=== PATIENT | male | born 1960 | race African-American/Black ===

== ENCOUNTER 2016-06-18 16:20 | Inpatient (IN) ==
[2016-06-18] MEDS ORDERED: 0.9 % Sodium Chloride 1,000 ML IVC ONE (16:47)
[2016-06-18] MEDS ORDERED: Ondansetron 4 MG/2 ML VIAL IV ONE (17:01)
[2016-06-18] MEDS ORDERED: Ipratropium/Albuterol Neb 3 ML IH ONE (17:06)
[2016-06-18 18:32] LABS: Hemoglobin 10.7 g/dL (12.9-16.9); Nucleated Red Blood Cells 0.1 /100 WBC (0)
[2016-06-18] MEDS ORDERED: Levofloxacin 750 MG/150 ML 750 MG/150 ML BAG IVPB ONE (18:32)
[2016-06-18 18:33] LABS: Hematocrit 30.5 % (37.5-50.1); Mean Corpuscular HGB Conc 35.1 g/dL (31.6-35.5); Mean Corpuscular Hemoglobin 28.2 pg (28.0-33.3); Mean Corpuscular Volume 80.3 fL (83.0-100.0); Mean Platelet Volume 10.6 fL (9.4-12.4); Platelet Count 337 K/mcL (140-400); Red Cell Distribution Width 14.9 % (11.5-14.5)
--- NOTE | 2016-06-18 18:36 | Emergency Department Note ---
Disposition Clinical Impression: Severe sepsis, CLL (chronic lymphocytic leukemia) Left upper lobe pneumonia Qualifiers: Pneumonia type: due to unspecified organism Qualified Code(s): J18.1 - Lobar pneumonia, unspecified organism Sphenoid sinusitis Qualifiers: Chronicity: acute Recurrence: not specified as recurrent Qualified Code(s): J01.30 - Acute sphenoidal sinusitis, unspecified DKA (diabetic ketoacidoses) Qualifiers: Diabetes mellitus type: type 2 Diabetes mellitus complication detail: without coma Qualified Code(s): E13.10 - Other specified diabetes mellitus with ketoacidosis without coma Disposition: Admitted As Inpatient Condition: Serious Time of Disposition: 20:36 General Adult HPI - General Chief complaint: ED Upper Respiratory Infection Stated complaint: "spitting up a lot of mucus x2 days" Time Seen by Provider: 06/18/16 16:44 Source: patient Limitations: no limitations Nursing Notes Reviewed: Yes Vital Signs Reviewed: Yes - History of Present Illness HPI Narrative: Patient a 56-year-old male presents with worsening cough and congestion over the past 3 days. Patient has a history of CVA in 2014 with left-sided deficits requiring a cane to walk, CLL and is also diabetic. Patient's reports worsening confusion over the past 2 days and increase sputum production with change in color and consistency getting darker and thicker. reports fever along the first 2 days but no fever yesterday and today. Patient also has generalized weakness worsening over the past 3 days. Patient smokes half pack a day Onset (ago): day(s) Location: chest Radiation: non-radiation Pain Scale: 0 - Related Data Home Medications Medication Instructions Recorded Confirmed Aspirin [Adult Low Dose Aspirin EC] 81 mg PO DAILY 02/15/15 02/29/16 Atorvastatin Calcium [Lipitor] 80 mg PO HS 02/15/15 02/29/16 Citalopram [CeleXA] 40 mg PO DAILY 02/15/15 02/29/16 Gabapentin [Neurontin] 600 mg PO TID 02/15/15 02/29/16 LevETIRAcetam [Keppra] 500 mg PO BID 02/15/15 02/29/16 Metformin [Glucophage] 500 mg PO BID MDD HOLD for 48 02/15/15 02/29/16 hours. Oxycodone HCl [Oxycontin] 5 mg PO BID PRN 02/15/15 02/29/16 Sennosides/Docusate Sodium [Senna 1 tab PO BID PRN 02/15/15 02/29/16 Plus] TraZODone 50 mg PO HS PRN 02/15/15 02/29/16 Aclidinium [place] [Tudorza 1 puff IH BID 08/02/15 02/29/16 Pressair] Albuterol Sulfate [Ventolin Hfa] 2 puff IH Q4H PRN 08/02/15 02/29/16 Oxycodone HCl/Acetaminophen 1 tab PO Q4-6H PRN 08/02/15 02/29/16 [Percocet 5-325 mg Tablet] Tamsulosin [Flomax] 0.4 mg PO DAILY 08/02/15 02/29/16 Promethazine [Phenergan] 25 mg PO Q6HR PRN 10/28/15 02/29/16 Pantoprazole Sodium [Protonix] 40 mg PO DAILY 12/22/15 02/29/16 Polyethylene Glycol 3350 [MiraLAX] 17 gm PO BID PRN 12/22/15 02/29/16 Ranitidine HCl [Zantac] 150 mg PO BID 12/22/15 02/29/16 Previous Rx's Medication Instructions Recorded Ondansetron HCl [Zofran] 4 mg PO Q6H PRN #30 tablet 03/01/15 Prochlorperazine Maleate 10 mg PO Q6HR PRN #30 tablet 03/01/15 [Compazine] Allergies Allergy/AdvReac Type Severity Reaction Status Date / Time Penicillins [PCN] Allergy Rash Verified 02/15/15 15:20 All systems ED: reviewed and negative except as stated. Constitutional: Reports: fever, chills, weakness Eyes: Denies: vision change ENT ED: Reports: congestion. Denies: ear pain, throat pain Cardiovascular: Denies: chest pain, palpitations Respiratory: Reports: cough, dyspnea, sputum production Gastrointestinal: Reports: abdominal pain. Denies: nausea, vomiting Genitourinary: Denies: urgency, dysuria Musculoskeletal: Denies: back pain, neck pain Integumentary: Denies: rash Neurological: Reports: weakness (Generalized) Past Medical History - Past Medical History Attestation: Yes The following information was validated with the patient. Source: patient, obtained from family Medical history: Reports: cancer, CVA, diabetes, hyperlipidemia, kidney stones, seizures Surgical history: Reports: orthopedic, other (carpal tunnel release) Psychiatric history: Reports: anxiety, depression - Social History Smoking Status: Current every day smoker Smokeless Tobacco Status: Yes Alcohol use: Reports: none Drug use: Reports: none Physical Exam - General Limitations: no limitations General appearance: alert, in no apparent distress - Head Head exam: atraumatic, normocephalic, normal inspection - Eye Eye exam: Present: normal appearance, PERRL, EOMI. Absent: scleral icterus - ENT ENT exam: normal exam, normal oropharynx, mucous membranes dry - Neck Neck exam: Present: normal inspection, full ROM, trachea midline. Absent: tenderness - Chest Chest inspection: Present: normal inspection, symmetric chest wall rise - Respiratory Respiratory exam: Present: other (Rhonchi heard in bilateral lung kam worse on the left. Patient has decreased lung sounds mid upper left upper lobe. Patient also has rough wet sounding cough) - Cardiovascular Cardiovascular exam: Present: regular rate, normal rhythm, normal heart sounds - Abdominal Exam Abdominal exam: Present: soft, tenderness (Tentative palpation. Periumbilical to upper epigastric ) - Extremities Exam Extremities exam: Present: normal inspection, full ROM, normal capillary refill , pedal edema (Left lower extremity 1+ pitting edema nontender to palpation). Absent: tenderness - Expanded Lower Extremity Exam Lower leg exam: Absent: palpable cord, Homans' sign Neurovascular/Tendon exam: Present: normal capillary refill. Absent: pulse deficit Course - Reevaluation(s) Reevaluation #1: 56-year-old male presents with increased weakness fatigue and generalized over the past 3 days after the onset of cough and congestion and fever. Patient has history of previous episodes of pneumonia. Patient is a chronic smoker of half pack a day. Patient has worsening confusion as well. History of CVA. Patient currently suspected for pneumonia, and PE, CVA, DKA, possible sepsis. Patient only has a sinus tachycardia. Need further lab evaluation before confirming sepsis. Time: 16:47 Reevaluation #2: Patient's labs came back positive for increased elevated white count of 37.1, elevated lactate, serum ketones and elevated beta hydroxybutyric acid. Patient is started on sepsis protocol for severe sepsis in setting of DKA and pneumonia Time: 18:48 Reevaluation #3: Patient started on antibiotic therapy the IV. Second lines were started. Patient receiving more IV fluids. Patient's doing okay. I have explained his condition and recommendation for admission. The patient accepts treatment and plan - Consultations Consultation #1: Patient is accepted for admission by Dr. Robles and recommends admission to 2A Time: 19:40 Vital Signs Temperature 98.5 F 06/18/16 16:22 Pulse Rate 133 06/18/16 16:22 Respiratory Rate 18 06/18/16 16:22 Blood Pressure 132/70 06/18/16 16:22 O2 Sat by Pulse Oximetry 89 06/18/16 16:22 Temperature 98.5 F 06/18/16 16:22 Pulse Rate 122 06/18/16 19:30 Respiratory Rate 20 06/18/16 19:30 Blood Pressure 140/80 06/18/16 19:30 O2 Sat by Pulse Oximetry 94 06/18/16 19:30 Oxygen Delivery Oxygen Delivery Nasal Cannula Medical Decision Making - Medical Records Medical records reviewed: Yes I reviewed the patient's medical records. - Lab Data Lab results reviewed: Yes I reviewed the patient's lab results. Lab results narrative: Short CBC 06/18/16 Range/Units 18:15 WBC 37.1 H* (4.3-11.1) K/mcL Hgb 10.7 L (12.9-16.9) g/dL Hct 30.5 L (37.5-50.1) % Plt Count 337 (140-400) K/mcL Neutrophils # 36.0 H (1.6-8.9) K/mcL BMP 06/18/16 Range/Units 18:15 Sodium 123 L (136-145) mEq/L Potassium 4.5 (3.5-4.5) mEq/L Chloride 76 L (98-109) mEq/L Carbon Dioxide 29 (19-29) mEq/L BUN 39 H (8-26) mg/dL Creatinine 1.36 H (0.72-1.25) mg/dL Glucose 504 H* (70-99) mg/dL Calcium 10.3 (8.6-10.8) mg/dL Cardiac Enzymes 06/18/16 Range/Units 18:15 Troponin I 0.00 (0-0.03) ng/mL Liver Function 06/18/16 Range/Units 18:15 Total Bilirubin 2.1 H (0.2-1.2) mg/dL Direct Bilirubin 1.6 H (0.0-0.5) mg/dL AST 43 H (5-34) Units/L ALT 25 (0-55) Units/L Alkaline Phosphatase 323 H (38-126) Units/L Albumin 2.1 L (3.5-5.0) g/dL Urine 06/18/16 Range/Units 18:57 Urine Color Dark Yellow (Yellow) Urine Clarity Turbid A (Clear) Urine pH 5.5 (5.0-8.0) pH Units Ur Specific [place] 1.027 H (1.010-1.025) Urine Protein 100 H (Neg-Trace) mg/dL Urine Glucose (UA) >=1000 H (Normal) mg/dL Result diagrams: 06/18/16 18:15 06/18/16 18:15 Lab Results 06/18/16 06/18/16 06/18/16 Range/Units 16:33 18:15 18:15 WBC 37.1 H* (4.3-11.1) K/mcL RBC 3.80 L (4.19-5.50) M/mcL Hgb 10.7 L (12.9-16.9) g/dL Hct 30.5 L (37.5-50.1) % MCV 80.3 L (83.0-100.0) fL MCH 28.2 (28.0-33.3) pg MCHC 35.1 (31.6-35.5) g/dL RDW 14.9 H (11.5-14.5) % Plt Count 337 (140-400) K/mcL MPV 10.6 (9.4-12.4) fL Seg Neutrophils % 93.0 % Band Neutrophils % 4.0 (0-4) % Lymphocytes % 3.0 % Neutrophils # 36.0 H (1.6-8.9) K/mcL Lymphocytes # 1.1 (0.6-4.6) K/mcL Nucleated RBCs/100 WBC 0.1 H (0) /100 WBC Platelet Estimate Normal (Normal) PT (9.4-12.1) Seconds INR APTT (26.0-36.0) Seconds ABG pH (7.32-7.45) pH Units ABG pCO2 (35-45) mmHg ABG pO2 (85-104) mmHg ABG HCO3 (21-27) mEQ/L ABG Total CO2 (20-26) mEq/L ABG O2 Saturation (95-98) % ABG Base Excess (-2.0 to 3.0) mEq/L Liter Flow L/MIN Blood Gas Modality Sodium 123 L (136-145) mEq/L Potassium 4.5 (3.5-4.5) mEq/L Chloride 76 L (98-109) mEq/L Carbon Dioxide 29 (19-29) mEq/L BUN 39 H (8-26) mg/dL Creatinine 1.36 H (0.72-1.25) mg/dL Est GFR ( Amer) > 60 (> 60) Est GFR (Non-Af Amer) 54 L (> 60) BUN/Creatinine Ratio 29 H (6-26) Glucose 504 H* (70-99) mg/dL POC Glucose 460 H* (58-89) Calculated Osmolality 288 (280-300) Lactic Acid (0.5-2.2) mmol/L Calcium 10.3 (8.6-10.8) mg/dL Phosphorus (2.3-4.7) mg/dL Magnesium (1.6-2.6) mg/dL Total Bilirubin (0.2-1.2) mg/dL Direct Bilirubin (0.0-0.5) mg/dL Indirect Bilirubin (0.0-1.2) mg/dL AST (5-34) Units/L ALT (0-55) Units/L Alkaline Phosphatase (38-126) Units/L Troponin I (0-0.03) ng/mL B-Natriuretic Peptide (0-100) pg/mL Serum Total Protein (6.0-8.3) g/dL Albumin (3.5-5.0) g/dL Globulin (2.4-3.5) g/dL Albumin/Globulin Ratio (1.1-2.2) Beta-Hydroxybutyric Acd (0.02-0.27) mmol/L Urine Color (Yellow) Urine Clarity (Clear) Urine pH (5.0-8.0) pH Units Ur Specific [place] (1.010-1.025) Urine Protein (Neg-Trace) mg/dL Urine Glucose (UA) (Normal) mg/dL Urine Ketones (Negative) mg/dL Urine Blood (Negative) Urine Nitrite (Negative) Urine Bilirubin (Negative) Urine Urobilinogen (Normal) mg/dL Ur Leukocyte Esterase (Negative) Urine Microscopic RBC (0-3) per hpf Urine Microscopic WBC (0-3) per hpf Ur Squamous Epith Cells (None-Few) per lpf Amorphous Sediment (Few) Urine Bacteria (None-Few) per hpf Ur Culture Indicated? (NO) 06/18/16 06/18/16 06/18/16 Range/Units 18:15 18:15 18:15 WBC (4.3-11.1) K/mcL RBC (4.19-5.50) M/mcL Hgb (12.9-16.9) g/dL Hct (37.5-50.1) % MCV (83.0-100.0) fL MCH (28.0-33.3) pg MCHC (31.6-35.5) g/dL RDW (11.5-14.5) % Plt Count (140-400) K/mcL MPV (9.4-12.4) fL Seg Neutrophils % % Band Neutrophils % (0-4) % Lymphocytes % % Neutrophils # (1.6-8.9) K/mcL Lymphocytes # (0.6-4.6) K/mcL Nucleated RBCs/100 WBC (0) /100 WBC Platelet Estimate (Normal) PT 16.3 H (9.4-12.1) Seconds INR 1.5 APTT 23.5 L (26.0-36.0) Seconds ABG pH (7.32-7.45) pH Units ABG pCO2 (35-45) mmHg ABG pO2 (85-104) mmHg ABG HCO3 (21-27) mEQ/L ABG Total CO2 (20-26) mEq/L ABG O2 Saturation (95-98) % ABG Base Excess (-2.0 to 3.0) mEq/L Liter Flow L/MIN Blood Gas Modality Sodium (136-145) mEq/L Potassium (3.5-4.5) mEq/L Chloride (98-109) mEq/L Carbon Dioxide (19-29) mEq/L BUN (8-26) mg/dL Creatinine (0.72-1.25) mg/dL Est GFR ( Amer) (> 60) Est GFR (Non-Af Amer) (> 60) BUN/Creatinine Ratio (6-26) Glucose (70-99) mg/dL POC Glucose (58-89) Calculated Osmolality (280-300) Lactic Acid 2.7 H (0.5-2.2) mmol/L Calcium (8.6-10.8) mg/dL Phosphorus (2.3-4.7) mg/dL Magnesium (1.6-2.6) mg/dL Total Bilirubin (0.2-1.2) mg/dL Direct Bilirubin (0.0-0.5) mg/dL Indirect Bilirubin (0.0-1.2) mg/dL AST (5-34) Units/L ALT (0-55) Units/L Alkaline Phosphatase (38-126) Units/L Troponin I (0-0.03) ng/mL B-Natriuretic Peptide (0-100) pg/mL Serum Total Protein (6.0-8.3) g/dL Albumin (3.5-5.0) g/dL Globulin (2.4-3.5) g/dL Albumin/Globulin Ratio (1.1-2.2) Beta-Hydroxybutyric Acd 0.83 H (0.02-0.27) mmol/L Urine Color (Yellow) Urine Clarity (Clear) Urine pH (5.0-8.0) pH Units Ur Specific [place] (1.010-1.025) Urine Protein (Neg-Trace) mg/dL Urine Glucose (UA) (Normal) mg/dL Urine Ketones (Negative) mg/dL Urine Blood (Negative) Urine Nitrite (Negative) Urine Bilirubin (Negative) Urine Urobilinogen (Normal) mg/dL Ur Leukocyte Esterase (Negative) Urine Microscopic RBC (0-3) per hpf Urine Microscopic WBC (0-3) per hpf Ur Squamous Epith Cells (None-Few) per lpf Amorphous Sediment (Few) Urine Bacteria (None-Few) per hpf Ur Culture Indicated? (NO) 06/18/16 06/18/16 06/18/16 Range/Units 18:15 18:15 18:15 WBC (4.3-11.1) K/mcL RBC (4.19-5.50) M/mcL Hgb (12.9-16.9) g/dL Hct (37.5-50.1) % MCV (83.0-100.0) fL MCH (28.0-33.3) pg MCHC (31.6-35.5) g/dL RDW (11.5-14.5) % Plt Count (140-400) K/mcL MPV (9.4-12.4) fL Seg Neutrophils % % Band Neutrophils % (0-4) % Lymphocytes % % Neutrophils # (1.6-8.9) K/mcL Lymphocytes # (0.6-4.6) K/mcL Nucleated RBCs/100 WBC (0) /100 WBC Platelet Estimate (Normal) PT (9.4-12.1) Seconds INR APTT (26.0-36.0) Seconds ABG pH (7.32-7.45) pH Units ABG pCO2 (35-45) mmHg ABG pO2 (85-104) mmHg ABG HCO3 (21-27) mEQ/L ABG Total CO2 (20-26) mEq/L ABG O2 Saturation (95-98) % ABG Base Excess (-2.0 to 3.0) mEq/L Liter Flow L/MIN Blood Gas Modality Sodium (136-145) mEq/L Potassium (3.5-4.5) mEq/L Chloride (98-109) mEq/L Carbon Dioxide (19-29) mEq/L BUN (8-26) mg/dL Creatinine (0.72-1.25) mg/dL Est GFR ( Amer) (> 60) Est GFR (Non-Af Amer) (> 60) BUN/Creatinine Ratio (6-26) Glucose (70-99) mg/dL POC Glucose (58-89) Calculated Osmolality (280-300) Lactic Acid (0.5-2.2) mmol/L Calcium (8.6-10.8) mg/dL Phosphorus 3.6 (2.3-4.7) mg/dL Magnesium 2.3 (1.6-2.6) mg/dL Total Bilirubin 2.1 H (0.2-1.2) mg/dL Direct Bilirubin 1.6 H (0.0-0.5) mg/dL Indirect Bilirubin 0.5 (0.0-1.2) mg/dL AST 43 H (5-34) Units/L ALT 25 (0-55) Units/L Alkaline Phosphatase 323 H (38-126) Units/L Troponin I 0.00 (0-0.03) ng/mL B-Natriuretic Peptide 33 (0-100) pg/mL Serum Total Protein 6.2 (6.0-8.3) g/dL Albumin 2.1 L (3.5-5.0) g/dL Globulin 4.1 H (2.4-3.5) g/dL Albumin/Globulin Ratio 0.5 L (1.1-2.2) Beta-Hydroxybutyric Acd (0.02-0.27) mmol/L Urine Color (Yellow) Urine Clarity (Clear) Urine pH (5.0-8.0) pH Units Ur Specific [place] (1.010-1.025) Urine Protein (Neg-Trace) mg/dL Urine Glucose (UA) (Normal) mg/dL Urine Ketones (Negative) mg/dL Urine Blood (Negative) Urine Nitrite (Negative) Urine Bilirubin (Negative) Urine Urobilinogen (Normal) mg/dL Ur Leukocyte Esterase (Negative) Urine Microscopic RBC (0-3) per hpf Urine Microscopic WBC (0-3) per hpf Ur Squamous Epith Cells (None-Few) per lpf Amorphous Sediment (Few) Urine Bacteria (None-Few) per hpf Ur Culture Indicated? (NO) 06/18/16 06/18/16 06/18/16 Range/Units 18:57 20:10 20:12 WBC (4.3-11.1) K/mcL RBC (4.19-5.50) M/mcL Hgb (12.9-16.9) g/dL Hct (37.5-50.1) % MCV (83.0-100.0) fL MCH (28.0-33.3) pg MCHC (31.6-35.5) g/dL RDW (11.5-14.5) % Plt Count (140-400) K/mcL MPV (9.4-12.4) fL Seg Neutrophils % % Band Neutrophils % (0-4) % Lymphocytes % % Neutrophils # (1.6-8.9) K/mcL Lymphocytes # (0.6-4.6) K/mcL Nucleated RBCs/100 WBC (0) /100 WBC Platelet Estimate (Normal) PT (9.4-12.1) Seconds INR APTT (26.0-36.0) Seconds ABG pH 7.51 H (7.32-7.45) pH Units ABG pCO2 41 (35-45) mmHg ABG pO2 76 L (85-104) mmHg ABG HCO3 32.7 H (21-27) mEQ/L ABG Total CO2 34.0 H (20-26) mEq/L ABG O2 Saturation 96 (95-98) % ABG Base Excess 8.9 H (-2.0 to 3.0) mEq/L Liter Flow 2.5 L/MIN Blood Gas Modality NC Sodium (136-145) mEq/L Potassium (3.5-4.5) mEq/L Chloride (98-109) mEq/L Carbon Dioxide (19-29) mEq/L BUN (8-26) mg/dL Creatinine (0.72-1.25) mg/dL Est GFR ( Amer) (> 60) Est GFR (Non-Af Amer) (> 60) BUN/Creatinine Ratio (6-26) Glucose (70-99) mg/dL POC Glucose 326 H (58-89) Calculated Osmolality (280-300) Lactic Acid (0.5-2.2) mmol/L Calcium (8.6-10.8) mg/dL Phosphorus (2.3-4.7) mg/dL Magnesium (1.6-2.6) mg/dL Total Bilirubin (0.2-1.2) mg/dL Direct Bilirubin (0.0-0.5) mg/dL Indirect Bilirubin (0.0-1.2) mg/dL AST (5-34) Units/L ALT (0-55) Units/L Alkaline Phosphatase (38-126) Units/L Troponin I (0-0.03) ng/mL B-Natriuretic Peptide (0-100) pg/mL Serum Total Protein (6.0-8.3) g/dL Albumin (3.5-5.0) g/dL Globulin (2.4-3.5) g/dL Albumin/Globulin Ratio (1.1-2.2) Beta-Hydroxybutyric Acd (0.02-0.27) mmol/L Urine Color Dark Yellow (Yellow) Urine Clarity Turbid A (Clear) Urine pH 5.5 (5.0-8.0) pH Units Ur Specific [place] 1.027 H (1.010-1.025) Urine Protein 100 H (Neg-Trace) mg/dL Urine Glucose (UA) >=1000 H (Normal) mg/dL Urine Ketones Negative (Negative) mg/dL Urine Blood Trace H (Negative) Urine Nitrite Negative (Negative) Urine Bilirubin Small H (Negative) Urine Urobilinogen 4.0 H (Normal) mg/dL Ur Leukocyte Esterase Negative (Negative) Urine Microscopic RBC 0-3 (0-3) per hpf Urine Microscopic WBC 5-15 H (0-3) per hpf Ur Squamous Epith Cells Many H (None-Few) per lpf Amorphous Sediment Moderate H (Few) Urine Bacteria None Seen (None-Few) per hpf Ur Culture Indicated? YES A (NO) - Radiology Data Radiology results reviewed: Yes I reviewed the patient's radiology results. Chest X-Ray 06/18/16 16:59 IMPRESSION: 1. Large region of consolidation and air bronchograms within the left mid lung compatible with pneumonia. D/ / Manjinder Rivas MD / Manjinder Rivas MD Interpreting Provider: Manjinder Rivas MD Head CT 06/18/16 17:01 IMPRESSION: 1. No acute intracranial abnormality. 2. Acute left sphenoid sinusitis. D/ / Jovi Motley MD / Jovi Motley MD Interpreting Provider: Jovi Motley MD - EKG Data EKG #1 EKG attestation: Yes I reviewed and interpreted this EKG. EKG results narrative: EKG dated 06/18/2016 at 1642 hrs. shows a sinus tachycardia at a rate of [address] elevations and depressions in the leads, no QRS widening or QT prolongation. EKG compared to previous EKG taken 12/27/2015 which shows a sinus rhythm at a rate of 84 beats a minute with no signs of ischemia of ST depression and depressions in the leads. Critical Care Time Critical Care Time: Yes Total Critical Care Time: 35 Attestation: Starr care time managing patient's pneumonia, hypoxia, DKA, severe sepsis, and altered mental status. Attestation Statement - Attestation Attestation: Patient was seen with resident physician. I reviewed the history, physical, assessment and plan, and agree with the findings. I also personally evaluated this patient and had [id number] time with this patient. 56-year-old male presents to the emergency department with altered mental status cough and worsening shortness of breath. Patient has a history of stroke in the past, and said this is significantly different. She says he has just been more confused and not able take care of himself. She notes that he has had worsening shortness of breath with productive cough for the last several days to the point today he is really struggling and she is having a difficult time taking care of him. Patient self says he feels short of breath with cough he has no focal weaknesses or complaints thereof. Unsure about fevers. No nausea vomiting or diarrhea. On exam vital signs patient's tachycardic. Blood pressure is stable. ENT is unremarkable. Lungs diffuse wheezing and crackles throughout. Decreased breath sounds also noted. Heart tachycardic regular rhythm. Abdomen soft nontender. Extremities unremarkable. Neurologically patient answers all questions to me moves extremities equally and has no focal neurologic findings. Workup was begun for variety of issues. Head CT scan showed sinusitis. Labs showed DKA with increased glucose level. As well as a variety of other abnormalities including a white blood cell count greater than 30,000. Patient met severe sepsis criteria that protocol was activated. He received IV fluids multiple IV antibiotics. Critical care time for this patient was 35 minutes to manage his severe sepsis. Hospitalist was notified of the need for admission and admission was subtotally arranged. Hemodynamically the patient remained tachycardic but blood pressure was stable throughout his stay in the ED. Mental status also was stable. Patient was also somewhat improved with breathing treatments. I agree with the resident physician assessment plan.
[2016-06-18 18:45] LABS: BUN/Creatinine Ratio 29 (6-26); Blood Urea Nitrogen 39 mg/dL (8-26); Calcium 10.3 mg/dL (8.6-10.8); Carbon Dioxide 29 mEq/L (19-29); Chloride 76 mEq/L (98-109); Osmolality,Calculated 288 (280-300); Potassium 4.5 mEq/L (3.5-4.5); Sodium 123 mEq/L (136-145); eGFR For African Americans > 60 (> 60); eGFR For Non-African Americans 54 (> 60)
[2016-06-18] MEDS ORDERED: Aztreonam 2,000 MG in D5% in Water (Mini-Bag+) 100 ML IVPB ONE (18:48)
[2016-06-18 18:49] LABS: Glucose 504 mg/dL (70-99)
[2016-06-18] MEDS ORDERED: Insulin Human Regular 20 UNIT in 0.9 % Sodium Chloride 10 ML IV ONE (18:52)
[2016-06-18 18:59] LABS: Lymphocytes # 1.1 K/mcL (0.6-4.6)
[2016-06-18 19:00] LABS: Platelet Estimate Normal (Normal)
[2016-06-18 19:06] LABS: Bilirubin,Urine Small (Negative); Blood,Urine Trace (Negative); Clarity,Urine Turbid (Clear); Color,Urine Dark Yellow (Yellow); Glucose,Urine (UA) >=1000 mg/dL (Normal); Ketones,Urine Negative (Negative); Leukocyte Esterase,Urine Negative (Negative); Nitrite,Urine Negative (Negative); PH,Urine 5.5 pH Units (5.0-8.0); Protein,Urine 100 mg/dL (Neg-Trace); Specific Gravity,Urine 1.027 (1.010-1.025)
[2016-06-18 19:07] LABS: INR 1.5; Prothrombin Time 16.3 Seconds (9.4-12.1)
[2016-06-18 19:08] LABS: Bacteria,Urine None Seen per hpf (None-Few); RBC,Urine 0-3 per hpf (0-3); Squamous Epithelial Cell,Urine Many per lpf (None-Few)
[2016-06-18 19:10] LABS: Activated Partial Thrombo Time 23.5 Seconds (26.0-36.0)
[2016-06-18 19:17] LABS: Albumin 2.1 g/dL (3.5-5.0); Albumin/Globulin Ratio 0.5 (1.1-2.2); Bilirubin,Direct 1.6 mg/dL (0.0-0.5); Bilirubin,Indirect 0.5 mg/dL (0.0-1.2); Bilirubin,Total 2.1 mg/dL (0.2-1.2); Globulin 4.1 g/dL (2.4-3.5); Magnesium 2.3 mg/dL (1.6-2.6); Phosphorous 3.6 mg/dL (2.3-4.7); Total Protein 6.2 g/dL (6.0-8.3)
[2016-06-18 19:21] LABS: Amorphous Sediment,Urine Moderate (Few)
[2016-06-18 20:18] LABS: ABG Base Excess 8.9 mEq/L (-2.0 to 3.0); ABG HCO3 32.7 mEQ/L (21-27); ABG Oxygen Saturation 96 % (95-98); ABG PCO2 41 mmHg (35-45); ABG PH 7.51 pH Units (7.32-7.45); ABG PO2 76 mmHg (85-104); Blood Gas Liter Flow 2.5 L/MIN
[2016-06-18] MEDS ORDERED: 0.9 % Sodium Chloride 1,000 ML ONE (20:38)
[2016-06-18] MEDS: 0.9 % Sodium Chloride 1,000 ML IVC SCH ×3 (20:40→22:03)
[2016-06-18] MEDS ORDERED: Insulin LISPRO 300 UNITS/3 ML VIAL SQ PRN (20:42)
[2016-06-18] MEDS ORDERED: Acetaminophen 325 MG TABLET PO PRN (20:42)
[2016-06-18] MEDS ORDERED: Naloxone 0.4 MG/ML INJ IVP PRN (20:42)
[2016-06-18] MEDS ORDERED: Insulin Human Regular 100 UNIT in 0.9 % Sodium Chloride 100 ML IVC SCH (20:45)
[2016-06-18] MEDS ORDERED: Albuterol 2.5 MG/3 ML NEBULIZER IH PRN (21:52)
--- NOTE | 2016-06-18 22:06 | Internal Med History&Physical ---
<Kaitlin King - Last Filed: 06/18/16 23:35> Date of Encounter: 06/18/16 Time of Encounter: 22:00 Assessment and Plan (1) Severe sepsis Current visit: Yes Status: Acute Patient with pneumonia, elevated WBC count to 37.1, tachycardia with HR 110s, and lactate elevated to 2.7, meeting criteria for severe sepsis. Repeat lactate 2.7 again Blood cultures, urine culture, sputum cultures ordered. 3L of fluid bolus ordered Broad spectrum antibiotics initiated with Aztreonam, Levaquin and vancomycin. (2) Uncontrolled type 2 DM with hyperosmolar nonketotic hyperglycemia Current visit: Yes Status: Acute Patient with blood sugar 504, Anion gap 18, elevated serum ketones, but no ketonuria. ABG did not show acidosis. Patient has Hyperglycemic hyperosmolar syndrome. Given 3L of fluid boluses, plus fluid replacement per [facility] protocol. Check blood sugars Q1hr Insulin drip with [facility] protocol Recheck BMP Q4hrs. Replace electrolytes as necessary. De-escalate to basal insulin and sliding scale when blood sugars come down to < 300 and anion gap closes. (3) Pneumonia Current visit: Yes Status: Acute Patient with cough, shortness of breath, fever and chills. CXR shows large region of consolidation in left lung consistent with pneumonia. On exam, patient with rhonchi on the left side. WBC elevated to 37.1. Lactate elevated to 2.7. Sputum cultures and blood cultures ordered. Fluid boluses given. Broad spectrum antibiotics initiated with Levaquin, Aztreonam and vancomycin. duoneb treatments QID albuterol nebulizer Q2hr PRN titrate oxygen to maintain O2 saturation > 92%. Qualifiers: Pneumonia type: due to unspecified organism Laterality: left Lung location: unspecified part of lung Qualified Code(s): J18.9 - Pneumonia, unspecified organism (4) Seizure disorder Current visit: No Status: Acute Continue home dose of Keppra. Seizure precautions. (5) DENZEL (acute kidney injury) Current visit: Yes Status: Acute BUN elevated to 39 and Cr elevated to 1.36, likely due to dehydration secondary to HHS. Patient getting large amount of fluid replacement for sepsis and [facility] protocol. Rechecking chemistry Q4 hours and will monitor. (6) DVT prophylaxis Current visit: No Status: Acute Ambulated with assistance anti-embolic stockings heparin 5000u SQ TID Internal Medicine - H&P: HPI Chief complaint: fever, cough, confusion Admitted From: Emergency Dept Plans for Post Hospital Care: Home History of present illness: Mr. Mcleod is a 56 year old male is, seizure disorder, history of CVA with residual left-sided weakness, history of CLL, presented to the emergency department today with complaints of cough, congestion, fever, and confusion. Patient had increasing cough, and congestion over the last several days, accompanied by fevers at home with chills, sweats, and body aches. His family reported that he has been making off the wall comments, but is oriented. Patient reports some lightheadedness occasionally, denies any chest pain, or palpitations. Shortness of breath increasing over the last several days as well. He denies any dysuria, but reports increased thirst and increased urination. Evaluation in the emergency department included a head CT which showed no acute intracranial abnormality, but acute left sphenoid sinusitis. He showed a large region of consolidation in the left lung consistent with pneumonia. Lab results showed increased white blood cell count to 37.1. Lactic acid was elevated to 2.7, and with tachycardia with HR in 110s, patient has severe sepsis. He had hyperglycemia with glucose of 504, and with anion gap of 18 and increased serum ketones, he was found have hyperglycemic hyperosmolar syndrome. He also had acute kidney injury with BUN of 39 and creatinine 1.36. On exam, patient was alert and oriented, in no acute distress. He was satting 95% on 2 L nasal cannula. Lungs had rhonchi on the left and clear on the right. Heart rate was tachycardic with regular rhythm. Past Med Surg Social Fam HX - Past Medical History Medical history: cancer, CVA, diabetes, hyperlipidemia, seizures Psychiatric history: anxiety, depression - Past Surgical History Surgical History: appendectomy, orthopedic, other - Social History Smoking Status: Current every day smoker Packs per day: 1 Smokeless Tobacco Status: Yes Alcohol use: none Drug use: marijuana - Family History Mother Living Status: Age at : 79 Cause of : Pancreatic cancer Hx Family Endocrine Disorder: Yes (Diabetes) Father Living Status: Age at : 60 Cause of : Heart surgery Hx Family Cardiac Disorders: Yes Internal Medicine - H&P: Meds Aspirin [Adult Low Dose Aspirin EC] 81 mg PO DAILY 02/15/15 [History] Atorvastatin Calcium [Lipitor] 80 mg PO HS 02/15/15 [History] Citalopram [CeleXA] 40 mg PO DAILY 02/15/15 [History] Gabapentin [Neurontin] 600 mg PO TID 02/15/15 [History] LevETIRAcetam [Keppra] 500 mg PO BID 02/15/15 [History] Metformin [Glucophage] 500 mg PO BID MDD HOLD for 48 hours. 02/15/15 [History] Oxycodone HCl [Oxycontin] 5 mg PO BID PRN 02/15/15 [History] Sennosides/Docusate Sodium [Senna Plus] 1 tab PO BID PRN 02/15/15 [History] TraZODone 50 mg PO HS PRN 02/15/15 [History] Ondansetron HCl [Zofran] 4 mg PO Q6H PRN #30 tablet 03/01/15 [Rx] Prochlorperazine Maleate [Compazine] 10 mg PO Q6HR PRN #30 tablet 03/01/15 [Rx] Aclidinium [place] [Tudorza Pressair] 1 puff IH BID 08/02/15 [History] Albuterol Sulfate [Ventolin Hfa] 2 puff IH Q4H PRN 08/02/15 [History] Oxycodone HCl/Acetaminophen [Percocet 5-325 mg Tablet] 1 tab PO Q4-6H PRN [History] Tamsulosin [Flomax] 0.4 mg PO DAILY 08/02/15 [History] Promethazine [Phenergan] 25 mg PO Q6HR PRN 10/28/15 [History] Pantoprazole Sodium [Protonix] 40 mg PO DAILY 12/22/15 [History] Polyethylene Glycol 3350 [MiraLAX] 17 gm PO BID PRN 12/22/15 [History] Ranitidine HCl [Zantac] 150 mg PO BID 12/22/15 [History] Allergies Penicillins [PCN] Allergy (Verified 02/15/15 15:20) Rash All Systems PM: A 10-system review of systems was performed and is negative for pertinent findings except as documented above in the HPI. - Constitutional Constitutional: chills, fatigue, fever(s), night sweats - EENT Eyes: no change in vision, no discharge, no pain, no photophobia Ears: no ear discharge, no ear pain, no tinnitus Nose, mouth and throat: nasal congestion, nasal discharge, no dysphagia, no neck pain, no sore throat - Cardiovascular Cardiovascular ROS IM: dyspnea, dyspnea on exertion, lightheadedness, no chest pain, no diaphoresis, no palpitations, no syncope - Respiratory Respiratory: cough, dyspnea, dyspnea on exertion, chest congestion, excessive phlegm production, change in phlegm color, no wheezing - Gastrointestinal Gastrointestinal: no abdominal pain, no diarrhea, no hematemesis, no hematochezia, no melena, no nausea, no vomiting - Genitourinary Genitourinary ROS male: urinary frequency - Musculoskeletal Musculoskeletal ROS IM: no numbness, no tingling - Integumentary Integumentary IM: no rash, no unusual bruising - Neurological Neurological ROS: no confusion, no convulsions, no focal weakness, no numbness, no tingling, no tremor(s) - Endocrine Endocrine IM: polydipsia, polyuria - Hematologic/Lymphatic Hematologic/Lymphatic: no easy bruising - Constitutional Vitals: Temp Pulse Resp BP Pulse Ox 98.0 F 110 28 121/74 94 06/18/16 20:53 06/18/16 21:00 06/18/16 21:00 06/18/16 21:00 06/18/16 21:00 General appearance: Present: A&O X 3, pleasant, no acute distress - Head Head exam: Present: atraumatic, normocephalic - Eye Eye exam: Present: PERRL, conjuntiva pink, sclera anicteric Pupils: Present: PERRL - Neck Neck exam general surgery: Present: supple, trachea midline. Absent: lymphadenopathy - Respiratory Respiratory exam: Present: rhonchi. Absent: accessory muscle use, rales, wheezes - Cardiovascular Cardiovascular exam: Present: +S1, +S2, tachycardia. Absent: diastolic murmur, gallop, rubs, systolic murmur - GI/Abdominal GI/Abdominal exam: Present: normal bowel sounds, soft, no peritoneal signs. Absent: distended, tenderness - Extremities Exam Extremities exam: Present: warm, radial pulses palpable and symetrical. Absent : calf tenderness, cyanotic, pedal edema - Neurological Exam Neurological exam: Present: CN II-XII intact, oriented X3, no focal deficits. Absent: facial droop, speech deficit - Skin Skin exam: Present: dry, intact Internal Med - H&P Results - Labs CBC & Chem 7: 06/18/16 18:15 06/18/16 22:49 Labs: All Lab Results (24 Hours) 06/18/16 06/18/16 06/18/16 Range/Units 16:33 18:15 18:15 WBC 37.1 H* (4.3-11.1) K/mcL RBC 3.80 L (4.19-5.50) M/mcL Hgb 10.7 L (12.9-16.9) g/dL Hct 30.5 L (37.5-50.1) % MCV 80.3 L (83.0-100.0) fL MCH 28.2 (28.0-33.3) pg MCHC 35.1 (31.6-35.5) g/dL RDW 14.9 H (11.5-14.5) % Plt Count 337 (140-400) K/mcL MPV 10.6 (9.4-12.4) fL Seg Neutrophils % 93.0 % Band Neutrophils % 4.0 (0-4) % Lymphocytes % 3.0 % Neutrophils # 36.0 H (1.6-8.9) K/mcL Lymphocytes # 1.1 (0.6-4.6) K/mcL Nucleated RBCs/100 WBC 0.1 H (0) /100 WBC Platelet Estimate Normal (Normal) PT (9.4-12.1) Seconds INR APTT (26.0-36.0) Seconds ABG pH (7.32-7.45) pH Units ABG pCO2 (35-45) mmHg ABG pO2 (85-104) mmHg ABG HCO3 (21-27) mEQ/L ABG Total CO2 (20-26) mEq/L ABG O2 Saturation (95-98) % ABG Base Excess (-2.0 to 3.0) mEq/L Liter Flow L/MIN Blood Gas Modality Sodium 123 L (136-145) mEq/L Potassium 4.5 (3.5-4.5) mEq/L Chloride 76 L (98-109) mEq/L Carbon Dioxide 29 (19-29) mEq/L BUN 39 H (8-26) mg/dL Creatinine 1.36 H (0.72-1.25) mg/dL Est GFR ( Amer) > 60 (> 60) Est GFR (Non-Af Amer) 54 L (> 60) BUN/Creatinine Ratio 29 H (6-26) Glucose 504 H* (70-99) mg/dL POC Glucose 460 H* (58-89) Calculated Osmolality 288 (280-300) Lactic Acid (0.5-2.2) mmol/L Calcium 10.3 (8.6-10.8) mg/dL Phosphorus (2.3-4.7) mg/dL Magnesium (1.6-2.6) mg/dL Total Bilirubin (0.2-1.2) mg/dL Direct Bilirubin (0.0-0.5) mg/dL Indirect Bilirubin (0.0-1.2) mg/dL AST (5-34) Units/L ALT (0-55) Units/L Alkaline Phosphatase (38-126) Units/L Troponin I (0-0.03) ng/mL B-Natriuretic Peptide (0-100) pg/mL Serum Total Protein (6.0-8.3) g/dL Albumin (3.5-5.0) g/dL Globulin (2.4-3.5) g/dL Albumin/Globulin Ratio (1.1-2.2) Beta-Hydroxybutyric Acd (0.02-0.27) mmol/L Urine Color (Yellow) Urine Clarity (Clear) Urine pH (5.0-8.0) pH Units Ur Specific [place] (1.010-1.025) Urine Protein (Neg-Trace) mg/dL Urine Glucose (UA) (Normal) mg/dL Urine Ketones (Negative) mg/dL Urine Blood (Negative) Urine Nitrite (Negative) Urine Bilirubin (Negative) Urine Urobilinogen (Normal) mg/dL Ur Leukocyte Esterase (Negative) Urine Microscopic RBC (0-3) per hpf Urine Microscopic WBC (0-3) per hpf Ur Squamous Epith Cells (None-Few) per lpf Amorphous Sediment (Few) Urine Bacteria (None-Few) per hpf Ur Culture Indicated? (NO) 06/18/16 06/18/16 06/18/16 Range/Units 18:15 18:15 18:15 WBC (4.3-11.1) K/mcL RBC (4.19-5.50) M/mcL Hgb (12.9-16.9) g/dL Hct (37.5-50.1) % MCV (83.0-100.0) fL MCH (28.0-33.3) pg MCHC (31.6-35.5) g/dL RDW (11.5-14.5) % Plt Count (140-400) K/mcL MPV (9.4-12.4) fL Seg Neutrophils % % Band Neutrophils % (0-4) % Lymphocytes % % Neutrophils # (1.6-8.9) K/mcL Lymphocytes # (0.6-4.6) K/mcL Nucleated RBCs/100 WBC (0) /100 WBC Platelet Estimate (Normal) PT 16.3 H (9.4-12.1) Seconds INR 1.5 APTT 23.5 L (26.0-36.0) Seconds ABG pH (7.32-7.45) pH Units ABG pCO2 (35-45) mmHg ABG pO2 (85-104) mmHg ABG HCO3 (21-27) mEQ/L ABG Total CO2 (20-26) mEq/L ABG O2 Saturation (95-98) % ABG Base Excess (-2.0 to 3.0) mEq/L Liter Flow L/MIN Blood Gas Modality Sodium (136-145) mEq/L Potassium (3.5-4.5) mEq/L Chloride (98-109) mEq/L Carbon Dioxide (19-29) mEq/L BUN (8-26) mg/dL Creatinine (0.72-1.25) mg/dL Est GFR ( Amer) (> 60) Est GFR (Non-Af Amer) (> 60) BUN/Creatinine Ratio (6-26) Glucose (70-99) mg/dL POC Glucose (58-89) Calculated Osmolality (280-300) Lactic Acid 2.7 H (0.5-2.2) mmol/L Calcium (8.6-10.8) mg/dL Phosphorus (2.3-4.7) mg/dL Magnesium (1.6-2.6) mg/dL Total Bilirubin (0.2-1.2) mg/dL Direct Bilirubin (0.0-0.5) mg/dL Indirect Bilirubin (0.0-1.2) mg/dL AST (5-34) Units/L ALT (0-55) Units/L Alkaline Phosphatase (38-126) Units/L Troponin I (0-0.03) ng/mL B-Natriuretic Peptide (0-100) pg/mL Serum Total Protein (6.0-8.3) g/dL Albumin (3.5-5.0) g/dL Globulin (2.4-3.5) g/dL Albumin/Globulin Ratio (1.1-2.2) Beta-Hydroxybutyric Acd 0.83 H (0.02-0.27) mmol/L Urine Color (Yellow) Urine Clarity (Clear) Urine pH (5.0-8.0) pH Units Ur Specific [place] (1.010-1.025) Urine Protein (Neg-Trace) mg/dL Urine Glucose (UA) (Normal) mg/dL Urine Ketones (Negative) mg/dL Urine Blood (Negative) Urine Nitrite (Negative) Urine Bilirubin (Negative) Urine Urobilinogen (Normal) mg/dL Ur Leukocyte Esterase (Negative) Urine Microscopic RBC (0-3) per hpf Urine Microscopic WBC (0-3) per hpf Ur Squamous Epith Cells (None-Few) per lpf Amorphous Sediment (Few) Urine Bacteria (None-Few) per hpf Ur Culture Indicated? (NO) 06/18/16 06/18/16 06/18/16 Range/Units 18:15 18:15 18:15 WBC (4.3-11.1) K/mcL RBC (4.19-5.50) M/mcL Hgb (12.9-16.9) g/dL Hct (37.5-50.1) % MCV (83.0-100.0) fL MCH (28.0-33.3) pg MCHC (31.6-35.5) g/dL RDW (11.5-14.5) % Plt Count (140-400) K/mcL MPV (9.4-12.4) fL Seg Neutrophils % % Band Neutrophils % (0-4) % Lymphocytes % % Neutrophils # (1.6-8.9) K/mcL Lymphocytes # (0.6-4.6) K/mcL Nucleated RBCs/100 WBC (0) /100 WBC Platelet Estimate (Normal) PT (9.4-12.1) Seconds INR APTT (26.0-36.0) Seconds ABG pH (7.32-7.45) pH Units ABG pCO2 (35-45) mmHg ABG pO2 (85-104) mmHg ABG HCO3 (21-27) mEQ/L ABG Total CO2 (20-26) mEq/L ABG O2 Saturation (95-98) % ABG Base Excess (-2.0 to 3.0) mEq/L Liter Flow L/MIN Blood Gas Modality Sodium (136-145) mEq/L Potassium (3.5-4.5) mEq/L Chloride (98-109) mEq/L Carbon Dioxide (19-29) mEq/L BUN (8-26) mg/dL Creatinine (0.72-1.25) mg/dL Est GFR ( Amer) (> 60) Est GFR (Non-Af Amer) (> 60) BUN/Creatinine Ratio (6-26) Glucose (70-99) mg/dL POC Glucose (58-89) Calculated Osmolality (280-300) Lactic Acid (0.5-2.2) mmol/L Calcium (8.6-10.8) mg/dL Phosphorus 3.6 (2.3-4.7) mg/dL Magnesium 2.3 (1.6-2.6) mg/dL Total Bilirubin 2.1 H (0.2-1.2) mg/dL Direct Bilirubin 1.6 H (0.0-0.5) mg/dL Indirect Bilirubin 0.5 (0.0-1.2) mg/dL AST 43 H (5-34) Units/L ALT 25 (0-55) Units/L Alkaline Phosphatase 323 H (38-126) Units/L Troponin I 0.00 (0-0.03) ng/mL B-Natriuretic Peptide 33 (0-100) pg/mL Serum Total Protein 6.2 (6.0-8.3) g/dL Albumin 2.1 L (3.5-5.0) g/dL Globulin 4.1 H (2.4-3.5) g/dL Albumin/Globulin Ratio 0.5 L (1.1-2.2) Beta-Hydroxybutyric Acd (0.02-0.27) mmol/L Urine Color (Yellow) Urine Clarity (Clear) Urine pH (5.0-8.0) pH Units Ur Specific [place] (1.010-1.025) Urine Protein (Neg-Trace) mg/dL Urine Glucose (UA) (Normal) mg/dL Urine Ketones (Negative) mg/dL Urine Blood (Negative) Urine Nitrite (Negative) Urine Bilirubin (Negative) Urine Urobilinogen (Normal) mg/dL Ur Leukocyte Esterase (Negative) Urine Microscopic RBC (0-3) per hpf Urine Microscopic WBC (0-3) per hpf Ur Squamous Epith Cells (None-Few) per lpf Amorphous Sediment (Few) Urine Bacteria (None-Few) per hpf Ur Culture Indicated? (NO) 06/18/16 06/18/16 06/18/16 Range/Units 18:57 20:10 20:12 WBC (4.3-11.1) K/mcL RBC (4.19-5.50) M/mcL Hgb (12.9-16.9) g/dL Hct (37.5-50.1) % MCV (83.0-100.0) fL MCH (28.0-33.3) pg MCHC (31.6-35.5) g/dL RDW (11.5-14.5) % Plt Count (140-400) K/mcL MPV (9.4-12.4) fL Seg Neutrophils % % Band Neutrophils % (0-4) % Lymphocytes % % Neutrophils # (1.6-8.9) K/mcL Lymphocytes # (0.6-4.6) K/mcL Nucleated RBCs/100 WBC (0) /100 WBC Platelet Estimate (Normal) PT (9.4-12.1) Seconds INR APTT (26.0-36.0) Seconds ABG pH 7.51 H (7.32-7.45) pH Units ABG pCO2 41 (35-45) mmHg ABG pO2 76 L (85-104) mmHg ABG HCO3 32.7 H (21-27) mEQ/L ABG Total CO2 34.0 H (20-26) mEq/L ABG O2 Saturation 96 (95-98) % ABG Base Excess 8.9 H (-2.0 to 3.0) mEq/L Liter Flow 2.5 L/MIN Blood Gas Modality [place] Sodium (136-145) mEq/L Potassium (3.5-4.5) mEq/L Chloride (98-109) mEq/L Carbon Dioxide (19-29) mEq/L BUN (8-26) mg/dL Creatinine (0.72-1.25) mg/dL Est GFR ( Amer) (> 60) Est GFR (Non-Af Amer) (> 60) BUN/Creatinine Ratio (6-26) Glucose (70-99) mg/dL POC Glucose 326 H (58-89) Calculated Osmolality (280-300) Lactic Acid (0.5-2.2) mmol/L Calcium (8.6-10.8) mg/dL Phosphorus (2.3-4.7) mg/dL Magnesium (1.6-2.6) mg/dL Total Bilirubin (0.2-1.2) mg/dL Direct Bilirubin (0.0-0.5) mg/dL Indirect Bilirubin (0.0-1.2) mg/dL AST (5-34) Units/L ALT (0-55) Units/L Alkaline Phosphatase (38-126) Units/L Troponin I (0-0.03) ng/mL B-Natriuretic Peptide (0-100) pg/mL Serum Total Protein (6.0-8.3) g/dL Albumin (3.5-5.0) g/dL Globulin (2.4-3.5) g/dL Albumin/Globulin Ratio (1.1-2.2) Beta-Hydroxybutyric Acd (0.02-0.27) mmol/L Urine Color Dark Yellow (Yellow) Urine Clarity Turbid A (Clear) Urine pH 5.5 (5.0-8.0) pH Units Ur Specific [place] 1.027 H (1.010-1.025) Urine Protein 100 H (Neg-Trace) mg/dL Urine Glucose (UA) >=1000 H (Normal) mg/dL Urine Ketones Negative (Negative) mg/dL Urine Blood Trace H (Negative) Urine Nitrite Negative (Negative) Urine Bilirubin Small H (Negative) Urine Urobilinogen 4.0 H (Normal) mg/dL Ur Leukocyte Esterase Negative (Negative) Urine Microscopic RBC 0-3 (0-3) per hpf Urine Microscopic WBC 5-15 H (0-3) per hpf Ur Squamous Epith Cells Many H (None-Few) per lpf Amorphous Sediment Moderate H (Few) Urine Bacteria None Seen (None-Few) per hpf Ur Culture Indicated? YES A (NO) 06/18/16 06/18/16 Range/Units 20:55 21:02 WBC (4.3-11.1) K/mcL RBC (4.19-5.50) M/mcL Hgb (12.9-16.9) g/dL Hct (37.5-50.1) % MCV (83.0-100.0) fL MCH (28.0-33.3) pg MCHC (31.6-35.5) g/dL RDW (11.5-14.5) % Plt Count (140-400) K/mcL MPV (9.4-12.4) fL Seg Neutrophils % % Band Neutrophils % (0-4) % Lymphocytes % % Neutrophils # (1.6-8.9) K/mcL Lymphocytes # (0.6-4.6) K/mcL Nucleated RBCs/100 WBC (0) /100 WBC Platelet Estimate (Normal) PT (9.4-12.1) Seconds INR APTT (26.0-36.0) Seconds ABG pH (7.32-7.45) pH Units ABG pCO2 (35-45) mmHg ABG pO2 (85-104) mmHg ABG HCO3 (21-27) mEQ/L ABG Total CO2 (20-26) mEq/L ABG O2 Saturation (95-98) % ABG Base Excess (-2.0 to 3.0) mEq/L Liter Flow L/MIN Blood Gas Modality Sodium (136-145) mEq/L Potassium (3.5-4.5) mEq/L Chloride (98-109) mEq/L Carbon Dioxide (19-29) mEq/L BUN (8-26) mg/dL Creatinine (0.72-1.25) mg/dL Est GFR ( Amer) (> 60) Est GFR (Non-Af Amer) (> 60) BUN/Creatinine Ratio (6-26) Glucose (70-99) mg/dL POC Glucose 350 H (58-89) Calculated Osmolality (280-300) Lactic Acid 2.6 H (0.5-2.2) mmol/L Calcium (8.6-10.8) mg/dL Phosphorus (2.3-4.7) mg/dL Magnesium (1.6-2.6) mg/dL Total Bilirubin (0.2-1.2) mg/dL Direct Bilirubin (0.0-0.5) mg/dL Indirect Bilirubin (0.0-1.2) mg/dL AST (5-34) Units/L ALT (0-55) Units/L Alkaline Phosphatase (38-126) Units/L Troponin I (0-0.03) ng/mL B-Natriuretic Peptide (0-100) pg/mL Serum Total Protein (6.0-8.3) g/dL Albumin (3.5-5.0) g/dL Globulin (2.4-3.5) g/dL Albumin/Globulin Ratio (1.1-2.2) Beta-Hydroxybutyric Acd (0.02-0.27) mmol/L Urine Color (Yellow) Urine Clarity (Clear) Urine pH (5.0-8.0) pH Units Ur Specific [place] (1.010-1.025) Urine Protein (Neg-Trace) mg/dL Urine Glucose (UA) (Normal) mg/dL Urine Ketones (Negative) mg/dL Urine Blood (Negative) Urine Nitrite (Negative) Urine Bilirubin (Negative) Urine Urobilinogen (Normal) mg/dL Ur Leukocyte Esterase (Negative) Urine Microscopic RBC (0-3) per hpf Urine Microscopic WBC (0-3) per hpf Ur Squamous Epith Cells (None-Few) per lpf Amorphous Sediment (Few) Urine Bacteria (None-Few) per hpf Ur Culture Indicated? (NO) - Diagnostic Studies Chest x-ray Additional comments: Chest X-Ray 06/18/16 16:59 IMPRESSION: 1. Large region of consolidation and air bronchograms within the left mid lung compatible with pneumonia. D/ / Manjinder Rivas MD / Manjinder Rivas MD Interpreting Provider: Manjinder Rivas MD CT scan - head Additional comments: Head CT 06/18/16 17:01 IMPRESSION: 1. No acute intracranial abnormality. 2. Acute left sphenoid sinusitis. D/ / Jovi Motley MD / Jovi Motley MD Interpreting Provider: Jovi Motley MD <Burke Robles - Last Filed: 06/19/16 06:25> Date of Encounter: 06/18/16 Internal Medicine - H&P: HPI History of present illness: Mr. Mcleod is a 56 year old male to [facility] to the emergency department with complaints of alteration in mental status associated with febrile illness with cough, congestion and generalized weakness of 3 days' duration. The patient was visited and interviewed and examined. He was found to be mildly encephalopathic. Oriented to self and disoriented to place and time and current circumstances of hospitalization. Details of collected from triage at intake and family members. Preliminary impression suggest severe sepsis secondary to complicated , healthcare associated pneumonia. Multiorgan derangements are noted raising the patient at increased risk for further acute clinical decline and potential morbidity. Workup and treatments will progress comprehensively. Patient has been admitted initially to the intensive care unit for higher level of care assignment and interventions. I examined this patient and my medical decision-making was reviewed with the Advanced Practice Nurse, Ms. Kaitlin King. For this encounter, I have reviewed the [employer] documentation, treatment plan, and medical decision making. I agree with the documented findings, disposition and treatment plan as described except to the extent set forth below. Cumulative laboratory and radiographic database was reviewed, considered and discussed. Given the presenting concerns, past medical history, clinical findings and symptoms, he is admitted at this time to undergo further evaluation and disposition. . All Systems PM: A 10-system review of systems was performed and is negative for pertinent findings except as documented above in the HPI. - Constitutional Vitals: Temp Pulse Resp BP Pulse Ox 97.7 F 98 18 123/68 96 06/19/16 04:19 06/19/16 05:00 06/19/16 05:42 06/19/16 05:00 06/19/16 05:42 Internal Med - H&P Results - Labs CBC & Chem 7: 06/19/16 03:06 06/19/16 03:06 Labs: Short CBC 06/19/16 Range/Units 03:06 WBC 34.5 H* (4.3-11.1) K/mcL Hgb 9.1 L D (12.9-16.9) g/dL Hct 26.5 L (37.5-50.1) % Plt Count 291 (140-400) K/mcL Neutrophils # 33.1 H (1.6-8.9) K/mcL BMP 06/18/16 06/19/16 22:49 03:06 Sodium 127 L 129 L Potassium 3.8 3.7 Chloride 87 L 91 L Carbon Dioxide 27 25 BUN 35 H 31 H Creatinine 1.07 0.90 Glucose 330 H 107 H Calcium 8.7 D 9.4 Liver Function 06/19/16 Range/Units 03:06 Total Bilirubin 1.7 H (0.2-1.2) mg/dL Direct Bilirubin 1.3 H (0.0-0.5) mg/dL AST 33 (5-34) Units/L ALT 18 (0-55) Units/L Alkaline Phosphatase 270 H (38-126) Units/L Albumin 1.6 L D (3.5-5.0) g/dL - ABG Interpretation ABG results: 06/19/16 03:06 VBG pH 7.51 H VBG pCO2 40 L VBG pO2 94 H VBG HCO3 31.9 H - Attending Attestation My signature below is to certify that this patient is under my care and that I, or nurse practitioner working with me, Ms. King, has had a [id number] encounter with this patient. Plan of care has been reviewed and discussed in detail with the patient and patient's caregivers. Questions were addressed. Advanced care directive discussion addressed. Patient does not declare any healthcare restrictions at this time per records. Outpatient medications schedules, confirmed and facilitated as appropriate. Reconciliation of home treatments including adjustments, substitutions and reintroduction into the treatment regimen as necessary maintenance therapies for chronic pre-existing medical conditions. Hospital course dictated by clinical findings, response and potential consultative interventions. The patient is at risk for acute clinical decline and morbidity given his presenting complaints, frailty and comorbidities in the setting of evolving multiorgan derangements. The patient is serious. Prognosis is guarded. CODE STATUS is full.
[2016-06-18] MEDS: levETIRAcetam 250 MG TABLET PO SCH (22:48)
[2016-06-18] MEDS ORDERED: Vancomycin 1,250 MG in D5% in Water 250 ML IVPB SCH (23:00)
[2016-06-18 23:08] LABS: BUN/Creatinine Ratio 33 (6-26); Blood Urea Nitrogen 35 mg/dL (8-26); Calcium 8.7 mg/dL (8.6-10.8); Carbon Dioxide 27 mEq/L (19-29); Chloride 87 mEq/L (98-109); Glucose 330 mg/dL (70-99); Osmolality,Calculated 285 (280-300); Phosphorous 2.6 mg/dL (2.3-4.7); Potassium 3.8 mEq/L (3.5-4.5); Sodium 127 mEq/L (136-145); eGFR For African Americans > 60 (> 60); eGFR For Non-African Americans > 60 (> 60)
[2016-06-18] MEDS: 0.9 % Sodium Chloride w KCl 20 MEQ/1,000 ML MLS IVC SCH ×2 (23:12→23:14)
[2016-06-19] MEDS: D5% in 0.45% NACL w KCl 20 MEQ/1,000 ML MLS IVC PRN ×4 (00:04→13:26)
[2016-06-19] MEDS: Ipratropium/Albuterol Neb 3 ML IH SCH ×5 (00:19→22:14)
[2016-06-19] MEDS: 0.9 % Sodium Chloride w KCl 20 MEQ/1,000 ML MLS IVC SCH ×7 (00:39→13:30)
[2016-06-19] MEDS: Aztreonam 2,000 MG in D5% in Water (Mini-Bag+) 100 ML IVPB SCH ×4 (01:05→23:14)
[2016-06-19] MEDS: Vancomycin 1,500 MG in D5% in Water 250 ML IVPB SCH ×2 (01:44→13:29)
[2016-06-19] MEDS ORDERED: Insulin Human Regular 100 UNIT in 0.9 % Sodium Chloride 100 ML IVC SCH (02:15)
[2016-06-19 03:20] LABS: Nucleated Red Blood Cells 0.1 /100 WBC (0); Red Cell Distribution Width 15.1 % (11.5-14.5)
[2016-06-19 03:22] LABS: Hematocrit 26.5 % (37.5-50.1); Hemoglobin 9.1 g/dL (12.9-16.9); Mean Corpuscular HGB Conc 34.3 g/dL (31.6-35.5); Mean Corpuscular Hemoglobin 28.1 pg (28.0-33.3); Mean Corpuscular Volume 81.8 fL (83.0-100.0); Mean Platelet Volume 10.8 fL (9.4-12.4); Platelet Count 291 K/mcL (140-400); Red Blood Count 3.24 M/mcL (4.19-5.50)
[2016-06-19 03:23] LABS: VBG HCO3 31.9 mEq/L (21-27); VBG PH 7.51 pH Units (7.32-7.42)
[2016-06-19 03:31] LABS: Alanine Aminotransferase 18 Units/L (0-55); Albumin/Globulin Ratio 0.4 (1.1-2.2); Alkaline Phosphatase 270 Units/L (38-126); Aspartate Amino Transferase 33 Units/L (5-34); BUN/Creatinine Ratio 34 (6-26); Bilirubin,Direct 1.3 mg/dL (0.0-0.5); Bilirubin,Indirect 0.4 mg/dL (0.0-1.2); Bilirubin,Total 1.7 mg/dL (0.2-1.2); Blood Urea Nitrogen 31 mg/dL (8-26); Calcium 9.4 mg/dL (8.6-10.8); Carbon Dioxide 25 mEq/L (19-29); Chloride 91 mEq/L (98-109); Globulin 4.2 g/dL (2.4-3.5); Glucose 107 mg/dL (70-99); Magnesium 2.1 mg/dL (1.6-2.6); Osmolality,Calculated 275 (280-300); Potassium 3.7 mEq/L (3.5-4.5); Sodium 129 mEq/L (136-145); Total Protein 5.8 g/dL (6.0-8.3); eGFR For African Americans > 60 (> 60); eGFR For Non-African Americans > 60 (> 60)
[2016-06-19 03:33] LABS: Albumin 1.6 g/dL (3.5-5.0)
[2016-06-19] MEDS: *HR* Dextrose 50 % in Water (Syg) 50 ML SYRINGE IVP PRN (04:07)
[2016-06-19 04:12] LABS: Lymphocytes # 0.7 K/mcL (0.6-4.6)
[2016-06-19 04:46] LABS: Acinetobacter baumannii by PCR Not Detected (Not Detect); Candida albicans by PCR Not Detected (Not Detect); Candida glabrata by PCR Not Detected (Not Detect); Candida krusei by PCR Not Detected (Not Detect); Candida parapsilosis by PCR Not Detected (Not Detect); Candida tropicalis by PCR Not Detected (Not Detect); Enterococcus by PCR Not Detected (Not Detect); Escherichia coli by PCR Not Detected (Not Detect); Klebsiella oxytoca by PCR Not Detected (Not Detect); Klebsiella pneumoniae by PCR Not Detected (Not Detect); Pseudomonas aeruginosa by PCR Not Detected (Not Detect); Serratia marcescens by PCR Not Detected (Not Detect); Staphylococcus aureus by PCR Not Detected (Not Detect); Streptococcus agalactiae(B)PCR Not Detected (Not Detect); Streptococcus by PCR ***DETECTED*** (Not Detect); Streptococcus pneumoniae PCR ***DETECTED*** (Not Detect); Streptococcus pyogenes (A) PCR Not Detected (Not Detect); blaKPC Carbapenem-Resist Gene Not Detected (Not Detect); mecA Methicillin-Resist Gene Not Detected (Not Detect); vanA/B Vancomycin-Resist Genes Not Detected (Not Detect)
[2016-06-19 05:33] LABS: Monocytes # 0.7 K/mcL (0.0-1.3); Neutrophils # 33.1 K/mcL (1.6-8.9)
[2016-06-19 05:34] LABS: Anisocytosis 1+ (Not Present); Platelet Estimate Normal (Normal)
[2016-06-19] MEDS: *HR* Heparin 5,000 UNIT/ML VIAL SQ SCH ×3 (05:49→23:13)
[2016-06-19] MEDS ORDERED: Ondansetron 4 MG/2 ML VIAL IVP PRN (06:01)
[2016-06-19] MEDS ORDERED: *HR* Morphine 2 MG/ML SYRINGE IVP PRN (06:01)
[2016-06-19] MEDS ORDERED: Naloxone 0.4 MG/ML INJ IVP PRN (06:01)
[2016-06-19] MEDS: Aspirin Enteric Coated 81 MG Tablet PO SCH (07:19)
[2016-06-19] MEDS: Gabapentin 100 MG CAPSULE PO SCH ×3 (07:19→20:28)
[2016-06-19] MEDS: levETIRAcetam 250 MG TABLET PO SCH ×2 (07:20→20:28)
[2016-06-19] MEDS: Levofloxacin 750 MG/150 ML 750 MG/150 ML BAG IVPB SCH (07:22)
[2016-06-19 08:12] LABS: BUN/Creatinine Ratio 35 (6-26); Blood Urea Nitrogen 29 mg/dL (8-26); Calcium 9.1 mg/dL (8.6-10.8); Carbon Dioxide 21 mEq/L (19-29); Chloride 94 mEq/L (98-109); Glucose 222 mg/dL (70-99); Osmolality,Calculated 281 (280-300); Sodium 129 mEq/L (136-145); eGFR For African Americans > 60 (> 60); eGFR For Non-African Americans > 60 (> 60)
[2016-06-19 08:13] LABS: Potassium 5.2 mEq/L (3.5-4.5)
[2016-06-19 12:07] LABS: BUN/Creatinine Ratio 32 (6-26); Blood Urea Nitrogen 25 mg/dL (8-26); Calcium 9.3 mg/dL (8.6-10.8); Carbon Dioxide 21 mEq/L (19-29); Chloride 96 mEq/L (98-109); Glucose 134 mg/dL (70-99); Osmolality,Calculated 276 (280-300); Potassium 4.7 mEq/L (3.5-4.5); Sodium 130 mEq/L (136-145); eGFR For African Americans > 60 (> 60); eGFR For Non-African Americans > 60 (> 60)
--- NOTE | 2016-06-19 12:45 | Internal Med Progress Note ---
Date of Encounter: 06/19/16 Time of Encounter: 12:42 - Assessment and plan (1) Severe sepsis Current Visit: Yes Status: Acute Assessment and plan: Likely secondary to Left lung pneumonia and UTI Continue broad spectrum abx with Levaquin, Vancomycin, and Aztreonam continue IV fluids follow up blood cultures and urine culture trend lactate until it normalizes tylenol prn fever will continue to closely monitor (2) Uncontrolled type 2 DM with hyperosmolar nonketotic hyperglycemia Current Visit: Yes Status: Acute Assessment and plan: Hyperglycemia improved however AG persists Current A will continue insulin gtt as per [facility] protocol until AG<12 continue IV fluids continue accuchecks q1h monitor bmp q4h will continue to closely monitor (3) Pneumonia Current Visit: Yes Status: Acute Assessment and plan: plan as listed above Qualifiers: Pneumonia type: due to unspecified organism Laterality: left Lung location: unspecified part of lung Qualified Code(s): J18.9 - Pneumonia, unspecified organism (4) UTI (urinary tract infection) Current Visit: Yes Status: Acute Assessment and plan: plan as listed above as per patient he was unable to urinate prior to hospitalization but family states he had no such difficulties. Currently has a garcia in place, will continue garcia care at this time and reassess in am for continuation of garcia catheter. Qualifiers: Urinary tract infection type: site unspecified Hematuria presence: without hematuria Qualified Code(s): N39.0 - Urinary tract infection, site not specified (5) CLL (chronic lymphocytic leukemia) Current Visit: Yes Status: Chronic Assessment and plan: Currently in remission, s/p chemotherapy (6) DVT prophylaxis Current Visit: No Status: Acute Assessment and plan: Heparin SQ - Subjective Interval history: Patient seen and examined with family present at bedside. Resting in bed and reports of feeling feverish. As per family he had fevers two days prior to hospitalization and was disoriented the day prior to hospitalization. At this time, he is oriented to self but not place or time, which is not patient's baseline as per family. Patient has history of CLL and currently in remission, finishing chemotherapy in November 2015. - Constitutional Vitals: Temp Pulse Resp BP Pulse Ox 97.6 F 100 18 131/85 95 06/19/16 12:00 06/19/16 12:10 06/19/16 12:00 06/19/16 12:00 06/19/16 12:00 General appearance: Present: A&O X 1, pleasant, no acute distress - Head Head exam: Present: atraumatic, normocephalic - Eye Eye exam: Present: normal appearance, conjuntiva pink, sclera anicteric - Respiratory Respiratory exam: Present: CTAB. Absent: respiratory distress, wheezes - Cardiovascular Cardiovascular exam: Present: RRR, +S1, +S2. Absent: diastolic murmur, gallop, rubs, systolic murmur - GI/Abdominal GI/Abdominal exam: Present: normal bowel sounds, soft, no peritoneal signs. Absent: distended, tenderness - Extremities Exam Extremities exam: Present: warm, radial pulses palpable and symetrical. Absent : calf tenderness, cyanotic, pedal edema - Neurological Exam Neurological exam: Present: alert - Psychiatric Psychiatric exam: Present: normal affect, normal mood Internal Medicine: Result - Labs CBC & Chem 7: 06/19/16 03:06 06/19/16 11:44 Labs: Short CBC 06/19/16 Range/Units 03:06 WBC 34.5 H* (4.3-11.1) K/mcL Hgb 9.1 L D (12.9-16.9) g/dL Hct 26.5 L (37.5-50.1) % Plt Count 291 (140-400) K/mcL Neutrophils # 33.1 H (1.6-8.9) K/mcL BMP 06/18/16 06/19/16 06/19/16 22:49 03:06 07:52 Sodium 127 L 129 L 129 L Potassium 3.8 3.7 5.2 H D Chloride 87 L 91 L 94 L Carbon Dioxide 27 25 21 BUN 35 H 31 H 29 H Creatinine 1.07 0.90 0.82 Glucose 330 H 107 H 222 H Calcium 8.7 D 9.4 9.1 06/19/16 11:44 Sodium 130 L Potassium 4.7 H Chloride 96 L Carbon Dioxide 21 BUN 25 Creatinine 0.79 Glucose 134 H Calcium 9.3 Liver Function 06/19/16 Range/Units 03:06 Total Bilirubin 1.7 H (0.2-1.2) mg/dL Direct Bilirubin 1.3 H (0.0-0.5) mg/dL AST 33 (5-34) Units/L ALT 18 (0-55) Units/L Alkaline Phosphatase 270 H (38-126) Units/L Albumin 1.6 L D (3.5-5.0) g/dL - ABG Interpretation ABG results: ABG ABG pH 7.51 pH Units (7.32-7.45) H 06/18/16 20:10 ABG pCO2 41 mmHg (35-45) 06/18/16 20:10 ABG pO2 76 mmHg (85-104) L 06/18/16 20:10 ABG O2 Saturation 96 % (95-98) 06/18/16 20:10 PT/INR, D-dimer PT 16.3 Seconds (9.4-12.1) H 06/18/16 18:15 Consult Discharge Plan - Plan Referrals: Liyah Lopez, [facility]L[facility] PATHOLOGIST [Primary Care Provider] -
[2016-06-19] MEDS ORDERED: Acetaminophen 325 MG TABLET PO PRN (12:57)
--- NOTE | 2016-06-19 15:24 | Electrocardiograph Report ---
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
[2016-06-19 16:45] LABS: BUN/Creatinine Ratio 29 (6-26); Blood Urea Nitrogen 22 mg/dL (8-26); Calcium 9.1 mg/dL (8.6-10.8); Carbon Dioxide 22 mEq/L (19-29); Chloride 97 mEq/L (98-109); Glucose 151 mg/dL (70-99); Osmolality,Calculated 276 (280-300); Potassium 4.8 mEq/L (3.5-4.5); Sodium 130 mEq/L (136-145); eGFR For African Americans > 60 (> 60); eGFR For Non-African Americans > 60 (> 60)
[2016-06-19] MEDS ORDERED: Dextrose Gel 15 GM PO PRN ×2 (16:57)
[2016-06-19] MEDS ORDERED: *HR* Dextrose 50 % in Water (Syg) 50 ML SYRINGE IVP PRN (16:57)
[2016-06-19] MEDS ORDERED: D5% in Water 1,000 ML IVC PRN (16:57)
[2016-06-19] MEDS ORDERED: 0.9 % Sodium Chloride 1,000 ML ONE (18:13)
[2016-06-19] MEDS: 0.9 % Sodium Chloride 1,000 ML IV SCH (18:14)
[2016-06-19] MEDS: Insulin DETEMIR 100 UNIT/ML X5UNITS SQ SCH (18:14)
[2016-06-19] MEDS: Insulin LISPRO 300 UNITS/3 ML VIAL SQ SCH (20:27)
[2016-06-19] MEDS: Nicotine 21 MG PATCH.TD24 TD SCH (20:28)
[2016-06-19] MEDS: traZODone 50 MG TABLET PO PRN (20:28)
[2016-06-20] MEDS: Vancomycin 1,500 MG in D5% in Water 250 ML IVPB SCH ×2 (00:25→11:35)
[2016-06-20] MEDS: Ipratropium/Albuterol Neb 3 ML IH SCH ×4 (04:42→22:56)
[2016-06-20] MEDS ORDERED: 0.9 % Sodium Chloride 1,000 ML ONE ×2 (05:51→20:57)
[2016-06-20] MEDS: 0.9 % Sodium Chloride 1,000 ML IV SCH ×2 (05:54→21:15)
[2016-06-20] MEDS: *HR* Heparin 5,000 UNIT/ML VIAL SQ SCH ×3 (05:54→21:13)
[2016-06-20 07:36] LABS: Hematocrit 25.2 % (37.5-50.1); Hemoglobin 8.5 g/dL (12.9-16.9); Mean Corpuscular HGB Conc 33.7 g/dL (31.6-35.5); Mean Corpuscular Hemoglobin 27.4 pg (28.0-33.3); Mean Corpuscular Volume 81.3 fL (83.0-100.0); Mean Platelet Volume 10.7 fL (9.4-12.4); Nucleated Red Blood Cells 0.1 /100 WBC (0); Platelet Count 273 K/mcL (140-400); Red Cell Distribution Width 15.7 % (11.5-14.5)
[2016-06-20 07:37] LABS: BUN/Creatinine Ratio 26 (6-26); Blood Urea Nitrogen 20 mg/dL (8-26); Carbon Dioxide 24 mEq/L (19-29); Chloride 96 mEq/L (98-109); Glucose 223 mg/dL (70-99); Magnesium 1.4 mg/dL (1.6-2.6); Osmolality,Calculated 280 (280-300); Phosphorous 2.7 mg/dL (2.3-4.7); Potassium 4.4 mEq/L (3.5-4.5); Sodium 130 mEq/L (136-145); eGFR For African Americans > 60 (> 60); eGFR For Non-African Americans > 60 (> 60)
[2016-06-20 07:58] LABS: Ionized Calcium 1.19 mmol/L (1.15-1.35)
[2016-06-20] MEDS: Insulin LISPRO 300 UNITS/3 ML VIAL SQ SCH ×5 (08:01→20:56)
[2016-06-20] MEDS: Levofloxacin 750 MG/150 ML 750 MG/150 ML BAG IVPB SCH (08:02)
[2016-06-20] MEDS: Aztreonam 2,000 MG in D5% in Water (Mini-Bag+) 100 ML IVPB SCH (08:03)
[2016-06-20] MEDS: levETIRAcetam 250 MG TABLET PO SCH ×2 (08:04→21:13)
[2016-06-20] MEDS: Aspirin Enteric Coated 81 MG Tablet PO SCH (08:04)
[2016-06-20] MEDS: Nicotine 21 MG PATCH.TD24 TD SCH (08:04)
[2016-06-20] MEDS: Insulin DETEMIR 100 UNIT/ML X5UNITS SQ SCH (08:14)
[2016-06-20 08:48] LABS: Lymphocytes # 1.4 K/mcL (0.6-4.6); Monocytes # 0.8 K/mcL (0.0-1.3); Neutrophils # 24.2 K/mcL (1.6-8.9)
[2016-06-20 08:51] LABS: Platelet Estimate Normal (Normal)
[2016-06-20] MEDS: Magnesium Sulfate 2 GM in D5% in Water 100 ML IVPB PRN ×2 (09:06→21:11)
[2016-06-20] MEDS: Gabapentin 300 MG CAPSULE PO SCH ×3 (09:06→21:12)
[2016-06-20] MEDS ORDERED: Haloperidol Lactate 5 MG/ML VIAL IM PRN (14:37)
--- NOTE | 2016-06-20 15:46 | Internal Med Progress Note ---
Date of Encounter: 06/20/16 Time of Encounter: 13:00 (.) - Assessment and plan (1) Severe sepsis Current Visit: Yes Status: Acute Assessment and plan: Likely secondary to Left lung pneumonia and UTI Bacteremia likely secondary to Pneumonia Blood cultures preliminary results positive for Strep Penumoniae Will d/c Aztreonam and continue Vancomycin and Levaquin Clinically improving with improvement in leukocytosis and afebrile will d/c garcia catheter tylenol prn fever will continue to closely monitor (2) Pneumonia Current Visit: Yes Status: Acute Assessment and plan: plan as listed above Qualifiers: Pneumonia type: due to unspecified organism Laterality: left Lung location: unspecified part of lung Qualified Code(s): J18.9 - Pneumonia, unspecified organism (3) Uncontrolled type 2 DM with hyperosmolar nonketotic hyperglycemia Current Visit: Yes Status: Acute Assessment and plan: Hyperglycemia improved AG closed started Levemir 16units sQ qd (since patient is insulin naive, started at 0.2u/ kg), will adjust therapy based on daily insulin requirements started Novolog 3units TIDAC continue to monitor FG and BG SS insulin algorithm as needed f/u HbA1C. (4) UTI (urinary tract infection) Current Visit: Yes Status: Acute Assessment and plan: plan as listed above as per patient he was unable to urinate prior to hospitalization but family states he had no such difficulties. Garcia cath removed urine culture NGTD will continue abx for PNA and bacteremia Qualifiers: Urinary tract infection type: site unspecified Hematuria presence: without hematuria Qualified Code(s): N39.0 - Urinary tract infection, site not specified (5) CLL (chronic lymphocytic leukemia) Current Visit: Yes Status: Chronic Assessment and plan: Currently in remission, s/p chemotherapy (6) DVT prophylaxis Current Visit: No Status: Acute Assessment and plan: Heparin SQ (7) Electrolyte abnormality Current Visit: Yes Status: Acute Assessment and plan: Hypomagenesemia Mg supplemented continue to monitor electrolytes and replace as needed - Subjective Interval history: Patient seen and examined at bedside. Resting in bed and reports of feeling better at this time. As per nursing staff patient has been having hallucinations throughout the day however has not been aggressive or agitated. Reports of discomfort with garcia catheter. - Constitutional Vitals: Temp Pulse Resp BP Pulse Ox 98.7 F 91 16 145/81 95 06/20/16 15:01 04/04/17 15:01 06/20/16 15:01 06/20/16 15:01 06/20/16 15:01 General appearance: Present: A&O X 2, pleasant, no acute distress - Head Head exam: Present: atraumatic, normocephalic - Eye Eye exam: Present: normal appearance, conjuntiva pink, sclera anicteric - Respiratory Respiratory exam: Absent: respiratory distress, wheezes - Cardiovascular Cardiovascular exam: Present: RRR, +S1, +S2. Absent: diastolic murmur, gallop, rubs, systolic murmur - GI/Abdominal GI/Abdominal exam: Present: normal bowel sounds, soft, no peritoneal signs. Absent: distended, tenderness - Extremities Exam Extremities exam: Present: pedal edema, warm, radial pulses palpable and symetrical. Absent: calf tenderness - Neurological Exam Neurological exam: Present: alert Internal Medicine: Result - Labs CBC & Chem 7: 06/20/16 06:49 06/20/16 06:49 Labs: Short CBC 06/20/16 Range/Units 06:49 WBC 27.5 H (4.3-11.1) K/mcL Hgb 8.5 L (12.9-16.9) g/dL Hct 25.2 L (37.5-50.1) % Plt Count 273 (140-400) K/mcL Neutrophils # 24.2 H (1.6-8.9) K/mcL BMP 06/19/16 06/20/16 16:22 06:49 Sodium 130 L 130 L Potassium 4.8 H 4.4 Chloride 97 L 96 L Carbon Dioxide 22 24 BUN 22 20 Creatinine 0.76 0.76 Glucose 151 H 223 H Calcium 9.1 9.0 - ABG Interpretation ABG results: ABG ABG pH 7.51 pH Units (7.32-7.45) H 06/18/16 20:10 ABG pCO2 41 mmHg (35-45) 06/18/16 20:10 ABG pO2 76 mmHg (85-104) L 06/18/16 20:10 ABG O2 Saturation 96 % (95-98) 06/18/16 20:10 PT/INR, D-dimer PT 16.3 Seconds (9.4-12.1) H 06/18/16 18:15 Consult Discharge Plan - Plan Referrals: Liyah Lopez, AMADO [Primary Care Provider] - 06/26/16 8:45 am ()
[2016-06-21 00:55] LABS: Red Cell Distribution Width 15.8 % (11.5-14.5)
[2016-06-21 00:56] LABS: Hematocrit 25.4 % (37.5-50.1); Hemoglobin 8.8 g/dL (12.9-16.9); Mean Corpuscular HGB Conc 34.6 g/dL (31.6-35.5); Mean Corpuscular Hemoglobin 28.3 pg (28.0-33.3); Mean Corpuscular Volume 81.7 fL (83.0-100.0); Mean Platelet Volume 10.4 fL (9.4-12.4); Nucleated Red Blood Cells 0.1 /100 WBC (0); Platelet Count 320 K/mcL (140-400); Red Blood Count 3.11 M/mcL (4.19-5.50)
[2016-06-21 01:09] LABS: BUN/Creatinine Ratio 26 (6-26); Blood Urea Nitrogen 19 mg/dL (8-26); Carbon Dioxide 25 mEq/L (19-29); Chloride 99 mEq/L (98-109); Glucose 89 mg/dL (70-99); Osmolality,Calculated 280 (280-300); Phosphorous 3.4 mg/dL (2.3-4.7); Potassium 4.1 mEq/L (3.5-4.5); Sodium 134 mEq/L (136-145); eGFR For African Americans > 60 (> 60); eGFR For Non-African Americans > 60 (> 60)
[2016-06-21 01:20] LABS: Hemoglobin A1C 8.8 %
[2016-06-21] MEDS: Vancomycin 1,500 MG in D5% in Water 250 ML IVPB SCH ×2 (01:33→12:42)
[2016-06-21 01:35] LABS: Lymphocytes # 0.5 K/mcL (0.6-4.6); Monocytes # 1.5 K/mcL (0.0-1.3); Neutrophils # 21.7 K/mcL (1.6-8.9)
[2016-06-21 01:38] LABS: Platelet Estimate Normal (Normal); Toxic Granulation Present (Not Present)
[2016-06-21] MEDS: Ipratropium/Albuterol Neb 3 ML IH SCH ×4 (04:10→22:00)
[2016-06-21] MEDS: *HR* Heparin 5,000 UNIT/ML VIAL SQ SCH ×3 (05:40→20:12)
[2016-06-21] MEDS: Insulin LISPRO 300 UNITS/3 ML VIAL SQ SCH ×7 (07:34→20:11)
[2016-06-21] MEDS ORDERED: 0.9 % Sodium Chloride 1,000 ML IV SCH ×2 (07:45→09:15)
[2016-06-21] MEDS: Levofloxacin 750 MG/150 ML 750 MG/150 ML BAG IVPB SCH (07:53)
[2016-06-21] MEDS: Nicotine 21 MG PATCH.TD24 TD SCH (07:57)
[2016-06-21] MEDS: levETIRAcetam 250 MG TABLET PO SCH ×2 (07:58→20:12)
[2016-06-21] MEDS: Aspirin Enteric Coated 81 MG Tablet PO SCH (07:58)
[2016-06-21] MEDS: Gabapentin 300 MG CAPSULE PO SCH ×3 (07:58→20:12)
[2016-06-21] MEDS: Insulin DETEMIR 100 UNIT/ML X5UNITS SQ SCH (09:10)
--- NOTE | 2016-06-21 12:24 | Internal Med Progress Note ---
Date of Encounter: 06/21/16 Time of Encounter: 12:21 - Assessment and plan (1) Severe sepsis Current Visit: Yes Status: Acute Assessment and plan: Likely secondary to Left lung pneumonia and UTI Bacteremia likely secondary to Pneumonia Blood cultures positive for Strep Penumoniae continue Vancomycin and Levaquin Clinically improving with improvement in leukocytosis and afebrile Follow up repeat blood cultures tylenol prn fever will continue to closely monitor (2) Pneumonia Current Visit: Yes Status: Acute Assessment and plan: plan as listed above Qualifiers: Pneumonia type: due to unspecified organism Laterality: left Lung location: unspecified part of lung Qualified Code(s): J18.9 - Pneumonia, unspecified organism (3) Uncontrolled type 2 DM with hyperosmolar nonketotic hyperglycemia Current Visit: Yes Status: Acute Assessment and plan: Hyperglycemia improved BG better controlled continue Levemir 16units sQ qd continue Novolog 3units TIDAC continue to monitor FG and BG SS insulin algorithm as needed HbA1C: 8.8 (4) UTI (urinary tract infection) Current Visit: Yes Status: Acute Assessment and plan: Husani cath removed, patient able to void urine culture NGTD will continue abx for PNA and bacteremia Qualifiers: Urinary tract infection type: site unspecified Hematuria presence: without hematuria Qualified Code(s): N39.0 - Urinary tract infection, site not specified (5) CLL (chronic lymphocytic leukemia) Current Visit: Yes Status: Chronic Assessment and plan: Currently in remission, s/p chemotherapy (6) DVT prophylaxis Current Visit: No Status: Acute Assessment and plan: Heparin SQ (7) Electrolyte abnormality Current Visit: Yes Status: Resolved Assessment and plan: continue to monitor electrolytes and replace as needed - Subjective Interval history: Patient seen and examined with family present at bedside. Reports of feeling better compared to the previous day. Mental status significantly improved from previous day and no hallucinations reported at this time. - Constitutional Vitals: Temp Pulse Resp BP Pulse Ox 99 F 85 20 115/64 94 06/21/16 10:39 06/21/16 10:39 06/21/16 11:18 06/21/16 10:39 06/21/16 11:18 General appearance: Present: A&O X 2, pleasant, no acute distress - Head Head exam: Present: atraumatic, normocephalic - Eye Eye exam: Present: normal appearance, conjuntiva pink, sclera anicteric - Respiratory Respiratory exam: Present: CTAB. Absent: accessory muscle use, rales, rhonchi, wheezes - Cardiovascular Cardiovascular exam: Present: RRR, +S1, +S2. Absent: diastolic murmur, gallop, rubs, systolic murmur - GI/Abdominal GI/Abdominal exam: Present: normal bowel sounds, soft, no peritoneal signs. Absent: distended, tenderness - Extremities Exam Extremities exam: Present: pedal edema, warm, radial pulses palpable and symetrical. Absent: calf tenderness - Neurological Exam Neurological exam: Present: alert - Psychiatric Psychiatric exam: Present: normal affect, normal mood Internal Medicine: Result - Labs CBC & Chem 7: 06/21/16 00:37 06/21/16 00:37 Labs: Short CBC 06/21/16 Range/Units 00:37 WBC 24.7 H (4.3-11.1) K/mcL Hgb 8.8 L (12.9-16.9) g/dL Hct 25.4 L (37.5-50.1) % Plt Count 320 (140-400) K/mcL Neutrophils # 21.7 H (1.6-8.9) K/mcL BMP 06/21/16 00:37 Sodium 134 L Potassium 4.1 Chloride 99 Carbon Dioxide 25 BUN 19 Creatinine 0.74 Glucose 89 Calcium 9.0 - ABG Interpretation ABG results: ABG ABG pH 7.51 pH Units (7.32-7.45) H 06/18/16 20:10 ABG pCO2 41 mmHg (35-45) 06/18/16 20:10 ABG pO2 76 mmHg (85-104) L 06/18/16 20:10 ABG O2 Saturation 96 % (95-98) 06/18/16 20:10 PT/INR, D-dimer PT 16.3 Seconds (9.4-12.1) H 06/18/16 18:15 Consult Discharge Plan - Plan Referrals: Liyah Lopez CNP [Primary Care Provider] - 06/26/16 8:45 am ()
[2016-06-21] MEDS: 0.9 % Sodium Chloride 1,000 ML IV SCH (13:47)
[2016-06-21] MEDS: *HR* HYDROcodone/Acet 5/325 mg TABLET PO PRN (14:21)
[2016-06-22] MEDS: Vancomycin 1,500 MG in D5% in Water 250 ML IVPB SCH ×2 (00:27→11:54)
[2016-06-22 05:24] LABS: BUN/Creatinine Ratio 25 (6-26); Blood Urea Nitrogen 18 mg/dL (8-26); Calcium 8.4 mg/dL (8.6-10.8); Carbon Dioxide 24 mEq/L (19-29); Chloride 101 mEq/L (98-109); Glucose 160 mg/dL (70-99); Magnesium 1.6 mg/dL (1.6-2.6); Osmolality,Calculated 285 (280-300); Phosphorous 3.4 mg/dL (2.3-4.7); Potassium 4.8 mEq/L (3.5-4.5); Sodium 135 mEq/L (136-145); eGFR For African Americans > 60 (> 60); eGFR For Non-African Americans > 60 (> 60)
[2016-06-22] MEDS: Ipratropium/Albuterol Neb 3 ML IH SCH ×4 (05:51→22:25)
[2016-06-22] MEDS: *HR* Heparin 5,000 UNIT/ML VIAL SQ SCH ×3 (06:32→22:14)
[2016-06-22] MEDS: Magnesium Sulfate 2 GM in D5% in Water 100 ML IVPB PRN ×2 (06:33→22:14)
[2016-06-22] MEDS: 0.9 % Sodium Chloride 1,000 ML IV SCH (07:36)
[2016-06-22] MEDS: Nicotine 21 MG PATCH.TD24 TD SCH (07:37)
[2016-06-22] MEDS: Insulin LISPRO 300 UNITS/3 ML VIAL SQ SCH ×7 (07:39→20:43)
[2016-06-22] MEDS: Aspirin Enteric Coated 81 MG Tablet PO SCH (07:40)
[2016-06-22] MEDS: Gabapentin 300 MG CAPSULE PO SCH ×3 (07:40→20:42)
[2016-06-22] MEDS: *HR* HYDROcodone/Acet 5/325 mg TABLET PO PRN ×2 (07:40→20:47)
[2016-06-22] MEDS: levETIRAcetam 250 MG TABLET PO SCH ×2 (07:41→20:43)
[2016-06-22] MEDS: Levofloxacin 750 MG/150 ML 750 MG/150 ML BAG IVPB SCH (07:44)
[2016-06-22] MEDS: Insulin DETEMIR 100 UNIT/ML X5UNITS SQ SCH (08:54)
[2016-06-22 11:30] LABS: Hemoglobin 8.8 g/dL (12.9-16.9)
[2016-06-22 11:37] LABS: Hematocrit 26.6 % (37.5-50.1); Mean Corpuscular HGB Conc 33.1 g/dL (31.6-35.5); Mean Corpuscular Hemoglobin 27.8 pg (28.0-33.3); Mean Corpuscular Volume 83.9 fL (83.0-100.0); Mean Platelet Volume 10.6 fL (9.4-12.4); Platelet Count 355 K/mcL (140-400); Red Blood Count 3.17 M/mcL (4.19-5.50); Red Cell Distribution Width 15.9 % (11.5-14.5)
[2016-06-22 12:19] LABS: Hemoglobin 8.9 g/dL (12.9-16.9)
[2016-06-22 12:20] LABS: Hematocrit 25.7 % (37.5-50.1); Mean Corpuscular HGB Conc 34.6 g/dL (31.6-35.5); Mean Corpuscular Hemoglobin 28.6 pg (28.0-33.3); Mean Corpuscular Volume 82.6 fL (83.0-100.0); Mean Platelet Volume 10.6 fL (9.4-12.4); Platelet Count 362 K/mcL (140-400); Red Blood Count 3.11 M/mcL (4.19-5.50); Red Cell Distribution Width 16.1 % (11.5-14.5)
--- NOTE | 2016-06-22 12:27 | Internal Med Progress Note ---
Date of Encounter: 06/22/16 Time of Encounter: 12:24 - Assessment and plan (1) Severe sepsis Current Visit: Yes Status: Acute Assessment and plan: Likely secondary to Left lung pneumonia and UTI Bacteremia likely secondary to Pneumonia Blood cultures positive for Strep Penumoniae Worsening leukocytosis of unclear source. The foot ulcer/abscess may be an additional source of infection. Podiatry consultation requested with Dr. Hollingsworth. Will discontinue Levofloxacin and start Meropenem and continue Vancomycin Follow up repeat blood cultures tylenol prn fever will continue to closely monitor Patient's mental status is back at baseline and has been afebrile despite having worsening leukocytosis, will closely monitor. (2) Pneumonia Current Visit: Yes Status: Acute Assessment and plan: plan as listed above Qualifiers: Pneumonia type: due to unspecified organism Laterality: left Lung location: unspecified part of lung Qualified Code(s): J18.9 - Pneumonia, unspecified organism (3) Uncontrolled type 2 DM with hyperosmolar nonketotic hyperglycemia Current Visit: Yes Status: Acute Assessment and plan: Hyperglycemia improved BG better controlled continue Levemir 16units sQ qd continue Novolog 3units TIDAC continue to monitor FG and BG SS insulin algorithm as needed HbA1C: 8.8 (4) UTI (urinary tract infection) Current Visit: Yes Status: Acute Assessment and plan: Patient having difficulty with urination, bladder scan shows greater than 200cc of urine. Will reinsert garcia catheter and repeat UA, Urine culture will continue abx as listed above Qualifiers: Urinary tract infection type: site unspecified Hematuria presence: without hematuria Qualified Code(s): N39.0 - Urinary tract infection, site not specified (5) CLL (chronic lymphocytic leukemia) Current Visit: Yes Status: Chronic Assessment and plan: Currently in remission, s/p chemotherapy (6) DVT prophylaxis Current Visit: No Status: Acute Assessment and plan: Heparin SQ (7) Electrolyte abnormality Current Visit: Yes Status: Resolved Assessment and plan: continue to monitor electrolytes and replace as needed - Subjective Interval history: Patient seen and examined with family present at bedside. Reports of severe discomfort in left heel and noted to have a discolored heel ulceration with concern for abscess collection. States overall he feels better except this left heel pain. Also noted to have difficulty urinating with bladder scan reporting over 200cc of urine collection. Will place garcia cath to which patient agrees. - Constitutional Vitals: Temp Pulse Resp BP Pulse Ox 98.3 F 94 16 107/70 97 06/22/16 07:15 06/22/16 07:15 06/22/16 11:01 06/22/16 07:15 06/22/16 11:01 General appearance: Present: A&O X 3, pleasant, no acute distress, answers questions appropriately - Head Head exam: Present: atraumatic, normocephalic - Eye Eye exam: Present: normal appearance, conjuntiva pink, sclera anicteric - Respiratory Respiratory exam: Present: CTAB. Absent: accessory muscle use, rales, rhonchi, wheezes - Cardiovascular Cardiovascular exam: Present: RRR, +S1, +S2 - GI/Abdominal GI/Abdominal exam: Present: normal bowel sounds, soft, no peritoneal signs. Absent: distended, tenderness - Extremities Exam Extremities exam: Present: pedal edema, warm, radial pulses palpable and symetrical. Absent: calf tenderness Additional comments: LEFT heel ulceration noted with concern for abscess - Neurological Exam Neurological exam: Present: alert, oriented X3 Internal Medicine: Result - Labs CBC & Chem 7: 06/22/16 10:30 06/22/16 04:33 Labs: Short CBC 06/22/16 Range/Units 10:30 WBC 29.6 H (4.3-11.1) K/mcL Hgb 8.8 L (12.9-16.9) g/dL Hct 26.6 L (37.5-50.1) % Plt Count 355 (140-400) K/mcL BMP 06/22/16 04:33 Sodium 135 L Potassium 4.8 H Chloride 101 Carbon Dioxide 24 BUN 18 Creatinine 0.71 L Glucose 160 H Calcium 8.4 L - ABG Interpretation ABG results: ABG ABG pH 7.51 pH Units (7.32-7.45) H 06/18/16 20:10 ABG pCO2 41 mmHg (35-45) 06/18/16 20:10 ABG pO2 76 mmHg (85-104) L 06/18/16 20:10 ABG O2 Saturation 96 % (95-98) 06/18/16 20:10 PT/INR, D-dimer PT 16.3 Seconds (9.4-12.1) H 06/18/16 18:15 Consult Discharge Plan - Plan Referrals: Liyah Lopez, AMADO [Primary Care Provider] - 06/26/16 8:45 am ()
[2016-06-22 12:37] LABS: Eosinophils # 0.3 K/mcL (0.0-0.6); Lymphocytes # 1.5 K/mcL (0.6-4.6); Monocytes # 1.5 K/mcL (0.0-1.3); Neutrophils # 20.4 K/mcL (1.6-8.9)
[2016-06-22 12:40] LABS: Platelet Estimate Normal (Normal); Toxic Granulation Present (Not Present)
[2016-06-22 13:10] LABS: Lymphocytes # 2.7 K/mcL (0.6-4.6); Monocytes # 1.3 K/mcL (0.0-1.3); Neutrophils # 20.2 K/mcL (1.6-8.9)
[2016-06-22 13:11] LABS: Platelet Estimate Normal (Normal)
[2016-06-22 13:13] LABS: Bilirubin,Urine Negative (Negative); Blood,Urine Small (Negative); Clarity,Urine Turbid (Clear); Color,Urine Yellow (Yellow); Glucose,Urine (UA) Normal (Normal); Ketones,Urine Negative (Negative); Leukocyte Esterase,Urine Negative (Negative); Nitrite,Urine Negative (Negative); Protein,Urine Negative (Neg-Trace); Specific Gravity,Urine 1.014 (1.010-1.025); Urobilinogen,Urine Normal (Normal)
[2016-06-22 13:20] LABS: Bacteria,Urine None Seen per hpf (None-Few); Hyaline Casts,Urine None Seen per lpf (None-Few); Squamous Epithelial Cell,Urine Moderate per lpf (None-Few)
--- NOTE | 2016-06-22 13:43 | Podiatry Consult Note ---
Date of Encounter: 06/22/16 Time of Encounter: 13:00 Assessment and Plan (1) Abscess of heel, left Current visit: Yes Status: Acute Assessment: #1 Abscess secondary to pressure ulcer left heel unstageable #2 cellulitis left heel #3 multiple comorbidities as outlined in history. Plan: #1 examine and evaluate patient presently discuss findings clinically and as well as immediate recommendations which include incision and drainage at bedside #2 informed consent obtained timeout performed. Under aseptic conditions the left heel wound/abscess was prepped with alcohol 3 times. Using a sterile #15 scalpel blade incision was made within the epidermis and drainage of a seropurulent exudate was immediately cultured aerobic and anaerobic Gram stain. It was then irrigated with saline and peroxide and then saline and dry sterile dressing applied. #3 continue complete offloading measures and await cultures. #4 possible further debridement at bedside to completely de- roof the lesion itself. #5 we will follow during this admission closely and then as an outpatient #6 thank you for allowing me to participate in your patient' s care. History of Present Illness Chief complaint: Pressure ulcer possible abscess left calcaneus HPI: Mr. Mcleod is a 56 year old male admitted for sepsis pneumonia multiple comorbidities including diabetes under control. Patient is alert awake and can discuss his history with reasonable accuracy. Patient states he believes to have sustained this wound approximately 2 weeks ago from an unknown injury. Likely pressure ulcer from decreased mobility. This combined with multiple comorbidities certainly leads to an impressive wound that we observe presently. Past Med Surg Social Fam HX - Past Medical History Medical history: cancer, CVA, diabetes, hyperlipidemia, seizures Psychiatric history: anxiety, depression - Past Surgical History Surgical History: appendectomy, orthopedic, other - Social History Smoking Status: Current every day smoker Packs per day: 1 Smokeless Tobacco Status: Yes Alcohol use: none Drug use: marijuana - Family History Mother Living Status: Age at : 79 Cause of : Pancreatic cancer Hx Family Endocrine Disorder: Yes (Diabetes) Father Living Status: Age at : 60 Cause of : Heart surgery Hx Family Cardiac Disorders: Yes Medications and Allergies Aspirin [Adult Low Dose Aspirin EC] 81 mg PO DAILY 02/15/15 [History] Atorvastatin Calcium [Lipitor] 80 mg PO HS 02/15/15 [History] Citalopram [CeleXA] 40 mg PO DAILY 02/15/15 [History] Gabapentin [Neurontin] 600 mg PO TID 02/15/15 [History] LevETIRAcetam [Keppra] 500 mg PO BID 02/15/15 [History] Metformin [Glucophage] 500 mg PO BID MDD HOLD for 48 hours. 02/15/15 [History] Oxycodone HCl [Oxycontin] 5 mg PO BID PRN 02/15/15 [History] Sennosides/Docusate Sodium [Senna Plus] 1 tab PO BID PRN 02/15/15 [History] TraZODone 50 mg PO HS PRN 02/15/15 [History] Ondansetron HCl [Zofran] 4 mg PO Q6H PRN #30 tablet 03/01/15 [Rx] Prochlorperazine Maleate [Compazine] 10 mg PO Q6HR PRN #30 tablet 03/01/15 [Rx] Aclidinium [place] [Tudorza Pressair] 1 puff IH BID 08/02/15 [History] Albuterol Sulfate [Ventolin Hfa] 2 puff IH Q4H PRN 08/02/15 [History] Oxycodone HCl/Acetaminophen [Percocet 5-325 mg Tablet] 1 tab PO Q4-6H PRN [History] Tamsulosin [Flomax] 0.4 mg PO DAILY 08/02/15 [History] Pantoprazole Sodium [Protonix] 40 mg PO DAILY 12/22/15 [History] Polyethylene Glycol 3350 [MiraLAX] 17 gm PO BID PRN 12/22/15 [History] Ranitidine HCl [Zantac] 150 mg PO BID 12/22/15 [History] Buspirone HCl [Buspar] 5 mg PO TID 06/21/16 [History] Onabotulinumtoxina [Botox] 100 unit IM Q3M 06/21/16 [History] Allergies Penicillins [PCN] Allergy (Verified 02/15/15 15:20) Rash All Systems Reviewed: A 10-system review of systems was performed and is negative for pertinent findings except as documented above in the HPI. Physical Exam - Constitutional Vitals: Temp Pulse Resp BP Pulse Ox 98.3 F 94 16 107/70 97 06/22/16 07:15 06/22/16 07:15 06/22/16 11:01 04/06/17 07:15 06/22/16 11:01 General appearance: average body habitus, cooperative, no acute distress - Expanded Lower Extremities Exam Lower Leg exam: Present: swelling Ankle exam: Present: swelling Foot/Toe exam: Present: calcaneal tenderness (Left) Neuro vascular tendon exam: Present: motor deficit (Extensors left leg) Gait: Present: not tested/not observed (By history) - Neurological Exam Neurological exam: Present: abnormal gait (Footdrop left) - Skin Additional comments: We observe a large bulla measuring 7.4 cm in width and 7.0 cm in length unstageable. This is located on the posterior plantar aspect of left calcaneus directly overlying the area of pressure - Vascular Capillary Refill: less than 3 seconds Lower Extremity Vascular: decreased fine/light touch, foot drop, sensory deficit - Ankle & Foot Effusion grade foot exam: grade 1 Foot pain worse with weight bearing: Yes Alignment: normal Strength: dorsiflexion: 0/5 (Left-sided foot drop) Results - Labs Result Diagrams: 06/22/16 12:05 06/22/16 04:33 Labs: Abnormal lab results WBC 33.6 K/mcL (4.3-11.1) H* 06/22/16 12:05 RBC 3.11 M/mcL (4.19-5.50) L 06/22/16 12:05 Hgb 8.9 g/dL (12.9-16.9) L 06/22/16 12:05 Hct 25.7 % (37.5-50.1) L 06/22/16 12:05 MCV 82.6 fL (83.0-100.0) L 06/22/16 12:05 RDW 16.1 % (11.5-14.5) H 06/22/16 12:05 Band Neutrophils % 8.0 % (0-4) H 06/22/16 10:30 Metamyelocytes % 14.0 % (0) H 06/22/16 12:05 Myelocytes % 14.0 % (0) H 06/22/16 12:05 Promyelocytes % 1.0 % (0) H 06/22/16 10:30 Neutrophils # 20.2 K/mcL (1.6-8.9) H 06/22/16 12:05 Nucleated RBCs/100 WBC 0.1 /100 WBC (0) H 06/21/16 00:37 Toxic Granulation Present (Not Present) A 06/22/16 10:30 Anisocytosis 1+ (Not Present) A 06/19/16 03:06 PT 16.3 Seconds (9.4-12.1) H 06/18/16 18:15 APTT 23.5 Seconds (26.0-36.0) L 06/18/16 18:15 ABG pH 7.51 pH Units (7.32-7.45) H 06/18/16 20:10 ABG pO2 76 mmHg (85-104) L 06/18/16 20:10 ABG HCO3 32.7 mEQ/L (21-27) H 06/18/16 20:10 ABG Total CO2 34.0 mEq/L (20-26) H 06/18/16 20:10 ABG Base Excess 8.9 mEq/L (-2.0 to 3.0) H 06/18/16 20:10 VBG pH 7.51 pH Units (7.32-7.42) H 06/19/16 03:06 VBG pCO2 40 mmHg (41-51) L 06/19/16 03:06 VBG pO2 94 mmHg (25-40) H 06/19/16 03:06 VBG HCO3 31.9 mEq/L (21-27) H 06/19/16 03:06 Sodium 135 mEq/L (136-145) L 06/22/16 04:33 Potassium 4.8 mEq/L (3.5-4.5) H 06/22/16 04:33 Creatinine 0.71 mg/dL (0.72-1.25) L 06/22/16 04:33 Glucose 160 mg/dL (70-99) H 06/22/16 04:33 POC Glucose 137 (58-89) H 06/22/16 07:17 Hemoglobin A1c 8.8 % (-5.6) H 06/21/16 00:37 Calcium 8.4 mg/dL (8.6-10.8) L 06/22/16 04:33 Total Bilirubin 1.7 mg/dL (0.2-1.2) H 06/19/16 03:06 Direct Bilirubin 1.3 mg/dL (0.0-0.5) H 06/19/16 03:06 Alkaline Phosphatase 270 Units/L (38-126) H 06/19/16 03:06 Serum Total Protein 5.8 g/dL (6.0-8.3) L 06/19/16 03:06 Albumin 1.6 g/dL (3.5-5.0) L D 06/19/16 03:06 Globulin 4.2 g/dL (2.4-3.5) H 06/19/16 03:06 Albumin/Globulin Ratio 0.4 (1.1-2.2) L 06/19/16 03:06 Beta-Hydroxybutyric Acd 0.83 mmol/L (0.02-0.27) H 06/18/16 18:15 Urine Clarity Turbid (Clear) A 06/18/16 18:57 Ur Specific [place] 1.027 (1.010-1.025) H 06/18/16 18:57 Urine Protein 100 mg/dL (Neg-Trace) H 06/18/16 18:57 Urine Glucose (UA) >=1000 mg/dL (Normal) H 06/18/16 18:57 Urine Blood Trace (Negative) H 06/18/16 18:57 Urine Bilirubin Small (Negative) H 06/18/16 18:57 Urine Urobilinogen 4.0 mg/dL (Normal) H 06/18/16 18:57 Urine Microscopic WBC 5-15 per hpf (0-3) H 06/18/16 18:57 Ur Squamous Epith Cells Many per lpf (None-Few) H 06/18/16 18:57 Amorphous Sediment Moderate (Few) H 06/18/16 18:57 Ur Culture Indicated? YES (NO) A 06/18/16 18:57 Streptococcus sp PCR DETECTED (Not Detect) A 06/18/16 18:15 Strep pneumoniae (PCR) DETECTED (Not Detect) A 06/18/16 18:15 H & H 06/22/16 06/22/16 Range/Units 10:30 12:05 Hgb 8.8 L 8.9 L (12.9-16.9) g/dL Hct 26.6 L 25.7 L (37.5-50.1) % All other labs normal. Consult Discharge Plan - Plan Referrals: Yacques,Liyah D, AMADO [Primary Care Provider] - 06/26/16 8:45 am ()
--- NOTE | 2016-06-22 13:50 | Procedure Note ---
Date of procedure: 06/22/16 Pre-op diagnosis: Abscess left heel Post-op diagnosis: same Procedure: #1: Incision and drainage left heel with cultures. Details of procedure. After informed consent obtained timeout performed left heel was elevated and appropriate pillows and draped in usual sterile fashion. Large bulla/abscess left calcaneus was prepped with alcohol 3 times. Under sterile technique using #15 scalpel blade incision was made was in the epidermis for proximally 4 cm around the periphery of the posterior proximal portion of the lesion. Immediate sero-sanguinous/purulent drainage was expressed and cultured immediately aerobic and anaerobic. Wound was irrigated with saline and peroxide and saline. Dry sterile dressing was applied. All sutures were sent. Occasions none blood loss minimal. No anesthetic was necessary because of his decreased sensorium secondary to his diabetes and CVA. Further debridement may be necessary at bedside pending outcome and progress of presently incision and drainage. Anesthesia: none Surgeon: Hubert Hollingsworth Estimated blood loss (cc): 5 Pathology: other (Cultures aerobic anaerobic Gram stain) Condition: stable Disposition: floor
[2016-06-22] MEDS: Meropenem 1,000 MG in 0.9 % Sodium Chloride Mini Bag 100 ML IVPB SCH ×2 (14:44→20:43)
--- NOTE | 2016-06-22 15:07 | Venous Imaging Report ---
LE Venous Duplex Patient Name:Jovi Mcleod Order Number:[id number] Procedure Date:06/21/2016 Date:9Age:56 yrs Gender:Male Location:[facility] Room #: 2N04 Bulb Filler:Sarah Cohen RVT, RDCS Referring MD:Radha Franco MD corn sheller operator:Liyah Lopez, STUDENT TRUCK DRIVER Reading MD:Philippe Mason MD , FACS Primary Indications:r/o DVT left lower extremity Secondary Indications: Risk Factors Yes/No Hx of DVT No Impressions: Left lower extremity: normal superficial and deep exam. Right lower extremity: normal contralateral exam. Recommendations: Test completed on 06/21/2016 at 5:35:37 pm. Critical findings reported to Annie HERNANDEZ on 2N by phone at 5:35:50 pm on 06/21/2016 by Sarah Cohen RVT, RDCS. Findings Venous Duplex Results: Right: Venous imaging of the lower extremity reveals full patency and normal vessel compressibility of the right common femoral. Doppler signals in the evaluated veins were normal. Left: Venous imaging of the lower extremity reveals full patency and normal vessel compressibility of the left distal iliac, left common femoral, left superficial femoral, left popliteal, left posterior tibial, left peroneal, left saphenofemoral junction, left great saphenous and left lesser saphenous. Doppler signals in the evaluated veins were normal. Lower Extremity Venous Duplex Side Vein Compress Spontaneous Flow Augment Diameter (cm) Depth (cm) Left Distal Iliac Normal Yes Phasic Yes Left Common Femoral Normal Yes Phasic Yes Left Superficial Femoral Normal Yes Phasic Yes Left Popliteal Normal Yes Phasic Yes Left Posterior Tibial Normal Yes Phasic Yes Left Peroneal Normal Yes Phasic Yes Left Saphenofemoral Junction Normal Yes Phasic Yes Left Great Saphenous Normal Yes Phasic Yes Left Lesser Saphenous Normal Yes Phasic Yes Right Common Femoral Normal Yes Phasic Yes Updated by Philippe Mason MD, FACS on 06/22/2016 3:02:25 PM Philippe Mason MD electronically signed on 06/22/2016 3:03:08 PM with status of Final
[2016-06-22] MEDS ORDERED: Sennosides/Docusate Sodium TABLET PO PRN (15:36)
[2016-06-22] MEDS: Famotidine 20 MG TABLET PO SCH (16:53)
[2016-06-22] MEDS: traZODone 50 MG TABLET PO PRN (20:50)
[2016-06-23] MEDS: Vancomycin 1,500 MG in D5% in Water 250 ML IVPB SCH ×2 (01:11→12:38)
[2016-06-23] MEDS: Ipratropium/Albuterol Neb 3 ML IH SCH ×4 (04:34→22:39)
[2016-06-23 04:52] LABS: Mean Corpuscular Hemoglobin 28.1 pg (28.0-33.3); Nucleated Red Blood Cells 0.1 /100 WBC (0)
[2016-06-23 04:53] LABS: Hematocrit 21.9 % (37.5-50.1); Hemoglobin 7.5 g/dL (12.9-16.9); Mean Corpuscular HGB Conc 34.2 g/dL (31.6-35.5); Mean Platelet Volume 10.1 fL (9.4-12.4); Platelet Count 337 K/mcL (140-400); Red Blood Count 2.67 M/mcL (4.19-5.50); Red Cell Distribution Width 15.5 % (11.5-14.5)
[2016-06-23 05:07] LABS: BUN/Creatinine Ratio 19 (6-26); Blood Urea Nitrogen 14 mg/dL (8-26); Calcium 8.1 mg/dL (8.6-10.8); Carbon Dioxide 28 mEq/L (19-29); Chloride 101 mEq/L (98-109); Glucose 106 mg/dL (70-99); Osmolality,Calculated 279 (280-300); Phosphorous 3.4 mg/dL (2.3-4.7); Potassium 4.3 mEq/L (3.5-4.5); Sodium 134 mEq/L (136-145); eGFR For African Americans > 60 (> 60); eGFR For Non-African Americans > 60 (> 60)
[2016-06-23 05:24] LABS: Lymphocytes # 3.7 K/mcL (0.6-4.6); Monocytes # 3.2 K/mcL (0.0-1.3); Neutrophils # 15.4 K/mcL (1.6-8.9); Platelet Estimate Normal (Normal)
[2016-06-23] MEDS: Meropenem 1,000 MG in 0.9 % Sodium Chloride Mini Bag 100 ML IVPB SCH ×3 (05:54→21:17)
[2016-06-23] MEDS: *HR* Heparin 5,000 UNIT/ML VIAL SQ SCH ×3 (05:54→21:17)
[2016-06-23] MEDS: *HR* HYDROcodone/Acet 5/325 mg TABLET PO PRN ×2 (06:03→19:28)
[2016-06-23] MEDS: 0.9 % Sodium Chloride 1,000 ML IV SCH (08:30)
[2016-06-23] MEDS: Insulin LISPRO 300 UNITS/3 ML VIAL SQ SCH ×7 (08:34→21:18)
[2016-06-23] MEDS: Gabapentin 300 MG CAPSULE PO SCH ×3 (08:38→21:17)
[2016-06-23] MEDS: Famotidine 20 MG TABLET PO SCH (08:39)
[2016-06-23] MEDS: Aspirin Enteric Coated 81 MG Tablet PO SCH (08:39)
[2016-06-23] MEDS: levETIRAcetam 250 MG TABLET PO SCH ×2 (08:39→21:17)
[2016-06-23] MEDS: Nicotine 21 MG PATCH.TD24 TD SCH (08:40)
[2016-06-23] MEDS: Insulin DETEMIR 100 UNIT/ML X5UNITS SQ SCH (08:51)
--- NOTE | 2016-06-23 10:50 | Internal Med Progress Note ---
Date of Encounter: 06/23/16 Time of Encounter: 10:48 - Assessment and plan (1) Severe sepsis Current Visit: Yes Status: Acute Assessment and plan: Likely secondary to Left lung pneumonia Bacteremia likely secondary to Pneumonia Blood cultures positive for Strep Penumoniae s/p I&D of left heel abscess-wound cultures pending Leukocytosis persists but improving Will continue IV Vancomycin and IV Meropenem Pharmacy to dose Vancomycin and monitor trough Repeat Blood cultures preliminary NGTD-will follow official reports Tylenol PRN fever Mental status back to baseline line Will continue to closely monitor. (2) Pneumonia Current Visit: Yes Status: Acute Assessment and plan: plan as listed above Qualifiers: Pneumonia type: due to unspecified organism Laterality: left Lung location: unspecified part of lung Qualified Code(s): J18.9 - Pneumonia, unspecified organism (3) Abscess of heel, left Current Visit: Yes Status: Acute Assessment and plan: s/p I&D Podiatry consultation appreciated will follow up wound cultures continue IV abx as listed above (4) Uncontrolled type 2 DM with hyperosmolar nonketotic hyperglycemia Current Visit: Yes Status: Acute Assessment and plan: Hyperglycemia improved BG better controlled continue Levemir 16units sQ qd continue Novolog 3units TIDAC continue to monitor FG and BG SS insulin algorithm as needed HbA1C: 8.8 (5) CLL (chronic lymphocytic leukemia) Current Visit: Yes Status: Chronic Assessment and plan: Currently in remission, s/p chemotherapy (6) DVT prophylaxis Current Visit: No Status: Acute Assessment and plan: Heparin SQ (7) Electrolyte abnormality Current Visit: Yes Status: Resolved Assessment and plan: continue to monitor electrolytes and replace as needed - Subjective Interval history: Patient seen and examined with present at bedside. Reports of feeling better compared to previous day with improvement in left foot pain. S/P I&D of left heel abscess with wound cultures pending. - Constitutional Vitals: Temp Pulse Resp BP Pulse Ox 98.9 F 86 18 117/67 97 06/23/16 07:27 06/23/16 07:45 06/23/16 07:27 06/23/16 07:27 06/23/16 07:27 General appearance: Present: A&O X 3, pleasant, no acute distress, obese, answers questions appropriately - Head Head exam: Present: atraumatic, normocephalic - Eye Eye exam: Present: normal appearance, conjuntiva pink, sclera anicteric - Respiratory Respiratory exam: Present: CTAB. Absent: accessory muscle use, rales, rhonchi, wheezes - Cardiovascular Cardiovascular exam: Present: RRR, +S1, +S2. Absent: diastolic murmur, gallop, rubs, systolic murmur - GI/Abdominal GI/Abdominal exam: Present: normal bowel sounds, soft, no peritoneal signs. Absent: distended, tenderness - Extremities Exam Extremities exam: Present: pedal edema, warm, radial pulses palpable and symetrical. Absent: calf tenderness (Left heel pressure ulcer-abscess drained) - Neurological Exam Neurological exam: Present: alert, oriented X3 - Psychiatric Psychiatric exam: Present: normal affect, normal mood Internal Medicine: Result - Labs CBC & Chem 7: 06/23/16 04:15 06/23/16 04:15 Labs: Short CBC 06/22/16 06/22/16 06/23/16 Range/Units 10:30 12:05 04:15 WBC 29.6 H 33.6 H* 26.6 H (4.3-11.1) K/mcL Hgb 8.8 L 8.9 L 7.5 L (12.9-16.9) g/dL Hct 26.6 L 25.7 L 21.9 L (37.5-50.1) % Plt Count 355 362 337 (140-400) K/mcL Neutrophils # 20.4 H 20.2 H 15.4 H (1.6-8.9) K/mcL BMP 06/23/16 04:15 Sodium 134 L Potassium 4.3 Chloride 101 Carbon Dioxide 28 BUN 14 Creatinine 0.72 Glucose 106 H Calcium 8.1 L Urine 06/22/16 Range/Units 13:00 Urine Color Yellow (Yellow) Urine Clarity Turbid A (Clear) Urine pH 6.0 (5.0-8.0) pH Units Ur Specific [place] 1.014 (1.010-1.025) Urine Protein Negative (Neg-Trace) mg/dL Urine Glucose (UA) Normal (Normal) mg/dL - ABG Interpretation ABG results: ABG ABG pH 7.51 pH Units (7.32-7.45) H 06/18/16 20:10 ABG pCO2 41 mmHg (35-45) 06/18/16 20:10 ABG pO2 76 mmHg (85-104) L 06/18/16 20:10 ABG O2 Saturation 96 % (95-98) 06/18/16 20:10 PT/INR, D-dimer PT 16.3 Seconds (9.4-12.1) H 06/18/16 18:15 Consult Discharge Plan - Plan Referrals: Isabelle Torres SENIOR [employer]PLICATION DEVELOPER [Advanced Practice Nurse] - 06/29/16 2:30 pm Liyah Lopez, AMADO [Primary Care Provider] - ()
[2016-06-23] MEDS: *HR* OxyCODONE/APAP 10/325 TABLET PO PRN ×2 (10:57→23:20)
--- NOTE | 2016-06-23 17:16 | Podiatry Progress Note ---
Date of Encounter: 06/23/16 Time of Encounter: 17:00 - Assessment and Plan (1) Abscess of heel, left Current Visit: Yes Status: Acute Assessment: #1 Abscess secondary to pressure ulcer left heel unstageable #2 cellulitis left heel #3 multiple comorbidities as outlined in history. Plan: #1 examine and evaluate patient presently discuss findings clinically and as well as immediate recommendations which include incision and drainage at bedside #2 informed consent obtained timeout performed. Under aseptic conditions the left heel wound/abscess was prepped with alcohol 3 times. Using a sterile #15 scalpel blade incision was made within the epidermis and drainage of a seropurulent exudate was immediately cultured aerobic and anaerobic Gram stain. It was then irrigated with saline and peroxide and then saline and dry sterile dressing applied. #3 continue complete offloading measures and await cultures. #4 possible further debridement at bedside to completely de- roof the lesion itself. #5 we will follow during this admission closely and then as an outpatient #6 thank you for allowing me to participate in your patient' s care. Dictation for 06/23/2016 Assessment: #1 status post I&D left heel healing uneventfully without complication cultures negative. Plan: #1 continue local wound care and offloading. We will offload right heel as well to prevent ulceration of the right calcaneus Subjective Principal diagnosis: Pressure ulcer left calcaneus complicated by diabetes Interval history: Now status post 24 hours I&D left heel hematoma/abscess. Cultures are negative this time. Resolution of surrounding periwound erythema. No complaints of chest pain nausea vomiting fever or chills. Objective - Vital Signs Vital Signs: Vital Signs Temp Pulse Resp BP Pulse Ox 06/23/16 15:55 97 06/23/16 15:45 98.8 F 76 16 104/75 97 06/23/16 11:45 101 06/23/16 11:36 98.9 F 105 16 108/72 97 06/23/16 10:37 24 96 06/23/16 07:45 86 06/23/16 07:27 98.9 F 90 18 117/67 97 06/23/16 04:47 90 06/23/16 04:35 18 91 06/23/16 03:15 98.5 F 89 18 117/67 93 06/23/16 01:16 98.6 F 93 16 115/66 95 06/23/16 00:50 95 06/22/16 22:25 20 94 06/22/16 20:54 92 06/22/16 19:41 98.1 F 92 18 117/72 96 Intake and Output 06/23/16 06/23/16 06/23/16 07:59 15:59 23:59 Intake Total 1054 / 1054 0 / 0 Output Total 1200 / 1200 1100 / 1100 Balance -146 / -146 -1100 / -1100 Intake: IV Fluids 454 / 454 Magnesium Sulfate 2 GM In 104 / 104 Dextrose 5% 100 ML @ 50 mls/hr IVPB Q6H PRN Rx#: [id number] Merrem 1,000 MG In 0.9 % 100 / 100 Sodium Chloride (Mini-Bag +) 100 ML @ 200 mls/hr IVPB Q8H [facility] Rx#: [id number] Vancocin 1,500 MG In 250 / 250 Dextrose 5% 250 ML @ 166. 67 mls/hr IVPB Q12H [facility] Rx#:[id number] Oral 600 / 600 0 / 0 Output: Urine 0 / 0 1100 / 1100 Catheter 1200 / 1200 Other: Meal Lunch Percent of Meal Consumed 0% Weight 89.7 kg Blood Glucose* 149 Patient Weight 06/23/16 23:59 Weight 89.7 kg - Exam Incision: Present: healing, clean and dry (Wound left heel with roof of wound intact. Irrigated previously no evidence of any purulent drainage. Erythema resolving periwound tissue is intact. No cellulitis no lymphangitis. No odor.) - Lab Result Diagrams: 06/23/16 04:15 06/23/16 04:15 Labs: Abnormal lab results WBC 26.6 K/mcL (4.3-11.1) H 06/23/16 04:15 RBC 2.67 M/mcL (4.19-5.50) L 06/23/16 04:15 Hgb 7.5 g/dL (12.9-16.9) L 06/23/16 04:15 Hct 21.9 % (37.5-50.1) L 06/23/16 04:15 MCV 82.0 fL (83.0-100.0) L 06/23/16 04:15 RDW 15.5 % (11.5-14.5) H 06/23/16 04:15 Band Neutrophils % 8.0 % (0-4) H 06/22/16 10:30 Metamyelocytes % 10.0 % (0) H 06/23/16 04:15 Myelocytes % 6.0 % (0) H 06/23/16 04:15 Promyelocytes % 1.0 % (0) H 06/22/16 10:30 Neutrophils # 15.4 K/mcL (1.6-8.9) H 06/23/16 04:15 Monocytes # 3.2 K/mcL (0.0-1.3) H 06/23/16 04:15 Nucleated RBCs/100 WBC 0.1 /100 WBC (0) H 06/23/16 04:15 Toxic Granulation Present (Not Present) A 06/22/16 10:30 Anisocytosis 1+ (Not Present) A 06/19/16 03:06 PT 16.3 Seconds (9.4-12.1) H 06/18/16 18:15 APTT 23.5 Seconds (26.0-36.0) L 06/18/16 18:15 ABG pH 7.51 pH Units (7.32-7.45) H 06/18/16 20:10 ABG pO2 76 mmHg (85-104) L 06/18/16 20:10 ABG HCO3 32.7 mEQ/L (21-27) H 06/18/16 20:10 ABG Total CO2 34.0 mEq/L (20-26) H 06/18/16 20:10 ABG Base Excess 8.9 mEq/L (-2.0 to 3.0) H 06/18/16 20:10 VBG pH 7.51 pH Units (7.32-7.42) H 06/19/16 03:06 VBG pCO2 40 mmHg (41-51) L 06/19/16 03:06 VBG pO2 94 mmHg (25-40) H 06/19/16 03:06 VBG HCO3 31.9 mEq/L (21-27) H 06/19/16 03:06 Sodium 134 mEq/L (136-145) L 06/23/16 04:15 Glucose 106 mg/dL (70-99) H 06/23/16 04:15 POC Glucose 101 (58-89) H 06/23/16 09:59 Hemoglobin A1c 8.8 % (-5.6) H 06/21/16 00:37 Calculated Osmolality 279 (280-300) L 06/23/16 04:15 Calcium 8.1 mg/dL (8.6-10.8) L 06/23/16 04:15 Total Bilirubin 1.7 mg/dL (0.2-1.2) H 06/19/16 03:06 Direct Bilirubin 1.3 mg/dL (0.0-0.5) H 06/19/16 03:06 Alkaline Phosphatase 270 Units/L (38-126) H 06/19/16 03:06 Serum Total Protein 5.8 g/dL (6.0-8.3) L 06/19/16 03:06 Albumin 1.6 g/dL (3.5-5.0) L D 06/19/16 03:06 Globulin 4.2 g/dL (2.4-3.5) H 06/19/16 03:06 Albumin/Globulin Ratio 0.4 (1.1-2.2) L 06/19/16 03:06 Beta-Hydroxybutyric Acd 0.83 mmol/L (0.02-0.27) H 06/18/16 18:15 Urine Clarity Turbid (Clear) A 06/22/16 13:00 Urine Blood Small (Negative) H 06/22/16 13:00 Urine Microscopic RBC 3-5 per hpf (0-3) H 06/22/16 13:00 Urine Microscopic WBC 5-15 per hpf (0-3) H 06/22/16 13:00 Ur Squamous Epith Cells Moderate per lpf (None-Few) H 06/22/16 13:00 Amorphous Sediment Moderate (Few) H 06/18/16 18:57 Ur Culture Indicated? YES (NO) A 06/18/16 18:57 Streptococcus sp PCR DETECTED (Not Detect) A 06/18/16 18:15 Strep pneumoniae (PCR) DETECTED (Not Detect) A 06/18/16 18:15 Microbiology, Last 48 Hours 06/22/16 13:46 Wound Culture - Preliminary Left Foot No growth. 06/21/16 00:37 Blood Culture - Preliminary Peripheral Central Cath, Picc No growth. 06/20/16 06:49 Blood Culture - Preliminary Peripheral Venipuncture No growth. Consult Discharge Plan - Plan Referrals: Isabelle Torres, AMADO [Advanced Practice Nurse] - 06/29/16 2:30 pm Liyah Lopez, AMADO [Primary Care Provider] - ()
[2016-06-23] MEDS: traZODone 50 MG TABLET PO PRN (21:17)
[2016-06-24] MEDS: Ipratropium/Albuterol Neb 3 ML IH SCH ×4 (03:57→22:12)
[2016-06-24 04:51] LABS: Hematocrit 23.5 % (37.5-50.1); Mean Corpuscular Hemoglobin 28.2 pg (28.0-33.3); Mean Corpuscular Volume 82.7 fL (83.0-100.0); Mean Platelet Volume 9.9 fL (9.4-12.4); Monocytes # 1.6 K/mcL (0.0-1.3); Nucleated Red Blood Cells 0.1 /100 WBC (0); Platelet Count 337 K/mcL (140-400); Red Blood Count 2.84 M/mcL (4.19-5.50); Red Cell Distribution Width 15.8 % (11.5-14.5)
[2016-06-24] MEDS: *HR* OxyCODONE/APAP 10/325 TABLET PO PRN ×4 (05:03→19:53)
[2016-06-24] MEDS: *HR* Heparin 5,000 UNIT/ML VIAL SQ SCH ×3 (05:03→23:01)
[2016-06-24 05:04] LABS: BUN/Creatinine Ratio 18 (6-26); Blood Urea Nitrogen 13 mg/dL (8-26); Calcium 8.4 mg/dL (8.6-10.8); Carbon Dioxide 27 mEq/L (19-29); Chloride 104 mEq/L (98-109); Glucose 110 mg/dL (70-99); Magnesium 1.6 mg/dL (1.6-2.6); Osmolality,Calculated 287 (280-300); Phosphorous 3.4 mg/dL (2.3-4.7); Potassium 5.2 mEq/L (3.5-4.5); Sodium 138 mEq/L (136-145); eGFR For African Americans > 60 (> 60); eGFR For Non-African Americans > 60 (> 60)
[2016-06-24] MEDS: Meropenem 1,000 MG in 0.9 % Sodium Chloride Mini Bag 100 ML IVPB SCH ×3 (05:04→21:54)
[2016-06-24] MEDS: Vancomycin 1,250 MG in D5% in Water 250 ML IVPB SCH ×2 (05:04→16:16)
[2016-06-24 05:15] LABS: Lymphocytes # 3.1 K/mcL (0.6-4.6); Neutrophils # 15.7 K/mcL (1.6-8.9)
[2016-06-24 05:18] LABS: Hypochromasia Present (Not Present); Platelet Estimate Normal (Normal)
[2016-06-24] MEDS: Magnesium Sulfate 2 GM in D5% in Water 100 ML IVPB PRN ×2 (07:00→19:53)
[2016-06-24] MEDS: Gabapentin 300 MG CAPSULE PO SCH ×3 (08:14→19:52)
[2016-06-24] MEDS: Aspirin Enteric Coated 81 MG Tablet PO SCH (08:14)
[2016-06-24] MEDS: Nicotine 21 MG PATCH.TD24 TD SCH (08:15)
[2016-06-24] MEDS: levETIRAcetam 250 MG TABLET PO SCH ×2 (08:15→19:53)
[2016-06-24] MEDS: Insulin LISPRO 300 UNITS/3 ML VIAL SQ SCH ×7 (08:16→21:55)
[2016-06-24] MEDS: Insulin DETEMIR 100 UNIT/ML X5UNITS SQ SCH (08:17)
--- NOTE | 2016-06-24 10:25 | Internal Med Progress Note ---
Date of Encounter: 06/24/16 Time of Encounter: 10:20 - Assessment and plan (1) Severe sepsis Current Visit: Yes Status: Acute Assessment and plan: Likely secondary to Left lung pneumonia Bacteremia likely secondary to Pneumonia Blood cultures positive for Strep Penumoniae s/p I&D of left heel abscess-wound cultures NGTD Leukocytosis persists but improving Will continue IV Vancomycin and IV Meropenem Pharmacy to dose Vancomycin and monitor trough Repeat Blood cultures preliminary NGTD-will follow official reports Tylenol PRN fever Mental status back to baseline line Will continue to closely monitor. (2) Pneumonia Current Visit: Yes Status: Acute Assessment and plan: plan as listed above Qualifiers: Pneumonia type: due to unspecified organism Laterality: left Lung location: unspecified part of lung Qualified Code(s): J18.9 - Pneumonia, unspecified organism (3) Abscess of heel, left Current Visit: Yes Status: Acute Assessment and plan: s/p I&D Podiatry consultation appreciated wound cultures NGTD continue IV abx as listed above (4) Uncontrolled type 2 DM with hyperosmolar nonketotic hyperglycemia Current Visit: Yes Status: Acute Assessment and plan: Hyperglycemia improved BG better controlled continue Levemir 16units sQ qd continue Novolog 3units TIDAC continue to monitor FG and BG SS insulin algorithm as needed HbA1C: 8.8 (5) CLL (chronic lymphocytic leukemia) Current Visit: Yes Status: Chronic Assessment and plan: Currently in remission, s/p chemotherapy (6) DVT prophylaxis Current Visit: No Status: Acute Assessment and plan: Heparin SQ (7) Electrolyte abnormality Current Visit: Yes Status: Resolved Assessment and plan: Hyperkalemia-one dose of Kayexalate to be given no EKG changes reported will closely monitor - Subjective Interval history: Patient seen and examined with present at bedside. Resting in chair and reports of feeling better. NO overnight issues reported. - Constitutional Vitals: Temp Pulse Resp BP Pulse Ox 98 F 93 17 104/64 90 06/24/16 08:05 06/24/16 08:05 06/24/16 08:05 06/24/16 08:05 06/24/16 08:05 General appearance: Present: A&O X 3, pleasant, no acute distress, obese, answers questions appropriately - Head Head exam: Present: atraumatic, normocephalic - Eye Eye exam: Present: normal appearance, conjuntiva pink, sclera anicteric - Respiratory Respiratory exam: Present: CTAB. Absent: accessory muscle use, rales, rhonchi, wheezes - Cardiovascular Cardiovascular exam: Present: RRR, +S1, +S2. Absent: diastolic murmur, gallop, rubs, systolic murmur - GI/Abdominal GI/Abdominal exam: Present: normal bowel sounds, soft, no peritoneal signs. Absent: distended, tenderness - Extremities Exam Extremities exam: Present: pedal edema, warm, radial pulses palpable and symetrical. Absent: calf tenderness Additional comments: lt heel dressing intact - Neurological Exam Neurological exam: Present: alert, oriented X3 - Psychiatric Psychiatric exam: Present: normal affect, normal mood Internal Medicine: Result - Labs CBC & Chem 7: 06/24/16 04:40 06/24/16 04:40 Labs: Short CBC 06/24/16 Range/Units 04:40 WBC 26.1 H (4.3-11.1) K/mcL Hgb 8.0 L (12.9-16.9) g/dL Hct 23.5 L (37.5-50.1) % Plt Count 337 (140-400) K/mcL Neutrophils # 15.7 H (1.6-8.9) K/mcL BMP 06/24/16 04:40 Sodium 138 Potassium 5.2 H Chloride 104 Carbon Dioxide 27 BUN 13 Creatinine 0.71 L Glucose 110 H Calcium 8.4 L - ABG Interpretation ABG results: ABG ABG pH 7.51 pH Units (7.32-7.45) H 06/18/16 20:10 ABG pCO2 41 mmHg (35-45) 06/18/16 20:10 ABG pO2 76 mmHg (85-104) L 06/18/16 20:10 ABG O2 Saturation 96 % (95-98) 06/18/16 20:10 PT/INR, D-dimer PT 16.3 Seconds (9.4-12.1) H 06/18/16 18:15 Consult Discharge Plan - Plan Referrals: Isabelle Torres CNP [Advanced Practice Nurse] - 06/29/16 2:30 pm Liyah Lopez CNP [Primary Care Provider] - ()
[2016-06-24] MEDS: 0.9 % Sodium Chloride 1,000 ML IV SCH (12:00)
[2016-06-25] MEDS: Vancomycin 1,250 MG in D5% in Water 250 ML IVPB SCH ×2 (03:34→16:30)
[2016-06-25] MEDS: Ipratropium/Albuterol Neb 3 ML IH SCH ×4 (04:08→23:28)
[2016-06-25 04:48] LABS: Hematocrit 24.6 % (37.5-50.1); Hemoglobin 8.3 g/dL (12.9-16.9); Immature Platelets 6.9 % (1.1-6.1); Mean Corpuscular HGB Conc 33.7 g/dL (31.6-35.5); Mean Corpuscular Hemoglobin 28.7 pg (28.0-33.3); Mean Corpuscular Volume 85.1 fL (83.0-100.0); Mean Platelet Volume 10.2 fL (9.4-12.4); Nucleated Red Blood Cells 0.1 /100 WBC (0); Platelet Count 442 K/mcL (140-400); Red Blood Count 2.89 M/mcL (4.19-5.50); Red Cell Distribution Width 16.3 % (11.5-14.5)
[2016-06-25 05:09] LABS: Lymphocytes # 1.8 K/mcL (0.6-4.6); Monocytes # 1.2 K/mcL (0.0-1.3); Neutrophils # 21.2 K/mcL (1.6-8.9)
[2016-06-25] MEDS: Meropenem 1,000 MG in 0.9 % Sodium Chloride Mini Bag 100 ML IVPB SCH ×3 (06:31→21:19)
[2016-06-25] MEDS: *HR* Heparin 5,000 UNIT/ML VIAL SQ SCH ×3 (06:31→21:18)
[2016-06-25] MEDS: levETIRAcetam 250 MG TABLET PO SCH ×2 (07:34→21:18)
[2016-06-25] MEDS: Nicotine 21 MG PATCH.TD24 TD SCH (07:34)
[2016-06-25] MEDS: Gabapentin 300 MG CAPSULE PO SCH ×3 (07:35→21:18)
[2016-06-25] MEDS: *HR* OxyCODONE/APAP 10/325 TABLET PO PRN ×3 (07:35→21:18)
[2016-06-25] MEDS: Aspirin Enteric Coated 81 MG Tablet PO SCH (07:35)
[2016-06-25] MEDS: Insulin LISPRO 300 UNITS/3 ML VIAL SQ SCH ×7 (07:36→21:19)
[2016-06-25] MEDS: Magnesium Sulfate 2 GM in D5% in Water 100 ML IVPB PRN ×2 (08:48→22:20)
[2016-06-25] MEDS: Insulin DETEMIR 100 UNIT/ML X5UNITS SQ SCH (08:49)
[2016-06-25 09:16] LABS: BUN/Creatinine Ratio 12 (6-26); Blood Urea Nitrogen 9 mg/dL (8-26); Calcium 8.8 mg/dL (8.6-10.8); Carbon Dioxide 26 mEq/L (19-29); Chloride 100 mEq/L (98-109); Glucose 107 mg/dL (70-99); Osmolality,Calculated 283 (280-300); Phosphorous 3.6 mg/dL (2.3-4.7); Potassium 4.4 mEq/L (3.5-4.5); Sodium 137 mEq/L (136-145); eGFR For African Americans > 60 (> 60); eGFR For Non-African Americans > 60 (> 60)
--- NOTE | 2016-06-25 11:32 | Internal Med Progress Note ---
Date of Encounter: 06/25/16 Time of Encounter: 11:00 - Assessment and plan (1) Severe sepsis Current Visit: Yes Status: Acute Assessment and plan: Likely secondary to Left lung pneumonia Bacteremia likely secondary to Pneumonia Blood cultures positive for Strep Penumoniae s/p I&D of left heel abscess-wound cultures NGTD Given worsening leukocytosis, CT chest was obtained, which is consistent with LUIS pneumonia with small left parapneumonic pleural effusion New onset diarrhea-will send stool studies and empirically start on Metronidazole IV Will continue IV Vancomycin and IV Meropenem Pharmacy to dose Vancomycin and monitor trough Repeat Blood cultures preliminary NGTD-will follow official reports Tylenol PRN fever Mental status back to baseline line Will continue to closely monitor. (2) Pneumonia Current Visit: Yes Status: Acute Assessment and plan: plan as listed above Qualifiers: Pneumonia type: due to unspecified organism Laterality: left Lung location: unspecified part of lung Qualified Code(s): J18.9 - Pneumonia, unspecified organism (3) Abscess of heel, left Current Visit: Yes Status: Acute Assessment and plan: s/p I&D Podiatry consultation appreciated wound cultures NGTD continue IV abx as listed above (4) Uncontrolled type 2 DM with hyperosmolar nonketotic hyperglycemia Current Visit: Yes Status: Acute Assessment and plan: Hyperglycemia improved BG better controlled continue Levemir 16units sQ qd continue Novolog 3units TIDAC continue to monitor FG and BG SS insulin algorithm as needed HbA1C: 8.8 (5) CLL (chronic lymphocytic leukemia) Current Visit: Yes Status: Chronic Assessment and plan: Currently in remission, s/p chemotherapy (6) DVT prophylaxis Current Visit: No Status: Acute Assessment and plan: Heparin SQ (7) Electrolyte abnormality Current Visit: Yes Status: Resolved Assessment and plan: Hyperkalemia resolved will closely monitor electrolytes and replace as needed - Subjective Interval history: Patient seen and examined with present at bedside. Patient somnolent but arousable. As per patient has been somnolent all morning and has had worsening of his appetite. Also reported to have two loose bowel movements this morning. Given worsening leukocytosis-CT chest was done to rule out empyema. CT chest shows Left upper lobe pneumonia with small left parapneumonic pleural effusion. Given new onset diarrhea: will send stool for C-diff and empirically start on Metronidazole. - Constitutional Vitals: Temp Pulse Resp BP Pulse Ox 98.2 F 102 20 120/78 90 06/25/16 07:50 06/25/16 07:50 06/25/16 11:04 06/25/16 07:50 06/25/16 11:04 General appearance: Present: A&O X 3 (somnolent but arousable), pleasant, no acute distress, obese, answers questions appropriately - Head Head exam: Present: atraumatic, normocephalic - Eye Eye exam: Present: conjuntiva pink, sclera anicteric - Respiratory Respiratory exam: Present: CTAB. Absent: accessory muscle use, rales, rhonchi, wheezes - Cardiovascular Cardiovascular exam: Present: RRR, +S1, +S2. Absent: diastolic murmur, gallop, rubs, systolic murmur - GI/Abdominal GI/Abdominal exam: Present: normal bowel sounds, soft, no peritoneal signs. Absent: distended, tenderness - Extremities Exam Extremities exam: Present: pedal edema, warm, radial pulses palpable and symetrical. Absent: calf tenderness - Neurological Exam Neurological exam: Present: alert, oriented X3 - Psychiatric Psychiatric exam: Present: normal affect, normal mood Internal Medicine: Result - Labs CBC & Chem 7: 06/25/16 04:39 06/25/16 08:53 Labs: Short CBC 06/25/16 Range/Units 04:39 WBC 29.5 H (4.3-11.1) K/mcL Hgb 8.3 L (12.9-16.9) g/dL Hct 24.6 L (37.5-50.1) % Plt Count 442 H (140-400) K/mcL Neutrophils # 21.2 H (1.6-8.9) K/mcL BMP 06/25/16 08:53 Sodium 137 Potassium 4.4 Chloride 100 Carbon Dioxide 26 BUN 9 Creatinine 0.73 Glucose 107 H Calcium 8.8 - ABG Interpretation ABG results: ABG ABG pH 7.51 pH Units (7.32-7.45) H 06/18/16 20:10 ABG pCO2 41 mmHg (35-45) 06/18/16 20:10 ABG pO2 76 mmHg (85-104) L 06/18/16 20:10 ABG O2 Saturation 96 % (95-98) 06/18/16 20:10 PT/INR, D-dimer PT 16.3 Seconds (9.4-12.1) H 06/18/16 18:15 - Impressions Impressions Chest CT 06/25/16 08:47 IMPRESSION: 1. Left upper lobe pneumonia with small left parapneumonic pleural effusion. Trace right pleural effusion is also present. 2. Mildly dilated main pulmonary artery, which can be seen with pulmonary arterial hypertension. 3. Mildly enlarged mediastinal and left hilar lymph nodes, likely reactive. 4. Extensive coronary arterial calcifications. D/ / 06/25/2016 10:15:08 Ann Marie Singh MD / sylvester Interpreting Provider: Ann Marie Singh MD Consult Discharge Plan - Plan Referrals: Isabelle Torres CNP [Advanced Practice Nurse] - 06/29/16 2:30 pm Liyah Lopez CNP [Primary Care Provider] - ()
[2016-06-25] MEDS: MetroNIDAZOLE 500 MG/100 ML 500 MG/100 ML BAG IVPB SCH ×2 (12:55→19:45)
--- NOTE | 2016-06-25 13:08 | Pulmonology Consult Note ---
Date of Encounter: 06/25/16 Time of Encounter: 12:50 Assessment and Plan (1) Left upper lobe pneumonia Current Visit: Yes Status: Acute I reviewed CT chest and there is significant lobar pneumonia and he is clinically feeling much better and he is on appropriate antibiotics, however it can be de-escalate as patient feeling better and based on the sensitivity data to avoid any complications from excessive antibiotics use. I feel the fact he is feeling better clinically, radiologically will improve after that. Patient was advised not to smoke tobacco again, and he said he quit. Due to history of CLL, if patient clinically deteriorate, may need bronchoscopy then. Qualifiers: Pneumonia type: due to Pneumococcus Qualified Code(s): J13 - Pneumonia due to Streptococcus pneumoniae (2) Pleural effusion on left Current Visit: Yes Status: Acute I reviewed CT chest personally and he has small to moderate parapneumonic effusion, however patient clinically is feeling better and leukocytosis could be the fact he has underlying CLL and could be a different source. If no improvement, consider diagnostic thoracentesis. This was discussed with primary team. History of Present Illness Consult date: 06/25/16 Requesting physician: Radha Franco Reason for consult: pneumonia, pleural effusion Chief complaint: Fever, Cough and Confusion History of present illness: This is a pleasant 56 year male with multiple medical problems and he known to me. Patient has significant smoking tobacco history and he said he has quit about 5 days ago. He has history of CLL and presented to hospital with chief compliants of cough, congestion and fever and chills for several days and he said he has body aches and sweating. Patient has been diagnosed with pneumonia and today he had CT chest and pulmonary consulted. Patient has parapneumonic effusion, however patient stated he is feeling much better and denies any chest pain. He feels breathing has improved. Patient has diarrhea and denies any abdomenal pain. Past Med Surg Social Fam HX - Past Medical History Medical history: cancer, CVA, diabetes, hyperlipidemia, seizures Psychiatric history: anxiety, depression - Past Surgical History Surgical History: appendectomy, orthopedic, other - Social History Smoking Status: Current every day smoker Packs per day: 1 Smokeless Tobacco Status: Yes Alcohol use: none Drug use: marijuana - Family History Mother Living Status: Age at : 79 Cause of : Pancreatic cancer Hx Family Endocrine Disorder: Yes (Diabetes) Father Living Status: Age at : 60 Cause of : Heart surgery Hx Family Cardiac Disorders: Yes Medications and Allergies Aspirin [Adult Low Dose Aspirin EC] 81 mg PO DAILY 02/15/15 [History] Atorvastatin Calcium [Lipitor] 80 mg PO HS 02/15/15 [History] Citalopram [CeleXA] 40 mg PO DAILY 02/15/15 [History] Gabapentin [Neurontin] 600 mg PO TID 02/15/15 [History] LevETIRAcetam [Keppra] 500 mg PO BID 02/15/15 [History] Metformin [Glucophage] 500 mg PO BID MDD HOLD for 48 hours. 02/15/15 [History] Oxycodone HCl [Oxycontin] 5 mg PO BID PRN 02/15/15 [History] Sennosides/Docusate Sodium [Senna Plus] 1 tab PO BID PRN 02/15/15 [History] TraZODone 50 mg PO HS PRN 02/15/15 [History] Ondansetron HCl [Zofran] 4 mg PO Q6H PRN #30 tablet 03/01/15 [Rx] Prochlorperazine Maleate [Compazine] 10 mg PO Q6HR PRN #30 tablet 03/01/15 [Rx] Aclidinium [place] [Tudorza Pressair] 1 puff IH BID 08/02/15 [History] Albuterol Sulfate [Ventolin Hfa] 2 puff IH Q4H PRN 08/02/15 [History] Oxycodone HCl/Acetaminophen [Percocet 5-325 mg Tablet] 1 tab PO Q4-6H PRN [History] Tamsulosin [Flomax] 0.4 mg PO DAILY 08/02/15 [History] Pantoprazole Sodium [Protonix] 40 mg PO DAILY 12/22/15 [History] Polyethylene Glycol 3350 [MiraLAX] 17 gm PO BID PRN 12/22/15 [History] Ranitidine HCl [Zantac] 150 mg PO BID 12/22/15 [History] Buspirone HCl [Buspar] 5 mg PO TID 06/21/16 [History] Onabotulinumtoxina [Botox] 100 unit IM Q3M 06/21/16 [History] Allergies Penicillins [PCN] Allergy (Verified 02/15/15 15:20) Rash All Systems: A 10-system review of systems was performed and is negative for pertinent findings except as documented above in the HPI. Physical Examination Vital Signs: Vital Signs, Last 4 Hours Temp Pulse Resp BP Pulse Ox 06/25/16 11:47 98.1 F 91 16 96/56 89 06/25/16 11:42 90 19 96/56 90 06/25/16 11:04 20 90 General appearance: no acute distress Eyes: nonicteric ENT: oropharynx moist Mallampati (class): 2 Neck: supple, no lymphadenopathy Effort: normal Inspection: normal Auscultation: left: diminished breath sounds, rhonchi, right: clear Percussion: left: dull, right: not dull Cardiovascular: regular rate and rhythm Gastrointestinal: normoactive bowel sounds, non-distended Extremities: no cyanosis normal mental status, other (Left side weakness) mood appropriate Results - Laboratory Findings CBC and BMP: 06/25/16 04:39 06/25/16 08:53 ABG ABG pH 7.51 pH Units (7.32-7.45) H 06/18/16 20:10 ABG pCO2 41 mmHg (35-45) 06/18/16 20:10 ABG pO2 76 mmHg (85-104) L 06/18/16 20:10 ABG O2 Saturation 96 % (95-98) 06/18/16 20:10 PT/INR, D-dimer PT 16.3 Seconds (9.4-12.1) H 06/18/16 18:15 Abnormal lab findings: Abnormal lab results WBC 29.5 K/mcL (4.3-11.1) H 06/25/16 04:39 RBC 2.89 M/mcL (4.19-5.50) L 06/25/16 04:39 Hgb 8.3 g/dL (12.9-16.9) L 06/25/16 04:39 Hct 24.6 % (37.5-50.1) L 06/25/16 04:39 RDW 16.3 % (11.5-14.5) H 06/25/16 04:39 Plt Count 442 K/mcL (140-400) H 06/25/16 04:39 Band Neutrophils % 8.0 % (0-4) H 06/25/16 04:39 Metamyelocytes % 6.0 % (0) H 06/25/16 04:39 Myelocytes % 12.0 % (0) H 06/25/16 04:39 Promyelocytes % 1.0 % (0) H 06/22/16 10:30 Neutrophils # 21.2 K/mcL (1.6-8.9) H 06/25/16 04:39 Nucleated RBCs/100 WBC 0.1 /100 WBC (0) H 06/25/16 04:39 Toxic Granulation Present (Not Present) A 06/22/16 10:30 Platelet Estimate Slight increase (Normal) H 06/25/16 04:39 Immature Plt Fraction 6.9 % (1.1-6.1) H 06/25/16 04:39 Hypochromasia Present (Not Present) A 06/24/16 04:40 Anisocytosis 1+ (Not Present) A 06/19/16 03:06 PT 16.3 Seconds (9.4-12.1) H 06/18/16 18:15 APTT 23.5 Seconds (26.0-36.0) L 06/18/16 18:15 ABG pH 7.51 pH Units (7.32-7.45) H 06/18/16 20:10 ABG pO2 76 mmHg (85-104) L 06/18/16 20:10 ABG HCO3 32.7 mEQ/L (21-27) H 06/18/16 20:10 ABG Total CO2 34.0 mEq/L (20-26) H 06/18/16 20:10 ABG Base Excess 8.9 mEq/L (-2.0 to 3.0) H 06/18/16 20:10 VBG pH 7.51 pH Units (7.32-7.42) H 06/19/16 03:06 VBG pCO2 40 mmHg (41-51) L 06/19/16 03:06 VBG pO2 94 mmHg (25-40) H 06/19/16 03:06 VBG HCO3 31.9 mEq/L (21-27) H 06/19/16 03:06 Glucose 107 mg/dL (70-99) H 06/25/16 08:53 POC Glucose 128 (58-89) H 06/24/16 20:56 Hemoglobin A1c 8.8 % (-5.6) H 06/21/16 00:37 Total Bilirubin 1.7 mg/dL (0.2-1.2) H 06/19/16 03:06 Direct Bilirubin 1.3 mg/dL (0.0-0.5) H 06/19/16 03:06 Alkaline Phosphatase 270 Units/L (38-126) H 06/19/16 03:06 Serum Total Protein 5.8 g/dL (6.0-8.3) L 06/19/16 03:06 Albumin 1.6 g/dL (3.5-5.0) L D 06/19/16 03:06 Globulin 4.2 g/dL (2.4-3.5) H 06/19/16 03:06 Albumin/Globulin Ratio 0.4 (1.1-2.2) L 06/19/16 03:06 Beta-Hydroxybutyric Acd 0.83 mmol/L (0.02-0.27) H 06/18/16 18:15 Urine Clarity Turbid (Clear) A 06/22/16 13:00 Urine Blood Small (Negative) H 06/22/16 13:00 Urine Microscopic RBC 3-5 per hpf (0-3) H 06/22/16 13:00 Urine Microscopic WBC 5-15 per hpf (0-3) H 06/22/16 13:00 Ur Squamous Epith Cells Moderate per lpf (None-Few) H 06/22/16 13:00 Amorphous Sediment Moderate (Few) H 06/18/16 18:57 Ur Culture Indicated? YES (NO) A 06/18/16 18:57 Streptococcus sp PCR DETECTED (Not Detect) A 06/18/16 18:15 Strep pneumoniae (PCR) DETECTED (Not Detect) A 06/18/16 18:15 - Microbiology Findings Microbiology Findings: Microbiology, Last 48 Hours 06/22/16 13:46 Anaerobic Culture - Preliminary Left Foot At this time, no anaerobic growth is present. The culture will be finalized after 5 days of incubation. 06/22/16 13:46 Wound Culture - Final Left Foot No growth. - Diagnostic Findings CT scan - chest: report reviewed, image reviewed - Clinical Findings Intake & Output: Intake & Output 04/11/0206/25/16 06/25/16 23:59 07:59 15:59 Intake Total 934 / 934 950 / 950 240 / 240 Output Total 250 / 250 Balance 934 / 934 700 / 700 240 / 240 Weight 98.515 kg Consult Discharge Plan - Plan Referrals: Isabelle Torres TILE SETTER APPRENTICE [Advanced Practice Nurse] - 06/29/16 2:30 pm Liyah Lopez CNP [Primary Care Provider] - ()
[2016-06-25] MEDS ORDERED: 0.9 % Sodium Chloride 250 ML IVC PRN (14:45)
[2016-06-25] MEDS: 0.9 % Sodium Chloride 1,000 ML IV SCH (16:28)
[2016-06-25] MEDS: traZODone 50 MG TABLET PO PRN (21:17)
[2016-06-26 03:49] LABS: Hematocrit 23.3 % (37.5-50.1); Hemoglobin 7.7 g/dL (12.9-16.9); Mean Corpuscular Hemoglobin 28.1 pg (28.0-33.3); Mean Platelet Volume 9.6 fL (9.4-12.4); Platelet Count 461 K/mcL (140-400); Red Blood Count 2.74 M/mcL (4.19-5.50); Red Cell Distribution Width 16.6 % (11.5-14.5)
[2016-06-26] MEDS: MetroNIDAZOLE 500 MG/100 ML 500 MG/100 ML BAG IVPB SCH ×2 (03:59→11:17)
[2016-06-26 04:04] LABS: BUN/Creatinine Ratio 15 (6-26); Blood Urea Nitrogen 10 mg/dL (8-26); Calcium 8.6 mg/dL (8.6-10.8); Carbon Dioxide 26 mEq/L (19-29); Chloride 102 mEq/L (98-109); Glucose 90 mg/dL (70-99); Magnesium 1.9 mg/dL (1.6-2.6); Osmolality,Calculated 283 (280-300); Phosphorous 3.4 mg/dL (2.3-4.7); Potassium 4.1 mEq/L (3.5-4.5); Sodium 137 mEq/L (136-145); eGFR For African Americans > 60 (> 60); eGFR For Non-African Americans > 60 (> 60)
[2016-06-26] MEDS: Ipratropium/Albuterol Neb 3 ML IH SCH ×4 (04:11→23:56)
[2016-06-26 04:25] LABS: Lymphocytes # 2.9 K/mcL (0.6-4.6); Monocytes # 1.8 K/mcL (0.0-1.3); Neutrophils # 12.6 K/mcL (1.6-8.9); Platelet Estimate Normal (Normal)
[2016-06-26] MEDS: Vancomycin 1,250 MG in D5% in Water 250 ML IVPB SCH ×2 (05:21→16:35)
[2016-06-26] MEDS: Meropenem 1,000 MG in 0.9 % Sodium Chloride Mini Bag 100 ML IVPB SCH ×3 (05:21→20:19)
[2016-06-26] MEDS: *HR* Heparin 5,000 UNIT/ML VIAL SQ SCH ×3 (06:14→22:58)
[2016-06-26] MEDS: Magnesium Sulfate 2 GM in D5% in Water 100 ML IVPB PRN (06:14)
[2016-06-26] MEDS: Aspirin Enteric Coated 81 MG Tablet PO SCH (08:00)
[2016-06-26] MEDS: Gabapentin 300 MG CAPSULE PO SCH ×3 (08:00→20:18)
[2016-06-26] MEDS: Insulin DETEMIR 100 UNIT/ML X5UNITS SQ SCH (08:01)
[2016-06-26] MEDS: levETIRAcetam 250 MG TABLET PO SCH ×2 (08:01→20:19)
[2016-06-26] MEDS: Nicotine 21 MG PATCH.TD24 TD SCH (08:01)
[2016-06-26] MEDS: Insulin LISPRO 300 UNITS/3 ML VIAL SQ SCH ×7 (08:02→22:48)
[2016-06-26] MEDS: 0.9 % Sodium Chloride 1,000 ML IV SCH ×2 (08:02→12:34)
[2016-06-26] MEDS: *HR* HYDROcodone/Acet 5/325 mg TABLET PO PRN ×3 (08:12→23:29)
--- NOTE | 2016-06-26 09:08 | Electrocardiograph Report ---
[place] [address] Test Date: 2016-06-24 Pat Name: Jovi Mcleod Department: 110 Room: 2N04 Gender: M Tax Economist: DIVINA : 1960 Requested By: Radha Franco Order Number: [id number] Reading MD: Steve Cramer MD Measurements Intervals [place] Rate: 82 P: 39 UT: 169 QRS: 8 QRSD: 100 T: 35 QT: 354 QTc: 393 Interpretive Statements SINUS RHYTHM Electronically Signed On 06-26-2016 9:07:04 EDT by Steve Cramer MD
[2016-06-26] MEDS: *HR* OxyCODONE/APAP 10/325 TABLET PO PRN ×2 (11:16→19:40)
--- NOTE | 2016-06-26 15:22 | Internal Med Progress Note ---
Date of Encounter: 06/26/16 Time of Encounter: 10:20 - Assessment and plan (1) Severe sepsis Current Visit: Yes Status: Acute Assessment and plan: Likely secondary to Left lung pneumonia Bacteremia likely secondary to Pneumonia Blood cultures positive for Strep Penumoniae s/p I&D of left heel abscess-wound cultures NGTD Given worsening leukocytosis, CT chest was obtained, which is consistent with LUIS pneumonia with small left parapneumonic pleural effusion-Repeat XR shows improvement Pulmonology consultation appreciated Diarrhea resolved, d/c Flagyl Will continue IV Vancomycin and IV Meropenem Pharmacy to dose Vancomycin and monitor trough Tylenol PRN fever Mental status back to baseline line Will continue to closely monitor. (2) Pneumonia Current Visit: Yes Status: Acute Assessment and plan: plan as listed above Qualifiers: Pneumonia type: due to unspecified organism Laterality: left Lung location: unspecified part of lung Qualified Code(s): J18.9 - Pneumonia, unspecified organism (3) Abscess of heel, left Current Visit: Yes Status: Acute Assessment and plan: s/p I&D Podiatry consultation appreciated wound cultures NGTD continue IV abx as listed above (4) Uncontrolled type 2 DM with hyperosmolar nonketotic hyperglycemia Current Visit: Yes Status: Acute Assessment and plan: Hyperglycemia improved BG better controlled continue Levemir 16units sQ qd continue Novolog 3units TIDAC continue to monitor FG and BG SS insulin algorithm as needed HbA1C: 8.8 (5) CLL (chronic lymphocytic leukemia) Current Visit: Yes Status: Chronic Assessment and plan: Currently in remission, s/p chemotherapy (6) DVT prophylaxis Current Visit: No Status: Acute Assessment and plan: Heparin SQ (7) Electrolyte abnormality Current Visit: Yes Status: Resolved - Subjective Interval history: Patient seen and examined with present at bedside. Pt reports of feeling better compared to previous day. No recurrent diarrhea reported. Patient has not had any bowel movements since yesterday. - Constitutional Vitals: Temp Pulse Resp BP Pulse Ox 97.9 F 100 18 122/81 92 06/26/16 11:11 06/26/16 11:15 06/26/16 11:11 06/26/16 11:11 06/26/16 11:11 General appearance: Present: A&O X 3, pleasant, no acute distress, obese, answers questions appropriately - Head Head exam: Present: atraumatic, normocephalic - Eye Eye exam: Present: conjuntiva pink, sclera anicteric - Respiratory Respiratory exam: Absent: respiratory distress, wheezes - Cardiovascular Cardiovascular exam: Present: RRR, +S1, +S2 - GI/Abdominal GI/Abdominal exam: Present: normal bowel sounds, soft. Absent: distended, tenderness - Extremities Exam Extremities exam: Present: pedal edema, warm, radial pulses palpable and symetrical. Absent: calf tenderness - Neurological Exam Neurological exam: Present: alert, oriented X3 - Psychiatric Psychiatric exam: Present: normal affect, normal mood Internal Medicine: Result - Labs CBC & Chem 7: 06/26/16 03:40 06/26/16 03:40 Labs: Short CBC 06/26/16 Range/Units 03:40 WBC 18.0 H (4.3-11.1) K/mcL Hgb 7.7 L (12.9-16.9) g/dL Hct 23.3 L (37.5-50.1) % Plt Count 461 H (140-400) K/mcL Neutrophils # 12.6 H (1.6-8.9) K/mcL BMP 06/26/16 03:40 Sodium 137 Potassium 4.1 Chloride 102 Carbon Dioxide 26 BUN 10 Creatinine 0.68 L Glucose 90 Calcium 8.6 - ABG Interpretation ABG results: ABG ABG pH 7.51 pH Units (7.32-7.45) H 06/18/16 20:10 ABG pCO2 41 mmHg (35-45) 06/18/16 20:10 ABG pO2 76 mmHg (85-104) L 06/18/16 20:10 ABG O2 Saturation 96 % (95-98) 06/18/16 20:10 PT/INR, D-dimer PT 16.3 Seconds (9.4-12.1) H 06/18/16 18:15 - Impressions Impressions Chest CT 06/25/16 08:47 IMPRESSION: 1. Left upper lobe pneumonia with small left parapneumonic pleural effusion. Trace right pleural effusion is also present. 2. Mildly dilated main pulmonary artery, which can be seen with pulmonary arterial hypertension. 3. Mildly enlarged mediastinal and left hilar lymph nodes, likely reactive. 4. Extensive coronary arterial calcifications. D/ / 06/25/2016 10:15:08 Ann Marie Singh MD / sylvester Interpreting Provider: Ann Marie Singh MD Chest X-Ray 06/26/16 07:00 IMPRESSION: Left upper lobe/ lingular consolidation is noted with slight improvement. Band of atelectasis has developed in the right lung base. D/ / Ryan Woodson MD / Ryan Woodson MD Interpreting Provider: Ryan Woodson MD Consult Discharge Plan - Plan Referrals: Isabelle Torres CNP [Advanced Practice Nurse] - 06/29/16 2:30 pm Liyah Lopez CNP [Primary Care Provider] - ()
--- NOTE | 2016-06-26 15:57 | Podiatry Progress Note ---
Date of Encounter: 06/26/16 Time of Encounter: 12:00 - Assessment and Plan (1) Diabetes Current Visit: No Status: Acute Qualifiers: Diabetes mellitus type: type 2 Diabetes mellitus complication status: without complication Diabetes mellitus penitentiary insulin use: without watermelon harvesting supervisor use Qualified Code(s): E11.9 - Type 2 diabetes mellitus without complications (2) Abscess of heel, left Current Visit: Yes Status: Acute Status post I and D of left heel wound/abscess by Dr. Hollingsworth on 06/22/16. Wound cultures negative. Ruptured bolus lesion deroofed with a sterile tissue nipper and pickups. No complications. Adipose tissue present, no necrosis or odor. No evidence of bacterial infection. Continue local wound care and offloading. Will change dressing to Allevyn foam every 3 days. Patient will need to f/u in wound care with in one week of discharge from the hospital. Subjective Principal diagnosis: Pressure ulcer left calcaneus complicated by diabetes Interval history: Patient is lying in bed with spouse at bedside. Medixs boot to the left lower extremity. Dressing dry and intact to the left heel. No c/o pain to the left heel. No c/o fever or chills. Objective - Vital Signs Vital Signs: Vital Signs Temp Pulse Resp BP Pulse Ox 06/26/16 15:29 97.4 F L 81 18 139/87 100 06/26/16 15:26 16 98 06/26/16 15:19 81 06/26/16 11:15 100 06/26/16 11:11 97.9 F 100 18 122/81 92 06/26/16 10:33 18 94 06/26/16 08:00 91 06/26/16 07:22 98.1 F 91 18 114/68 94 06/26/16 04:12 18 99 06/26/16 04:10 85 06/26/16 03:50 97.7 F 86 17 134/82 97 06/26/16 00:04 97.3 F L 90 16 120/73 96 06/25/16 23:28 18 97 06/25/16 23:20 80 06/25/16 19:49 88 06/25/16 19:16 98.0 F 89 18 131/78 100 06/25/16 16:03 16 98 Intake and Output 06/25/16 06/26/16 06/26/16 23:59 07:59 15:59 Intake Total 1180 / 1180 304 / 304 720 / 720 Output Total 450 / 450 250 / 250 600 / 600 Balance 730 / 730 54 / 54 120 / 120 Intake: IV Fluids 700 / 700 304 / 304 0.9 % Sodium Chloride 250 250 / 250 ML @ 937.5 mls/hr IVC . Q16M PRN Rx#:[id number] Magnesium Sulfate 2 GM In 104 / 104 Dextrose 5% 100 ML @ 50 mls/hr IVPB Q6H PRN Rx#: [id number] Merrem 1,000 MG In 0.9 % 100 / 100 100 / 100 Sodium Chloride (Mini-Bag +) 100 ML @ 200 mls/hr IVPB Q8H [facility] Rx#: [id number] Flagyl 500 MG/100 ML 500 100 / 100 100 / 100 mg In 100 ml @ 100 mls/hr IVPB Q8H [facility] Rx#: [id number] Vancocin 1,250 MG In 250 / 250 Dextrose 5% 250 ML @ 166. 67 mls/hr IVPB Q12H [facility] Rx#:[id number] Oral 480 / 480 720 / 720 Output: Urine 450 / 450 250 / 250 600 / 600 Other: Meal Dinner Lunch Percent of Meal Consumed 30% 20% # Urine Diapers 1 Weight 98.516 kg Blood Glucose* 101 142 154 Patient Weight 06/26/16 23:59 Weight 98.516 kg - Exam Exam: General appearance: alert awake oriented X 3. Calm and pleasant, no acute distress.. Vascular: Pedal pulses +2/4 DP/PT , No evidence of cyanosis, pallor or rubor, Edema graded at 1+/4, Skin Tempature warm, No calf pain with manual compression. capillary refill time is immediate to digits. Neurologic: Sensation intact with light touch to foot. . S/P I&D left heel on 06/22/16. Ruptured bullous lesion with loose skin to the left left heel. Bullous lesion deroofed with tissue nipper and pickup. Stage 3 pressure injury with adipose visible. No bone, no ligament, no tendon, no undermining, no tunneling, no sinus tracts, no periwound erythema. No purulent drainage, no odor, no evidence of bacterial infection. - Lab Result Diagrams: 06/26/16 03:40 06/26/16 03:40 Labs: Abnormal lab results WBC 18.0 K/mcL (4.3-11.1) H 06/26/16 03:40 RBC 2.74 M/mcL (4.19-5.50) L 06/26/16 03:40 Hgb 7.7 g/dL (12.9-16.9) L 06/26/16 03:40 Hct 23.3 % (37.5-50.1) L 06/26/16 03:40 RDW 16.6 % (11.5-14.5) H 06/26/16 03:40 Plt Count 461 K/mcL (140-400) H 06/26/16 03:40 Band Neutrophils % 28.0 % (0-4) H 06/26/16 03:40 Metamyelocytes % 4.0 % (0) H 06/26/16 03:40 Myelocytes % 12.0 % (0) H 06/25/16 04:39 Promyelocytes % 1.0 % (0) H 06/22/16 10:30 Neutrophils # 12.6 K/mcL (1.6-8.9) H 06/26/16 03:40 Monocytes # 1.8 K/mcL (0.0-1.3) H 06/26/16 03:40 Nucleated RBCs/100 WBC 0.1 /100 WBC (0) H 06/25/16 04:39 Toxic Granulation Present (Not Present) A 06/22/16 10:30 Immature Plt Fraction 6.9 % (1.1-6.1) H 06/25/16 04:39 Hypochromasia Present (Not Present) A 06/24/16 04:40 Anisocytosis 1+ (Not Present) A 06/19/16 03:06 PT 16.3 Seconds (9.4-12.1) H 06/18/16 18:15 APTT 23.5 Seconds (26.0-36.0) L 06/18/16 18:15 ABG pH 7.51 pH Units (7.32-7.45) H 06/18/16 20:10 ABG pO2 76 mmHg (85-104) L 06/18/16 20:10 ABG HCO3 32.7 mEQ/L (21-27) H 06/18/16 20:10 ABG Total CO2 34.0 mEq/L (20-26) H 06/18/16 20:10 ABG Base Excess 8.9 mEq/L (-2.0 to 3.0) H 06/18/16 20:10 VBG pH 7.51 pH Units (7.32-7.42) H 06/19/16 03:06 VBG pCO2 40 mmHg (41-51) L 06/19/16 03:06 VBG pO2 94 mmHg (25-40) H 06/19/16 03:06 VBG HCO3 31.9 mEq/L (21-27) H 06/19/16 03:06 Creatinine 0.68 mg/dL (0.72-1.25) L 06/26/16 03:40 POC Glucose 101 (58-89) H 06/25/16 21:05 Hemoglobin A1c 8.8 % (-5.6) H 06/21/16 00:37 Total Bilirubin 1.7 mg/dL (0.2-1.2) H 06/19/16 03:06 Direct Bilirubin 1.3 mg/dL (0.0-0.5) H 06/19/16 03:06 Alkaline Phosphatase 270 Units/L (38-126) H 06/19/16 03:06 Serum Total Protein 5.8 g/dL (6.0-8.3) L 06/19/16 03:06 Albumin 1.6 g/dL (3.5-5.0) L D 06/19/16 03:06 Globulin 4.2 g/dL (2.4-3.5) H 06/19/16 03:06 Albumin/Globulin Ratio 0.4 (1.1-2.2) L 06/19/16 03:06 Beta-Hydroxybutyric Acd 0.83 mmol/L (0.02-0.27) H 06/18/16 18:15 Urine Clarity Turbid (Clear) A 06/22/16 13:00 Urine Blood Small (Negative) H 06/22/16 13:00 Urine Microscopic RBC 3-5 per hpf (0-3) H 06/22/16 13:00 Urine Microscopic WBC 5-15 per hpf (0-3) H 06/22/16 13:00 Ur Squamous Epith Cells Moderate per lpf (None-Few) H 06/22/16 13:00 Amorphous Sediment Moderate (Few) H 06/18/16 18:57 Ur Culture Indicated? YES (NO) A 06/18/16 18:57 Streptococcus sp PCR DETECTED (Not Detect) A 06/18/16 18:15 Strep pneumoniae (PCR) DETECTED (Not Detect) A 06/18/16 18:15 Microbiology, Last 48 Hours 06/25/16 19:25 Sputum Culture - Preliminary Sputum Yeast Species 06/21/16 00:37 Blood Culture - Final Peripheral Central Cath, Picc No growth. 06/20/16 06:49 Blood Culture - Final Peripheral Venipuncture No growth. 06/22/16 13:46 Anaerobic Culture - Preliminary Left Foot At this time, no anaerobic growth is present. The culture will be finalized after 5 days of incubation. Consult Discharge Plan - Plan Referrals: Isabelle Torres STAPLE CUTTER [Advanced Practice Nurse] - 06/29/16 2:30 pm Liyah Lopez STAPLE CUTTER [Primary Care Provider] - ()
[2016-06-26 16:09] LABS: Magnesium 1.9 mg/dL (1.6-2.6)
[2016-06-26 16:22] LABS: Vancomycin,Trough 17.5 mcg/mL (10-20)
--- NOTE | 2016-06-26 16:37 | Pulmonology Progress Note ---
Date of Encounter: 06/26/16 Time of Encounter: 15:45 Assessment and Plan (1) Left upper lobe pneumonia Current Visit: Yes Status: Acute Clinically improved following initiation of empiric abx. Cx data now available which reveals sensitive S.pneumoniae sp. Can begin tailoring of abx and recommend discontinuation of vancomycin. Could continue with levaquin monotherapy but would also be reasonable to further tailor to a narrower spectrum antibiotic. Qualifiers: Pneumonia type: due to Pneumococcus Qualified Code(s): J13 - Pneumonia due to Streptococcus pneumoniae (2) Pleural effusion on left Current Visit: Yes Status: Acute Possible parapneumonic in nature but clinical improvement with abx without pleural drainage suggests that the the pleural space is not infected. Will defer intervention on effusion for now but will pursue diagnostic or therapeutic thoracentesis if clinical improvement stops or pt worsens. Subjective Principal diagnosis: Pressure ulcer left calcaneus complicated by diabetes Interval history: Has been receiving abx for dense LUIS pneumonia. Reports feeling well today without fever, dyspnea, or worsening cough. No acute events overnight. Objective PUL Vital signs: Last Vital Signs Temp 97.4 F L 06/26/16 15:29 Pulse 81 06/26/16 15:29 Resp 18 06/26/16 15:29 BP 139/87 06/26/16 15:29 Pulse Ox 100 06/26/16 15:29 General appearance: no acute distress Eyes: nonicteric Effort: normal Auscultation: left: wheezes (middle field), right: clear, bilateral: diminished breath sounds (slightly diminished over left lower field) Cardiovascular: regular rate and rhythm Extremities: no cyanosis, no edema, no clubbing Results - Laboratory Findings CBC and BMP: 06/26/16 03:40 06/26/16 03:40 ABG ABG pH 7.51 pH Units (7.32-7.45) H 06/18/16 20:10 ABG pCO2 41 mmHg (35-45) 06/18/16 20:10 ABG pO2 76 mmHg (85-104) L 06/18/16 20:10 ABG O2 Saturation 96 % (95-98) 06/18/16 20:10 PT/INR, D-dimer PT 16.3 Seconds (9.4-12.1) H 06/18/16 18:15 Abnormal lab findings: Abnormal lab results WBC 18.0 K/mcL (4.3-11.1) H 06/26/16 03:40 RBC 2.74 M/mcL (4.19-5.50) L 06/26/16 03:40 Hgb 7.7 g/dL (12.9-16.9) L 06/26/16 03:40 Hct 23.3 % (37.5-50.1) L 06/26/16 03:40 RDW 16.6 % (11.5-14.5) H 06/26/16 03:40 Plt Count 461 K/mcL (140-400) H 06/26/16 03:40 Band Neutrophils % 28.0 % (0-4) H 06/26/16 03:40 Metamyelocytes % 4.0 % (0) H 06/26/16 03:40 Myelocytes % 12.0 % (0) H 06/25/16 04:39 Promyelocytes % 1.0 % (0) H 06/22/16 10:30 Neutrophils # 12.6 K/mcL (1.6-8.9) H 06/26/16 03:40 Monocytes # 1.8 K/mcL (0.0-1.3) H 06/26/16 03:40 Nucleated RBCs/100 WBC 0.1 /100 WBC (0) H 06/25/16 04:39 Toxic Granulation Present (Not Present) A 06/22/16 10:30 Immature Plt Fraction 6.9 % (1.1-6.1) H 06/25/16 04:39 Hypochromasia Present (Not Present) A 06/24/16 04:40 Anisocytosis 1+ (Not Present) A 06/19/16 03:06 PT 16.3 Seconds (9.4-12.1) H 06/18/16 18:15 APTT 23.5 Seconds (26.0-36.0) L 06/18/16 18:15 ABG pH 7.51 pH Units (7.32-7.45) H 06/18/16 20:10 ABG pO2 76 mmHg (85-104) L 06/18/16 20:10 ABG HCO3 32.7 mEQ/L (21-27) H 06/18/16 20:10 ABG Total CO2 34.0 mEq/L (20-26) H 06/18/16 20:10 ABG Base Excess 8.9 mEq/L (-2.0 to 3.0) H 06/18/16 20:10 VBG pH 7.51 pH Units (7.32-7.42) H 06/19/16 03:06 VBG pCO2 40 mmHg (41-51) L 06/19/16 03:06 VBG pO2 94 mmHg (25-40) H 06/19/16 03:06 VBG HCO3 31.9 mEq/L (21-27) H 06/19/16 03:06 Creatinine 0.68 mg/dL (0.72-1.25) L 06/26/16 03:40 POC Glucose 101 (58-89) H 06/25/16 21:05 Hemoglobin A1c 8.8 % (-5.6) H 06/21/16 00:37 Total Bilirubin 1.7 mg/dL (0.2-1.2) H 06/19/16 03:06 Direct Bilirubin 1.3 mg/dL (0.0-0.5) H 06/19/16 03:06 Alkaline Phosphatase 270 Units/L (38-126) H 06/19/16 03:06 Serum Total Protein 5.8 g/dL (6.0-8.3) L 06/19/16 03:06 Albumin 1.6 g/dL (3.5-5.0) L D 06/19/16 03:06 Globulin 4.2 g/dL (2.4-3.5) H 06/19/16 03:06 Albumin/Globulin Ratio 0.4 (1.1-2.2) L 06/19/16 03:06 Beta-Hydroxybutyric Acd 0.83 mmol/L (0.02-0.27) H 06/18/16 18:15 Urine Clarity Turbid (Clear) A 06/22/16 13:00 Urine Blood Small (Negative) H 06/22/16 13:00 Urine Microscopic RBC 3-5 per hpf (0-3) H 06/22/16 13:00 Urine Microscopic WBC 5-15 per hpf (0-3) H 06/22/16 13:00 Ur Squamous Epith Cells Moderate per lpf (None-Few) H 06/22/16 13:00 Amorphous Sediment Moderate (Few) H 06/18/16 18:57 Ur Culture Indicated? YES (NO) A 06/18/16 18:57 Streptococcus sp PCR DETECTED (Not Detect) A 06/18/16 18:15 Strep pneumoniae (PCR) DETECTED (Not Detect) A 06/18/16 18:15 - Microbiology Findings Microbiology Findings: Microbiology, Last 48 Hours 06/25/16 19:25 Sputum Culture - Preliminary Sputum Yeast Species 06/21/16 00:37 Blood Culture - Final Peripheral Central Cath, Picc No growth. 06/20/16 06:49 Blood Culture - Final Peripheral Venipuncture No growth. 06/22/16 13:46 Anaerobic Culture - Preliminary Left Foot At this time, no anaerobic growth is present. The culture will be finalized after 5 days of incubation. - Diagnostic Findings Chest x-ray: image reviewed CT scan - chest: image reviewed - Clinical Findings Intake & Output: Intake & Output 06/26/16 06/26/16 06/26/16 07:59 15:59 23:59 Intake Total 304 / 304 720 / 720 Output Total 250 / 250 600 / 600 Balance 54 / 54 120 / 120 Weight 98.516 kg Consult Discharge Plan - Plan Referrals: Isabelle Torres CNP [Advanced Practice Nurse] - 06/29/16 2:30 pm Liyah Lopez CNP [Primary Care Provider] - ()
[2016-06-26] MEDS: traZODone 50 MG TABLET PO PRN (22:58)
[2016-06-27] MEDS: 0.9 % Sodium Chloride 1,000 ML IV SCH (01:27)
[2016-06-27] MEDS: Vancomycin 1,250 MG in D5% in Water 250 ML IVPB SCH (03:49)
[2016-06-27] MEDS: *HR* OxyCODONE/APAP 10/325 TABLET PO PRN ×3 (03:50→14:04)
[2016-06-27 04:17] LABS: Hematocrit 22.4 % (37.5-50.1); Hemoglobin 7.3 g/dL (12.9-16.9); Lymphocytes # 1.4 K/mcL (0.6-4.6); Mean Corpuscular HGB Conc 32.6 g/dL (31.6-35.5); Mean Corpuscular Hemoglobin 28.2 pg (28.0-33.3); Mean Corpuscular Volume 86.5 fL (83.0-100.0); Mean Platelet Volume 9.4 fL (9.4-12.4); Platelet Count 475 K/mcL (140-400); Red Blood Count 2.59 M/mcL (4.19-5.50); Red Cell Distribution Width 16.9 % (11.5-14.5)
[2016-06-27] MEDS: Ipratropium/Albuterol Neb 3 ML IH SCH ×4 (04:18→23:14)
[2016-06-27 04:29] LABS: BUN/Creatinine Ratio 14 (6-26); Blood Urea Nitrogen 9 mg/dL (8-26); Calcium 8.3 mg/dL (8.6-10.8); Carbon Dioxide 30 mEq/L (19-29); Chloride 102 mEq/L (98-109); Glucose 113 mg/dL (70-99); Magnesium 1.4 mg/dL (1.6-2.6); Osmolality,Calculated 285 (280-300); Phosphorous 3.3 mg/dL (2.3-4.7); Potassium 4.3 mEq/L (3.5-4.5); Sodium 138 mEq/L (136-145); eGFR For African Americans > 60 (> 60); eGFR For Non-African Americans > 60 (> 60)
[2016-06-27 05:21] LABS: Neutrophils # 8.7 K/mcL (1.6-8.9)
[2016-06-27] MEDS: Meropenem 1,000 MG in 0.9 % Sodium Chloride Mini Bag 100 ML IVPB SCH ×2 (05:32→14:01)
[2016-06-27] MEDS: *HR* Heparin 5,000 UNIT/ML VIAL SQ SCH ×3 (05:33→20:22)
[2016-06-27] MEDS: Magnesium Sulfate 2 GM in D5% in Water 100 ML IVPB PRN (06:38)
[2016-06-27] MEDS ORDERED: Magnesium Sulfate 2 GM in D5% in Water 100 ML IVPB ONE ×2 (07:39→18:00)
[2016-06-27] MEDS: Gabapentin 300 MG CAPSULE PO SCH ×3 (09:07→20:22)
[2016-06-27] MEDS: Aspirin Enteric Coated 81 MG Tablet PO SCH (09:08)
[2016-06-27] MEDS: levETIRAcetam 250 MG TABLET PO SCH ×2 (09:08→20:22)
[2016-06-27] MEDS: Nicotine 21 MG PATCH.TD24 TD SCH (09:08)
[2016-06-27] MEDS: Insulin LISPRO 300 UNITS/3 ML VIAL SQ SCH ×7 (09:09→20:24)
[2016-06-27] MEDS: Insulin DETEMIR 100 UNIT/ML X5UNITS SQ SCH (09:09)
[2016-06-27] MEDS ORDERED: Aminoglycoside Consult 1 EACH MC ONE (09:32)
--- NOTE | 2016-06-27 13:43 | Pulmonology Progress Note ---
Date of Encounter: 06/27/16 Time of Encounter: 09:30 Assessment and Plan (1) Left upper lobe pneumonia Current Visit: Yes Status: Acute Continued clinical improvement with abx coverage. Recommend tailoring antimicrobial therapy as the species has been identified as S.pneumoniae and with broad sensitivity. Would plan for prolonged course of 2 weeks after last positive blood cx for bacteremia. Would discontinue meropenem. Iram in sputum cx likely represents colonization and recommend against therapy. Qualifiers: Pneumonia type: due to Pneumococcus Qualified Code(s): J13 - Pneumonia due to Streptococcus pneumoniae (2) Pleural effusion on left Current Visit: Yes Status: Acute Small effusion and not likely amenable to bedside drainage. Given pt's response to conservative therapy, recommend against drainage at this time as the pleural space is unlikely to be infected. Will reconsider drainage if clinical course worsens. (3) Bacteremia due to Gram-positive bacteria Current Visit: Yes Status: Acute S.pneumo bacteremia likely related to pneumonia. As above, recommend tailoring abx to reported sensitivity and extending course to 14day past last positive cx Subjective Principal diagnosis: Pneumonia Interval history: On broad spectrum abx for pneumonia and has clinically improved over past several days. Reports feeling well this morning with occasional coughing. Able to stand to use commode but no other attempts at ambulation. No acute events overnight. Objective PUL Vital signs: Last Vital Signs Temp 97.6 F 06/27/16 11:04 Pulse 84 06/27/16 11:10 Resp 14 06/27/16 11:04 BP 120/76 06/27/16 11:04 Pulse Ox 91 06/27/16 11:04 General appearance: no acute distress Eyes: nonicteric Effort: normal Auscultation: bilateral: clear Cardiovascular: regular rate and rhythm Gastrointestinal: normoactive bowel sounds, non-distended Extremities: no cyanosis, no edema, no clubbing Musculoskeletal: no deformities normal mental status Results - Laboratory Findings CBC and BMP: 06/27/16 03:43 06/27/16 03:43 ABG ABG pH 7.51 pH Units (7.32-7.45) H 06/18/16 20:10 ABG pCO2 41 mmHg (35-45) 06/18/16 20:10 ABG pO2 76 mmHg (85-104) L 06/18/16 20:10 ABG O2 Saturation 96 % (95-98) 06/18/16 20:10 PT/INR, D-dimer PT 16.3 Seconds (9.4-12.1) H 06/18/16 18:15 Abnormal lab findings: Abnormal lab results WBC 13.0 K/mcL (4.3-11.1) H 06/27/16 03:43 RBC 2.59 M/mcL (4.19-5.50) L 06/27/16 03:43 Hgb 7.3 g/dL (12.9-16.9) L 06/27/16 03:43 Hct 22.4 % (37.5-50.1) L 06/27/16 03:43 RDW 16.9 % (11.5-14.5) H 06/27/16 03:43 Plt Count 475 K/mcL (140-400) H 06/27/16 03:43 Band Neutrophils % 7.0 % (0-4) H 06/27/16 03:43 Metamyelocytes % 2.0 % (0) H 06/27/16 03:43 Myelocytes % 8.0 % (0) H 06/27/16 03:43 Promyelocytes % 4.0 % (0) H 06/27/16 03:43 Nucleated RBCs/100 WBC 0.1 /100 WBC (0) H 06/25/16 04:39 Toxic Granulation Present (Not Present) A 06/22/16 10:30 Platelet Estimate Slight increase (Normal) H 06/27/16 03:43 Immature Plt Fraction 6.9 % (1.1-6.1) H 06/25/16 04:39 Hypochromasia Present (Not Present) A 06/24/16 04:40 Anisocytosis 1+ (Not Present) A 06/19/16 03:06 PT 16.3 Seconds (9.4-12.1) H 06/18/16 18:15 APTT 23.5 Seconds (26.0-36.0) L 06/18/16 18:15 ABG pH 7.51 pH Units (7.32-7.45) H 06/18/16 20:10 ABG pO2 76 mmHg (85-104) L 06/18/16 20:10 ABG HCO3 32.7 mEQ/L (21-27) H 06/18/16 20:10 ABG Total CO2 34.0 mEq/L (20-26) H 06/18/16 20:10 ABG Base Excess 8.9 mEq/L (-2.0 to 3.0) H 06/18/16 20:10 VBG pH 7.51 pH Units (7.32-7.42) H 06/19/16 03:06 VBG pCO2 40 mmHg (41-51) L 06/19/16 03:06 VBG pO2 94 mmHg (25-40) H 06/19/16 03:06 VBG HCO3 31.9 mEq/L (21-27) H 06/19/16 03:06 Carbon Dioxide 30 mEq/L (19-29) H 06/27/16 03:43 Creatinine 0.64 mg/dL (0.72-1.25) L 06/27/16 03:43 Glucose 113 mg/dL (70-99) H 06/27/16 03:43 POC Glucose 133 (58-89) H 06/26/16 21:11 Hemoglobin A1c 8.8 % (-5.6) H 06/21/16 00:37 Calcium 8.3 mg/dL (8.6-10.8) L 06/27/16 03:43 Magnesium 1.4 mg/dL (1.6-2.6) L 06/27/16 03:43 Total Bilirubin 1.7 mg/dL (0.2-1.2) H 06/19/16 03:06 Direct Bilirubin 1.3 mg/dL (0.0-0.5) H 06/19/16 03:06 Alkaline Phosphatase 270 Units/L (38-126) H 06/19/16 03:06 Serum Total Protein 5.8 g/dL (6.0-8.3) L 06/19/16 03:06 Albumin 1.6 g/dL (3.5-5.0) L D 06/19/16 03:06 Globulin 4.2 g/dL (2.4-3.5) H 06/19/16 03:06 Albumin/Globulin Ratio 0.4 (1.1-2.2) L 06/19/16 03:06 Beta-Hydroxybutyric Acd 0.83 mmol/L (0.02-0.27) H 06/18/16 18:15 Urine Clarity Turbid (Clear) A 06/22/16 13:00 Urine Blood Small (Negative) H 06/22/16 13:00 Urine Microscopic RBC 3-5 per hpf (0-3) H 06/22/16 13:00 Urine Microscopic WBC 5-15 per hpf (0-3) H 06/22/16 13:00 Ur Squamous Epith Cells Moderate per lpf (None-Few) H 06/22/16 13:00 Amorphous Sediment Moderate (Few) H 06/18/16 18:57 Ur Culture Indicated? YES (NO) A 06/18/16 18:57 Streptococcus sp PCR DETECTED (Not Detect) A 06/18/16 18:15 Strep pneumoniae (PCR) DETECTED (Not Detect) A 06/18/16 18:15 - Microbiology Findings Microbiology Findings: Microbiology, Last 48 Hours 06/22/16 13:46 Anaerobic Culture - Final Left Foot No anaerobes were recovered. 06/25/16 19:25 Sputum Culture - Preliminary Sputum Yeast Species 06/21/16 00:37 Blood Culture - Final Peripheral Central Cath, Picc No growth. 06/20/16 06:49 Blood Culture - Final Peripheral Venipuncture No growth. - Clinical Findings Intake & Output: Intake & Output 06/26/16 06/27/16 06/27/16 23:59 07:59 15:59 Intake Total 794 / 794 1100 / 1100 940 / 940 Output Total 1150 / 1150 1550 / 1550 Balance -356 / -356 1100 / 1100 -610 / -610 Weight 99.2 kg 99.2 kg Consult Discharge Plan - Plan Referrals: Isabelle Torres CNP [Advanced Practice Nurse] - 06/29/16 2:30 pm Liyah Lopez CNP [Primary Care Provider] - ()
[2016-06-27] MEDS ORDERED: levoFLOXacin 500 MG TABLET PO SCH (16:00)
--- NOTE | 2016-06-27 16:01 | Podiatry Progress Note ---
Date of Encounter: 06/27/16 Time of Encounter: 15:15 - Assessment and Plan (1) Diabetes Current Visit: No Status: Acute Qualifiers: Diabetes mellitus type: type 2 Diabetes mellitus complication status: without complication Diabetes mellitus [facility] insulin use: without moth exterminator use Qualified Code(s): E11.9 - Type 2 diabetes mellitus without complications (2) Abscess of heel, left Current Visit: Yes Status: Acute Status post I and D of left heel wound/abscess by Dr. Hollingsworth on 06/22/16. Ruptured bullous lesion deroofed on 06/26/16. Wound cultures negative. Deep tissue injury present to left heel. Continue local wound care and offloading. Moderate amount of serous drainage, apply Allevyn foam every 3 days. Will continue to monitor patient closely. Patient will need to f/u in wound care with in one week of discharge from the hospital. Subjective Principal diagnosis: Pneumonia Interval history: Patient is lying in bed with sister at bedside. Dressing intact to the left heel with moderate amount of serous drainage. Bullous lesion of left heel was deroofed yesterday. Patient has a medix boot ordered for the left foot and states he has been wearing it. Pain to left heel with movement and while cleansing. No c/o fever or chills. Objective - Vital Signs Vital Signs: Vital Signs Temp Pulse Resp BP Pulse Ox 06/27/16 15:17 90 06/27/16 15:09 98.4 F 86 18 123/74 98 06/27/16 11:10 84 06/27/16 11:04 97.6 F 86 14 120/76 91 06/27/16 10:29 14 96 06/27/16 08:00 76 06/27/16 07:34 97.8 F 76 14 107/71 96 06/27/16 04:18 16 92 06/27/16 03:53 97.9 F 84 16 129/81 93 06/26/16 23:56 16 93 06/26/16 23:52 98.2 F 91 14 133/89 93 06/26/16 19:14 98.6 F 89 19 145/81 94 Intake and Output 06/26/16 06/27/16 06/27/16 23:59 07:59 15:59 Intake Total 794 / 794 1100 / 1100 1340 / 1340 Output Total 1150 / 1150 2175 / 2175 Balance -356 / -356 1100 / 1100 -835 / -835 Intake: IV Fluids 554 / 554 1100 / 1100 0.9 % Sodium Chloride 1, 750 / 750 000 ML @ 50 mls/hr IV . Q20H [facility] Rx#:[id number] Magnesium Sulfate 2 GM In 104 / 104 Dextrose 5% 100 ML @ 50 mls/hr IVPB Q6H PRN Rx#: [id number] Merrem 1,000 MG In 0.9 % 200 / 200 100 / 100 Sodium Chloride (Mini-Bag +) 100 ML @ 200 mls/hr IVPB Q8H [facility] Rx#: [id number] Vancocin 1,250 MG In 250 / 250 250 / 250 Dextrose 5% 250 ML @ 166. 67 mls/hr IVPB Q12H [facility] Rx#:[id number] Oral 240 / 240 0 / 0 1340 / 1340 Output: Urine 1150 / 1150 2175 / 2175 Other: Meal Dinner Lunch Percent of Meal Consumed 80% 0% # Voids 2 # Urine Diapers 1 1 Weight 99.2 kg 99.2 kg Blood Glucose* 133 156 Patient Weight 06/27/16 23:59 Weight 99.2 kg - Exam Exam: General appearance: alert awake oriented X 3. Calm and pleasant, no acute distress.. Vascular: Pedal pulses +2/4 DP/PT , No evidence of cyanosis, pallor or rubor, Edema graded at 1+/4, Skin Temperature warm, No calf pain with manual compression. capillary refill time is immediate to digits. Neurologic: Sensation intact with light touch to foot. . S/P I&D left heel on 06/22/16. Bullous lesion deroofed on 06/26/16, deep tissue injury measuring 7 cm in length x 7 cm in width surrounding wound edges are pink . No bone, no ligament, no tendon, no undermining, no tunneling, no sinus tracts, no periwound erythema. No purulent drainage, no odor, no evidence of bacterial infection. - Lab Result Diagrams: 06/27/16 03:43 06/27/16 03:43 Labs: Abnormal lab results WBC 13.0 K/mcL (4.3-11.1) H 06/27/16 03:43 RBC 2.59 M/mcL (4.19-5.50) L 06/27/16 03:43 Hgb 7.3 g/dL (12.9-16.9) L 06/27/16 03:43 Hct 22.4 % (37.5-50.1) L 06/27/16 03:43 RDW 16.9 % (11.5-14.5) H 06/27/16 03:43 Plt Count 475 K/mcL (140-400) H 06/27/16 03:43 Band Neutrophils % 7.0 % (0-4) H 06/27/16 03:43 Metamyelocytes % 2.0 % (0) H 06/27/16 03:43 Myelocytes % 8.0 % (0) H 06/27/16 03:43 Promyelocytes % 4.0 % (0) H 06/27/16 03:43 Nucleated RBCs/100 WBC 0.1 /100 WBC (0) H 06/25/16 04:39 Toxic Granulation Present (Not Present) A 06/22/16 10:30 Platelet Estimate Slight increase (Normal) H 06/27/16 03:43 Immature Plt Fraction 6.9 % (1.1-6.1) H 06/25/16 04:39 Hypochromasia Present (Not Present) A 06/24/16 04:40 Anisocytosis 1+ (Not Present) A 06/19/16 03:06 PT 16.3 Seconds (9.4-12.1) H 06/18/16 18:15 APTT 23.5 Seconds (26.0-36.0) L 06/18/16 18:15 ABG pH 7.51 pH Units (7.32-7.45) H 06/18/16 20:10 ABG pO2 76 mmHg (85-104) L 06/18/16 20:10 ABG HCO3 32.7 mEQ/L (21-27) H 06/18/16 20:10 ABG Total CO2 34.0 mEq/L (20-26) H 06/18/16 20:10 ABG Base Excess 8.9 mEq/L (-2.0 to 3.0) H 06/18/16 20:10 VBG pH 7.51 pH Units (7.32-7.42) H 06/19/16 03:06 VBG pCO2 40 mmHg (41-51) L 06/19/16 03:06 VBG pO2 94 mmHg (25-40) H 06/19/16 03:06 VBG HCO3 31.9 mEq/L (21-27) H 06/19/16 03:06 Carbon Dioxide 30 mEq/L (19-29) H 06/27/16 03:43 Creatinine 0.64 mg/dL (0.72-1.25) L 06/27/16 03:43 Glucose 113 mg/dL (70-99) H 06/27/16 03:43 POC Glucose 133 (58-89) H 06/26/16 21:11 Hemoglobin A1c 8.8 % (-5.6) H 06/21/16 00:37 Calcium 8.3 mg/dL (8.6-10.8) L 06/27/16 03:43 Total Bilirubin 1.7 mg/dL (0.2-1.2) H 06/19/16 03:06 Direct Bilirubin 1.3 mg/dL (0.0-0.5) H 06/19/16 03:06 Alkaline Phosphatase 270 Units/L (38-126) H 06/19/16 03:06 Serum Total Protein 5.8 g/dL (6.0-8.3) L 06/19/16 03:06 Albumin 1.6 g/dL (3.5-5.0) L D 06/19/16 03:06 Globulin 4.2 g/dL (2.4-3.5) H 06/19/16 03:06 Albumin/Globulin Ratio 0.4 (1.1-2.2) L 06/19/16 03:06 Beta-Hydroxybutyric Acd 0.83 mmol/L (0.02-0.27) H 06/18/16 18:15 Urine Clarity Turbid (Clear) A 06/22/16 13:00 Urine Blood Small (Negative) H 06/22/16 13:00 Urine Microscopic RBC 3-5 per hpf (0-3) H 06/22/16 13:00 Urine Microscopic WBC 5-15 per hpf (0-3) H 06/22/16 13:00 Ur Squamous Epith Cells Moderate per lpf (None-Few) H 06/22/16 13:00 Amorphous Sediment Moderate (Few) H 06/18/16 18:57 Ur Culture Indicated? YES (NO) A 06/18/16 18:57 Streptococcus sp PCR DETECTED (Not Detect) A 06/18/16 18:15 Strep pneumoniae (PCR) DETECTED (Not Detect) A 06/18/16 18:15 Microbiology, Last 48 Hours 06/22/16 13:46 Anaerobic Culture - Final Left Foot No anaerobes were recovered. 06/25/16 19:25 Sputum Culture - Preliminary Sputum Yeast Species 06/21/16 00:37 Blood Culture - Final Peripheral Central Cath, Picc No growth. 06/20/16 06:49 Blood Culture - Final Peripheral Venipuncture No growth. Consult Discharge Plan - Plan Referrals: Isabelle Torres CNP [Advanced Practice Nurse] - 07/06/16 2:30 pm Liyah Lopez CNP [Primary Care Provider] - ()
[2016-06-27] MEDS: *HR* HYDROcodone/Acet 5/325 mg TABLET PO PRN (16:43)
--- NOTE | 2016-06-27 16:45 | Internal Med Progress Note ---
Date of Encounter: 06/27/16 Time of Encounter: 10:00 - Assessment and plan (1) Severe sepsis Current Visit: Yes Status: Acute Assessment and plan: Likely secondary to Left lung pneumonia Bacteremia likely secondary to Pneumonia Blood cultures positive for Strep Penumoniae s/p I&D of left heel abscess-wound cultures NGTD Given worsening leukocytosis, CT chest was obtained, which is consistent with LUIS pneumonia with small left parapneumonic pleural effusion-Repeat XR shows improvement Pulmonology consultation appreciated Diarrhea resolved, d/c Flagyl WBC get down, repeat CXR shows improvement pneumonia. Change abx to levaquin per sensitivity. Mental status back to baseline line Will continue to closely monitor. (2) Pneumonia Current Visit: Yes Status: Acute Assessment and plan: plan as listed above Qualifiers: Pneumonia type: due to unspecified organism Laterality: left Lung location: unspecified part of lung Qualified Code(s): J18.9 - Pneumonia, unspecified organism (3) History of CVA (cerebrovascular accident) Current Visit: No Status: Chronic Assessment and plan: With left sided weakness. Continue aspirin and statin. (4) Seizure disorder Current Visit: No Status: Acute Assessment and plan: Continue home medication keppra (5) DVT prophylaxis Current Visit: No Status: Acute Assessment and plan: Heparin SQ (6) Type 2 diabetes mellitus Current Visit: Yes Status: Acute Assessment and plan: Continue basal and sliding scale insulin. Glucose is stable Qualifiers: Diabetes mellitus complication status: without complication Diabetes mellitus half-way insulin use: without middle or intermediate school principal use Qualified Code(s): E11.9 - Type 2 diabetes mellitus without complications (7) Abscess of heel, left Current Visit: Yes Status: Acute Assessment and plan: s/p I&D Podiatry consultation appreciated wound cultures NGTD continue IV abx as listed above (8) Bacteremia due to Gram-positive bacteria Current Visit: Yes Status: Acute Assessment and plan: Possibly due to pneumonia. Repeat blood culture negative. Will give prolonged antibiotic treatment for 14 days (9) CLL (chronic lymphocytic leukemia) Current Visit: Yes Status: Chronic Assessment and plan: Currently in remission, s/p chemotherapy - Subjective Interval history: Patient is a 56-year-old male admitted for pneumonia, sepsis. Past medical history is significant for history of CVA with left-sided weakness, seizure disorder, history of CLL. Patient was seen and examined. He is awake alert,answer question properly. No fever, no cough or shortness of breath. Vital signs stable. WBC is still high but improved. We will deescalate abx to Levaquin. Pulmonology and podiatry consult appreciated. - Constitutional Vitals: Temp Pulse Resp BP Pulse Ox 98.4 F 90 18 123/74 98 06/27/16 15:09 06/27/16 15:17 06/27/16 16:04 06/27/16 15:09 06/27/16 16:04 General appearance: Present: A&O X 3, pleasant, no acute distress, obese, answers questions appropriately - Head Head exam: Present: atraumatic, normocephalic - Eye Eye exam: Present: PERRL, conjuntiva pink, sclera anicteric Pupils: Present: PERRL - Neck Neck exam general surgery: Present: supple, trachea midline. Absent: lymphadenopathy - Respiratory Respiratory exam: Present: CTAB. Absent: accessory muscle use, rales, rhonchi, wheezes - Cardiovascular Cardiovascular exam: Present: RRR, +S1, +S2. Absent: diastolic murmur, gallop, rubs, systolic murmur - GI/Abdominal GI/Abdominal exam: Present: normal bowel sounds, soft, no peritoneal signs. Absent: distended, tenderness - Extremities Exam Extremities exam: Present: warm, radial pulses palpable and symetrical. Absent : calf tenderness, cyanotic, pedal edema - Neurological Exam Neurological exam: Present: CN II-XII intact, motor sensory deficit (Left-sided weakness on Upper and lower extremities), oriented X3. Absent: pronater drift, facial droop, speech deficit - Skin Skin exam: Present: dry Additional comments: Left heel wound Internal Medicine: Result - Labs CBC & Chem 7: 06/27/16 03:43 06/27/16 03:43 Labs: Short CBC 06/27/16 Range/Units 03:43 WBC 13.0 H (4.3-11.1) K/mcL Hgb 7.3 L (12.9-16.9) g/dL Hct 22.4 L (37.5-50.1) % Plt Count 475 H (140-400) K/mcL Neutrophils # 8.7 (1.6-8.9) K/mcL BMP 06/27/16 03:43 Sodium 138 Potassium 4.3 Chloride 102 Carbon Dioxide 30 H BUN 9 Creatinine 0.64 L Glucose 113 H Calcium 8.3 L - ABG Interpretation ABG results: ABG ABG pH 7.51 pH Units (7.32-7.45) H 06/18/16 20:10 ABG pCO2 41 mmHg (35-45) 06/18/16 20:10 ABG pO2 76 mmHg (85-104) L 06/18/16 20:10 ABG O2 Saturation 96 % (95-98) 06/18/16 20:10 PT/INR, D-dimer PT 16.3 Seconds (9.4-12.1) H 06/18/16 18:15 Consult Discharge Plan - Plan Referrals: Isabelle Torres CNP [Advanced Practice Nurse] - 07/06/16 2:30 pm Liyah Lopez CNP [Primary Care Provider] - ()
[2016-06-27] MEDS: *HR* Dextrose 50 % in Water (Syg) 50 ML SYRINGE IVP PRN ×2 (20:28→23:27)
[2016-06-28 03:30] LABS: Basophils # 0.1 K/mcL (0.0-0.2); Basophils % 0.4 %; Eosinophils # 0.1 K/mcL (0.0-0.6); Eosinophils % 0.4 %; Hemoglobin 8.4 g/dL (12.9-16.9); Immature Granulocytes % 11.1 % (0-4); Lymphocytes # 1.4 K/mcL (0.6-4.6); Lymphocytes % 10.1 %; Mean Corpuscular HGB Conc 31.1 g/dL (31.6-35.5); Mean Corpuscular Hemoglobin 27.4 pg (28.0-33.3); Mean Corpuscular Volume 87.9 fL (83.0-100.0); Mean Platelet Volume 8.9 fL (9.4-12.4); Monocytes # 0.9 K/mcL (0.0-1.3); Monocytes % 6.4 %; Neutrophils # 9.9 K/mcL (1.6-8.9); Platelet Count 513 K/mcL (140-400); Red Blood Count 3.07 M/mcL (4.19-5.50); Red Cell Distribution Width 17.4 % (11.5-14.5); Segmented Neutrophils % 71.6 %
[2016-06-28] MEDS ORDERED: Magnesium Sulfate 2 GM in D5% in Water 100 ML IVPB ONE (03:43)
[2016-06-28 04:11] LABS: Anisocytosis 1+ (Not Present); Hypochromasia Present (Not Present)
[2016-06-28 04:12] LABS: Large Platelets Present (Not Present)
[2016-06-28] MEDS: Ipratropium/Albuterol Neb 3 ML IH SCH ×4 (04:46→22:00)
[2016-06-28 06:06] LABS: BUN/Creatinine Ratio 11 (6-26); Blood Urea Nitrogen 8 mg/dL (8-26); Carbon Dioxide 28 mEq/L (19-29); Chloride 101 mEq/L (98-109); Glucose 82 mg/dL (70-99); Osmolality,Calculated 289 (280-300); Potassium 4.9 mEq/L (3.5-4.5); Sodium 141 mEq/L (136-145); eGFR For African Americans > 60 (> 60); eGFR For Non-African Americans > 60 (> 60)
[2016-06-28] MEDS: *HR* Heparin 5,000 UNIT/ML VIAL SQ SCH ×3 (06:09→21:07)
[2016-06-28] MEDS: Nicotine 21 MG PATCH.TD24 TD SCH (07:36)
[2016-06-28] MEDS: *HR* OxyCODONE/APAP 10/325 TABLET PO PRN ×2 (07:37→19:39)
[2016-06-28] MEDS: Aspirin Enteric Coated 81 MG Tablet PO SCH (07:37)
[2016-06-28] MEDS: Insulin LISPRO 300 UNITS/3 ML VIAL SQ SCH ×7 (07:38→21:07)
[2016-06-28] MEDS: Gabapentin 300 MG CAPSULE PO SCH ×3 (07:38→21:06)
[2016-06-28] MEDS: levETIRAcetam 250 MG TABLET PO SCH ×2 (07:38→21:06)
[2016-06-28] MEDS: Insulin DETEMIR 100 UNIT/ML X5UNITS SQ SCH (08:39)
[2016-06-28] MEDS: levoFLOXacin 750 MG TABLET PO SCH (08:39)
--- NOTE | 2016-06-28 11:53 | Internal Med Progress Note ---
Date of Encounter: 06/28/16 Time of Encounter: 09:00 - Assessment and plan (1) Severe sepsis Current Visit: Yes Status: Acute Assessment and plan: Likely secondary to Left lung pneumonia Bacteremia likely secondary to Pneumonia Blood cultures positive for Strep Penumoniae s/p I&D of left heel abscess-wound cultures NGTD Given worsening leukocytosis, CT chest was obtained, which is consistent with LUIS pneumonia with small left parapneumonic pleural effusion-Repeat XR shows improvement Pulmonology consultation appreciated Diarrhea resolved, d/c Flagyl WBC get down, repeat CXR shows improvement pneumonia. Change abx to levaquin per sensitivity. Mental status back to baseline line Will continue to closely monitor. (2) Pneumonia Current Visit: Yes Status: Acute Assessment and plan: plan as listed above Qualifiers: Pneumonia type: due to unspecified organism Laterality: left Lung location: unspecified part of lung Qualified Code(s): J18.9 - Pneumonia, unspecified organism (3) History of CVA (cerebrovascular accident) Current Visit: No Status: Chronic Assessment and plan: With left sided weakness. Continue aspirin and statin. (4) Seizure disorder Current Visit: No Status: Acute Assessment and plan: Continue home medication keppra (5) DVT prophylaxis Current Visit: No Status: Acute Assessment and plan: Heparin SQ (6) Type 2 diabetes mellitus Current Visit: Yes Status: Acute Assessment and plan: Continue basal and sliding scale insulin. Glucose is stable Qualifiers: Diabetes mellitus complication status: without complication Diabetes mellitus long-term insulin use: without truck terminal manager use Qualified Code(s): E11.9 - Type 2 diabetes mellitus without complications (7) Abscess of heel, left Current Visit: Yes Status: Acute Assessment and plan: s/p I&D Podiatry consultation appreciated wound cultures NGTD continue IV abx as listed above (8) Bacteremia due to Gram-positive bacteria Current Visit: Yes Status: Acute Assessment and plan: Possibly due to pneumonia. Repeat blood culture negative. Will give prolonged antibiotic treatment for 14 days (9) CLL (chronic lymphocytic leukemia) Current Visit: Yes Status: Chronic Assessment and plan: Currently in remission, s/p chemotherapy - Time Spent With Patient 25 - 35 minutes - Subjective Interval history: Patient is a 56-year-old male admitted for pneumonia, sepsis. Past medical history is significant for history of CVA with left-sided weakness, seizure disorder, history of CLL. Patient was seen and examined. He is awake alert,answer question properly. No fever, no cough or shortness of breath. Vital signs stable. WBC is still high but stable. We will deescalate abx to Levaquin. Pulmonology and podiatry consult appreciated. Clinically significantly improved, plan to d/c home with HH soon. - Constitutional Vitals: Temp Pulse Resp BP Pulse Ox 98.1 F 80 15 127/76 94 06/28/16 11:30 06/28/16 11:30 06/28/16 11:30 06/28/16 11:30 06/28/16 11:30 General appearance: Present: A&O X 3, pleasant, no acute distress, obese, answers questions appropriately - Head Head exam: Present: atraumatic, normocephalic - Eye Eye exam: Present: PERRL, conjuntiva pink, sclera anicteric Pupils: Present: PERRL - Neck Neck exam general surgery: Present: supple, trachea midline. Absent: lymphadenopathy - Respiratory Respiratory exam: Present: CTAB. Absent: accessory muscle use, rales, rhonchi, wheezes - Cardiovascular Cardiovascular exam: Present: RRR, +S1, +S2. Absent: diastolic murmur, gallop, rubs, systolic murmur - GI/Abdominal GI/Abdominal exam: Present: normal bowel sounds, soft, no peritoneal signs. Absent: distended, tenderness - Extremities Exam Extremities exam: Present: warm, radial pulses palpable and symetrical. Absent : calf tenderness, cyanotic, pedal edema - Neurological Exam Neurological exam: Present: CN II-XII intact, motor sensory deficit (Left side weakness d/t hx of CVA), oriented X3. Absent: pronater drift, facial droop, speech deficit - Skin Skin exam: Present: dry, intact Internal Medicine: Result - Labs CBC & Chem 7: 06/28/16 03:20 06/28/16 03:20 Labs: Short CBC 06/28/16 Range/Units 03:20 WBC 13.8 H (4.3-11.1) K/mcL Hgb 8.4 L (12.9-16.9) g/dL Hct 27.0 L (37.5-50.1) % Plt Count 513 H (140-400) K/mcL Neutrophils # 9.9 H (1.6-8.9) K/mcL BMP 06/28/16 03:20 Sodium 141 Potassium 4.9 H Chloride 101 Carbon Dioxide 28 BUN 8 Creatinine 0.71 L Glucose 82 Calcium 9.0 - ABG Interpretation ABG results: ABG ABG pH 7.51 pH Units (7.32-7.45) H 06/18/16 20:10 ABG pCO2 41 mmHg (35-45) 06/18/16 20:10 ABG pO2 76 mmHg (85-104) L 06/18/16 20:10 ABG O2 Saturation 96 % (95-98) 06/18/16 20:10 PT/INR, D-dimer PT 16.3 Seconds (9.4-12.1) H 06/18/16 18:15 Consult Discharge Plan - Plan Referrals: Isabelle Torres FIRE INVESTIGATION MANAGER [Advanced Practice Nurse] - 07/06/16 2:30 pm Liyah Lopez CNP [Primary Care Provider] - ()
[2016-06-28] MEDS: Magnesium Oxide 400 MG TABLET PO SCH ×2 (12:39→21:06)
--- NOTE | 2016-06-28 13:12 | Podiatry Progress Note ---
Date of Encounter: 06/28/16 Time of Encounter: 11:45 - Assessment and Plan (1) Diabetes Current Visit: No Status: Acute Qualifiers: Diabetes mellitus type: type 2 Diabetes mellitus complication status: without complication Diabetes mellitus assisted insulin use: without general production laborer use Qualified Code(s): E11.9 - Type 2 diabetes mellitus without complications (2) Abscess of heel, left Current Visit: Yes Status: Acute Status post I and D of left heel wound/abscess by Dr. Hollingsworth on 06/22/16. Ruptured bullous lesion deroofed on 06/26/16. Wound cultures negative. Deep tissue injury present to left heel, no evidence of bacterial infection. Continue local wound care and offloading. Moderate amount of serous drainage, apply Allevyn foam every 3 days after cleansing with saline. Will continue to monitor patient closely. Patient will need to f/u in wound care with Dr. Hollingsworth with in one week of discharge from the hospital. Subjective Principal diagnosis: Pneumonia Interval history: Patient is lying in bed with boot on and dressing to left heel. Bullous lesion of left heel was deroofed on 06/26/16. No c/o pain, fever or chills. Objective - Vital Signs Vital Signs: Vital Signs Temp Pulse Resp BP Pulse Ox 06/28/16 11:30 98.1 F 75 15 127/76 94 06/28/16 10:50 14 92 06/28/16 07:25 98.3 F 89 17 111/81 94 06/28/16 04:47 18 99 06/28/16 03:31 98.3 F 96 18 131/80 95 06/27/16 23:16 98.3 F 78 18 143/84 100 06/27/16 20:36 95 06/27/16 19:07 98.1 F 77 18 128/76 95 06/27/16 16:04 18 98 06/27/16 15:17 90 06/27/16 15:09 98.4 F 86 18 123/74 98 Intake and Output 06/27/16 06/28/16 06/28/16 23:59 07:59 15:59 Intake Total 0 / 0 1104 / 1104 1460 / 1460 Output Total 1050 / 1050 1800 / 1800 500 / 500 Balance -1050 / -1050 -696 / -696 960 / 960 Intake: IV Fluids 104 / 104 Magnesium Sulfate 2 GM In 104 / 104 Dextrose 5% 100 ML @ 100 mls/hr IVPB ONCE ONE Rx# :[id number] Oral 0 / 0 1000 / 1000 1460 / 1460 Output: Urine 1050 / 1050 1800 / 1800 500 / 500 Other: Meal Dinner Lunch Percent of Meal Consumed 0% 50% Blood Glucose* 60 104 96 - Exam Exam: General appearance: alert awake oriented X 3. Calm and pleasant, no acute distress.. Vascular: Pedal pulses +2/4 DP/PT , No evidence of cyanosis, pallor or rubor, Edema graded at 1+/4, Skin Temperature warm, No calf pain with manual compression. capillary refill time is immediate to digits. Neurologic: Sensation intact with light touch to foot. . S/P I&D left heel on 06/22/16. Bullous lesion deroofed on 06/26/16, deep tissue injury measuring 7 cm in length x 7 cm in width, surrounding wound edges are pink center of wound white with ecchymosis to center. Serous drainage observed to dressing. No bone, no ligament, no tendon, no undermining, no tunneling, no sinus tracts, no periwound erythema. No purulent drainage, no odor, no evidence of bacterial infection. - Lab Result Diagrams: 06/28/16 03:20 06/28/16 03:20 Labs: Abnormal lab results WBC 13.8 K/mcL (4.3-11.1) H 06/28/16 03:20 RBC 3.07 M/mcL (4.19-5.50) L 06/28/16 03:20 Hgb 8.4 g/dL (12.9-16.9) L 06/28/16 03:20 Hct 27.0 % (37.5-50.1) L 06/28/16 03:20 MCH 27.4 pg (28.0-33.3) L 06/28/16 03:20 MCHC 31.1 g/dL (31.6-35.5) L 06/28/16 03:20 RDW 17.4 % (11.5-14.5) H 06/28/16 03:20 Plt Count 513 K/mcL (140-400) H 06/28/16 03:20 MPV 8.9 fL (9.4-12.4) L 06/28/16 03:20 Immature Gran % 11.1 % (0-4) H 06/28/16 03:20 Band Neutrophils % 7.0 % (0-4) H 06/27/16 03:43 Metamyelocytes % 2.0 % (0) H 06/27/16 03:43 Myelocytes % 8.0 % (0) H 06/27/16 03:43 Promyelocytes % 4.0 % (0) H 06/27/16 03:43 Neutrophils # 9.9 K/mcL (1.6-8.9) H 06/28/16 03:20 Nucleated RBCs/100 WBC 0.1 /100 WBC (0) H 06/25/16 04:39 Toxic Granulation Present (Not Present) A 06/22/16 10:30 Platelet Estimate Slight increase (Normal) H 06/28/16 03:20 Large Platelets Present (Not Present) A 06/28/16 03:20 Immature Plt Fraction 6.9 % (1.1-6.1) H 06/25/16 04:39 Hypochromasia Present (Not Present) A 06/28/16 03:20 Anisocytosis 1+ (Not Present) A 06/28/16 03:20 PT 16.3 Seconds (9.4-12.1) H 06/18/16 18:15 APTT 23.5 Seconds (26.0-36.0) L 06/18/16 18:15 ABG pH 7.51 pH Units (7.32-7.45) H 06/18/16 20:10 ABG pO2 76 mmHg (85-104) L 06/18/16 20:10 ABG HCO3 32.7 mEQ/L (21-27) H 06/18/16 20:10 ABG Total CO2 34.0 mEq/L (20-26) H 06/18/16 20:10 ABG Base Excess 8.9 mEq/L (-2.0 to 3.0) H 06/18/16 20:10 VBG pH 7.51 pH Units (7.32-7.42) H 06/19/16 03:06 VBG pCO2 40 mmHg (41-51) L 06/19/16 03:06 VBG pO2 94 mmHg (25-40) H 06/19/16 03:06 VBG HCO3 31.9 mEq/L (21-27) H 06/19/16 03:06 Potassium 4.9 mEq/L (3.5-4.5) H 06/28/16 03:20 Creatinine 0.71 mg/dL (0.72-1.25) L 06/28/16 03:20 POC Glucose 101 (58-89) H 06/28/16 00:21 Hemoglobin A1c 8.8 % (-5.6) H 06/21/16 00:37 Magnesium 1.5 mg/dL (1.6-2.6) L 06/28/16 10:20 Total Bilirubin 1.7 mg/dL (0.2-1.2) H 06/19/16 03:06 Direct Bilirubin 1.3 mg/dL (0.0-0.5) H 06/19/16 03:06 Alkaline Phosphatase 270 Units/L (38-126) H 06/19/16 03:06 Serum Total Protein 5.8 g/dL (6.0-8.3) L 06/19/16 03:06 Albumin 1.6 g/dL (3.5-5.0) L D 06/19/16 03:06 Globulin 4.2 g/dL (2.4-3.5) H 06/19/16 03:06 Albumin/Globulin Ratio 0.4 (1.1-2.2) L 06/19/16 03:06 Beta-Hydroxybutyric Acd 0.83 mmol/L (0.02-0.27) H 06/18/16 18:15 Urine Clarity Turbid (Clear) A 06/22/16 13:00 Urine Blood Small (Negative) H 06/22/16 13:00 Urine Microscopic RBC 3-5 per hpf (0-3) H 06/22/16 13:00 Urine Microscopic WBC 5-15 per hpf (0-3) H 06/22/16 13:00 Ur Squamous Epith Cells Moderate per lpf (None-Few) H 06/22/16 13:00 Amorphous Sediment Moderate (Few) H 06/18/16 18:57 Ur Culture Indicated? YES (NO) A 06/18/16 18:57 Streptococcus sp PCR DETECTED (Not Detect) A 06/18/16 18:15 Strep pneumoniae (PCR) DETECTED (Not Detect) A 06/18/16 18:15 Microbiology, Last 48 Hours 06/25/16 19:25 Sputum Culture - Final Sputum Iram albicans 06/22/16 13:46 Anaerobic Culture - Final Left Foot No anaerobes were recovered. Consult Discharge Plan - Plan Referrals: Isabelle Torres CNP [Advanced Practice Nurse] - 07/06/16 2:30 pm Liyah Lopez CNP [Primary Care Provider] - ()
--- NOTE | 2016-06-28 13:25 | Pulmonology Progress Note ---
Date of Encounter: 06/28/16 Time of Encounter: 11:30 Assessment and Plan (1) Left upper lobe pneumonia Current Visit: Yes Status: Acute Continued clinical improvement with abx coverage which has been tailored to levaquin monotherapy. Would plan for prolonged course of 2 weeks after last positive blood cx for bacteremia. Iram in sputum cx likely represents colonization and agree with withholding therapy. Qualifiers: Pneumonia type: due to Pneumococcus Qualified Code(s): J13 - Pneumonia due to Streptococcus pneumoniae (2) Pleural effusion on left Current Visit: Yes Status: Acute Small effusion and not likely amenable to bedside drainage. Given pt's response to conservative therapy, recommend against drainage at this time as the pleural space is unlikely to be infected. Will require follow up Chest PA/ Lat several weeks after discharge to determine resolution. (3) Bacteremia due to Gram-positive bacteria Current Visit: Yes Status: Acute S.pneumo bacteremia likely related to pneumonia. As above, recommend extending course to 14day past last positive cx Subjective Principal diagnosis: Pneumonia Interval history: ABX tailored to Levaquin monotherapy. Reports feeling well this morning with resolution of cough. Feels as though he is ready to be discharged. No acute events overnight. Objective PUL Vital signs: Last Vital Signs Temp 98.1 F 06/28/16 11:30 Pulse 80 06/28/16 11:30 Resp 15 06/28/16 11:30 BP 127/76 06/28/16 11:30 Pulse Ox 94 06/28/16 11:30 General appearance: no acute distress Effort: normal Auscultation: bilateral: clear Cardiovascular: regular rate and rhythm Extremities: no cyanosis, no edema, no clubbing normal mental status Results - Laboratory Findings CBC and BMP: 06/28/16 03:20 06/28/16 03:20 ABG ABG pH 7.51 pH Units (7.32-7.45) H 06/18/16 20:10 ABG pCO2 41 mmHg (35-45) 06/18/16 20:10 ABG pO2 76 mmHg (85-104) L 06/18/16 20:10 ABG O2 Saturation 96 % (95-98) 06/18/16 20:10 PT/INR, D-dimer PT 16.3 Seconds (9.4-12.1) H 06/18/16 18:15 Abnormal lab findings: Abnormal lab results WBC 13.8 K/mcL (4.3-11.1) H 06/28/16 03:20 RBC 3.07 M/mcL (4.19-5.50) L 06/28/16 03:20 Hgb 8.4 g/dL (12.9-16.9) L 06/28/16 03:20 Hct 27.0 % (37.5-50.1) L 06/28/16 03:20 MCH 27.4 pg (28.0-33.3) L 06/28/16 03:20 MCHC 31.1 g/dL (31.6-35.5) L 06/28/16 03:20 RDW 17.4 % (11.5-14.5) H 06/28/16 03:20 Plt Count 513 K/mcL (140-400) H 06/28/16 03:20 MPV 8.9 fL (9.4-12.4) L 06/28/16 03:20 Immature Gran % 11.1 % (0-4) H 06/28/16 03:20 Band Neutrophils % 7.0 % (0-4) H 06/27/16 03:43 Metamyelocytes % 2.0 % (0) H 06/27/16 03:43 Myelocytes % 8.0 % (0) H 06/27/16 03:43 Promyelocytes % 4.0 % (0) H 06/27/16 03:43 Neutrophils # 9.9 K/mcL (1.6-8.9) H 06/28/16 03:20 Nucleated RBCs/100 WBC 0.1 /100 WBC (0) H 06/25/16 04:39 Toxic Granulation Present (Not Present) A 06/22/16 10:30 Platelet Estimate Slight increase (Normal) H 06/28/16 03:20 Large Platelets Present (Not Present) A 06/28/16 03:20 Immature Plt Fraction 6.9 % (1.1-6.1) H 06/25/16 04:39 Hypochromasia Present (Not Present) A 06/28/16 03:20 Anisocytosis 1+ (Not Present) A 06/28/16 03:20 PT 16.3 Seconds (9.4-12.1) H 06/18/16 18:15 APTT 23.5 Seconds (26.0-36.0) L 06/18/16 18:15 ABG pH 7.51 pH Units (7.32-7.45) H 06/18/16 20:10 ABG pO2 76 mmHg (85-104) L 06/18/16 20:10 ABG HCO3 32.7 mEQ/L (21-27) H 06/18/16 20:10 ABG Total CO2 34.0 mEq/L (20-26) H 06/18/16 20:10 ABG Base Excess 8.9 mEq/L (-2.0 to 3.0) H 06/18/16 20:10 VBG pH 7.51 pH Units (7.32-7.42) H 06/19/16 03:06 VBG pCO2 40 mmHg (41-51) L 06/19/16 03:06 VBG pO2 94 mmHg (25-40) H 06/19/16 03:06 VBG HCO3 31.9 mEq/L (21-27) H 06/19/16 03:06 Potassium 4.9 mEq/L (3.5-4.5) H 06/28/16 03:20 Creatinine 0.71 mg/dL (0.72-1.25) L 06/28/16 03:20 POC Glucose 101 (58-89) H 06/28/16 00:21 Hemoglobin A1c 8.8 % (-5.6) H 06/21/16 00:37 Magnesium 1.5 mg/dL (1.6-2.6) L 06/28/16 10:20 Total Bilirubin 1.7 mg/dL (0.2-1.2) H 06/19/16 03:06 Direct Bilirubin 1.3 mg/dL (0.0-0.5) H 06/19/16 03:06 Alkaline Phosphatase 270 Units/L (38-126) H 06/19/16 03:06 Serum Total Protein 5.8 g/dL (6.0-8.3) L 06/19/16 03:06 Albumin 1.6 g/dL (3.5-5.0) L D 06/19/16 03:06 Globulin 4.2 g/dL (2.4-3.5) H 06/19/16 03:06 Albumin/Globulin Ratio 0.4 (1.1-2.2) L 06/19/16 03:06 Beta-Hydroxybutyric Acd 0.83 mmol/L (0.02-0.27) H 06/18/16 18:15 Urine Clarity Turbid (Clear) A 06/22/16 13:00 Urine Blood Small (Negative) H 06/22/16 13:00 Urine Microscopic RBC 3-5 per hpf (0-3) H 06/22/16 13:00 Urine Microscopic WBC 5-15 per hpf (0-3) H 06/22/16 13:00 Ur Squamous Epith Cells Moderate per lpf (None-Few) H 06/22/16 13:00 Amorphous Sediment Moderate (Few) H 06/18/16 18:57 Ur Culture Indicated? YES (NO) A 06/18/16 18:57 Streptococcus sp PCR DETECTED (Not Detect) A 06/18/16 18:15 Strep pneumoniae (PCR) DETECTED (Not Detect) A 06/18/16 18:15 - Microbiology Findings Microbiology Findings: Microbiology, Last 48 Hours 06/25/16 19:25 Sputum Culture - Final Sputum Iram albicans 06/22/16 13:46 Anaerobic Culture - Final Left Foot No anaerobes were recovered. - Clinical Findings Intake & Output: Intake & Output 06/27/16 06/28/16 06/28/16 23:59 07:59 15:59 Intake Total 0 / 0 1104 / 1104 1460 / 1460 Output Total 1050 / 1050 1800 / 1800 500 / 500 Balance -1050 / -1050 -696 / -696 960 / 960 Consult Discharge Plan - Plan Referrals: Isabelle Torres RHINOLOGIST [Advanced Practice Nurse] - 07/06/16 2:30 pm Liyah Lopez CNP [Primary Care Provider] - ()
[2016-06-29 03:45] LABS: Hematocrit 24.4 % (37.5-50.1); Hemoglobin 7.8 g/dL (12.9-16.9); Immature Platelets 2.2 % (1.1-6.1); Lymphocytes # 1.5 K/mcL (0.6-4.6); Mean Corpuscular Hemoglobin 27.9 pg (28.0-33.3); Mean Corpuscular Volume 87.1 fL (83.0-100.0); Mean Platelet Volume 8.6 fL (9.4-12.4); Platelet Count 597 K/mcL (140-400); Red Cell Distribution Width 17.1 % (11.5-14.5)
[2016-06-29] MEDS: Ipratropium/Albuterol Neb 3 ML IH SCH ×2 (04:00→10:06)
[2016-06-29 04:02] LABS: BUN/Creatinine Ratio 11 (6-26); Blood Urea Nitrogen 8 mg/dL (8-26); Calcium 9.1 mg/dL (8.6-10.8); Carbon Dioxide 29 mEq/L (19-29); Chloride 99 mEq/L (98-109); Glucose 70 mg/dL (70-99); Osmolality,Calculated 283 (280-300); Potassium 4.9 mEq/L (3.5-4.5); Sodium 138 mEq/L (136-145); eGFR For African Americans > 60 (> 60); eGFR For Non-African Americans > 60 (> 60)
[2016-06-29 04:28] LABS: Monocytes # 0.5 K/mcL (0.0-1.3); Neutrophils # 5.8 K/mcL (1.6-8.9)
[2016-06-29 04:29] LABS: Anisocytosis 1+ (Not Present); Large Platelets Present (Not Present); Platelet Estimate Increased (Normal)
[2016-06-29 04:30] LABS: Macrocytosis Present (Not Present); Microcytosis Present (Not Present)
[2016-06-29 04:34] LABS: Polychromasia 1+ (Not Present)
[2016-06-29] MEDS: *HR* Heparin 5,000 UNIT/ML VIAL SQ SCH ×2 (05:26→13:56)
[2016-06-29 07:47] VITALS: BP 152/86
[2016-06-29] MEDS: Gabapentin 300 MG CAPSULE PO SCH ×2 (08:00→13:57)
[2016-06-29] MEDS: Aspirin Enteric Coated 81 MG Tablet PO SCH (08:00)
[2016-06-29] MEDS: Magnesium Oxide 400 MG TABLET PO SCH (08:01)
[2016-06-29] MEDS: levoFLOXacin 750 MG TABLET PO SCH (08:01)
[2016-06-29] MEDS: levETIRAcetam 250 MG TABLET PO SCH (08:01)
[2016-06-29] MEDS: *HR* OxyCODONE/APAP 10/325 TABLET PO PRN ×2 (08:02→11:56)
[2016-06-29] MEDS: Nicotine 21 MG PATCH.TD24 TD SCH (08:03)
[2016-06-29] MEDS: Insulin LISPRO 300 UNITS/3 ML VIAL SQ SCH ×4 (08:03→11:39)
[2016-06-29] MEDS ORDERED: Folic Acid 1 MG TABLET PO SCH (09:00)
--- NOTE | 2016-06-29 11:28 | Pulmonology Progress Note ---
Date of Encounter: 06/29/16 Time of Encounter: 10:35 Assessment and Plan (1) Left upper lobe pneumonia Current Visit: Yes Status: Acute Continued clinical improvement with abx coverage which has been tailored to levaquin monotherapy. Would plan for prolonged course of 2 weeks after last positive blood cx for bacteremia. Iram in sputum cx likely represents colonization and agree with withholding therapy. Pulmonary will now sign off. Please reconsult for further questions. Qualifiers: Qualified Code(s): J13 - Pneumonia due to Streptococcus pneumoniae (2) Pleural effusion on left Current Visit: Yes Status: Acute Small effusion and not likely amenable to bedside drainage. Given pt's response to conservative therapy, recommend against drainage at this time as the pleural space is unlikely to be infected. Will require follow up Chest PA/ Lat several weeks after discharge to determine resolution. (3) Bacteremia due to Gram-positive bacteria Current Visit: Yes Status: Acute S.pneumo bacteremia likely related to pneumonia. As above, recommend extending course to 14day past last positive cx Subjective Principal diagnosis: Pneumonia Interval history: ABX tailored to Levaquin monotherapy. Continues to feel well and tolerate light exertion. No acute events overnight Objective PUL Vital signs: Last Vital Signs Temp 98.3 F 06/29/16 07:00 Pulse 87 06/29/16 07:00 Resp 18 06/29/16 10:07 BP 152/86 06/29/16 07:00 Pulse Ox 93 06/29/16 10:07 General appearance: no acute distress Eyes: nonicteric Effort: normal Auscultation: left: diminished breath sounds, bilateral: clear Cardiovascular: regular rate and rhythm Gastrointestinal: non-tender Extremities: no cyanosis, no edema, no clubbing mood appropriate, affect normal Results - Laboratory Findings CBC and BMP: 06/29/16 03:35 06/29/16 03:35 ABG ABG pH 7.51 pH Units (7.32-7.45) H 06/18/16 20:10 ABG pCO2 41 mmHg (35-45) 06/18/16 20:10 ABG pO2 76 mmHg (85-104) L 06/18/16 20:10 ABG O2 Saturation 96 % (95-98) 06/18/16 20:10 PT/INR, D-dimer PT 16.3 Seconds (9.4-12.1) H 06/18/16 18:15 Abnormal lab findings: Abnormal lab results RBC 2.80 M/mcL (4.19-5.50) L 06/29/16 03:35 Hgb 7.8 g/dL (12.9-16.9) L 06/29/16 03:35 Hct 24.4 % (37.5-50.1) L 06/29/16 03:35 MCH 27.9 pg (28.0-33.3) L 06/29/16 03:35 RDW 17.1 % (11.5-14.5) H 06/29/16 03:35 Plt Count 597 K/mcL (140-400) H 06/29/16 03:35 MPV 8.6 fL (9.4-12.4) L 06/29/16 03:35 Immature Gran % 11.1 % (0-4) H 06/28/16 03:20 Metamyelocytes % 2.0 % (0) H 06/29/16 03:35 Myelocytes % 4.0 % (0) H 06/29/16 03:35 Promyelocytes % 2.0 % (0) H 06/29/16 03:35 Nucleated RBCs/100 WBC 0.1 /100 WBC (0) H 06/25/16 04:39 Toxic Granulation Present (Not Present) A 06/22/16 10:30 Platelet Estimate Increased (Normal) H 06/29/16 03:35 Large Platelets Present (Not Present) A 06/29/16 03:35 Polychromasia 1+ (Not Present) A 06/29/16 03:35 Hypochromasia Present (Not Present) A 06/28/16 03:20 Anisocytosis 1+ (Not Present) A 06/29/16 03:35 Microcytosis Present (Not Present) A 06/29/16 03:35 Macrocytosis Present (Not Present) A 06/29/16 03:35 PT 16.3 Seconds (9.4-12.1) H 06/18/16 18:15 APTT 23.5 Seconds (26.0-36.0) L 06/18/16 18:15 ABG pH 7.51 pH Units (7.32-7.45) H 06/18/16 20:10 ABG pO2 76 mmHg (85-104) L 06/18/16 20:10 ABG HCO3 32.7 mEQ/L (21-27) H 06/18/16 20:10 ABG Total CO2 34.0 mEq/L (20-26) H 06/18/16 20:10 ABG Base Excess 8.9 mEq/L (-2.0 to 3.0) H 06/18/16 20:10 VBG pH 7.51 pH Units (7.32-7.42) H 06/19/16 03:06 VBG pCO2 40 mmHg (41-51) L 06/19/16 03:06 VBG pO2 94 mmHg (25-40) H 06/19/16 03:06 VBG HCO3 31.9 mEq/L (21-27) H 06/19/16 03:06 Potassium 4.9 mEq/L (3.5-4.5) H 06/29/16 03:35 POC Glucose 137 (58-89) H 06/28/16 20:34 Hemoglobin A1c 8.8 % (-5.6) H 06/21/16 00:37 Magnesium 1.5 mg/dL (1.6-2.6) L 06/28/16 10:20 Total Bilirubin 1.7 mg/dL (0.2-1.2) H 06/19/16 03:06 Direct Bilirubin 1.3 mg/dL (0.0-0.5) H 06/19/16 03:06 Alkaline Phosphatase 270 Units/L (38-126) H 06/19/16 03:06 Serum Total Protein 5.8 g/dL (6.0-8.3) L 06/19/16 03:06 Albumin 1.6 g/dL (3.5-5.0) L D 06/19/16 03:06 Globulin 4.2 g/dL (2.4-3.5) H 06/19/16 03:06 Albumin/Globulin Ratio 0.4 (1.1-2.2) L 06/19/16 03:06 Beta-Hydroxybutyric Acd 0.83 mmol/L (0.02-0.27) H 06/18/16 18:15 Urine Clarity Turbid (Clear) A 06/22/16 13:00 Urine Blood Small (Negative) H 06/22/16 13:00 Urine Microscopic RBC 3-5 per hpf (0-3) H 06/22/16 13:00 Urine Microscopic WBC 5-15 per hpf (0-3) H 06/22/16 13:00 Ur Squamous Epith Cells Moderate per lpf (None-Few) H 06/22/16 13:00 Amorphous Sediment Moderate (Few) H 06/18/16 18:57 Ur Culture Indicated? YES (NO) A 06/18/16 18:57 Streptococcus sp PCR DETECTED (Not Detect) A 06/18/16 18:15 Strep pneumoniae (PCR) DETECTED (Not Detect) A 06/18/16 18:15 - Microbiology Findings Microbiology Findings: Microbiology, Last 48 Hours 06/25/16 19:25 Sputum Culture - Final Sputum Iram albicans - Clinical Findings Intake & Output: Intake & Output 06/28/16 06/29/16 06/29/16 23:59 07:59 15:59 Intake Total 240 / 240 0 / 0 0 / 0 Output Total 1300 / 1300 620 / 620 Balance 240 / 240 -1300 / -1300 -620 / -620 Weight 97.3 kg Consult Discharge Plan - Plan Referrals: WOUND, CLLINIC [Other] - 07/05/16 1:45 pm (THIS IS LOCATED RIGHT INSIDE THE WEST ENTRANCE.) Isabelle Torres, BIOLOGY PROFESSOR [Advanced Practice Nurse] - 07/06/16 2:30 pm
--- NOTE | 2016-06-29 11:50 | Discharge Summary ---
Date of Encounter: 06/29/16 Time of Encounter: 10:00 - Discharge Diagnosis (1) Severe sepsis Priority: Primary Status: Acute (2) Pneumonia Priority: Primary Status: Acute Qualifiers: Pneumonia type: due to unspecified organism Laterality: left Lung location: unspecified part of lung Qualified Code(s): J18.9 - Pneumonia, unspecified organism (3) History of CVA (cerebrovascular accident) Priority: Secondary Status: Chronic (4) Seizure disorder Priority: Secondary Status: Acute (5) DVT prophylaxis Priority: Secondary Status: Acute (6) Type 2 diabetes mellitus Priority: Secondary Status: Acute Qualifiers: Diabetes mellitus complication status: without complication Diabetes mellitus intermediate school teacher insulin use: without residential use Qualified Code(s): E11.9 - Type 2 diabetes mellitus without complications (7) Abscess of heel, left Priority: Secondary Status: Acute (8) Bacteremia due to Gram-positive bacteria Priority: Primary Status: Acute (9) CLL (chronic lymphocytic leukemia) Priority: Secondary Status: Chronic - Discharge Medications Prescriptions: Ferrous Sulfate 325 mg PO DAILY@0800 #30 tablet Folic Acid 1 mg PO DAILY #30 tablet Levofloxacin 750 mg PO DAILY #5 tablet Magnesium Oxide [Mag-Ox] 400 mg PO BID #30 tablet Nicotine Patch [Nicoderm] 21 mg TD DAILY #7 patch.td24 Home Medications: Aspirin [Adult Low Dose Aspirin EC] 81 mg PO DAILY 02/15/15 [History] Atorvastatin Calcium [Lipitor] 80 mg PO HS 02/15/15 [History] Citalopram [CeleXA] 40 mg PO DAILY 02/15/15 [History] Gabapentin [Neurontin] 600 mg PO TID 02/15/15 [History] LevETIRAcetam [Keppra] 500 mg PO BID 02/15/15 [History] Metformin [Glucophage] 500 mg PO BID MDD HOLD for 48 hours. 02/15/15 [History] Oxycodone HCl [Oxycontin] 5 mg PO BID PRN 02/15/15 [History] Sennosides/Docusate Sodium [Senna Plus] 1 tab PO BID PRN 02/15/15 [History] TraZODone 50 mg PO HS PRN 02/15/15 [History] Ondansetron HCl [Zofran] 4 mg PO Q6H PRN #30 tablet 03/01/15 [Rx] Prochlorperazine Maleate [Compazine] 10 mg PO Q6HR PRN #30 tablet 03/01/15 [Rx] Aclidinium [place] [Tudorza Pressair] 1 puff IH BID 08/02/15 [History] Albuterol Sulfate [Ventolin Hfa] 2 puff IH Q4H PRN 08/02/15 [History] Oxycodone HCl/Acetaminophen [Percocet 5-325 mg Tablet] 1 tab PO Q4-6H PRN [History] Tamsulosin [Flomax] 0.4 mg PO DAILY 08/02/15 [History] Pantoprazole Sodium [Protonix] 40 mg PO DAILY 12/22/15 [History] Polyethylene Glycol 3350 [MiraLAX] 17 gm PO BID PRN 12/22/15 [History] Ranitidine HCl [Zantac] 150 mg PO BID 12/22/15 [History] Buspirone HCl [Buspar] 5 mg PO TID 06/21/16 [History] Onabotulinumtoxina [Botox] 100 unit IM Q3M 06/21/16 [History] Ferrous Sulfate 325 mg PO DAILY@0800 #30 tablet 06/29/16 [Rx] Folic Acid 1 mg PO DAILY #30 tablet 06/29/16 [Rx] Levofloxacin 750 mg PO DAILY #5 tablet 06/29/16 [Rx] Magnesium Oxide [Mag-Ox] 400 mg PO BID #30 tablet 06/29/16 [Rx] Nicotine Patch [Nicoderm] 21 mg TD DAILY #7 patch.td24 06/29/16 [Rx] Allergies/Adverse Reactions: Allergies Penicillins [PCN] Allergy (Verified 02/15/15 15:20) Rash - Notes to Outpatient Provider 1. Continue Levaquin to finish 14 day antibiotic course ( last day 07/04/16). 2. ON MEGNESSIUM SUPPLEMENT, PLEASE FOLLOW Mg level. Date of admission: 06/18/16 20:42 Primary care physician: Liyah Lopez CNP Consults: 06/19/16 16:37 Consult to Invasive Line Access Team [CONS] Stat Reason for Consult: UNABLE TO OBTAIN LACTIC ACID BLOOD DRAWS. Line Type: EPIV PICC line indications: Limited vascular access Time Notified: 16:37 Call Completed: Yes 06/21/16 07:31 Consult to Occupational Therapy [CONS] Routine Comment: Evaluate, develop and implement POC Consult to Physical Therapy [CONS] Routine Comment: Evaluate, develop and implement POC 06/22/16 12:19 Consult to Podiatry [CONS] Routine Consulting Provider: [facility] Reason for Consult: left heel wound Call Completed: Yes 06/22/16 12:21 Consult to Podiatry [CONS] Routine Consulting Provider: [facility] Reason for Consult: left heel ulceration Call Completed: Yes 06/25/16 12:42 Consult to Pulmonology [CONS] Routine Consulting Provider: [facility] Reason for Consult: parapneumonic pleural effusion Call Completed: Yes 06/26/16 07:49 Consult to Infectious Diseases [CONS] Routine Consulting Provider: [facility] Reason for Consult: bacteremia and pneumonia Call Completed: Yes Discharging clinician: Lynn Bradley Anticipated date of discharge: 06/29/16 - Patient Status Disposition: Home Health Service Condition: Good Overall status at discharge: patient is back to baseline - Discharge Instructions Follow Up With: DORON, CLLHEIDI [Other] - 07/05/16 1:45 pm (THIS IS LOCATED RIGHT INSIDE THE [place] [facility]TR[facility].) Isabelle Torres, PROGRAM DIRECTOR SCOUTING [Advanced Practice Nurse] - 07/06/16 2:30 pm - Diet and Activity Activity: as per physical therapy, increase activity as tolerated Diet: diabetic diet Interval History: Mr. Mcleod is a 56 year old male is, seizure disorder, history of CVA with residual left-sided weakness, history of CLL, presented to the emergency department today with complaints of cough, congestion, fever, and confusion. Patient had increasing cough, and congestion over the last several days, accompanied by fevers at home with chills, sweats, and body aches. His family reported that he has been making off the wall comments, but is oriented. Patient reports some lightheadedness occasionally, denies any chest pain, or palpitations. Shortness of breath increasing over the last several days as well. He denies any dysuria, but reports increased thirst and increased urination. Evaluation in the emergency department included a head CT which showed no acute intracranial abnormality, but acute left sphenoid sinusitis. He showed a large region of consolidation in the left lung consistent with pneumonia. Lab results showed increased white blood cell count to 37.1. Lactic acid was elevated to 2.7, and with tachycardia with HR in 110s, patient has severe sepsis. He had hyperglycemia with glucose of 504, and with anion gap of 18 and increased serum ketones, he was found have hyperglycemic hyperosmolar syndrome. He also had acute kidney injury with BUN of 39 and creatinine 1.36. On exam, patient was alert and oriented, in no acute distress. He was satting 95% on 2 L nasal cannula. Lungs had rhonchi on the left and clear on the right. Heart rate was tachycardic with regular rhythm. Hospital course: Mr. Mcleod is a 56 year old male admitted for pneumonia and sepsis. He was also found a blood culture positive for strep pneumonia. He was treated with antibiotics. Pulmonology consult was called and saw pt. after treatment, patient's condition is getting much better, WBC get that down to normal. Antibiotic is has been changed to by mouth Levaquin. Patient was discharged home with home health. Patient was found low hemoglobin but stable. Go over his old chart, he has iron deficiency and folate deficiency, will give supplement. Patient also has a hypomagnesemia, will give by mouth magnesium. I saw and examined the patient today. he is awake alert, oriented 3. Vital signs stable. Oxygen saturation 93% in room air. Patient has COPD and has home oxygen already. Patient will discharge home and will have a prolonged antibiotic treatment because of bacteremia (totally 14 days after first negative blood cx, until 07/04/16). Patient is stable to discharge home with home health. Time spent discussing smoking cessation with patient: more than 10 minutes - Time Spent with Patient Total time spent providing and/or coordinating discharge services: 40 minutes. Greater than 30 minutes - Constitutional Vitals: Temp Pulse Resp BP Pulse Ox 98.3 F 87 18 152/86 93 06/29/16 07:00 06/29/16 07:00 06/29/16 10:07 06/29/16 07:00 06/29/16 10:07 General appearance: Present: A&O X 3, pleasant, no acute distress, obese, answers questions appropriately - Head Head exam: Present: atraumatic, normocephalic - Eye Eye exam: Present: PERRL, conjuntiva pink, sclera anicteric Pupils: Present: PERRL - Neck Neck exam general surgery: Present: supple, trachea midline. Absent: lymphadenopathy - Respiratory Respiratory exam: Present: CTAB. Absent: accessory muscle use, rales, rhonchi, wheezes - Cardiovascular Cardiovascular exam: Present: RRR, +S1, +S2. Absent: diastolic murmur, gallop, rubs, systolic murmur - GI/Abdominal GI/Abdominal exam: Present: normal bowel sounds, soft, no peritoneal signs. Absent: distended, tenderness - Extremities Exam Extremities exam: Present: warm, radial pulses palpable and symetrical. Absent : calf tenderness, cyanotic, pedal edema - Neurological Exam Neurological exam: Present: CN II-XII intact, motor sensory deficit, oriented X3. Absent: pronater drift, facial droop, speech deficit - Skin Skin exam: Present: dry, intact
--- NOTE | 2016-06-29 12:07 | Physician Discharge Referral ---
Home Health/Hosp Referral Info Transfer to: Home Health Provider in Charge Post Discharge: PCP - Diagnosis (1) Severe sepsis Status: Acute (2) Pneumonia Status: Acute (3) History of CVA (cerebrovascular accident) Status: Chronic (4) Seizure disorder Status: Acute (5) DVT prophylaxis Status: Acute (6) Type 2 diabetes mellitus Status: Acute (7) Abscess of heel, left Status: Acute (8) Bacteremia due to Gram-positive bacteria Status: Acute (9) CLL (chronic lymphocytic leukemia) Status: Chronic - Respiratory Orders Oxygen / L per min (2) Smoking Cessation: Smoking cessation has been advised. For more information, call the [place] Tobacco Quit Line at 2-678-RDTK-NOW. - Diet/Nutrition Diet/Nutrition Orders: No Concentrated Sweets - Services Needed Following services are medically necessary services: Nursing, Home Health Aide, Physical Therapy, Occupational Therapy - Transfer Medications Prescriptions: Ferrous Sulfate 325 mg PO DAILY@0800 #30 tablet Folic Acid 1 mg PO DAILY #30 tablet Levofloxacin 750 mg PO DAILY #5 tablet Magnesium Oxide [Mag-Ox] 400 mg PO BID #30 tablet Nicotine Patch [Nicoderm] 21 mg TD DAILY #7 patch.td24 Home Medications: Aspirin [Adult Low Dose Aspirin EC] 81 mg PO DAILY 02/15/15 [History] Atorvastatin Calcium [Lipitor] 80 mg PO HS 02/15/15 [History] Citalopram [CeleXA] 40 mg PO DAILY 02/15/15 [History] Gabapentin [Neurontin] 600 mg PO TID 02/15/15 [History] LevETIRAcetam [Keppra] 500 mg PO BID 02/15/15 [History] Metformin [Glucophage] 500 mg PO BID MDD HOLD for 48 hours. 02/15/15 [History] Oxycodone HCl [Oxycontin] 5 mg PO BID PRN 02/15/15 [History] Sennosides/Docusate Sodium [Senna Plus] 1 tab PO BID PRN 02/15/15 [History] TraZODone 50 mg PO HS PRN 02/15/15 [History] Ondansetron HCl [Zofran] 4 mg PO Q6H PRN #30 tablet 03/01/15 [Rx] Prochlorperazine Maleate [Compazine] 10 mg PO Q6HR PRN #30 tablet 03/01/15 [Rx] Aclidinium [place] [Tudorza Pressair] 1 puff IH BID 08/02/15 [History] Albuterol Sulfate [Ventolin Hfa] 2 puff IH Q4H PRN 08/02/15 [History] Oxycodone HCl/Acetaminophen [Percocet 5-325 mg Tablet] 1 tab PO Q4-6H PRN [History] Tamsulosin [Flomax] 0.4 mg PO DAILY 08/02/15 [History] Pantoprazole Sodium [Protonix] 40 mg PO DAILY 12/22/15 [History] Polyethylene Glycol 3350 [MiraLAX] 17 gm PO BID PRN 12/22/15 [History] Ranitidine HCl [Zantac] 150 mg PO BID 12/22/15 [History] Buspirone HCl [Buspar] 5 mg PO TID 06/21/16 [History] Onabotulinumtoxina [Botox] 100 unit IM Q3M 06/21/16 [History] Ferrous Sulfate 325 mg PO DAILY@0800 #30 tablet 06/29/16 [Rx] Folic Acid 1 mg PO DAILY #30 tablet 06/29/16 [Rx] Levofloxacin 750 mg PO DAILY #5 tablet 06/29/16 [Rx] Magnesium Oxide [Mag-Ox] 400 mg PO BID #30 tablet 06/29/16 [Rx] Nicotine Patch [Nicoderm] 21 mg TD DAILY #7 patch.td24 06/29/16 [Rx] Allergies/Adverse Reactions: Allergies Penicillins [PCN] Allergy (Verified 02/15/15 15:20) Rash Certification: Further, I certify that my clinical findings support that this patient is homebound (i.e. absences from home require considerable and taxing effort and are for medical reasons or scientology services or infrequently or short duration when for other reasons) because: Homebound Reason: Patient requires assistance of a person or device to safely leave home Attestation: My signature below is to certify that this patient is under my care and that I, or nurse practitioner, or a physician's operations manager assistant working with me, has a face-to -face encounter with this patient.
--- NOTE | 2016-06-29 16:20 | Podiatry Progress Note ---
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 Hollingsworth on 06/22/16. Ruptured bullous lesion deroofed on 06/26/16. Wound cultures negative. Deep tissue injury present to left heel, no evidence of bacterial infection. Continue local wound care and offloading. Moderate amount of serous drainage, apply Allevyn foam every 3 days after cleansing with saline. Patient will need to f/u in wound care with Dr. Hollingsworth with in one week of discharge from the hospital. Subjective Principal diagnosis: Pneumonia Interval history: Patient is lying in bed with boot on and dressing to left heel. Bullous lesion of left heel was deroofed on 06/26/16. Per nurse patient is supposed be discharged home today. Patient's will be performing dressing changes every 3 days with the Allevyn to the left heel. Patient is scheduled to follow- up with Dr. Hollingsworth in wound care next week. No c/o pain, fever or chills. Objective - Vital Signs Vital Signs: Vital Signs Temp Pulse Resp BP Pulse Ox 06/29/16 10:07 18 93 06/29/16 07:00 98.3 F 87 16 152/86 90 06/29/16 04:00 16 94 06/29/16 03:48 98.2 F 80 18 119/75 94 06/28/16 23:22 98.2 F 86 16 101/60 91 06/28/16 22:00 16 94 06/28/16 19:30 98.4 F 89 16 119/88 93 Intake and Output 06/29/16 06/29/16 06/29/16 07:59 15:59 23:59 Intake Total 0 / 0 240 / 240 Output Total 1300 / 1300 620 / 620 Balance -1300 / -1300 -380 / -380 Intake: Oral 0 / 0 240 / 240 Output: Urine 1300 / 1300 620 / 620 Other: Meal Lunch Percent of Meal Consumed 25% # Voids 1 # Urine Diapers 1 Weight 97.3 kg Blood Glucose* 90 119 Patient Weight 06/29/16 23:59 Weight 97.3 kg - Exam Exam: General appearance: alert awake oriented X 3. Calm and pleasant, no acute distress.. Vascular: Pedal pulses +2/4 DP/PT , No evidence of cyanosis, pallor or rubor, Edema graded at 1+/4, Skin Temperature warm, No calf pain with manual compression. capillary refill time is immediate to digits. Neurologic: Sensation intact with light touch to foot. . S/P I&D left heel on 06/22/16. Bullous lesion deroofed on 06/26/16, deep tissue injury measuring 7 cm in length x 7 cm in width, surrounding wound edges are pink center of wound with ecchymosis. Serous drainage observed to dressing. No bone, no ligament, no tendon, no undermining, no tunneling, no sinus tracts, no periwound erythema. No purulent drainage, no odor, no evidence of bacterial infection. - Lab Result Diagrams: 06/29/16 03:35 06/29/16 03:35 Labs: Abnormal lab results RBC 2.80 M/mcL (4.19-5.50) L 06/29/16 03:35 Hgb 7.8 g/dL (12.9-16.9) L 06/29/16 03:35 Hct 24.4 % (37.5-50.1) L 06/29/16 03:35 MCH 27.9 pg (28.0-33.3) L 06/29/16 03:35 RDW 17.1 % (11.5-14.5) H 06/29/16 03:35 Plt Count 597 K/mcL (140-400) H 06/29/16 03:35 MPV 8.6 fL (9.4-12.4) L 06/29/16 03:35 Immature Gran % 11.1 % (0-4) H 06/28/16 03:20 Metamyelocytes % 2.0 % (0) H 06/29/16 03:35 Myelocytes % 4.0 % (0) H 06/29/16 03:35 Promyelocytes % 2.0 % (0) H 06/29/16 03:35 Nucleated RBCs/100 WBC 0.1 /100 WBC (0) H 06/25/16 04:39 Toxic Granulation Present (Not Present) A 06/22/16 10:30 Platelet Estimate Increased (Normal) H 06/29/16 03:35 Large Platelets Present (Not Present) A 06/29/16 03:35 Polychromasia 1+ (Not Present) A 06/29/16 03:35 Hypochromasia Present (Not Present) A 06/28/16 03:20 Anisocytosis 1+ (Not Present) A 06/29/16 03:35 Microcytosis Present (Not Present) A 06/29/16 03:35 Macrocytosis Present (Not Present) A 06/29/16 03:35 PT 16.3 Seconds (9.4-12.1) H 06/18/16 18:15 APTT 23.5 Seconds (26.0-36.0) L 06/18/16 18:15 ABG pH 7.51 pH Units (7.32-7.45) H 06/18/16 20:10 ABG pO2 76 mmHg (85-104) L 06/18/16 20:10 ABG HCO3 32.7 mEQ/L (21-27) H 06/18/16 20:10 ABG Total CO2 34.0 mEq/L (20-26) H 06/18/16 20:10 ABG Base Excess 8.9 mEq/L (-2.0 to 3.0) H 06/18/16 20:10 VBG pH 7.51 pH Units (7.32-7.42) H 06/19/16 03:06 VBG pCO2 40 mmHg (41-51) L 06/19/16 03:06 VBG pO2 94 mmHg (25-40) H 06/19/16 03:06 VBG HCO3 31.9 mEq/L (21-27) H 06/19/16 03:06 Potassium 4.9 mEq/L (3.5-4.5) H 06/29/16 03:35 POC Glucose 137 (58-89) H 06/28/16 20:34 Hemoglobin A1c 8.8 % (-5.6) H 06/21/16 00:37 Magnesium 1.5 mg/dL (1.6-2.6) L 06/28/16 10:20 Total Bilirubin 1.7 mg/dL (0.2-1.2) H 06/19/16 03:06 Direct Bilirubin 1.3 mg/dL (0.0-0.5) H 06/19/16 03:06 Alkaline Phosphatase 270 Units/L (38-126) H 06/19/16 03:06 Serum Total Protein 5.8 g/dL (6.0-8.3) L 06/19/16 03:06 Albumin 1.6 g/dL (3.5-5.0) L D 06/19/16 03:06 Globulin 4.2 g/dL (2.4-3.5) H 06/19/16 03:06 Albumin/Globulin Ratio 0.4 (1.1-2.2) L 06/19/16 03:06 Beta-Hydroxybutyric Acd 0.83 mmol/L (0.02-0.27) H 06/18/16 18:15 Urine Clarity Turbid (Clear) A 06/22/16 13:00 Urine Blood Small (Negative) H 06/22/16 13:00 Urine Microscopic RBC 3-5 per hpf (0-3) H 06/22/16 13:00 Urine Microscopic WBC 5-15 per hpf (0-3) H 06/22/16 13:00 Ur Squamous Epith Cells Moderate per lpf (None-Few) H 06/22/16 13:00 Amorphous Sediment Moderate (Few) H 06/18/16 18:57 Ur Culture Indicated? YES (NO) A 06/18/16 18:57 Streptococcus sp PCR DETECTED (Not Detect) A 06/18/16 18:15 Strep pneumoniae (PCR) DETECTED (Not Detect) A 06/18/16 18:15 Microbiology, Last 48 Hours 06/25/16 19:25 Sputum Culture - Final Sputum Iram albicans Consult Discharge Plan - Plan Instructions: Iron Supplements (By mouth), Folic Acid (By mouth), Levofloxacin (By mouth), Magnesium (By mouth), Pneumonia (DC) Referrals: WOUND, CLLINIC [Other] - 07/05/16 1:45 pm (THIS IS LOCATED RIGHT INSIDE THE WEST ENTRANCE.) Isabelle Torres, ELECTRICAL CONTINUITY INSPECTOR [Advanced Practice Nurse] - 07/06/16 2:30 pm Prescriptions: Ferrous Sulfate 325 mg PO DAILY@0800 #30 tablet Folic Acid 1 mg PO DAILY #30 tablet Levofloxacin 750 mg PO DAILY #5 tablet Magnesium Oxide [Mag-Ox] 400 mg PO BID #30 tablet Nicotine Patch [Nicoderm] 21 mg TD DAILY #7 patch.td24
== END 2016-06-29 14:50 | disposition home or self-care (01) | DRG 720 ==
LOC: EMEROO 16:20 → ICNU 16:20 → SUATTDRO 20:42 → ICNU 20:45 → 2NNU 06-19 11:53
PROVIDERS: ADMIT Internal Medicine; ATTEND Internal Medicine

== ENCOUNTER 2018-11-11 16:31 | Inpatient (IN) ==
[2018-11-11 18:03] LABS: Basophils % 0.1 %; Hematocrit 31.9 % (37.5-50.1); Hemoglobin 10.6 g/dL (12.9-16.9); Immature Granulocytes % 2.2 % (0-4); Lymphocytes # 2.1 K/mcL (0.6-4.6); Lymphocytes % 11.9 %; Mean Corpuscular HGB Conc 33.2 g/dL (31.6-35.5); Mean Corpuscular Volume 93.3 fL (83.0-100.0); Mean Platelet Volume 8.8 fL (9.4-12.4); Monocytes # 0.5 K/mcL (0.0-1.3); Monocytes % 2.8 %; Neutrophils # 14.6 K/mcL (1.6-8.9); Platelet Count 383 K/mcL (140-400); Red Blood Count 3.42 M/mcL (4.19-5.50); Red Cell Distribution Width 14.5 % (11.5-14.5); White Blood Count 17.6 K/mcL (4.3-11.1)
[2018-11-11 18:25] LABS: Dohle Bodies Present (Not Present)
[2018-11-11 18:29] LABS: Alanine Aminotransferase 28 Units/L (7-52); Albumin 3.5 g/dL (3.5-5.7); Albumin/Globulin Ratio 0.9 (1.1-2.2); Alkaline Phosphatase 171 Units/L (34-104); Aspartate Amino Transferase 25 Units/L (13-39); BUN/Creatinine Ratio 19 (6-26); Bilirubin,Total 0.9 mg/dL (0.3-1.0); Blood Urea Nitrogen 11 mg/dL (6-20); Calcium 9.4 mg/dL (8.6-10.3); Carbon Dioxide 26 mEq/L (23-29); Chloride 94 mEq/L (98-107); Globulin 3.9 g/dL (2.4-3.5); Glucose 146 mg/dL (70-105); Osmolality,Calculated 274 (280-300); Potassium 4.1 mEq/L (3.5-5.1); Sodium 131 mEq/L (136-145); Total Protein 7.4 g/dL (6.4-8.9); eGFR For African Americans > 60 (> 60); eGFR For Non-African Americans > 60 (> 60)
--- NOTE | 2018-11-11 18:45 | Emergency Department Note ---
Disposition Clinical Impression: CLL (chronic lymphocytic leukemia) Leg pain, medial Qualifiers: Laterality: left Qualified Code(s): M79.605 - Pain in left leg Disposition: Admitted As Inpatient Condition: Good Time of Disposition: 21:33 General Adult HPI - General Chief complaint: ED Abdominal Pain Stated complaint: left leg pain Time Seen by Provider: 11/11/18 17:21 - History of Present Illness Pain Scale: 10 - Related Data Home Medications Medication Instructions Recorded Confirmed Aspirin [Adult Low Dose Aspirin EC] 81 mg PO DAILY 02/15/15 11/12/18 Atorvastatin Calcium [Lipitor] 80 mg PO HS 02/15/15 11/12/18 Citalopram [CeleXA] 40 mg PO DAILY 02/15/15 11/12/18 Gabapentin [Neurontin] 600 mg PO TID 02/15/15 11/12/18 LevETIRAcetam [Keppra] 500 mg PO DAILY 02/15/15 11/12/18 Metformin [Glucophage] 850 mg PO BID 02/15/15 11/12/18 TraZODone 50 mg PO HS PRN 02/15/15 11/12/18 Tamsulosin [Flomax] 0.8 mg PO DAILY 08/02/15 11/12/18 Omeprazole [PriLOSEC] 40 mg PO BID 11/11/18 11/12/18 OxyCODONE/APAP 5/325 [Percocet 1 tab PO DAILY PRN 11/12/18 11/12/18 5/325 MG] Previous Rx's Medication Instructions Recorded Folic Acid 1 mg PO DAILY #30 tablet 06/29/16 Ascorbic Acid [Vitamin C] 500 mg PO DAILY #30 tablet 05/06/18 Ferrous Sulfate [Iron] 325 mg PO DAILY #30 tablet 05/06/18 Allergies Allergy/AdvReac Type Severity Reaction Status Date / Time Penicillins [PCN] Allergy Rash Verified 11/12/18 14:12 Past Medical History - Past Medical History Medical history: Reports: cancer, CVA, diabetes, hyperlipidemia, seizures Surgical history: Reports: appendectomy, orthopedic, other Psychiatric history: Reports: anxiety, depression - Social History Smoking Status: Current every day smoker Smokeless Tobacco Status: Yes Alcohol use: Reports: none Drug use: Reports: marijuana Physical Exam - General General appearance: alert, in no apparent distress Course Vital Signs Temperature 98.8 F 11/11/18 16:35 Pulse Rate 94 11/11/18 16:35 Respiratory Rate 22 11/11/18 16:35 Blood Pressure 115/67 11/11/18 16:35 O2 Sat by Pulse Oximetry 97 11/11/18 16:35 Temperature 97.8 F 11/12/18 15:08 Pulse Rate 95 11/12/18 15:08 Respiratory Rate 16 11/12/18 15:08 Blood Pressure 143/78 11/12/18 11:55 O2 Sat by Pulse Oximetry 92 11/12/18 15:08 Oxygen Delivery Oxygen Delivery Room Air Medical Decision Making - Lab Data Result diagrams: 11/12/18 01:57 11/12/18 01:57 Lab Results 11/11/18 11/11/18 Range/Units 17:12 17:12 WBC 17.6 H (4.3-11.1) K/mcL RBC 3.42 L (4.19-5.50) M/mcL Hgb 10.6 L (12.9-16.9) g/dL Hct 31.9 L (37.5-50.1) % MCV 93.3 (83.0-100.0) fL MCH 31.0 (28.0-33.3) pg MCHC 33.2 (31.6-35.5) g/dL RDW 14.5 (11.5-14.5) % Plt Count 383 (140-400) K/mcL MPV 8.8 L (9.4-12.4) fL Immature Gran % 2.2 (0-4) % Seg Neutrophils % 83.0 % Lymphocytes % 11.9 % Monocytes % 2.8 % Eosinophils % 0.0 % Basophils % 0.1 % Neutrophils # 14.6 H (1.6-8.9) K/mcL Lymphocytes # 2.1 (0.6-4.6) K/mcL Monocytes # 0.5 (0.0-1.3) K/mcL Eosinophils # 0.0 (0.0-0.6) K/mcL Basophils # 0.0 (0.0-0.2) K/mcL Dohle Bodies Present A (Not Present) Sodium 131 L (136-145) mEq/L Potassium 4.1 (3.5-5.1) mEq/L Chloride 94 L (98-107) mEq/L Carbon Dioxide 26 (23-29) mEq/L BUN 11 (6-20) mg/dL Creatinine 0.58 L (0.70-1.30) mg/dL Est GFR ( Amer) > 60 (> 60) Est GFR (Non-Af Amer) > 60 (> 60) BUN/Creatinine Ratio 19 (6-26) Glucose 146 H (70-105) mg/dL Calculated Osmolality 274 L (280-300) Calcium 9.4 (8.6-10.3) mg/dL Total Bilirubin 0.9 (0.3-1.0) mg/dL AST 25 (13-39) Units/L ALT 28 (7-52) Units/L Alkaline Phosphatase 171 H (34-104) Units/L Serum Total Protein 7.4 (6.4-8.9) g/dL Albumin 3.5 (3.5-5.7) g/dL Globulin 3.9 H (2.4-3.5) g/dL Albumin/Globulin Ratio 0.9 L (1.1-2.2) Attestation Statement - Attestation Attestation: I examined this patient and my medical decision-making was reviewed with the Resident Physician. I agree with the documented findings, disposition and treatment plan as described except to the extent set forth below. Patient is a 58-year-old gentleman who presents from her department with chief complaint of a left inguinal pain/left groin pain. The patient states been going on for several days now is worse with ambulation patient denies any trauma to the affected area. The patient has history of neoplasm in the past. Physical exam patient awake alert no acute distress patient is intact dorsalis pedis pulses he has tenderness to palpation in the left inguinal area there is no mass noted there is no swelling and there is no erythema Decision management the patient will undergo venous duplex testing as well as plain film x-rays of the left hip. Laboratory studies will also be checked and the patient's discomfort will be managed.
[2018-11-11] MEDS ORDERED: *HR* OxyCODONE/APAP 7.5/325 TABLET PO ONE (19:13)
--- NOTE | 2018-11-11 20:49 | Emergency Department Note ---
Disposition Clinical Impression: CLL (chronic lymphocytic leukemia) Leg pain, medial Qualifiers: Laterality: left Qualified Code(s): M79.605 - Pain in left leg Disposition: Admitted As Inpatient Condition: Good Referrals: Liyah Lopez CNP [Primary Care Provider] - Forms: ED Satisfaction Letter, Work/School Release Time of Disposition: 21:33 General Adult HPI - General Chief complaint: ED Extremity Problem,Nontraumatic Stated complaint: left leg pain Time Seen by Provider: 11/11/18 17:21 Source: patient Mode of arrival: ambulatory Limitations: no limitations Nursing Notes Reviewed: Yes Vital Signs Reviewed: Yes - History of Present Illness HPI Narrative: Patient is a 58 yo man who came to ED on 11/11/18 for evaluation of left leg pain localized to left groin that is worse with weight-bearing. The pain began Sunday night. He denies trauma or strain to the area. He endorses lack of appetite with weight loss during past month. He denies other symptoms including dysuria, testicular pain or swelling. VS stable and WNL. He had CT scan 11/08/18 as part of CLL management. PMH significant for CLL, stroke, diabetes, ruptured appendicitis. Home medications include aspirin 81 mg daily, metformin, atorvastatin. Social history significant for smoking 1/2 ppd. Pain Scale: 10 - Related Data Home Medications Medication Instructions Recorded Confirmed Aspirin [Adult Low Dose Aspirin EC] 81 mg PO DAILY 02/15/15 09/05/18 Atorvastatin Calcium [Lipitor] 80 mg PO HS 02/15/15 09/05/18 Citalopram [CeleXA] 40 mg PO DAILY 02/15/15 09/05/18 Gabapentin [Neurontin] 600 mg PO TID 02/15/15 09/05/18 LevETIRAcetam [Keppra] 500 mg PO BID 02/15/15 09/05/18 Metformin [Glucophage] 850 mg PO BID 02/15/15 09/05/18 TraZODone 50 mg PO HS PRN 02/15/15 09/05/18 Albuterol Sulfate [Ventolin Hfa] 2 puff IH Q4H PRN 08/02/15 09/05/18 Tamsulosin [Flomax] 0.4 mg PO DAILY 08/02/15 09/05/18 Polyethylene Glycol 3350 [MiraLAX] 17 gm PO BID PRN 12/22/15 09/05/18 raNITIdine HCl [Zantac] 150 mg PO BID 12/22/15 09/05/18 Buspirone HCl [Buspar] 5 mg PO TID 06/21/16 09/05/18 Onabotulinumtoxina [Botox] 100 unit IM Q3M 06/21/16 09/05/18 Oxycodone HCl/Acetaminophen 1 each PO Q4-6H PRN 10/30/16 09/05/18 [Percocet 7.5-325 mg Tablet] Previous Rx's Medication Instructions Recorded Ondansetron HCl [Zofran] 4 mg PO Q6H PRN #30 tablet 03/01/15 Prochlorperazine Maleate 10 mg PO Q6HR PRN #30 tablet 03/01/15 [Compazine] Folic Acid 1 mg PO DAILY #30 tablet 06/29/16 Ascorbic Acid [Vitamin C] 500 mg PO DAILY #30 tablet 05/06/18 Ferrous Sulfate [Iron] 325 mg PO DAILY #30 tablet 05/06/18 Omeprazole [PriLOSEC] 40 mg PO BID PRN #60 cap 09/05/18 Allergies Allergy/AdvReac Type Severity Reaction Status Date / Time Penicillins [PCN] Allergy Rash Verified 11/11/18 16:48 All systems ED: reviewed and negative except as stated. Constitutional: Reports: weight change (Weight loss during past month), other (Loss of appetite) Musculoskeletal: Reports: myalgia, other (Pain in left groin) Past Medical History - Past Medical History Attestation: Yes The following information was validated with the patient. Source: patient, old records reviewed, obtained from family Medical history: Reports: cancer, CVA, diabetes, hyperlipidemia, seizures Surgical history: Reports: appendectomy, orthopedic, other Psychiatric history: Reports: anxiety, depression - Social History Smoking Status: Current every day smoker Smokeless Tobacco Status: Yes Alcohol use: Reports: none Drug use: Reports: marijuana Physical Exam PE Gen: Appears comfortable, AOx3 HEENT: WNL, pupils equal and reactive, no facial asymmetry Cardio: Regular rate and rhythm, no murmur on exam. Good perfusion to all extremities. No cyanosis, no pitting edema. Resp: Breath sounds equal bilaterally, no cough, no wheezing GI: Abdomen soft, nondistended, nontender to palpation MSK: No edema or evidence of trauma to left hip, left knee; no pain to palpation of joints, no erythema. Mild pain w/o erythema or edema to palpation along medial left groin. [id number]. : Appearance WNL, no pain on palpation of testicles, no edema or erythema Neuro: CN I-XII Psych: Appropriate affect - General Limitations: no limitations General appearance: alert, in no apparent distress Course Course Narrative: Ddx includes DVT 2/2 hypercoagulable state vs muscle strain vs orchitis. Doppler US positive only for superficial venous thrombosis not concerning for migratio n. Patient was unable to ambulate even after Percocet. Exam not consistent with orchitis. Mild leukocytosis appears chronic and may be 2/2 CLL. Will recommend admission for further evaluation. - Reevaluation(s) Reevaluation #1: VS stable and WNL. Patient remains unable to bear weight even after percocet. Discussed plan to admit, ordered UA per hospitalist's recommendation based on perinephric stranding on CT 11/08/18. Patient agreed with plan for admission for further workup. Time: 21:28 Vital Signs Temperature 98.8 F 11/11/18 16:35 Pulse Rate 94 11/11/18 16:35 Respiratory Rate 22 11/11/18 16:35 Blood Pressure 115/67 11/11/18 16:35 O2 Sat by Pulse Oximetry 97 11/11/18 16:35 Temperature 98.8 F 11/11/18 16:35 Pulse Rate 98 11/11/18 19:16 Respiratory Rate 17 11/11/18 19:16 Blood Pressure 110/63 11/11/18 19:16 O2 Sat by Pulse Oximetry 99 11/11/18 19:16 Oxygen Delivery Oxygen Delivery Room Air Medical Decision Making - MDM Narrative Medical decision making narrative: See course. - Medical Records Medical records reviewed: Yes I reviewed the patient's medical records. - Lab Data Lab results reviewed: Yes I reviewed the patient's lab results. Result diagrams: 11/11/18 17:12 11/11/18 17:12 Lab Results 11/11/18 11/11/18 Range/Units 17:12 17:12 WBC 17.6 H (4.3-11.1) K/mcL RBC 3.42 L (4.19-5.50) M/mcL Hgb 10.6 L (12.9-16.9) g/dL Hct 31.9 L (37.5-50.1) % MCV 93.3 (83.0-100.0) fL MCH 31.0 (28.0-33.3) pg MCHC 33.2 (31.6-35.5) g/dL RDW 14.5 (11.5-14.5) % Plt Count 383 (140-400) K/mcL MPV 8.8 L (9.4-12.4) fL Immature Gran % 2.2 (0-4) % Seg Neutrophils % 83.0 % Lymphocytes % 11.9 % Monocytes % 2.8 % Eosinophils % 0.0 % Basophils % 0.1 % Neutrophils # 14.6 H (1.6-8.9) K/mcL Lymphocytes # 2.1 (0.6-4.6) K/mcL Monocytes # 0.5 (0.0-1.3) K/mcL Eosinophils # 0.0 (0.0-0.6) K/mcL Basophils # 0.0 (0.0-0.2) K/mcL Dohle Bodies Present A (Not Present) Sodium 131 L (136-145) mEq/L Potassium 4.1 (3.5-5.1) mEq/L Chloride 94 L (98-107) mEq/L Carbon Dioxide 26 (23-29) mEq/L BUN 11 (6-20) mg/dL Creatinine 0.58 L (0.70-1.30) mg/dL Est GFR ( Amer) > 60 (> 60) Est GFR (Non-Af Amer) > 60 (> 60) BUN/Creatinine Ratio 19 (6-26) Glucose 146 H (70-105) mg/dL Calculated Osmolality 274 L (280-300) Calcium 9.4 (8.6-10.3) mg/dL Total Bilirubin 0.9 (0.3-1.0) mg/dL AST 25 (13-39) Units/L ALT 28 (7-52) Units/L Alkaline Phosphatase 171 H (34-104) Units/L Serum Total Protein 7.4 (6.4-8.9) g/dL Albumin 3.5 (3.5-5.7) g/dL Globulin 3.9 H (2.4-3.5) g/dL Albumin/Globulin Ratio 0.9 L (1.1-2.2) - Radiology Data Radiology results reviewed: Yes I reviewed the patient's radiology results. Knee X-Ray 11/11/18 17:06 IMPRESSION: No acute abnormality of the knee. D/ / Kashif Plascencia MD / Kashif Plascencia MD Interpreting Provider: Kashif Plascencia MD Ankle X-Ray 11/11/18 17:10 IMPRESSION: No acute osseous abnormality. Arthritic changes of the talonavicular and subtalar joints. D/ / 11/11/2018 18:32:01 Keagan Little MD / [facility] Interpreting Provider: Keagan Little MD Hip X-Ray 11/11/18 17:10 IMPRESSION: No acute osseous abnormality. Atherosclerosis. D/ / 11/11/2018 18:30:20 Keagan Little MD / [facility] Interpreting Provider: Keagan Little MD
[2018-11-12] MEDS ORDERED: Dextrose Gel 15 GM/37.5 ML TUBE PO PRN ×2 (01:40)
[2018-11-12] MEDS ORDERED: Ondansetron 4 MG/2 ML VIAL IVP PRN (01:40)
[2018-11-12] MEDS ORDERED: *HR* Dextrose 50 % in Water (Syg) 50 ML SYRINGE IVP PRN (01:40)
[2018-11-12] MEDS ORDERED: Naloxone 0.4 MG/ML INJ IVP PRN (01:40)
[2018-11-12] MEDS ORDERED: D5% in Water 1,000 ML IVC PRN (01:40)
[2018-11-12] MEDS ORDERED: traZODone 50 MG TABLET PO PRN (01:46)
[2018-11-12] MEDS ORDERED: *HR* LORazepam 2 MG/ML VIAL IVP PRN (01:47)
[2018-11-12 02:21] LABS: Basophils % 0.1 %; Hematocrit 29.4 % (37.5-50.1); Hemoglobin 9.6 g/dL (12.9-16.9); Immature Granulocytes % 2.2 % (0-4); Lymphocytes % 21.6 %; Mean Corpuscular HGB Conc 32.7 g/dL (31.6-35.5); Mean Corpuscular Hemoglobin 30.1 pg (28.0-33.3); Mean Corpuscular Volume 92.2 fL (83.0-100.0); Mean Platelet Volume 8.8 fL (9.4-12.4); Monocytes % 2.5 %; Neutrophils # 13.1 K/mcL (1.6-8.9); Platelet Count 365 K/mcL (140-400); Red Blood Count 3.19 M/mcL (4.19-5.50); Red Cell Distribution Width 14.5 % (11.5-14.5); Segmented Neutrophils % 73.6 %; White Blood Count 17.8 K/mcL (4.3-11.1)
[2018-11-12 02:23] LABS: Lymphocytes # 3.8 K/mcL (0.6-4.6); Monocytes # 0.5 K/mcL (0.0-1.3)
[2018-11-12 02:29] LABS: INR 1.6; Prothrombin Time 18.4 Seconds (9.4-12.1)
[2018-11-12 02:43] LABS: Alanine Aminotransferase 23 Units/L (7-52); Albumin 3.1 g/dL (3.5-5.7); Albumin/Globulin Ratio 0.9 (1.1-2.2); Alkaline Phosphatase 146 Units/L (34-104); Aspartate Amino Transferase 18 Units/L (13-39); BUN/Creatinine Ratio 24 (6-26); Bilirubin,Total 0.7 mg/dL (0.3-1.0); Blood Urea Nitrogen 12 mg/dL (6-20); Carbon Dioxide 27 mEq/L (23-29); Chloride 95 mEq/L (98-107); Globulin 3.4 g/dL (2.4-3.5); Glucose 142 mg/dL (70-105); Magnesium 1.7 mg/dL (1.6-2.6); Osmolality,Calculated 278 (280-300); Potassium 3.9 mEq/L (3.5-5.1); Sodium 133 mEq/L (136-145); Total Protein 6.5 g/dL (6.4-8.9); eGFR For African Americans > 60 (> 60); eGFR For Non-African Americans > 60 (> 60)
[2018-11-12 02:44] LABS: Platelet Estimate Normal (Normal)
--- NOTE | 2018-11-12 04:30 | Internal Med History&Physical ---
Date of Encounter: 11/12/18 Time of Encounter: 01:10 Internal Medicine - H&P: HPI Chief complaint: left hip/groin pain Admitted From: Emergency Dept Plans for Post Hospital Care: Home History of present illness: Mr. Mcleod is a 58 year old male who presents to the ER tonight with complaints of left groin/pelvic pain with inability to bear weight or walk. Symptoms started 3 days ago and progressively worsened. He is unable to ambulate or bear weight without excruciating pelvic/groin pain. He therefore came to ER for evaluation. Workup in the ER tonight did not entail much other than routine labs and x-ray imaging -- negative. Patient as admitted to the hospitalist service for further workup and care. Of note, patient did have an abdominal/pelvic CT done 4 days ago, one day before symptom onset. I inquired about the need for another pelvic CT imaging for possible pathologic fracture. However, ER declined and did not feel that was warranted given the recent CT just 4 days prior. Upon my assessment of the patient, he is lying in bed. He confirms the left groin/pelvic pain and hip pain. He denies any trauma or injury to his hips or pelvis. He has a history of CLL, and he is currently in remission. He last took chemotherapy a couple years ago. He follows closely with the Oncology Department here. Regarding his hip and pelvic pain, patient states this started 4 days ago. Prior to that, he was ambulating and walking without difficulty. Suddenly, he is unable to bear weight due to excruciating pain. My concern is that he might have a pathologic fracture. I therefore am going to repeat his pelvic CT today for concerns of possible occult fracture. Past Med Surg Social Fam HX - Past Medical History Attestation: Yes The following information was validated with the patient. Source: patient, old records reviewed Medical history: cancer, CVA, diabetes, hyperlipidemia, seizures Additional medical history: CLL. Left sided weakness Psychiatric history: anxiety, depression - Past Surgical History Surgical History: appendectomy, orthopedic, other Additional surgical history: bilat CTR. Abcess removed from arm. EBUS. EGD - colonoscopy - Social History Smoking Status: Current every day smoker Smokeless Tobacco Status: Yes Alcohol use: none Drug use: marijuana Current living situation: Home Activity Level: Independent ambulation - Family History Mother Living Status: Hx Family Endocrine Disorder: Yes (Diabetes) Father Living Status: Hx Family Cardiac Disorders: Yes Hx Family Respiratory Disorders: No Hx Family Cancer: Yes Hx Family GI Disorders: No Hx Family Endocrine Disorder: Yes Hx Family Neuromuscular Disorders: No Hx Family Neurologic Disorders: No Hx Family HEENT Disorders: No Hx Family Autoimmune Disorders: No Internal Medicine - H&P: Meds Aspirin [Adult Low Dose Aspirin EC] 81 mg PO DAILY 02/15/15 [History] Atorvastatin Calcium [Lipitor] 80 mg PO HS 02/15/15 [History] Citalopram [CeleXA] 40 mg PO DAILY 02/15/15 [History] Gabapentin [Neurontin] 600 mg PO TID 02/15/15 [History] LevETIRAcetam [Keppra] 500 mg PO DAILY 02/15/15 [History] Metformin [Glucophage] 850 mg PO BID 02/15/15 [History] TraZODone 50 mg PO HS PRN 02/15/15 [History] Tamsulosin [Flomax] 0.8 mg PO DAILY 08/02/15 [History] Buspirone HCl [Buspar] 5 mg PO TID 06/21/16 [History] Folic Acid 1 mg PO DAILY #30 tablet 06/29/16 [Rx] Ascorbic Acid [Vitamin C] 500 mg PO DAILY #30 tablet 05/06/18 [Rx] Ferrous Sulfate [Iron] 325 mg PO DAILY #30 tablet 05/06/18 [Rx] Omeprazole [PriLOSEC] 40 mg PO BID 11/11/18 [History] Allergy/AdvReac Type Severity Reaction Status Date / Time Penicillins [PCN] Allergy Rash Verified 11/11/18 16:48 - Constitutional Constitutional: no chills, no fever(s), no falls, no night sweats - EENT Eyes: no blurry vision, no change in vision Ears: no ear pain Nose, mouth and throat: no nasal congestion, no sinus pressure, no sore throat - Cardiovascular Cardiovascular ROS IM: no chest pain, no dyspnea, no dyspnea on exertion - Respiratory Respiratory: no cough, no chest congestion, no excessive phlegm production - Gastrointestinal Gastrointestinal: no diarrhea, no hematemesis, no hematochezia, no nausea, no vomiting - Genitourinary Genitourinary ROS male: no dysuria, no flank pain, no hematuria - Musculoskeletal Musculoskeletal ROS IM: arthralgias (left pelvis/hip/groin pain), limited range of motion, no back pain, no numbness, no tingling - Integumentary Integumentary IM: no rash, no jaundice - Neurological Neurological ROS: no dizziness, no focal weakness, no frequent falls, no headache(s) - Psychiatric Psychiatric: no anxiety, no depression - Endocrine Endocrine IM: no polydipsia, no polyuria - Hematologic/Lymphatic Hematologic/Lymphatic: no lymphadenopathy - Allergic/Immunologic Allergic/Immunologic: no wheezing, no GI upset with certain foods - Constitutional Vitals: Temp Pulse Resp BP Pulse Ox 98.3 F 74 15 97/60 91 11/12/18 03:02 11/12/18 03:02 11/12/18 03:02 11/12/18 03:02 11/12/18 03:02 General appearance: Present: cooperative, mild distress (to moderate), A&O X 3, pleasant, answers questions appropriately Exam: see below - Head Head exam: Present: atraumatic, normal inspection - Eye Eye exam: Present: EOMI, PERRL. Absent: scleral icterus Pupils: Present: normal accommodation - ENT ENT exam: Present: mucous membranes dry, normal exam, normal oropharynx - Neck Neck exam general surgery: Present: full ROM, supple, trachea midline. Absent: tenderness, nuchal rigidity, thyromegaly - Respiratory Respiratory exam: Present: CTAB. Absent: chest wall tenderness, rales, respiratory distress, rhonchi, wheezes - Cardiovascular Cardiovascular exam: Present: distant heart sounds, RRR, +S1, +S2. Absent: diastolic murmur, systolic murmur - GI/Abdominal GI/Abdominal exam: Present: normal bowel sounds, soft. Absent: guarding, hepatomegaly, mass, rebound, splenomegaly, tenderness - Extremities Exam Extremities exam: Present: tenderness (left hip/groin and pelvic area -- unable to rotate legs, bear weight.), warm, radial pulses palpable and symmetrical. Absent: calf tenderness, full ROM - Back Exam Back exam: Present: normal inspection. Absent: CVA tenderness (L), CVA tenderness (R) - Neurological Exam Neurological exam: Present: alert, CN II-XII intact, oriented X3, no focal deficits, strengths equal and symetr throughout - Psychiatric Psychiatric exam: Present: depressed - Skin Skin exam: Present: dry, intact, warm Internal Med - H&P Results - Labs CBC & Chem 7: 11/12/18 01:57 11/12/18 01:57 Labs: Short CBC 11/11/18 11/12/18 Range/Units 17:12 01:57 WBC 17.6 H 17.8 H (4.3-11.1) K/mcL Hgb 10.6 L 9.6 L (12.9-16.9) g/dL Hct 31.9 L 29.4 L (37.5-50.1) % Plt Count 383 365 (140-400) K/mcL Neutrophils # 14.6 H 13.1 H (1.6-8.9) K/mcL BMP 11/11/18 11/12/18 17:12 01:57 Sodium 131 L 133 L Potassium 4.1 3.9 Chloride 94 L 95 L Carbon Dioxide 26 27 BUN 11 12 Creatinine 0.58 L 0.50 L Glucose 146 H 142 H Calcium 9.4 9.0 Liver Function 11/11/18 11/12/18 Range/Units 17:12 01:57 Total Bilirubin 0.9 0.7 (0.3-1.0) mg/dL AST 25 18 (13-39) Units/L ALT 28 23 (7-52) Units/L Alkaline Phosphatase 171 H 146 H (34-104) Units/L Albumin 3.5 3.1 L (3.5-5.7) g/dL - Impressions ITS Impressions Knee X-Ray 11/11/18 17:06 IMPRESSION: No acute abnormality of the knee. D/ / Kashif Plascencia MD / Kashif Plascencia MD Interpreting Provider: Kashif Plascencia MD Ankle X-Ray 11/11/18 17:10 IMPRESSION: No acute osseous abnormality. Arthritic changes of the talonavicular and subtalar joints. D/ / 11/11/2018 18:32:01 Keagan Little MD / [facility] Interpreting Provider: Keagan Little MD Hip X-Ray 11/11/18 17:10 IMPRESSION: No acute osseous abnormality. Atherosclerosis. D/ / 11/11/2018 18:30:20 Keagan Little MD / [facility] Interpreting Provider: Keagan Little MD - Assessment and Plan (1) Leg pain, medial Current Visit: Yes Status: Acute Assessment and plan: 1. Will order CT abdomen/pelvis. 2. Pain control as necessary. 3. Consult orthopedics and oncology. Qualifiers: Laterality: left Qualified Code(s): M79.605 - Pain in left leg (2) CLL (chronic lymphocytic leukemia) Current Visit: Yes Status: Chronic Assessment and plan: 1. Per patient, CLL in remission. 2. Resume home meds as appropriate. 3. Consult HEM/ONC for assistance and guidance. (3) Type 2 diabetes mellitus Current Visit: Yes Status: Chronic Assessment and plan: 1. Hold Metformin. 2. Will order SSI and monitor glucose closely. Qualifiers: Diabetes mellitus custodial insulin use: without termite treater use Diabetes mellitus complication status: without complication Qualified Code(s): E11.9 - Type 2 diabetes mellitus without complications (4) DVT prophylaxis Current Visit: Yes Status: Acute Assessment and plan: 1. Heparin SQ.
[2018-11-12] MEDS: *HR* Heparin 5,000 UNIT/ML VIAL SQ SCH ×2 (05:14→16:24)
[2018-11-12] MEDS: 0.9 % Sodium Chloride 1,000 ML IVC SCH ×2 (05:36→16:23)
[2018-11-12] MEDS: Insulin LISPRO 300 UNITS/3 ML VIAL SQ SCH ×3 (09:43→16:48)
[2018-11-12] MEDS: Gabapentin 300 MG CAPSULE PO SCH ×3 (09:46→22:09)
[2018-11-12] MEDS: Folic Acid 1 MG TABLET PO SCH (09:46)
[2018-11-12] MEDS: Aspirin Enteric Coated 81 MG Tablet PO SCH (09:46)
[2018-11-12] MEDS: Ascorbic Acid 500 MG TABLET PO SCH (09:46)
[2018-11-12] MEDS: levETIRAcetam 250 MG TABLET PO SCH (09:46)
[2018-11-12 10:02] LABS: Estimated Average Glucose 160 mg/dl
--- NOTE | 2018-11-12 11:15 | Event Note ---
Date of Encounter: 11/12/18 Time of Encounter: 11:13 Mr. Mcleod is a 58 year old male who presents to the ER tonight with complaints of left groin/pelvic pain with inability to bear weight or walk. Symptoms started 3 days ago and progressively worsened. He is unable to ambulate or bear weight without excruciating pelvic/groin pain. He therefore came to ER for evaluation. Workup in the ER tonight did not entail much other than routine labs and x-ray imaging -- negative. Patient as admitted to the hospitalist service for further workup and care. Regarding his hip and pelvic pain, patient states this started 4 days ago. Prior to that, he was ambulating and walking without difficulty. Suddenly, he is unable to bear weight due to excruciating pain. CT abd/pelvis has no acute finding besides periaortic lymphadenopathy. We will continue pain control, PT/OT consult. Continue IVF for low Na+ and Cl-
[2018-11-12] MEDS: *HR* HYDROcodone/Acet 5/325 mg TABLET PO PRN (12:25)
--- NOTE | 2018-11-12 16:17 | Oncology Inp Consult Note ---
<Nandini Metz - Last Filed: 11/12/18 16:08> Date of Encounter: 11/12/18 Time of Encounter: 12:50 Assessment and Plan (1) CLL (chronic lymphocytic leukemia) Status: Chronic Assessment and plan: Diagnosis. CLL: MCGRATH Stage 4 with very high lymphocyte count of 250 K. splenomegaly and macrocytic anemia and thrombocytopenia Fish trisomy 12. Also macrocytic anemia and thrombocytopenia. Fish panel on 02/19/2015 showed trisomy 12 area and zap 70 negative First-line Treatment Obinituzumab and chlorambucil 20 mg on day 1. Completed 6 cycles from 03/22/2015 to 11/18/2015 Chlorambucil dose reduced to 8 mg due to toxicity from cycle 2 He had an excellent response Follow-up with Dr. Martinez gibbs on 09/05/18. Repeat imaging ordered: 11/08/18 CT chest 1. No pathologically enlarged lymphadenopathy within the chest or mediastinum to suggest lymphoma recurrence. 2. New mild splenomegaly and mild bilateral retroperitoneal lymphadenopathy, most consistent with CLL recurrence. 3. New nonspecific mild bilateral retroperitoneal and perinephric stranding and fluid of unknown cause, possibly secondary to the patient's active CLL. No walled-off fluid collection or abscess is seen. 4. Stable subpleural curvilinear irregular opacities within the right lower lobe, unchanged from prior studies, most likely representing chronic atelectasis, parenchymal scar, or possibly recurrent aspiration. 5. Bilateral nonobstructing nephrolithiasis, without evidence of a ureteral calculus or hydronephrosis. (2) Iron deficiency anemia Status: Acute Assessment and plan: Anemia: Hgb 9.6 On ferrous sulfate 325 mg PO daily. On folic acid 1 mg PO daily. 09/05/18 iron profile and ferritin Iron 50, saturation 16% and ferritin 29 Plan: Continue oral iron and folic acid. Qualifiers: Qualified Code(s): D50.9 - Iron deficiency anemia, unspecified (3) Leg pain, medial Status: Acute Assessment and plan: Venous duplex preliminary notes states possible superficial venous thrombus to the left lower extremity, but no DVT. Awaiting final physician review. Consider anticoagulation depending on location of SVT and results of final physician review. Currently patient is on prophylactic heparin 5000 units SQ every 12 hours. Qualifiers: Laterality: left Qualified Code(s): M79.605 - Pain in left leg - Data of Consult Patient: known to practice within the last 3 years Consult date: 11/12/18 Requesting Physician: Rogers Jon MD Primary Care Provider: Liyah Lopez CNP - Consult Narrative Reason for consult: CLL, current patient of Dr. Davis History of present illness: Mr. Jovi Mcleod, a 58yo -[place] male with known history of stage 4 CLL, presented to the emergency department with a 4-day history of left groin/pelvic pain and inability to bear weight due to increased pain. He denies fever or chills. He denies palpable lymphadenopathy. He notes he had recent CT scans ordered by Dr. Davis. Oncology history: Diagnosis. CLL: MCGRATH Stage 4 with very high lymphocyte count of 250 K. splenomegaly and macrocytic anemia and thrombocytopenia Fish trisomy 12. Also macrocytic anemia and thrombocytopenia. Imaging CT chest with contrast on January 09, 2015 showed enlarged lymph nodes bilateral neck and axillary region largest 2.1 x 1.5 cm. Also mediastinal and left hilar adenopathy which partially encases left mainstem bronchus. 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 CT abdomen and pelvis December 2014 showed splenomegaly 15.5 x 9.3 x 14.2 cm with the probable node in the gastrohepatic ligament. At the end of December lymphocyte count was 56,000 but jumped up to 120,000 from 01/27/2015. Also macrocytic anemia with hemoglobin around 8 and MCV 110. Platelet count 98,000. Fish panel on 02/19/2015 showed trisomy 12 area and zap 70 negative First-line Treatment Obinituzumab and chlorambucil 20 mg on day 1. Completed 6 cycles from 03/22/2015 to 11/18/2015 Chlorambucil dose reduced to 8 mg due to toxicity from cycle 2 He had an excellent response 11/08/18 CT chest 1. No pathologically enlarged lymphadenopathy within the chest or mediastinum to suggest lymphoma recurrence. 2. New mild splenomegaly and mild bilateral retroperitoneal lymphadenopathy, most consistent with CLL recurrence. 3. New nonspecific mild bilateral retroperitoneal and perinephric stranding and fluid of unknown cause, possibly secondary to the patient's active CLL. No walled-off fluid collection or abscess is seen. 4. Stable subpleural curvilinear irregular opacities within the right lower lobe, unchanged from prior studies, most likely representing chronic atelectasis, parenchymal scar, or possibly recurrent aspiration. 5. Bilateral nonobstructing nephrolithiasis, without evidence of a ureteral calculus or hydronephrosis. Past Med Surg Social Fam HX - Past Medical History Medical history: cancer, CVA, diabetes, hyperlipidemia, seizures Additional medical history: CLL. Left sided weakness Psychiatric history: anxiety, depression - Past Surgical History Surgical History: appendectomy, orthopedic, other Additional surgical history: bilat CTR. Abcess removed from arm. EBUS. EGD - colonoscopy - Social History Smoking Status: Current every day smoker Smokeless Tobacco Status: Yes Alcohol use: none Drug use: marijuana - Family History Mother Living Status: Hx Family Endocrine Disorder: Yes (Diabetes) Father Living Status: Hx Family Cardiac Disorders: Yes Hx Family Respiratory Disorders: No Hx Family Cancer: Yes Hx Family GI Disorders: No Hx Family Endocrine Disorder: Yes Hx Family Neuromuscular Disorders: No Hx Family Neurologic Disorders: No Hx Family HEENT Disorders: No Hx Family Autoimmune Disorders: No Medications and Allergies Aspirin [Adult Low Dose Aspirin EC] 81 mg PO DAILY 02/15/15 [History] Atorvastatin Calcium [Lipitor] 80 mg PO HS 02/15/15 [History] Citalopram [CeleXA] 40 mg PO DAILY 02/15/15 [History] Gabapentin [Neurontin] 600 mg PO TID 02/15/15 [History] LevETIRAcetam [Keppra] 500 mg PO DAILY 02/15/15 [History] Metformin [Glucophage] 850 mg PO BID 02/15/15 [History] TraZODone 50 mg PO HS PRN 02/15/15 [History] Tamsulosin [Flomax] 0.8 mg PO DAILY 08/02/15 [History] Folic Acid 1 mg PO DAILY #30 tablet 06/29/16 [Rx] Ascorbic Acid [Vitamin C] 500 mg PO DAILY #30 tablet 05/06/18 [Rx] Ferrous Sulfate [Iron] 325 mg PO DAILY #30 tablet 05/06/18 [Rx] Omeprazole [PriLOSEC] 40 mg PO BID 11/11/18 [History] OxyCODONE/APAP 5/325 [Percocet 5/325 MG] 1 tab PO DAILY PRN 11/12/18 [History] Allergy/AdvReac Type Severity Reaction Status Date / Time Penicillins [PCN] Allergy Rash Verified 11/12/18 14:12 Oncology - Exam - Constitutional General appearance: no acute distress, thin - Head Head exam: Present: normal inspection, normocephalic - Neck Neck exam: Present: normal inspection. Absent: lymphadenopathy, tenderness - GI/Abdominal GI/Abdominal exam: Present: soft. Absent: guarding, rebound, tenderness - Extremities Exam Extremities exam: Present: normal inspection - Neurological Exam Neurological exam: Present: alert, oriented X3 - Psychiatric Psychiatric exam: Present: normal affect, normal mood Oncology Inpatient Results Knee X-Ray 11/11/18 17:06 IMPRESSION: No acute abnormality of the knee. D/ / Kashif Plascencia MD / Kashif Plascencia MD Interpreting Provider: Kashif Plascencia MD Ankle X-Ray 11/11/18 17:10 IMPRESSION: No acute osseous abnormality. Arthritic changes of the talonavicular and subtalar joints. D/ / 11/11/2018 18:32:01 Keagan Little MD / corky Interpreting Provider: Keagan Little MD Hip X-Ray 11/11/18 17:10 IMPRESSION: No acute osseous abnormality. Atherosclerosis. D/ / 11/11/2018 18:30:20 Keagan Little MD / corky Interpreting Provider: Keagan Little MD Abdomen/Pelvis CT 11/12/18 01:40 IMPRESSION: 1. No significant interval change compared to recent CT examination. 2. Redemonstration of retroperitoneal/bilateral periaortic lymphadenopathy. 3. Stable nonspecific perinephric stranding and fluid. 4. Stable chronic findings including bilateral nephrolithiasis. D/ / Anand Mendez MD / Anand Mendez MD Interpreting Provider: Anand Mendez MD Consult Discharge Plan - Plan Referrals: Liyah Lopez, [employer] FITTER [Primary Care Provider] - (Appointment has been requested) Inpatient Charges Provider: Dr. Nely Gomez <JasonPayton - Last Filed: 11/13/18 17:40> Date of Encounter: 11/12/18 - Data of Consult Requesting Physician: Rogers Jon MD Primary Care Provider: Liyah Lopez CNP - Attending Attestation Patient with Hx CLL, with overall stable counts and lymphadenopathy in the abd/pelvis with ac pain in the left hip worse with bearing wt, pain less likely related to his adenopathy from history and exam. Lt foot drop. Ct hip findings ortho recommendations reviewed. MRI hip to be obtained. Left lesser saphenous vein thrombosis on heparin SC I examined this patient and my medical decision-making was reviewed with the Advanced Practice Nurse, Nandini Metz. I agree with the documented findings, disposition and treatment plan as described except to the extent set forth below. Inpatient Charges Provider: Dr. Nely Gomez Consult - Inpatient: [id number]
[2018-11-13] MEDS: Levalbuterol Neb 1.25 MG/3 ML IH SCH ×5 (04:40→22:03)
[2018-11-13] MEDS: *HR* Heparin 5,000 UNIT/ML VIAL SQ SCH ×2 (05:12→17:11)
[2018-11-13 05:13] LABS: Hematocrit 27.8 % (37.5-50.1); Hemoglobin 9.2 g/dL (12.9-16.9); Mean Corpuscular HGB Conc 33.1 g/dL (31.6-35.5); Mean Corpuscular Hemoglobin 30.1 pg (28.0-33.3); Mean Corpuscular Volume 90.8 fL (83.0-100.0); Mean Platelet Volume 8.8 fL (9.4-12.4); Platelet Count 323 K/mcL (140-400); Red Blood Count 3.06 M/mcL (4.19-5.50); Red Cell Distribution Width 14.5 % (11.5-14.5); White Blood Count 18.6 K/mcL (4.3-11.1)
[2018-11-13 05:31] LABS: BUN/Creatinine Ratio 18 (6-26); Blood Urea Nitrogen 9 mg/dL (6-20); Calcium 8.5 mg/dL (8.6-10.3); Carbon Dioxide 26 mEq/L (23-29); Chloride 93 mEq/L (98-107); Glucose 124 mg/dL (70-105); Osmolality,Calculated 272 (280-300); Potassium 3.7 mEq/L (3.5-5.1); Sodium 131 mEq/L (136-145); eGFR For African Americans > 60 (> 60); eGFR For Non-African Americans > 60 (> 60)
[2018-11-13 05:31] LABS: Bilirubin,Urine Small (Negative); Blood,Urine Negative (Negative); Clarity,Urine Clear (Clear); Color,Urine Dark Yellow (Yellow); Glucose,Urine (UA) Normal (Normal); Ketones,Urine 40 mg/dL (Negative); Leukocyte Esterase,Urine Negative (Negative); Nitrite,Urine Negative (Negative); Protein,Urine 30 mg/dL (Neg-Trace); Specific Gravity,Urine 1.024 (1.010-1.025)
[2018-11-13 05:33] LABS: Bacteria,Urine None Seen per hpf (None-Few); Hyaline Casts,Urine None Seen per lpf (None-Few); RBC,Urine 0-3 per hpf (0-3); Squamous Epithelial Cell,Urine Many per lpf (None-Few)
[2018-11-13] MEDS: Acetaminophen 325 MG TABLET PO PRN ×2 (05:48→19:58)
[2018-11-13] MEDS: Insulin LISPRO 300 UNITS/3 ML VIAL SQ SCH ×3 (08:44→17:09)
[2018-11-13] MEDS: Gabapentin 300 MG CAPSULE PO SCH ×3 (08:56→19:58)
[2018-11-13] MEDS: Folic Acid 1 MG TABLET PO SCH (08:57)
[2018-11-13] MEDS: Ascorbic Acid 500 MG TABLET PO SCH (08:57)
[2018-11-13] MEDS: Aspirin Enteric Coated 81 MG Tablet PO SCH (08:57)
[2018-11-13] MEDS: levETIRAcetam 250 MG TABLET PO SCH (08:57)
[2018-11-13] MEDS: *HR* HYDROcodone/Acet 5/325 mg TABLET PO PRN ×2 (10:27→17:11)
--- NOTE | 2018-11-13 12:05 | Internal Med Progress Note ---
Hospitalist Progress Note - Encounter Date of Encounter: 11/13/18 Time of Encounter: 11:53 - Subjective Interval History: She was seen and examined at bedside according to nursing staff PT unable to work with patient due to unable to straighten his left leg. Patient adamantly denies any trauma or falls to his left hip-discussed case with orthopedics as well as oncology. We will obtain MRI of hip. Patient verbalizes understanding - Exam Vitals: Temp Pulse Resp BP Pulse Ox 97.7 F 99 16 108/63 93 11/13/18 11:16 11/13/18 11:16 11/13/18 11:16 11/13/18 11:16 11/13/18 11:16 Exam: Skin: Free of rash and discoloration. Eyes: Sclera is white. There is no discharge from eyes. ENMT: Oral/pharyngeal mucosa is normal in appearance. There is no discharge from nose or ears. Respiratory: Normal breath sounds with no crackles and wheezes bilaterally. CV: Heart is regular with no gallop or murmur. GI: Abdomen is flat and soft with no palpable mass or visceromegaly. : There is no tenderness in patient's flanks bilaterally. Neuro exam: He has good strength in upper and lower extremities. He has normal eye movements. Psychiatric: He has normal affect. His thought process is appropriate to the situation. Musculoskeletal-patient's left leg is drawn he is unable to straighten there is resistance -externally rotated - Assessment and Plan (1) CLL (chronic lymphocytic leukemia) Current Visit: Yes Status: Chronic Assessment and Plan: 1. Per patient, CLL in remission. 2. Resume home meds as appropriate. 3. Consult HEM/ONC for assistance and guidance. 11/13 History of stage IV CLL-no palpable lymphadenopathy Hematology/oncology consulted and appreciate recommendations 11/08/18 CT chest 1. No pathologically enlarged lymphadenopathy within the chest or mediastinum to suggest lymphoma recurrence. 2. New mild splenomegaly and mild bilateral retroperitoneal lymphadenopathy, most consistent with CLL recurrence. 3. New nonspecific mild bilateral retroperitoneal and perinephric stranding and fluid of unknown cause, possibly secondary to the patient's active CLL. No walled-off fluid collection or abscess is seen. 4. Stable subpleural curvilinear irregular opacities within the right lower lobe, unchanged from prior studies, most likely representing chronic atelectasis, parenchymal scar, or possibly recurrent aspiration. 5. Bilateral nonobstructing nephrolithiasis, without evidence of a ureteral calculus or hydronephrosis. (2) DVT prophylaxis Current Visit: Yes Status: Acute Assessment and Plan: 1. Heparin SQ. (3) Type 2 diabetes mellitus Current Visit: Yes Status: Chronic Assessment and Plan: 1. Hold Metformin. 2. Will order SSI and monitor glucose before meals at bedtime adjust sliding scale accordingly (4) Leg pain, medial Current Visit: Yes Status: Acute Assessment and Plan: 1. Will order CT abdomen/pelvis. 2. Pain control as necessary. 3. Consult orthopedics and oncology. 11/14 CT abdomen/pelvis 11/12/2018 MPRESSION: 1. No significant interval change compared to recent CT examination. 2. Redemonstration of retroperitoneal/bilateral periaortic lymphadenopathy. 3. Stable nonspecific perinephric stranding and fluid. 4. Stable chronic findings including bilateral nephrolithiasis. -Pain currently controlled -Orthopedics consulted and appreciate recommendation -Oncology consulted and appreciate recommendations -Venous duplex completed preliminary note possible superficial venous thrombosis to the left lower extremity but no DVT. Awaiting final physician review-oncnavarro dominguez recommending possible anticoagulation depending on location SPT results of final physician review-continue with current prophylactic heparin subcutaneous -We will obtain MRI of hip - Time Spent with Patient Total time spent is greater than 50% in coordination of care (as documented) at patient's floor/unit and/or counseling patient: Internal Medicine: Result - Labs CBC & Chem 7: 11/13/18 04:50 11/13/18 04:50 Labs: Short CBC 11/13/18 Range/Units 04:50 WBC 18.6 H (4.3-11.1) K/mcL Hgb 9.2 L (12.9-16.9) g/dL Hct 27.8 L (37.5-50.1) % Plt Count 323 (140-400) K/mcL BMP 11/13/18 04:50 Sodium 131 L Potassium 3.7 Chloride 93 L Carbon Dioxide 26 BUN 9 Creatinine 0.50 L Glucose 124 H Calcium 8.5 L Urine 11/13/18 Range/Units 05:20 Urine Color Dark Yellow (Yellow) Urine Clarity Clear (Clear) Urine pH 6.0 (5.0-8.0) pH Units Ur Specific [place] 1.024 (1.010-1.025) Urine Protein 30 H (Neg-Trace) mg/dL Urine Glucose (UA) Normal (Normal) mg/dL - ABG Interpretation ABG results: PT/INR, D-dimer PT 18.4 Seconds (9.4-12.1) H 11/12/18 01:57 - Impressions Impressions Chest X-Ray 11/13/18 01:40 IMPRESSION: No focal airspace disease or evidence of pulmonary edema. D/ / Devonte Stover / Devonte Stover Interpreting Provider: Devonte Stover Consult Discharge Plan - Plan Referrals: Liyah Lopez, [employer] [Primary Care Provider] - (Appointment has been requested) ___ (3) Type 2 diabetes mellitus Qualifiers: Diabetes mellitus long term care social worker insulin use: without detention use Diabetes mellitus complication status: without complication Qualified Code(s): E11.9 - Type 2 diabetes mellitus without complications (4) Leg pain, medial Qualifiers: Laterality: left Qualified Code(s): M79.605 - Pain in left leg
--- NOTE | 2018-11-13 16:47 | Orthopedic Consult Note ---
Date of Encounter: 11/13/18 Time of Encounter: 12:00 Assessment and Plan (1) Left groin pain Current Visit: Yes Status: Acute (2) Difficulty walking Current Visit: Yes Status: Chronic (3) History of CVA (cerebrovascular accident) Current Visit: No Status: Chronic History of Present Illness Chief complaint: left hip pain HPI: Mr. Mcleod is a 58 year old male presenting to [facility] secondary to left hip pain. Patient is a poor historian and details are difficult to fully elicit. Patient relates his hip began to bother him in the recent past to the point where he could not ambulate. Patient states he does ambulate. However, he informed hospitalist that he mostly uses a wheelchair. He denies any falls, trauma, or new injury prior to this hip pain. He denies history of orthopedic surgery. He is noted to have a history of CLL with recent increased activity and heme/onc has been consulted On exam, patient is lying in bed. He is drowsy, but able to converse. Strong smelling urine noted in BSC. Left left noted to be hip flexed with knee flexed and heel resting on bed. Atrophy of musculature of LLE noted. Palpation of the left hip is unremarkable and does not reproduce patient's pain. Patient denies tenderness to palpation of the rest of the LLE and bilateral calves. No swelling noted. Patient noted to have left foot drop with inability to incite motion to left foot. When questioned, patient states his foot has been like that since his last stroke in 2014. Patient does admit to intact sensation with palpation of the LLE. Hip motion is full however patient expresses pain with active/passive hip flexion and external rotation of the hip pointing to the groin and stating it is deep. Knee motion is limited with prom and arom. Knee motion appx loss of 45 degrees and flexion to appx 120. Strength is weakened to the LLE 3/5, however, it is difficult to tell if this is secondary to patient's groin pain versus history of stroke affecting left side. DP pulses intact. RLE unremarkable. Patient frequently drifts in and out of sleep during exam and conversation Images and reports reviewed of hip xray and abd/pelvis CT revealing no apparent articular hip pathology. Patient was found to have lymphadenopathy. Case discussed with Dr. Garcia At this point patient is awaiting MRI as ordered by hospitalist for further evaluation. Patient's exam and presentation with negative imaging findings regarding articular pathology point to muscular origin for pain. Though, patient denies injury, it would be possible for patient to have muscular strain. Patient is encouraged to participate with therapy within the limitations of his history of stroke. We will reevaluate once MRI obtained. Past Med Surg Social Fam HX - Past Medical History Medical history: cancer, CVA, diabetes, hyperlipidemia, seizures Additional medical history: CLL. Left sided weakness Psychiatric history: anxiety, depression - Past Surgical History Surgical History: appendectomy, orthopedic, other Additional surgical history: bilat CTR. Abcess removed from arm. EBUS. EGD - colonoscopy - Social History Smoking Status: Current every day smoker Smokeless Tobacco Status: Yes Alcohol use: none Drug use: marijuana - Family History Mother Living Status: Hx Family Endocrine Disorder: Yes (Diabetes) Father Living Status: Hx Family Cardiac Disorders: Yes Hx Family Respiratory Disorders: No Hx Family Cancer: Yes Hx Family GI Disorders: No Hx Family Endocrine Disorder: Yes Hx Family Neuromuscular Disorders: No Hx Family Neurologic Disorders: No Hx Family HEENT Disorders: No Hx Family Autoimmune Disorders: No Medications and Allergies Aspirin [Adult Low Dose Aspirin EC] 81 mg PO DAILY 02/15/15 [History] Atorvastatin Calcium [Lipitor] 80 mg PO HS 02/15/15 [History] Citalopram [CeleXA] 40 mg PO DAILY 02/15/15 [History] Gabapentin [Neurontin] 600 mg PO TID 02/15/15 [History] LevETIRAcetam [Keppra] 500 mg PO DAILY 02/15/15 [History] Metformin [Glucophage] 850 mg PO BID 02/15/15 [History] TraZODone 50 mg PO HS PRN 02/15/15 [History] Tamsulosin [Flomax] 0.8 mg PO DAILY 08/02/15 [History] Folic Acid 1 mg PO DAILY #30 tablet 06/29/16 [Rx] Ascorbic Acid [Vitamin C] 500 mg PO DAILY #30 tablet 05/06/18 [Rx] Ferrous Sulfate [Iron] 325 mg PO DAILY #30 tablet 05/06/18 [Rx] Omeprazole [PriLOSEC] 40 mg PO BID 11/11/18 [History] OxyCODONE/APAP 5/325 [Percocet 5/325 MG] 1 tab PO DAILY PRN 11/12/18 [History] Allergy/AdvReac Type Severity Reaction Status Date / Time Penicillins [PCN] Allergy Rash Verified 11/12/18 14:12 All Systems Reviewed: The remainder of the systems were reviewed and are negative Physical Exam - Constitutional Vitals: Temp Pulse Resp BP Pulse Ox 98.5 F 108 18 120/73 94 11/13/18 15:24 11/13/18 15:24 11/13/18 15:40 11/13/18 15:24 11/13/18 15:40 Results - Labs Result Diagrams: 11/13/18 04:50 11/13/18 04:50 Labs: Abnormal lab results WBC 18.6 K/mcL (4.3-11.1) H 11/13/18 04:50 RBC 3.06 M/mcL (4.19-5.50) L 11/13/18 04:50 Hgb 9.2 g/dL (12.9-16.9) L 11/13/18 04:50 Hct 27.8 % (37.5-50.1) L 11/13/18 04:50 MPV 8.8 fL (9.4-12.4) L 11/13/18 04:50 Neutrophils # 13.1 K/mcL (1.6-8.9) H 11/12/18 01:57 Dohle Bodies Present (Not Present) A 11/11/18 17:12 PT 18.4 Seconds (9.4-12.1) H 11/12/18 01:57 Sodium 131 mEq/L (136-145) L 11/13/18 04:50 Chloride 93 mEq/L (98-107) L 11/13/18 04:50 Creatinine 0.50 mg/dL (0.70-1.30) L 11/13/18 04:50 Glucose 124 mg/dL (70-105) H 11/13/18 04:50 POC Glucose 114 mg/dL (70-99) H 11/12/18 19:36 Hemoglobin A1c 7.2 % (-5.6) H 11/12/18 01:57 Calculated Osmolality 272 (280-300) L 11/13/18 04:50 Calcium 8.5 mg/dL (8.6-10.3) L 11/13/18 04:50 Alkaline Phosphatase 146 Units/L (34-104) H 11/12/18 01:57 Albumin 3.1 g/dL (3.5-5.7) L 11/12/18 01:57 Globulin 3.9 g/dL (2.4-3.5) H 11/11/18 17:12 Albumin/Globulin Ratio 0.9 (1.1-2.2) L 11/12/18 01:57 Urine Protein 30 mg/dL (Neg-Trace) H 11/13/18 05:20 Urine Ketones 40 mg/dL (Negative) H 11/13/18 05:20 Urine Bilirubin Small (Negative) H 11/13/18 05:20 Urine Urobilinogen 4.0 mg/dL (Normal) H 11/13/18 05:20 Urine Microscopic WBC 5-15 per hpf (0-3) H 11/13/18 05:20 Ur Squamous Epith Cells Many per lpf (None-Few) H 11/13/18 05:20 Ur Culture Indicated? YES (NO) A 11/13/18 05:20 H & H 11/13/18 Range/Units 04:50 Hgb 9.2 L (12.9-16.9) g/dL Hct 27.8 L (37.5-50.1) % All other labs normal. Consult Discharge Plan - Plan Referrals: Liyah Lopez CNP [Primary Care Provider] - (Appointment has been requested)
[2018-11-14] MEDS: Levalbuterol Neb 1.25 MG/3 ML IH SCH ×4 (03:53→22:41)
[2018-11-14] MEDS: *HR* Heparin 5,000 UNIT/ML VIAL SQ SCH ×2 (05:01→16:32)
[2018-11-14] MEDS: *HR* HYDROcodone/Acet 5/325 mg TABLET PO PRN ×2 (05:02→11:34)
--- NOTE | 2018-11-14 08:55 | Orthopedics Progress Note ---
Date of Encounter: 11/14/18 Time of Encounter: 16:28 - Assessment and Plan (1) Left groin pain Current Visit: Yes Status: Acute (2) Difficulty walking Current Visit: Yes Status: Chronic (3) History of CVA (cerebrovascular accident) Current Visit: No Status: Chronic Subjective Interval history: No changes on exam Patient states pain ongoing muscle strain evidenced on MRI PT/OT WBAT Anti-inflammatories as needed for pain/swelling control follow up as needed with ortho Thank you for consultation Objective Vital signs: Vital Signs Temp Pulse Resp BP Pulse Ox 11/14/18 06:46 98.3 F 94 16 101/64 96 11/14/18 03:53 20 95 11/14/18 02:53 98.4 F 105 18 104/74 92 11/13/18 23:27 97.8 F 104 16 101/55 91 11/13/18 22:03 18 90 11/13/18 19:23 98.2 F 111 15 115/65 91 11/13/18 15:40 18 94 11/13/18 15:24 98.5 F 108 17 120/73 88 11/13/18 11:16 97.7 F 99 16 108/63 93 11/13/18 10:28 18 94 Intake and Output 11/13/18 11/14/18 11/14/18 23:59 07:59 15:59 Other: # Urine Diapers 1 Weight 72.2 kg Blood Glucose* 162 165 Patient Weight 11/14/18 23:59 Weight 72.2 kg - Labs CBC & BMP: 11/16/18 05:06 11/16/18 05:06 Labs: Abnormal lab results WBC 18.6 K/mcL (4.3-11.1) H 11/13/18 04:50 RBC 3.06 M/mcL (4.19-5.50) L 11/13/18 04:50 Hgb 9.2 g/dL (12.9-16.9) L 11/13/18 04:50 Hct 27.8 % (37.5-50.1) L 11/13/18 04:50 MPV 8.8 fL (9.4-12.4) L 11/13/18 04:50 Neutrophils # 13.1 K/mcL (1.6-8.9) H 11/12/18 01:57 Dohle Bodies Present (Not Present) A 11/11/18 17:12 PT 18.4 Seconds (9.4-12.1) H 11/12/18 01:57 Sodium 131 mEq/L (136-145) L 11/13/18 04:50 Chloride 93 mEq/L (98-107) L 11/13/18 04:50 Creatinine 0.50 mg/dL (0.70-1.30) L 11/13/18 04:50 Glucose 124 mg/dL (70-105) H 11/13/18 04:50 POC Glucose 162 mg/dL (70-99) H 11/13/18 20:38 Hemoglobin A1c 7.2 % (-5.6) H 11/12/18 01:57 Calculated Osmolality 272 (280-300) L 11/13/18 04:50 Calcium 8.5 mg/dL (8.6-10.3) L 11/13/18 04:50 Alkaline Phosphatase 146 Units/L (34-104) H 11/12/18 01:57 Albumin 3.1 g/dL (3.5-5.7) L 11/12/18 01:57 Globulin 3.9 g/dL (2.4-3.5) H 11/11/18 17:12 Albumin/Globulin Ratio 0.9 (1.1-2.2) L 11/12/18 01:57 Urine Protein 30 mg/dL (Neg-Trace) H 11/13/18 05:20 Urine Ketones 40 mg/dL (Negative) H 11/13/18 05:20 Urine Bilirubin Small (Negative) H 11/13/18 05:20 Urine Urobilinogen 4.0 mg/dL (Normal) H 11/13/18 05:20 Urine Microscopic WBC 5-15 per hpf (0-3) H 11/13/18 05:20 Ur Squamous Epith Cells Many per lpf (None-Few) H 11/13/18 05:20 Ur Culture Indicated? YES (NO) A 11/13/18 05:20 Consult Discharge Plan - Plan Referrals: Liyah Lopez, OPERATING ROOM SPECIALIST [Primary Care Provider] - (Appointment has been requested)
[2018-11-14] MEDS: Insulin LISPRO 300 UNITS/3 ML VIAL SQ SCH ×3 (09:06→16:28)
[2018-11-14] MEDS: Acetaminophen 325 MG TABLET PO PRN (09:07)
[2018-11-14] MEDS: Ascorbic Acid 500 MG TABLET PO SCH (09:07)
[2018-11-14] MEDS: Gabapentin 300 MG CAPSULE PO SCH ×3 (09:07→20:46)
[2018-11-14] MEDS: Folic Acid 1 MG TABLET PO SCH (09:07)
[2018-11-14] MEDS: levETIRAcetam 250 MG TABLET PO SCH (09:08)
[2018-11-14] MEDS: Aspirin Enteric Coated 81 MG Tablet PO SCH (09:08)
[2018-11-14 09:37] LABS: BUN/Creatinine Ratio 17 (6-26); Blood Urea Nitrogen 8 mg/dL (6-20); Calcium 8.4 mg/dL (8.6-10.3); Carbon Dioxide 30 mEq/L (23-29); Chloride 92 mEq/L (98-107); Glucose 163 mg/dL (70-105); Osmolality,Calculated 274 (280-300); Potassium 3.7 mEq/L (3.5-5.1); Sodium 131 mEq/L (136-145); eGFR For African Americans > 60 (> 60); eGFR For Non-African Americans > 60 (> 60)
[2018-11-14] MEDS: 0.9 % Sodium Chloride 1,000 ML IVC SCH ×2 (11:35→16:27)
[2018-11-14] MEDS ORDERED: Ketorolac 30 MG/ML VIAL IVP PRN (12:55)
[2018-11-14] MEDS ORDERED: Ketorolac 15 MG/ML VIAL IVP PRN (17:06)
--- NOTE | 2018-11-14 17:15 | Internal Med Progress Note ---
Hospitalist Progress Note - Encounter Date of Encounter: 11/14/18 Time of Encounter: 17:11 - Subjective Interval History: Patient was seen and examined earlier this morning continues to complain of left hip pain we will try Toradol to help with the pain as well as warm, compresses lidocaine and muscle relaxers. Patient awaiting ECF placement - Exam Vitals: Temp Pulse Resp BP Pulse Ox 98.7 F 92 16 94/57 90 11/14/18 14:57 11/14/18 14:57 11/14/18 14:57 11/14/18 16:36 11/14/18 14:57 Exam: Skin: Free of rash and discoloration. Eyes: Sclera is white. There is no discharge from eyes. ENMT: Oral/pharyngeal mucosa is normal in appearance. There is no discharge from nose or ears. Respiratory: Normal breath sounds with no crackles and wheezes bilaterally. CV: Heart is regular with no gallop or murmur. GI: Abdomen is flat and soft with no palpable mass or visceromegaly. : There is no tenderness in patient's flanks bilaterally. Neuro exam: He has good strength in upper and lower extremities. He has normal eye movements. Psychiatric: He has normal affect. His thought process is appropriate to the situation. Musculoskeletal-patient's left leg is drawn he is unable to straighten there is resistance -externally rotated - Assessment and Plan (1) CLL (chronic lymphocytic leukemia) Current Visit: Yes Status: Chronic Assessment and Plan: 1. Per patient, CLL in remission. 2. Resume home meds as appropriate. 3. Consult HEM/ONC for assistance and guidance. 11/13 History of stage IV CLL-no palpable lymphadenopathy Hematology/oncology consulted and appreciate recommendations 11/08/18 CT chest 1. No pathologically enlarged lymphadenopathy within the chest or mediastinum to suggest lymphoma recurrence. 2. New mild splenomegaly and mild bilateral retroperitoneal lymphadenopathy, most consistent with CLL recurrence. 3. New nonspecific mild bilateral retroperitoneal and perinephric stranding and fluid of unknown cause, possibly secondary to the patient's active CLL. No walled-off fluid collection or abscess is seen. 4. Stable subpleural curvilinear irregular opacities within the right lower lobe, unchanged from prior studies, most likely representing chronic atelectasis, parenchymal scar, or possibly recurrent aspiration. 5. Bilateral nonobstructing nephrolithiasis, without evidence of a ureteral calculus or hydronephrosis. 11/14 Patient will follow up with oncology as outpatient (2) DVT prophylaxis Current Visit: Yes Status: Acute Assessment and Plan: 1. Heparin SQ. (3) Type 2 diabetes mellitus Current Visit: Yes Status: Chronic Assessment and Plan: 1. Hold Metformin. 2. Will order SSI and monitor glucose before meals at bedtime adjust sliding scale accordingly (4) Leg pain, medial Current Visit: Yes Status: Acute Assessment and Plan: 1. Will order CT abdomen/pelvis. 2. Pain control as necessary. 3. Consult orthopedics and oncology. 11/13 CT abdomen/pelvis 11/12/2018 MPRESSION: 1. No significant interval change compared to recent CT examination. 2. Redemonstration of retroperitoneal/bilateral periaortic lymphadenopathy. 3. Stable nonspecific perinephric stranding and fluid. 4. Stable chronic findings including bilateral nephrolithiasis. -Pain currently controlled -Orthopedics consulted and appreciate recommendation -Oncology consulted and appreciate recommendations -Venous duplex completed preliminary note possible superficial venous thrombosis to the left lower extremity but no DVT. Awaiting final physician review- oncology recommending possible anticoagulation depending on location SPT results of final physician review-continue with current prophylactic heparin subcutaneous -We will obtain MRI of hip 11/14 Patient continues to experience pain we will add Toradol as well as lidocaine patch warm compresses and muscle relaxers MRI of left hip was completed it does not show any fractures significant edema in the soft tissues about the left hip including within the left adductor, gluteal, and proximal vastus musculature. The differential includes strains versus myositis versus acute denervation. No drainable fluid collection identified. -Venous duplex completed preliminary note possible superficial venous thrombosis to the left lower extremity but no DVT. Awaiting final physician review- oncology recommending possible anticoagulation depending on location SPT results of final physician review-continue with current prophylactic heparin subcutaneous - Time Spent with Patient Total time spent is greater than 50% in coordination of care (as documented) at patient's floor/unit and/or counseling patient: Internal Medicine: Result - Labs CBC & Chem 7: 11/13/18 04:50 11/14/18 08:43 Labs: BMP 11/14/18 08:43 Sodium 131 L Potassium 3.7 Chloride 92 L Carbon Dioxide 30 H BUN 8 Creatinine 0.48 L Glucose 163 H Calcium 8.4 L - ABG Interpretation ABG results: PT/INR, D-dimer PT 18.4 Seconds (9.4-12.1) H 11/12/18 01:57 - Impressions Impressions Hip MRI 11/13/18 11:44 IMPRESSION: 1. Study significantly limited by patient motion artifact. 2. No acute osseous abnormality. 3. Significant edema in the soft tissues about the left hip including within the left adductor, gluteal, and proximal vastus musculature. The differential includes strains versus myositis versus acute denervation. No drainable fluid collection identified. D/ / Jacobo Torres MD / Jacobo Torres MD Interpreting Provider: Jacobo Torres MD Consult Discharge Plan - Plan Referrals: Liyah Lopez, LITERACY EDUCATION PROFESSOR [Primary Care Provider] - (Appointment has been requested) (3) Type 2 diabetes mellitus Qualifiers: Diabetes mellitus termite control service representative insulin use: without termite control service representative use Diabetes mellitus complication status: without complication Qualified Code(s): E11.9 - Type 2 diabetes mellitus without complications (4) Leg pain, medial Qualifiers: Laterality: left Qualified Code(s): M79.605 - Pain in left leg
[2018-11-15] MEDS: Levalbuterol Neb 1.25 MG/3 ML IH SCH ×4 (04:13→22:17)
[2018-11-15 05:14] LABS: Basophils % 0.1 %; Eosinophils % 0.1 %; Hematocrit 26.9 % (37.5-50.1); Hemoglobin 8.7 g/dL (12.9-16.9); Immature Granulocytes % 0.9 % (0-4); Lymphocytes % 14.2 %; Mean Corpuscular HGB Conc 32.3 g/dL (31.6-35.5); Mean Corpuscular Hemoglobin 29.9 pg (28.0-33.3); Mean Corpuscular Volume 92.4 fL (83.0-100.0); Mean Platelet Volume 8.9 fL (9.4-12.4); Monocytes # 0.5 K/mcL (0.0-1.3); Monocytes % 3.3 %; Neutrophils # 11.2 K/mcL (1.6-8.9); Platelet Count 227 K/mcL (140-400); Red Blood Count 2.91 M/mcL (4.19-5.50); Red Cell Distribution Width 14.5 % (11.5-14.5); Segmented Neutrophils % 81.4 %; White Blood Count 13.8 K/mcL (4.3-11.1)
[2018-11-15] MEDS: *HR* Heparin 5,000 UNIT/ML VIAL SQ SCH (05:28)
[2018-11-15 05:30] LABS: BUN/Creatinine Ratio 15 (6-26); Blood Urea Nitrogen 8 mg/dL (6-20); Calcium 8.1 mg/dL (8.6-10.3); Carbon Dioxide 28 mEq/L (23-29); Chloride 91 mEq/L (98-107); Glucose 165 mg/dL (70-105); Osmolality,Calculated 272 (280-300); Potassium 3.4 mEq/L (3.5-5.1); Sodium 130 mEq/L (136-145); eGFR For African Americans > 60 (> 60); eGFR For Non-African Americans > 60 (> 60)
[2018-11-15 05:55] LABS: Platelet Estimate Normal (Normal); Reactive Lymphocytes Present (Not Present)
[2018-11-15] MEDS: 0.9 % Sodium Chloride 1,000 ML IVC SCH (07:09)
[2018-11-15] MEDS: levETIRAcetam 250 MG TABLET PO SCH (07:58)
[2018-11-15] MEDS: Aspirin Enteric Coated 81 MG Tablet PO SCH (07:58)
[2018-11-15] MEDS: Insulin LISPRO 300 UNITS/3 ML VIAL SQ SCH ×3 (07:58→17:23)
[2018-11-15] MEDS: Gabapentin 300 MG CAPSULE PO SCH ×3 (07:58→20:00)
[2018-11-15] MEDS: Ascorbic Acid 500 MG TABLET PO SCH (07:58)
[2018-11-15] MEDS: Folic Acid 1 MG TABLET PO SCH (07:58)
[2018-11-15] MEDS: *HR* HYDROcodone/Acet 5/325 mg TABLET PO PRN (11:11)
--- NOTE | 2018-11-15 14:31 | Oncology Inp Consult Note ---
Date of Encounter: 11/15/18 Time of Encounter: 14:28 - Data of Consult Patient: known to practice within the last 3 years Consult date: 11/15/18 Requesting Physician: Rogers Jon MD Primary Care Provider: Liyah Lopez CNP - Consult Narrative Reason for consult: CLL with new left leg DVT History of present illness: Mr. Mcleod is a 58 year old male who presents to the ER with complaints of left groin/pelvic pain with inability to bear weight or walk. Symptoms started 3 days ago and progressively worsened. He is unable to ambulate or bear weight without excruciating pelvic/groin pain. He has a history of CLL, and he is currently in remission. Follows DR Morgan Davis at [facility]. He last took chemotherapy 2 years ago. Initial impression on Doppler of LLE on 11/15/18 showed acute thrombus in left lesser saphenous. Past Med Surg Social Fam HX - Past Medical History Medical history: cancer, CVA, diabetes, hyperlipidemia, seizures Additional medical history: CLL. Left sided weakness Psychiatric history: anxiety, depression - Past Surgical History Surgical History: appendectomy, orthopedic, other Additional surgical history: bilat CTR. Abcess removed from arm. EBUS. EGD - colonoscopy - Social History Smoking Status: Current every day smoker Smokeless Tobacco Status: Yes Alcohol use: none Drug use: marijuana - Family History Mother Living Status: Hx Family Endocrine Disorder: Yes (Diabetes) Father Living Status: Hx Family Cardiac Disorders: Yes Hx Family Respiratory Disorders: No Hx Family Cancer: Yes Hx Family GI Disorders: No Hx Family Endocrine Disorder: Yes Hx Family Neuromuscular Disorders: No Hx Family Neurologic Disorders: No Hx Family HEENT Disorders: No Hx Family Autoimmune Disorders: No Medications and Allergies Aspirin [Adult Low Dose Aspirin EC] 81 mg PO DAILY 02/15/15 [History] Atorvastatin Calcium [Lipitor] 80 mg PO HS 02/15/15 [History] Citalopram [CeleXA] 40 mg PO DAILY 02/15/15 [History] Gabapentin [Neurontin] 600 mg PO TID 02/15/15 [History] LevETIRAcetam [Keppra] 500 mg PO DAILY 02/15/15 [History] Metformin [Glucophage] 850 mg PO BID 02/15/15 [History] TraZODone 50 mg PO HS PRN 02/15/15 [History] Tamsulosin [Flomax] 0.8 mg PO DAILY 08/02/15 [History] Folic Acid 1 mg PO DAILY #30 tablet 06/29/16 [Rx] Ascorbic Acid [Vitamin C] 500 mg PO DAILY #30 tablet 05/06/18 [Rx] Ferrous Sulfate [Iron] 325 mg PO DAILY #30 tablet 05/06/18 [Rx] Omeprazole [PriLOSEC] 40 mg PO BID 11/11/18 [History] OxyCODONE/APAP 5/325 [Percocet 5/325 MG] 1 tab PO DAILY PRN 11/12/18 [History] Allergy/AdvReac Type Severity Reaction Status Date / Time Penicillins [PCN] Allergy Rash Verified 11/12/18 14:12 Consult Discharge Plan - Plan Referrals: Liyah Lopez, WAITER/WAITRESS INFORMAL [Primary Care Provider] - (Appointment has been requested)
--- NOTE | 2018-11-15 14:36 | Oncology Inp Progress Note ---
<Ashish River - Last Filed: 11/15/18 15:42> Date of Encounter: 11/15/18 Oncology: Obj Data - Labs CBC & Chem 7: 11/15/18 04:00 11/15/18 04:00 Consult Discharge Plan - Plan Referrals: Liyah Lopez, ENTERPRISE APPLICATIONS MANAGER [Primary Care Provider] - (Appointment has been requested) Inpatient Charges Provider: Dr. Popeye River Follow up - Inpatient: [id number] - Attending Attestation I examined this patient and my medical decision-making was reviewed with the Advanced Practice Nurse. I agree with the documented findings, disposition and treatment plan as described except to the extent set forth below. -Patient diagnosed with SVT in close proximity to deep venous system -Would recommend Heparin gtt and then transition to Xarelto 20 mg PO daily for 45 days. At that time, he can be placed on ASA 81 mg PO daily for ppx. <Ray Torres Jr - Last Filed: 11/15/18 18:26> Date of Encounter: 11/15/18 Time of Encounter: 14:34 (1) Acute deep vein thrombosis (DVT) of left lower extremity Current Visit: Yes Status: Acute Assessment and plan: Patient with history of CLL under care of Dr Morgan Davis at [facility]. On preliminary venous doppler tech report, test appears negative for DVT and positive for SVT in left lower extremity (left lesser saphenous). Recommendation is heparin drip until discharge, and, transition to xarelto 20 mg daily for 45 days as outpatient. Then at that time transition him to aspirin when he follows up at cancer center with Dr Davis. Please have him see Dr Davis at [facility] [address] River assessed patient with me today Qualifiers: Affected thrombotic vein of extremity: other lower extremity vein Qualified Code(s): I82.492 - Acute embolism and thrombosis of other specified deep vein of left lower extremity (2) CLL (chronic lymphocytic leukemia) Current Visit: Yes Status: Chronic Oncology: Subj Interval history: Patient resting in bed with family member - Constitutional General appearance: no acute distress, obese - Head Head exam: Present: normal inspection, normocephalic - Eye Eye exam: Present: PERRL - ENT ENT exam: Present: mucous membranes moist - Neck Neck exam: Present: full ROM - Respiratory Respiratory exam: Present: CTAB - Cardiovascular Cardiovascular exam: Present: RRR - GI/Abdominal GI/Abdominal exam: Present: normal bowel sounds, soft - Extremities Exam Extremities exam: Present: joint swelling, pedal edema - Neurological Exam Neurological exam: Present: alert, oriented X3, no focal deficits - Psychiatric Psychiatric exam: Present: normal affect, normal mood - Skin Skin exam: Present: dry, intact, warm Oncology: Obj Data - Labs CBC & Chem 7: 11/15/18 04:00 11/15/18 04:00
[2018-11-15] MEDS ORDERED: *HR* Heparin 5,000 UNIT/ML VIAL IVP ONE (15:43)
[2018-11-15] MEDS ORDERED: *HR* Heparin 5,000 UNIT/ML VIAL IVP PRN (15:43)
[2018-11-15] MEDS: Heparin 25,000 UNIT/250 ML D5W 25,000 UNIT/250 ML IV.SOLN IVC SCH (16:17)
--- NOTE | 2018-11-15 16:18 | Internal Med Progress Note ---
Hospitalist Progress Note - Encounter Date of Encounter: 11/15/18 Time of Encounter: 13:00 - Subjective Interval History: Patient seen and examined at bedside. Patient states his pain has improved and has been tolerating Toradol-his blood pressure after receiving pain medication. We will transition over to muscle relaxers see if this improves his pain - Exam Vitals: Temp Pulse Resp BP Pulse Ox 97.8 F 98 16 109/69 96 11/15/18 15:10 11/15/18 15:10 11/15/18 15:53 11/15/18 15:10 11/15/18 15:53 Exam: Skin: Free of rash and discoloration. Eyes: Sclera is white. There is no discharge from eyes. ENMT: Oral/pharyngeal mucosa is normal in appearance. There is no discharge from nose or ears. Respiratory: Normal breath sounds with no crackles and wheezes bilaterally. CV: Heart is regular with no gallop or murmur. GI: Abdomen is flat and soft with no palpable mass or visceromegaly. : There is no tenderness in patient's flanks bilaterally. Neuro exam: He has good strength in upper and lower extremities. He has normal eye movements. Psychiatric: He has normal affect. His thought process is appropriate to the situation. Musculoskeletal-patient's left leg is drawn he is unable to straighten there is resistance -externally rotated - Assessment and Plan (1) CLL (chronic lymphocytic leukemia) Current Visit: Yes Status: Chronic Assessment and Plan: 1. Per patient, CLL in remission. 2. Resume home meds as appropriate. 3. Consult HEM/ONC for assistance and guidance. 11/13 History of stage IV CLL-no palpable lymphadenopathy Hematology/oncology consulted and appreciate recommendations 11/08/18 CT chest 1. No pathologically enlarged lymphadenopathy within the chest or mediastinum to suggest lymphoma recurrence. 2. New mild splenomegaly and mild bilateral retroperitoneal lymphadenopathy, most consistent with CLL recurrence. 3. New nonspecific mild bilateral retroperitoneal and perinephric stranding and fluid of unknown cause, possibly secondary to the patient's active CLL. No walled-off fluid collection or abscess is seen. 4. Stable subpleural curvilinear irregular opacities within the right lower lobe, unchanged from prior studies, most likely representing chronic atelectasis, parenchymal scar, or possibly recurrent aspiration. 5. Bilateral nonobstructing nephrolithiasis, without evidence of a ureteral calculus or hydronephrosis. 11/14 Patient will follow up with oncology as outpatient 11/15 Follow up with oncology as outpatient -with Dr. Cabrera [facility] in 14 days after discharge (2) DVT prophylaxis Current Visit: Yes Status: Acute Assessment and Plan: 1. Heparin SQ. (3) Type 2 diabetes mellitus Current Visit: Yes Status: Chronic Assessment and Plan: 1. Hold Metformin. 2. Will order SSI and monitor glucose before meals at bedtime adjust sliding scale accordingly (4) Leg pain, medial Current Visit: Yes Status: Acute Assessment and Plan: 1. Will order CT abdomen/pelvis. 2. Pain control as necessary. 3. Consult orthopedics and oncology. 11/13 CT abdomen/pelvis 11/12/2018 MPRESSION: 1. No significant interval change compared to recent CT examination. 2. Redemonstration of retroperitoneal/bilateral periaortic lymphadenopathy. 3. Stable nonspecific perinephric stranding and fluid. 4. Stable chronic findings including bilateral nephrolithiasis. -Pain currently controlled -Orthopedics consulted and appreciate recommendation -Oncology consulted and appreciate recommendations -Venous duplex completed preliminary note possible superficial venous thrombosis to the left lower extremity but no DVT. Awaiting final physician review- oncology recommending possible anticoagulation depending on location SPT results of final physician review-continue with current prophylactic heparin subcutaneous -We will obtain MRI of hip 11/14 Patient continues to experience pain we will add Toradol as well as lidocaine patch warm compresses and muscle relaxers MRI of left hip was completed it does not show any fractures significant edema in the soft tissues about the left hip including within the left adductor, gluteal, and proximal vastus musculature. The differential includes strains versus myositis versus acute denervation. No drainable fluid collection identified. -Venous duplex completed preliminary note possible superficial venous thrombosis to the left lower extremity but no DVT. Awaiting final physician review- oncology recommending possible anticoagulation depending on location SPT results of final physician review-continue with current prophylactic heparin subcutaneous 11/15 Total has improved patient's pain however he has had a drop in his blood pressure we will hold that for now and discontinue with lidocaine patch warm compresses and muscle relaxers Venous duplex completed positive for SVT and left lower extremity oncology has been consulted and recommending heparin drip until discharge He has been evaluated by PT OT and will be placed in rehabilitation upon discharge-currently awaiting approval (5) Acute deep vein thrombosis (DVT) of left lower extremity Current Visit: Yes Status: Acute Assessment and Plan: History of CLL lower extremity duplex appears negative for DVT however positive for SVT and left lower extremity Oncology at been consulted and is recommending heparin drip until discharge, and transition to Xarelto 20 mg daily for 45 days as outpatient he will then be transitioned to aspirin and follow up at cancer Center. He will follow-up with [facility] 14 days after discharge. - Time Spent with Patient Total time spent is greater than 50% in coordination of care (as documented) at patient's floor/unit and/or counseling patient: Internal Medicine: Result - Labs CBC & Chem 7: 11/15/18 04:00 11/15/18 04:00 Labs: Short CBC 11/15/18 Range/Units 04:00 WBC 13.8 H (4.3-11.1) K/mcL Hgb 8.7 L (12.9-16.9) g/dL Hct 26.9 L (37.5-50.1) % Plt Count 227 (140-400) K/mcL Neutrophils # 11.2 H (1.6-8.9) K/mcL BMP 11/15/18 04:00 Sodium 130 L Potassium 3.4 L Chloride 91 L Carbon Dioxide 28 BUN 8 Creatinine 0.52 L Glucose 165 H Calcium 8.1 L - ABG Interpretation ABG results: PT/INR, D-dimer PT 18.4 Seconds (9.4-12.1) H 11/12/18 01:57 Consult Discharge Plan - Plan Referrals: Liyah Lopez, WHEEL PRESS OPERATOR [Primary Care Provider] - (Appointment has been requested) (3) Type 2 diabetes mellitus Qualifiers: Diabetes mellitus correction insulin use: without extermination supervisor use Diabetes mellitus complication status: without complication Qualified Code(s): E11.9 - Type 2 diabetes mellitus without complications (4) Leg pain, medial Qualifiers: Laterality: left Qualified Code(s): M79.605 - Pain in left leg (5) Acute deep vein thrombosis (DVT) of left lower extremity Qualifiers: Affected thrombotic vein of extremity: other lower extremity vein Qualified Code(s): I82.492 - Acute embolism and thrombosis of other specified deep vein of left lower extremity
[2018-11-15 17:14] LABS: Heparin anti-factor XA UFH 0.05 IU/mL (0.30-0.70)
[2018-11-15 17:15] LABS: INR 1.4; Prothrombin Time 15.5 Seconds (9.4-12.1)
[2018-11-15] MEDS: *HR* Heparin 5,000 UNIT/ML VIAL IVP PRN (23:01)
[2018-11-15] MEDS: tiZANidine 4 MG TABLET PO PRN (23:57)
[2018-11-16] MEDS: Acetaminophen 325 MG TABLET PO PRN ×2 (00:15→20:29)
[2018-11-16] MEDS: Levalbuterol Neb 1.25 MG/3 ML IH SCH ×4 (03:54→21:53)
[2018-11-16 05:28] LABS: Basophils % 0.1 %; Eosinophils % 0.1 %; Hematocrit 24.8 % (37.5-50.1); Hemoglobin 8.3 g/dL (12.9-16.9); Immature Granulocytes % 1.2 % (0-4); Lymphocytes # 1.9 K/mcL (0.6-4.6); Lymphocytes % 15.3 %; Mean Corpuscular HGB Conc 33.5 g/dL (31.6-35.5); Mean Corpuscular Hemoglobin 30.5 pg (28.0-33.3); Mean Corpuscular Volume 91.2 fL (83.0-100.0); Mean Platelet Volume 9.2 fL (9.4-12.4); Monocytes # 0.2 K/mcL (0.0-1.3); Monocytes % 1.8 %; Neutrophils # 9.9 K/mcL (1.6-8.9); Platelet Count 166 K/mcL (140-400); Red Blood Count 2.72 M/mcL (4.19-5.50); Red Cell Distribution Width 14.4 % (11.5-14.5); Segmented Neutrophils % 81.5 %; White Blood Count 12.1 K/mcL (4.3-11.1)
[2018-11-16 05:46] LABS: BUN/Creatinine Ratio 13 (6-26); Blood Urea Nitrogen 7 mg/dL (6-20); Calcium 8.2 mg/dL (8.6-10.3); Carbon Dioxide 28 mEq/L (23-29); Chloride 94 mEq/L (98-107); Glucose 198 mg/dL (70-105); Osmolality,Calculated 276 (280-300); Potassium 3.4 mEq/L (3.5-5.1); Sodium 131 mEq/L (136-145); eGFR For African Americans > 60 (> 60); eGFR For Non-African Americans > 60 (> 60)
[2018-11-16] MEDS: *HR* Heparin 5,000 UNIT/ML VIAL IVP PRN ×3 (05:52→20:28)
[2018-11-16 05:58] LABS: Hypochromasia Present (Not Present); Platelet Estimate Normal (Normal); Reactive Lymphocytes Present (Not Present)
[2018-11-16] MEDS: levETIRAcetam 250 MG TABLET PO SCH (09:19)
[2018-11-16] MEDS: Gabapentin 300 MG CAPSULE PO SCH ×3 (09:19→20:29)
[2018-11-16] MEDS: Ascorbic Acid 500 MG TABLET PO SCH (09:19)
[2018-11-16] MEDS: Folic Acid 1 MG TABLET PO SCH (09:19)
[2018-11-16] MEDS: Aspirin Enteric Coated 81 MG Tablet PO SCH (09:19)
[2018-11-16] MEDS: Insulin LISPRO 300 UNITS/3 ML VIAL SQ SCH ×3 (09:20→18:11)
[2018-11-16] MEDS: Heparin 25,000 UNIT/250 ML D5W 25,000 UNIT/250 ML IV.SOLN IVC SCH (13:09)
[2018-11-16] MEDS: tiZANidine 4 MG TABLET PO PRN (13:13)
--- NOTE | 2018-11-16 16:40 | Internal Med Progress Note ---
Hospitalist Progress Note - Encounter Date of Encounter: 11/16/18 Time of Encounter: 16:40 - Subjective Interval History: Was seen and examined at bedside currently states his pain is controlled - Exam Vitals: Temp Pulse Resp BP Pulse Ox 98.8 F 62 18 96/57 98 11/16/18 11:56 11/16/18 11:56 11/16/18 15:18 11/16/18 11:56 11/16/18 15:18 Exam: Skin: Free of rash and discoloration. Eyes: Sclera is white. There is no discharge from eyes. ENMT: Oral/pharyngeal mucosa is normal in appearance. There is no discharge from nose or ears. Respiratory: Normal breath sounds with no crackles and wheezes bilaterally. CV: Heart is regular with no gallop or murmur. GI: Abdomen is flat and soft with no palpable mass or visceromegaly. : There is no tenderness in patient's flanks bilaterally. Neuro exam: He has good strength in upper and lower extremities. He has normal eye movements. Psychiatric: He has normal affect. His thought process is appropriate to the situation. Musculoskeletal-patient's left leg is drawn he is unable to straighten there is resistance -externally rotated - Assessment and Plan (1) CLL (chronic lymphocytic leukemia) Current Visit: Yes Status: Chronic Assessment and Plan: 1. Per patient, CLL in remission. 2. Resume home meds as appropriate. 3. Consult HEM/ONC for assistance and guidance. 11/13 History of stage IV CLL-no palpable lymphadenopathy Hematology/oncology consulted and appreciate recommendations 11/08/18 CT chest 1. No pathologically enlarged lymphadenopathy within the chest or mediastinum to suggest lymphoma recurrence. 2. New mild splenomegaly and mild bilateral retroperitoneal lymphadenopathy, most consistent with CLL recurrence. 3. New nonspecific mild bilateral retroperitoneal and perinephric stranding and fluid of unknown cause, possibly secondary to the patient's active CLL. No walled-off fluid collection or abscess is seen. 4. Stable subpleural curvilinear irregular opacities within the right lower lobe, unchanged from prior studies, most likely representing chronic atelectasis, parenchymal scar, or possibly recurrent aspiration. 5. Bilateral nonobstructing nephrolithiasis, without evidence of a ureteral calculus or hydronephrosis. 11/14 Patient will follow up with oncology as outpatient 11/15 Follow up with oncology as outpatient -[facility] 14 days after discharge (2) DVT prophylaxis Current Visit: Yes Status: Acute Assessment and Plan: 1. Heparin SQ. (3) Type 2 diabetes mellitus Current Visit: Yes Status: Chronic Assessment and Plan: 1. Hold Metformin. 2. Will order SSI and monitor glucose before meals at bedtime adjust sliding scale accordingly (4) Leg pain, medial Current Visit: Yes Status: Acute Assessment and Plan: 1. Will order CT abdomen/pelvis. 2. Pain control as necessary. 3. Consult orthopedics and oncology. 11/13 CT abdomen/pelvis 11/12/2018 MPRESSION: 1. No significant interval change compared to recent CT examination. 2. Redemonstration of retroperitoneal/bilateral periaortic lymphadenopathy. 3. Stable nonspecific perinephric stranding and fluid. 4. Stable chronic findings including bilateral nephrolithiasis. -Pain currently controlled -Orthopedics consulted and appreciate recommendation -Oncology consulted and appreciate recommendations -Venous duplex completed preliminary note possible superficial venous thrombosis to the left lower extremity but no DVT. Awaiting final physician review- oncology recommending possible anticoagulation depending on location SPT results of final physician review-continue with current prophylactic heparin subcutaneous -We will obtain MRI of hip 11/14 Patient continues to experience pain we will add Toradol as well as lidocaine patch warm compresses and muscle relaxers MRI of left hip was completed it does not show any fractures significant edema in the soft tissues about the left hip including within the left adductor, gluteal, and proximal vastus musculature. The differential includes strains versus myositis versus acute denervation. No drainable fluid collection identified. -Venous duplex completed preliminary note possible superficial venous thrombosis to the left lower extremity but no DVT. Awaiting final physician review- oncology recommending possible anticoagulation depending on location SPT results of final physician review-continue with current prophylactic heparin subcutaneous 11/15 Total has improved patient's pain however he has had a drop in his blood pre ssure we will hold that for now and discontinue with lidocaine patch warm compresses and muscle relaxers Venous duplex completed positive for SVT and left lower extremity oncology has been consulted and recommending heparin drip until discharge He has been evaluated by PT OT and will be placed in rehabilitation upon discharge-currently awaiting approval (5) Acute deep vein thrombosis (DVT) of left lower extremity Current Visit: Yes Status: Acute Assessment and Plan: History of CLL lower extremity duplex appears negative for DVT however positive for SVT and left lower extremity Oncology at been consulted and is recommending heparin drip until discharge, and transition to Xarelto 20 mg daily for 45 days as outpatient he will then be transitioned to aspirin and follow up at cancer Center. He will follow-up with [facility] 14 days after discharge. (6) Hyponatremia Current Visit: Yes Status: Acute Assessment and Plan: Sodium 1:30 today does not appear to have any neurological changes this appears to be chronic at times-we will place on a fluid restriction Obtain random a.m. cortisol - Time Spent with Patient Total time spent is greater than 50% in coordination of care (as documented) at patient's floor/unit and/or counseling patient: Internal Medicine: Result - Labs CBC & Chem 7: 11/16/18 05:06 11/16/18 05:06 Labs: Short CBC 11/16/18 Range/Units 05:06 WBC 12.1 H (4.3-11.1) K/mcL Hgb 8.3 L (12.9-16.9) g/dL Hct 24.8 L (37.5-50.1) % Plt Count 166 (140-400) K/mcL Neutrophils # 9.9 H (1.6-8.9) K/mcL BMP 11/16/18 05:06 Sodium 131 L Potassium 3.4 L Chloride 94 L Carbon Dioxide 28 BUN 7 Creatinine 0.55 L Glucose 198 H Calcium 8.2 L - ABG Interpretation ABG results: PT/INR, D-dimer PT 15.5 Seconds (9.4-12.1) H 11/15/18 16:06 Consult Discharge Plan - Plan Referrals: Liyah Lopez, C CONSULTANT [Primary Care Provider] - (Appointment has been requested) (3) Type 2 diabetes mellitus Qualifiers: Diabetes mellitus snf insulin use: without bed bug exterminator use Diabetes mellitus complication status: without complication Qualified Code(s): E11.9 - Type 2 diabetes mellitus without complications (4) Leg pain, medial Qualifiers: Laterality: left Qualified Code(s): M79.605 - Pain in left leg (5) Acute deep vein thrombosis (DVT) of left lower extremity Qualifiers: Affected thrombotic vein of extremity: other lower extremity vein Qualified Code(s): I82.492 - Acute embolism and thrombosis of other specified deep vein of left lower extremity
[2018-11-16] MEDS: *HR* HYDROcodone/Acet 5/325 mg TABLET PO PRN (20:29)
[2018-11-17] MEDS: Levalbuterol Neb 1.25 MG/3 ML IH SCH ×4 (04:09→21:59)
[2018-11-17 05:07] LABS: Basophils % 0.1 %; Eosinophils % 0.1 %; Hematocrit 25.1 % (37.5-50.1); Hemoglobin 8.2 g/dL (12.9-16.9); Immature Granulocytes % 1.3 % (0-4); Lymphocytes # 1.7 K/mcL (0.6-4.6); Lymphocytes % 13.9 %; Mean Corpuscular HGB Conc 32.7 g/dL (31.6-35.5); Mean Corpuscular Volume 91.9 fL (83.0-100.0); Mean Platelet Volume 8.4 fL (9.4-12.4); Monocytes # 0.4 K/mcL (0.0-1.3); Monocytes % 3.3 %; Neutrophils # 9.8 K/mcL (1.6-8.9); Platelet Count 131 K/mcL (140-400); Red Blood Count 2.73 M/mcL (4.19-5.50); Red Cell Distribution Width 14.5 % (11.5-14.5); Segmented Neutrophils % 81.3 %
[2018-11-17 05:26] LABS: BUN/Creatinine Ratio 13 (6-26); Blood Urea Nitrogen 7 mg/dL (6-20); Calcium 8.4 mg/dL (8.6-10.3); Carbon Dioxide 30 mEq/L (23-29); Chloride 94 mEq/L (98-107); Glucose 197 mg/dL (70-105); Osmolality,Calculated 277 (280-300); Potassium 3.9 mEq/L (3.5-5.1); Sodium 132 mEq/L (136-145); eGFR For African Americans > 60 (> 60); eGFR For Non-African Americans > 60 (> 60)
[2018-11-17] MEDS: *HR* Heparin 5,000 UNIT/ML VIAL IVP PRN (05:27)
[2018-11-17] MEDS: Heparin 25,000 UNIT/250 ML D5W 25,000 UNIT/250 ML IV.SOLN IVC SCH (05:29)
[2018-11-17 05:42] LABS: Platelet Estimate Decreased (Normal)
[2018-11-17 05:43] LABS: Reactive Lymphocytes Present (Not Present)
[2018-11-17] MEDS: Insulin LISPRO 300 UNITS/3 ML VIAL SQ SCH ×3 (09:16→17:08)
[2018-11-17] MEDS: Gabapentin 300 MG CAPSULE PO SCH ×3 (09:23→20:28)
[2018-11-17] MEDS: levETIRAcetam 250 MG TABLET PO SCH (09:24)
[2018-11-17] MEDS: Ascorbic Acid 500 MG TABLET PO SCH (09:24)
[2018-11-17] MEDS: Folic Acid 1 MG TABLET PO SCH (09:25)
[2018-11-17] MEDS: Aspirin Enteric Coated 81 MG Tablet PO SCH (09:25)
[2018-11-17] MEDS: *HR* HYDROcodone/Acet 5/325 mg TABLET PO PRN ×2 (09:25→15:23)
[2018-11-17] MEDS: *HR* Rivaroxaban 15 MG TABLET PO SCH ×2 (12:20→20:28)
--- NOTE | 2018-11-17 13:29 | Internal Med Progress Note ---
Hospitalist Progress Note - Encounter Date of Encounter: 11/17/18 Time of Encounter: 13:25 - Subjective Interval History: Patient was seen and examined at bedside he is able to move his leg easier today he continues to have some pain but he states the muscle relaxers help he [facility] which will occur Sunday. - Exam Vitals: Temp Pulse Resp BP Pulse Ox 98.3 F 101 16 93/59 97 11/17/18 11:42 11/17/18 11:42 11/17/18 11:42 11/17/18 11:42 11/17/18 11:42 Exam: Skin: Free of rash and discoloration. Eyes: Sclera is white. There is no discharge from eyes. ENMT: Oral/pharyngeal mucosa is normal in appearance. There is no discharge from nose or ears. Respiratory: Normal breath sounds with no crackles and wheezes bilaterally. CV: Heart is regular with no gallop or murmur. GI: Abdomen is flat and soft with no palpable mass or visceromegaly. : There is no tenderness in patient's flanks bilaterally. Neuro exam: He has good strength in upper and lower extremities. He has normal eye movements. Psychiatric: He has normal affect. His thought process is appropriate to the situation. Musculoskeletal-patient's left leg is drawn he is unable to straighten there is resistance -externally rotated - Assessment and Plan (1) CLL (chronic lymphocytic leukemia) Current Visit: Yes Status: Chronic Assessment and Plan: 1. Per patient, CLL in remission. 2. Resume home meds as appropriate. 3. Consult HEM/ONC for assistance and guidance. 11/13 History of stage IV CLL-no palpable lymphadenopathy Hematology/oncology consulted and appreciate recommendations 11/08/18 CT chest 1. No pathologically enlarged lymphadenopathy within the chest or mediastinum to suggest lymphoma recurrence. 2. New mild splenomegaly and mild bilateral retroperitoneal lymphadenopathy, most consistent with CLL recurrence. 3. New nonspecific mild bilateral retroperitoneal and perinephric stranding and fluid of unknown cause, possibly secondary to the patient's active CLL. No walled-off fluid collection or abscess is seen. 4. Stable subpleural curvilinear irregular opacities within the right lower lobe, unchanged from prior studies, most likely representing chronic atelectasis, parenchymal scar, or possibly recurrent aspiration. 5. Bilateral nonobstructing nephrolithiasis, without evidence of a ureteral calculus or hydronephrosis. 11/14 Patient will follow up with oncology as outpatient 11/15 Follow up with oncology as outpatient -with Dr. Cabrera [facility] in 14 days after discharge 11/17 Follow up with oncology as outpatient -with Dr. Cabrera [facility] in 14 days after discharge (2) DVT prophylaxis Current Visit: Yes Status: Acute Assessment and Plan: 1. Xarelto (3) Type 2 diabetes mellitus Current Visit: Yes Status: Chronic Assessment and Plan: 1. Hold Metformin. 2. Will order SSI and monitor glucose before meals at bedtime adjust sliding scale accordingly (4) Leg pain, medial Current Visit: Yes Status: Acute Assessment and Plan: 1. Will order CT abdomen/pelvis. 2. Pain control as necessary. 3. Consult orthopedics and oncology. 11/13 CT abdomen/pelvis 11/12/2018 MPRESSION: 1. No significant interval change compared to recent CT examination. 2. Redemonstration of retroperitoneal/bilateral periaortic lymphadenopathy. 3. Stable nonspecific perinephric stranding and fluid. 4. Stable chronic findings including bilateral nephrolithiasis. -Pain currently controlled -Orthopedics consulted and appreciate recommendation -Oncology consulted and appreciate recommendations -Venous duplex completed preliminary note possible superficial venous thrombosis to the left lower extremity but no DVT. Awaiting final physician review- oncology recommending possible anticoagulation depending on location SPT results of final physician review-continue with current prophylactic heparin subcutaneous -We will obtain MRI of hip 11/14 Patient continues to experience pain we will add Toradol as well as lidocaine patch warm compresses and muscle relaxers MRI of left hip was completed it does not show any fractures significant edema in the soft tissues about the left hip including within the left adductor, gluteal, and proximal vastus musculature. The differential includes strains versus myositis versus acute denervation. No drainable fluid collection identified. -Venous duplex completed preliminary note possible superficial venous thrombosis to the left lower extremity but no DVT. Awaiting final physician review- oncology recommending possible anticoagulation depending on location SPT results of final physician review-continue with current prophylactic heparin subcutaneous 11/15 Total has improved patient's pain however he has had a drop in his blood pressure we will hold that for now and discontinue with lidocaine patch warm compresses and muscle relaxers Venous duplex completed positive for SVT and left lower extremity oncology has been consulted and recommending heparin drip until discharge He has been evaluated by PT OT and will be placed in rehabilitation upon discharge-currently awaiting approval 11/17 Pain is improving we will continue with muscle relaxers they do not seem to drop his blood pressure is much and help with his pain He is to go to an ECF for rehabilitation upon discharge awaiting insurance auth Continue with PT OT (5) Acute deep vein thrombosis (DVT) of left lower extremity Current Visit: Yes Status: Acute Assessment and Plan: History of CLL lower extremity duplex appears negative for DVT however positive for SVT and left lower extremity Oncology at been consulted and is recommending heparin drip until discharge, and transition to Xarelto 20 mg daily for 45 days as outpatient he will then be transitioned to aspirin and follow up at cancer Center. He will follow-up with Dr. Shania Olivarez [facility] 14 days after discharge. 11/17 Reviewed the case with Dr. Clark- patient did have a drop in his platelets on heparin so we will transition to Xarelto today-he will continue 15 mg twice a day 2 days and then transitioned to Xarelto 20 mg daily on Sunday He will follow-up with Dr. Shania Olivarez [facility] 14 days after discharge. (6) Hyponatremia Current Visit: Yes Status: Acute Assessment and Plan: Sodium 1:30 today does not appear to have any neurological changes this appears to be chronic at times-we will place on a fluid restriction Obtain random a.m. cortisol 11/17 appears to slowly be improving continue fluid restriction - Time Spent with Patient Total time spent is greater than 50% in coordination of care (as documented) at patient's floor/unit and/or counseling patient: Internal Medicine: Result - Labs CBC & Chem 7: 11/17/18 04:54 11/17/18 04:54 Labs: Short CBC 11/17/18 Range/Units 04:54 WBC 12.0 H (4.3-11.1) K/mcL Hgb 8.2 L (12.9-16.9) g/dL Hct 25.1 L (37.5-50.1) % Plt Count 131 L (140-400) K/mcL Neutrophils # 9.8 H (1.6-8.9) K/mcL BMP 11/17/18 04:54 Sodium 132 L Potassium 3.9 Chloride 94 L Carbon Dioxide 30 H BUN 7 Creatinine 0.53 L Glucose 197 H Calcium 8.4 L - ABG Interpretation ABG results: PT/INR, D-dimer PT 15.5 Seconds (9.4-12.1) H 11/15/18 16:06 Consult Discharge Plan - Plan Referrals: Liyah Lopez, SYSTEMS ANALYSIS MANAGER [Primary Care Provider] - (Appointment has been req uested) (3) Type 2 diabetes mellitus Qualifiers: Diabetes mellitus intermission coordinator insulin use: without fpc use Diabetes me llitus complication status: without complication Qualified Code(s): E11.9 - Type 2 diabetes mellitus without complications (4) Leg pain, medial Qualifiers: Laterality: left Qualified Code(s): M79.605 - Pain in left leg (5) Acute deep vein thrombosis (DVT) of left lower extremity Qualifiers: Affected thrombotic vein of extremity: other lower extremity vein Qualified Code(s): I82.492 - Acute embolism and thrombosis of other specified deep vein of left lower extremity
[2018-11-18 02:25] LABS: Basophils % 0.1 %; Eosinophils % 0.2 %; Hematocrit 25.8 % (37.5-50.1); Hemoglobin 8.4 g/dL (12.9-16.9); Immature Granulocytes % 0.6 % (0-4); Lymphocytes # 1.6 K/mcL (0.6-4.6); Lymphocytes % 14.3 %; Mean Corpuscular HGB Conc 32.6 g/dL (31.6-35.5); Mean Corpuscular Hemoglobin 30.1 pg (28.0-33.3); Mean Corpuscular Volume 92.5 fL (83.0-100.0); Mean Platelet Volume 9.7 fL (9.4-12.4); Monocytes # 0.4 K/mcL (0.0-1.3); Monocytes % 3.8 %; Neutrophils # 9.3 K/mcL (1.6-8.9); Platelet Count 149 K/mcL (140-400); Red Blood Count 2.79 M/mcL (4.19-5.50); Red Cell Distribution Width 14.1 % (11.5-14.5); White Blood Count 11.5 K/mcL (4.3-11.1)
[2018-11-18 02:44] LABS: BUN/Creatinine Ratio 15 (6-26); Blood Urea Nitrogen 9 mg/dL (6-20); Calcium 8.3 mg/dL (8.6-10.3); Carbon Dioxide 31 mEq/L (23-29); Chloride 91 mEq/L (98-107); Glucose 136 mg/dL (70-105); Osmolality,Calculated 273 (280-300); Potassium 3.9 mEq/L (3.5-5.1); Sodium 131 mEq/L (136-145); eGFR For African Americans > 60 (> 60); eGFR For Non-African Americans > 60 (> 60)
[2018-11-18 03:03] LABS: Platelet Estimate Slight Decrease (Normal)
[2018-11-18] MEDS: *HR* HYDROcodone/Acet 5/325 mg TABLET PO PRN ×2 (03:16→16:27)
[2018-11-18] MEDS: Levalbuterol Neb 1.25 MG/3 ML IH SCH ×4 (04:06→22:42)
[2018-11-18] MEDS: Gabapentin 300 MG CAPSULE PO SCH ×3 (08:53→20:33)
[2018-11-18] MEDS: *HR* Rivaroxaban 15 MG TABLET PO SCH ×2 (08:53→20:33)
[2018-11-18] MEDS: Aspirin Enteric Coated 81 MG Tablet PO SCH (08:53)
[2018-11-18] MEDS: levETIRAcetam 250 MG TABLET PO SCH (08:54)
[2018-11-18] MEDS: Ascorbic Acid 500 MG TABLET PO SCH (08:54)
[2018-11-18] MEDS: Folic Acid 1 MG TABLET PO SCH (08:54)
[2018-11-18] MEDS: Insulin LISPRO 300 UNITS/3 ML VIAL SQ SCH ×3 (08:55→16:27)
[2018-11-18] MEDS: tiZANidine 4 MG TABLET PO PRN ×2 (10:05→17:53)
--- NOTE | 2018-11-18 13:09 | Internal Med Progress Note ---
Hospitalist Progress Note - Encounter Date of Encounter: 11/18/18 Time of Encounter: 13:08 - Subjective Interval History: Patient was seen and examined at bedside states his leg feels better with the use of muscle relaxers. We are awaiting placement to ECF - Exam Vitals: Temp Pulse Resp BP Pulse Ox 98.1 F 93 16 93/63 100 11/18/18 12:04 11/18/18 12:04 11/18/18 12:04 11/18/18 12:04 11/18/18 12:04 Exam: Skin: Free of rash and discoloration. Eyes: Sclera is white. There is no discharge from eyes. ENMT: Oral/pharyngeal mucosa is normal in appearance. There is no discharge from nose or ears. Respiratory: Normal breath sounds with no crackles and wheezes bilaterally. CV: Heart is regular with no gallop or murmur. GI: Abdomen is flat and soft with no palpable mass or visceromegaly. : There is no tenderness in patient's flanks bilaterally. Neuro exam: He has good strength in upper and lower extremities. He has normal eye movements. Psychiatric: He has normal affect. His thought process is appropriate to the situation. Musculoskeletal-patient's left leg is drawn he is unable to straighten there is resistance -externally rotated - Assessment and Plan (1) CLL (chronic lymphocytic leukemia) Current Visit: Yes Status: Chronic Assessment and Plan: 1. Per patient, CLL in remission. 2. Resume home meds as appropriate. 3. Consult HEM/ONC for assistance and guidance. 11/13 History of stage IV CLL-no palpable lymphadenopathy Hematology/oncology consulted and appreciate recommendations 11/08/18 CT chest 1. No pathologically enlarged lymphadenopathy within the chest or mediastinum to suggest lymphoma recurrence. 2. New mild splenomegaly and mild bilateral retroperitoneal lymphadenopathy, most consistent with CLL recurrence. 3. New nonspecific mild bilateral retroperitoneal and perinephric stranding and fluid of unknown cause, possibly secondary to the patient's active CLL. No walled-off fluid collection or abscess is seen. 4. Stable subpleural curvilinear irregular opacities within the right lower lobe, unchanged from prior studies, most likely representing chronic atelectasis, parenchymal scar, or possibly recurrent aspiration. 5. Bilateral nonobstructing nephrolithiasis, without evidence of a ureteral calculus or hydronephrosis. 11/14 Patient will follow up with oncology as outpatient 11/15 Follow up with oncology as outpatient -with Dr. Cabrera [facility] in 14 days after discharge 11/17 Follow up with oncology as outpatient -with Dr. Cabrera [facility] in 14 days after discharge 11/18 He will follow-up with oncology as outpatient (2) DVT prophylaxis Current Visit: Yes Status: Acute Assessment and Plan: 1. Xarelto (3) Type 2 diabetes mellitus Current Visit: Yes Status: Chronic Assessment and Plan: 1. Hold Metformin. 2. Will order SSI and monitor glucose before meals at bedtime adjust sliding scale accordingly (4) Leg pain, medial Current Visit: Yes Status: Acute Assessment and Plan: 1. Will order CT abdomen/pelvis. 2. Pain control as necessary. 3. Consult orthopedics and oncology. 11/13 CT abdomen/pelvis 11/12/2018 MPRESSION: 1. No significant interval change compared to recent CT examination. 2. Redemonstration of retroperitoneal/bilateral periaortic lymphadenopathy. 3. Stable nonspecific perinephric stranding and fluid. 4. Stable chronic findings including bilateral nephrolithiasis. -Pain currently controlled -Orthopedics consulted and appreciate recommendation -Oncology consulted and appreciate recommendations -Venous duplex completed preliminary note possible superficial venous thrombosis to the left lower extremity but no DVT. Awaiting final physician review- oncology recommending possible anticoagulation depending on location SPT results of final physician review-continue with current prophylactic heparin subcu taneous -We will obtain MRI of hip 11/14 Patient continues to experience pain we will add Toradol as well as lidocaine patch warm compresses and muscle relaxers MRI of left hip was completed it does not show any fractures significant edema in the soft tissues about the left hip including within the left adductor, gluteal, and proximal vastus musculature. The differential includes strains versus myositis versus acute denervation. No drainable fluid collection identified. -Venous duplex completed preliminary note possible superficial venous thrombosis to the left lower extremity but no DVT. Awaiting final physician review- oncology recommending possible anticoagulation depending on location SPT results of final physician review-continue with current prophylactic heparin subcutaneous 11/15 Total has improved patient's pain however he has had a drop in his blood pressure we will hold that for now and discontinue with lidocaine patch warm com presses and muscle relaxers Venous duplex completed positive for SVT and left lower extremity oncology has been consulted and recommending heparin drip until discharge He has been evaluated by PT OT and will be placed in rehabilitation upon discharge-currently awaiting approval 11/17 Pain is improving we will continue with muscle relaxers they do not seem to drop his blood pressure is much and help with his pain He is to go to an ECF for rehabilitation upon discharge awaiting insurance auth Continue with PT OT 11/18 Pain is improving we will continue with muscle relaxers he will go to rehabilitation once insurance authorized Continue PT and OT (5) Acute deep vein thrombosis (DVT) of left lower extremity Current Visit: Yes Status: Acute Assessment and Plan: History of CLL lower extremity duplex appears negative for DVT however positive for SVT and left lower extremity Oncology at been consulted and is recommending heparin drip until discharge, and transition to Xarelto 20 mg daily for 45 days as outpatient he will then be transitioned to aspirin and follow up at cancer Center. He will follow-up with Dr. Shania Olivarez [facility] 14 days after discharge. 11/17 Reviewed the case with Dr. Clark- patient did have a drop in his platelets on heparin so we will transition to Xarelto today-he will continue 15 mg twice a day 2 days and then transitioned to Xarelto 20 mg daily on Sunday He will follow-up with Dr. Shania Olivarez [facility] 14 days after discharge. 11/18 Initiated on Xarelto he will continue 50 mg twice a day and transition to 20 mg on Sunday (6) Hyponatremia Current Visit: Yes Status: Acute Assessment and Plan: Sodium 1:30 today does not appear to have any neurological changes this appears to be chronic at times-we will place on a fluid restriction Obtain random a.m. cortisol 11/17 appears to slowly be improving continue fluid restriction 11/18 Continue fluid restriction - Time Spent with Patient Total time spent is greater than 50% in coordination of care (as documented) at patient's floor/unit and/or counseling patient: Internal Medicine: Result - Labs CBC & Chem 7: 11/18/18 01:08 11/18/18 01:08 Labs: Short CBC 11/18/18 Range/Units 01:08 WBC 11.5 H (4.3-11.1) K/mcL Hgb 8.4 L (12.9-16.9) g/dL Hct 25.8 L (37.5-50.1) % Plt Count 149 (140-400) K/mcL Neutrophils # 9.3 H (1.6-8.9) K/mcL BMP 11/18/18 01:08 Sodium 131 L Potassium 3.9 Chloride 91 L Carbon Dioxide 31 H BUN 9 Creatinine 0.62 L Glucose 136 H Calcium 8.3 L - ABG Interpretation ABG results: PT/INR, D-dimer PT 15.5 Seconds (9.4-12.1) H 11/15/18 16:06 Consult Discharge Plan - Plan Referrals: Liyah Lopez, DIESEL MACHINIST [Primary Care Provider] - (Appointment has been requested) (3) Type 2 diabetes mellitus Qualifiers: Diabetes mellitus custodial insulin use: without custodial use Diabetes mellitus complication status: without complication Qualified Code(s): E11.9 - Type 2 diabetes mellitus without complications (4) Leg pain, medial Qualifiers: Laterality: left Qualified Code(s): M79.605 - Pain in left leg (5) Acute deep vein thrombosis (DVT) of left lower extremity Qualifiers: Affected thrombotic vein of extremity: other lower extremity vein Qualified Code(s): I82.492 - Acute embolism and thrombosis of other specified deep vein of left lower extremity
[2018-11-18] MEDS: Acetaminophen 325 MG TABLET PO PRN (20:32)
[2018-11-19] MEDS: *HR* HYDROcodone/Acet 5/325 mg TABLET PO PRN ×4 (01:30→22:03)
[2018-11-19 02:40] LABS: Hematocrit 22.7 % (37.5-50.1); Hemoglobin 7.6 g/dL (12.9-16.9); Mean Corpuscular HGB Conc 33.5 g/dL (31.6-35.5); Mean Corpuscular Hemoglobin 30.4 pg (28.0-33.3); Mean Corpuscular Volume 90.8 fL (83.0-100.0); Mean Platelet Volume 9.8 fL (9.4-12.4); Platelet Count 138 K/mcL (140-400); Red Cell Distribution Width 14.2 % (11.5-14.5); White Blood Count 12.7 K/mcL (4.3-11.1)
[2018-11-19 02:59] LABS: BUN/Creatinine Ratio 20 (6-26); Blood Urea Nitrogen 12 mg/dL (6-20); Calcium 8.2 mg/dL (8.6-10.3); Carbon Dioxide 32 mEq/L (23-29); Chloride 90 mEq/L (98-107); Glucose 162 mg/dL (70-105); Osmolality,Calculated 273 (280-300); Potassium 3.8 mEq/L (3.5-5.1); Sodium 130 mEq/L (136-145); eGFR For African Americans > 60 (> 60); eGFR For Non-African Americans > 60 (> 60)
[2018-11-19] MEDS: Levalbuterol Neb 1.25 MG/3 ML IH SCH ×4 (04:04→20:51)
[2018-11-19 04:14] LABS: Anisocytosis 1+ (Not Present); Lymphocytes # 1.5 K/mcL (0.6-4.6); Monocytes # 0.5 K/mcL (0.0-1.3); Neutrophils # 10.7 K/mcL (1.6-8.9); Platelet Estimate Normal (Normal)
[2018-11-19] MEDS ORDERED: Furosemide 20 MG/2 ML VIAL IVP ONE (08:24)
[2018-11-19] MEDS: Insulin LISPRO 300 UNITS/3 ML VIAL SQ SCH ×3 (09:18→17:00)
[2018-11-19] MEDS: Aspirin Enteric Coated 81 MG Tablet PO SCH (09:22)
[2018-11-19] MEDS: Gabapentin 300 MG CAPSULE PO SCH ×3 (09:23→19:34)
[2018-11-19] MEDS: levETIRAcetam 250 MG TABLET PO SCH (09:23)
[2018-11-19] MEDS: Ascorbic Acid 500 MG TABLET PO SCH (09:23)
[2018-11-19] MEDS: *HR* Rivaroxaban 15 MG TABLET PO SCH ×2 (09:23→19:36)
[2018-11-19] MEDS: Folic Acid 1 MG TABLET PO SCH (09:23)
[2018-11-19 11:16] LABS: Hematocrit 24.2 % (37.5-50.1); Hemoglobin 7.9 g/dL (12.9-16.9)
--- NOTE | 2018-11-19 11:43 | Internal Med Progress Note ---
Hospitalist Progress Note - Encounter Date of Encounter: 11/19/18 Time of Encounter: 11:40 - Subjective Interval History: Patient was seen and examined at bedside updated patient and sister who is at bedside concerning treatment plan. Sr. voices concern the patient is not eating well and that he has been lethargic today. Also reviewed with the nursing staff concerned about respiratory state requiring more oxygen. We will obtain stat chest x-ray rule out pneumonia - Exam Vitals: Temp Pulse Resp BP Pulse Ox 98.6 F 101 16 105/66 98 11/19/18 07:19 11/19/18 07:19 11/19/18 10:59 11/19/18 07:19 11/19/18 10:59 Exam: Skin: Free of rash and discoloration. Eyes: Sclera is white. There is no discharge from eyes. ENMT: Oral/pharyngeal mucosa is normal in appearance. There is no discharge from nose or ears. Respiratory: Normal breath sounds with no crackles and wheezes bilaterally. CV: Heart is regular with no gallop or murmur. GI: Abdomen is flat and soft with no palpable mass or visceromegaly. : There is no tenderness in patient's flanks bilaterally. Neuro exam: He has good strength in upper and lower extremities. He has normal eye movements. Psychiatric: He has normal affect. His thought process is appropriate to the situation. Musculoskeletal-patient's left leg is drawn he is unable to straighten there is resistance -externally rotated - Assessment and Plan (1) CLL (chronic lymphocytic leukemia) Current Visit: Yes Status: Chronic Assessment and Plan: 1. Per patient, CLL in remission. 2. Resume home meds as appropriate. 3. Consult HEM/ONC for assistance and guidance. 11/13 History of stage IV CLL-no palpable lymphadenopathy Hematology/oncology consulted and appreciate recommendations 11/08/18 CT chest 1. No pathologically enlarged lymphadenopathy within the chest or mediastinum to suggest lymphoma recurrence. 2. New mild splenomegaly and mild bilateral retroperitoneal lymphadenopathy, most consistent with CLL recurrence. 3. New nonspecific mild bilateral retroperitoneal and perinephric stranding and fluid of unknown cause, possibly secondary to the patient's active CLL. No walled-off fluid collection or abscess is seen. 4. Stable subpleural curvilinear irregular opacities within the right lower lobe, unchanged from prior studies, most likely representing chronic atelectasis, parenchymal scar, or possibly recurrent aspiration. 5. Bilateral nonobstructing nephrolithiasis, without evidence of a ureteral calculus or hydronephrosis. 11/14 Patient will follow up with oncology as outpatient 11/15 Follow up with oncology as outpatient -with Dr. Cabrera [facility] in 14 days after discharge 11/17 Follow up with oncology as outpatient -with Dr. Cabrera [facility] in 14 days after discharge 11/18 He will follow-up with oncology as outpatient 11/18 ONCOLOGY OUTPATIENT-with Dr. Cabrera Juanis [facility] in 14 days after discharge (2) DVT prophylaxis Current Visit: Yes Status: Acute Assessment and Plan: 1. Xarelto (3) Type 2 diabetes mellitus Current Visit: Yes Status: Chronic Assessment and Plan: 1. Hold Metformin. 2. Will order SSI and monitor glucose before meals at bedtime adjust sliding scale accordingly (4) Leg pain, medial Current Visit: Yes Status: Acute Assessment and Plan: 1. Will order CT abdomen/pelvis. 2. Pain control as necessary. 3. Consult orthopedics and oncology. 11/13 CT abdomen/pelvis 11/12/2018 MPRESSION: 1. No significant interval change compared to recent CT examination. 2. Redemonstration of retroperitoneal/bilateral periaortic lymphadenopathy. 3. Stable nonspecific perinephric stranding and fluid. 4. Stable chronic findings including bilateral nephrolithiasis. -Pain currently controlled -Orthopedics consulted and appreciate recommendation -Oncology consulted and appreciate recommendations -Venous duplex completed preliminary note possible superficial venous thrombosis to the left lower extremity but no DVT. Awaiting final physician review- oncology recommending possible anticoagulation depending on location SPT results of final physician review-continue with current prophylactic heparin subcutaneous -We will obtain MRI of hip 11/14 Patient continues to experience pain we will add Toradol as well as lidocaine patch warm compresses and muscle relaxers MRI of left hip was completed it does not show any fractures significant edema in the soft tissues about the left hip including within the left adductor, gluteal, and proximal vastus musculature. The differential includes strains versus myositis versus acute denervation. No drainable fluid collection identified. -Venous duplex completed preliminary note possible superficial venous thrombosis to the left lower extremity but no DVT. Awaiting final physician review- oncology recommending possible anticoagulation depending on location SPT results of final physician review-continue with current prophylactic heparin subcutaneous 8/30 Total has improved patient's pain however he has had a drop in his blood pressure we will hold that for now and discontinue with lidocaine patch warm compresses and muscle relaxers Venous duplex completed positive for SVT and left lower extremity oncology has been consulted and recommending heparin drip until discharge He has been evaluated by PT OT and will be placed in rehabilitation upon discharge-currently awaiting approval 11/17 Pain is improving we will continue with muscle relaxers they do not seem to drop his blood pressure is much and help with his pain He is to go to an F for rehabilitation upon discharge awaiting insurance auth Continue with PT OT 11/18 Pain is improving we will continue with muscle relaxers he will go to rehabilitation once insurance authorized Continue PT and OT 11/19 -Patient does have a history of left-sided weakness secondary to previous CVA apparently he does have history of spasms in this leg so we will continue with the muscle relaxers. He states that he does move around at home with a cane and he also uses a wheelchair-continue PT and OT Pain improving with muscle relaxers he will go to rehabilitation once insurance authorized (5) Acute deep vein thrombosis (DVT) of left lower extremity Current Visit: Yes Status: Acute Assessment and Plan: History of CLL lower extremity duplex appears negative for DVT however positive for SVT and left lower extremity Oncology at been consulted and is recommending heparin drip until discharge, and transition to Xarelto 20 mg daily for 45 days as outpatient he will then be transitioned to aspirin and follow up at cancer Center. He will follow-up with Dr. Shania Olivarez [facility] 14 days after discharge. 11/17 Reviewed the case with Dr. Clark- patient did have a drop in his platelets on heparin so we will transition to Xarelto today-he will continue 15 mg twice a day 2 days and then transitioned to Xarelto 20 mg daily on Sunday He will follow-up with Dr. Jauregui Juanis [facility] 14 days after discharge. 11/18 Initiated on Xarelto he will continue 15 mg twice a day and transition to 20 mg on Sunday 11/19 Transition to 20 mg on Xarelto daily for 45 days as outpatient and then transition to aspirin (6) Hyponatremia Current Visit: Yes Status: Acute Assessment and Plan: Sodium 1:30 today does not appear to have any neurological changes this appears to be chronic at times-we will place on a fluid restriction Obtain random a.m. cortisol 11/17 appears to slowly be improving continue fluid restriction 11/18 Continue fluid restriction 11/19 Continue fluid restriction as well as a dose of Lasix and monitor closely - Time Spent with Patient Total time spent is greater than 50% in coordination of care (as documented) at patient's floor/unit and/or counseling patient: Internal Medicine: Result - Labs CBC & Chem 7: 11/19/18 10:50 11/19/18 02:08 Labs: Short CBC 11/19/18 11/19/18 Range/Units 02:08 10:50 WBC 12.7 H (4.3-11.1) K/mcL Hgb 7.6 L 7.9 L (12.9-16.9) g/dL Hct 22.7 L 24.2 L (37.5-50.1) % Plt Count 138 L (140-400) K/mcL Neutrophils # 10.7 H (1.6-8.9) K/mcL BMP 11/19/18 02:08 Sodium 130 L Potassium 3.8 Chloride 90 L Carbon Dioxide 32 H BUN 12 Creatinine 0.60 L Glucose 162 H Calcium 8.2 L - ABG Interpretation ABG results: PT/INR, D-dimer PT 15.5 Seconds (9.4-12.1) H 11/15/18 16:06 Consult Discharge Plan - Plan Referrals: Liyah Lopez, DEVELOPMENTAL SERVICES WORKER [Primary Care Provider] - (Appointment has been requested) (3) Type 2 diabetes mellitus Qualifiers: Diabetes mellitus dedicated intermodal truck driver insulin use: without dedicated intermodal truck driver use Diabetes mellitus complication status: without complication Qualified Code(s): E11.9 - Type 2 diabetes mellitus without complications (4) Leg pain, medial Qualifiers: Laterality: left Qualified Code(s): M79.605 - Pain in left leg (5) Acute deep vein thrombosis (DVT) of left lower extremity Qualifiers: Affected thrombotic vein of extremity: other lower extremity vein Qualified Code(s): I82.492 - Acute embolism and thrombosis of other specified deep vein of left lower extremity
[2018-11-19 18:15] LABS: Hematocrit 26.9 % (37.5-50.1)
[2018-11-19] MEDS: levoFLOXacin 500 MG/100 ML 500 MG/100 ML BAG IVPB SCH (19:32)
[2018-11-19] MEDS: Acetaminophen 325 MG TABLET PO PRN (19:35)
[2018-11-19 23:26] LABS: Hematocrit 22.8 % (37.5-50.1); Hemoglobin 7.4 g/dL (12.9-16.9)
[2018-11-20] MEDS: Levalbuterol Neb 1.25 MG/3 ML IH SCH ×4 (03:38→22:15)
[2018-11-20] MEDS: *HR* HYDROcodone/Acet 5/325 mg TABLET PO PRN ×2 (05:12→12:48)
[2018-11-20 05:25] LABS: Eosinophils % 0.1 %; Hematocrit 22.3 % (37.5-50.1); Hemoglobin 7.6 g/dL (12.9-16.9); Immature Granulocytes % 1.2 % (0-4); Lymphocytes % 16.1 %; Mean Corpuscular HGB Conc 34.1 g/dL (31.6-35.5); Mean Corpuscular Hemoglobin 30.2 pg (28.0-33.3); Mean Corpuscular Volume 88.5 fL (83.0-100.0); Mean Platelet Volume 10.5 fL (9.4-12.4); Monocytes % 1.9 %; Platelet Count 134 K/mcL (140-400); Red Blood Count 2.52 M/mcL (4.19-5.50); Red Cell Distribution Width 14.4 % (11.5-14.5); Segmented Neutrophils % 80.6 %; White Blood Count 11.6 K/mcL (4.3-11.1)
[2018-11-20 05:26] LABS: Basophils % 0.1 %; Lymphocytes # 1.9 K/mcL (0.6-4.6); Monocytes # 0.2 K/mcL (0.0-1.3); Neutrophils # 9.4 K/mcL (1.6-8.9)
[2018-11-20 05:29] LABS: BUN/Creatinine Ratio 25 (6-26); Blood Urea Nitrogen 17 mg/dL (6-20); Calcium 8.1 mg/dL (8.6-10.3); Carbon Dioxide 30 mEq/L (23-29); Chloride 90 mEq/L (98-107); Glucose 172 mg/dL (70-105); Osmolality,Calculated 274 (280-300); Potassium 4.6 mEq/L (3.5-5.1); Sodium 129 mEq/L (136-145); eGFR For African Americans > 60 (> 60); eGFR For Non-African Americans > 60 (> 60)
[2018-11-20 05:53] LABS: Burr Cells 1+ (Not Present)
[2018-11-20 05:54] LABS: Platelet Estimate Decreased (Normal)
[2018-11-20] MEDS: Acetaminophen 325 MG TABLET PO PRN (08:57)
[2018-11-20] MEDS: tiZANidine 4 MG TABLET PO PRN (08:57)
[2018-11-20 08:58] LABS: Bilirubin,Urine Negative (Negative); Blood,Urine Negative (Negative); Clarity,Urine Clear (Clear); Color,Urine Yellow (Yellow); Glucose,Urine (UA) Normal (Normal); Ketones,Urine Negative (Negative); Leukocyte Esterase,Urine Negative (Negative); Nitrite,Urine Negative (Negative); Protein,Urine 100 mg/dL (Neg-Trace); Specific Gravity,Urine 1.021 (1.010-1.025); Urobilinogen,Urine Normal (Normal)
[2018-11-20] MEDS: Aspirin Enteric Coated 81 MG Tablet PO SCH (08:58)
[2018-11-20] MEDS: Gabapentin 300 MG CAPSULE PO SCH ×3 (08:58→22:00)
[2018-11-20] MEDS: levETIRAcetam 250 MG TABLET PO SCH (08:59)
[2018-11-20] MEDS: *HR* Rivaroxaban 15 MG TABLET PO SCH (08:59)
[2018-11-20] MEDS: Ascorbic Acid 500 MG TABLET PO SCH (08:59)
[2018-11-20] MEDS: Folic Acid 1 MG TABLET PO SCH (08:59)
[2018-11-20] MEDS: levoFLOXacin 500 MG/100 ML 500 MG/100 ML BAG IVPB SCH (09:00)
[2018-11-20] MEDS: Insulin LISPRO 300 UNITS/3 ML VIAL SQ SCH ×3 (09:00→16:29)
[2018-11-20 09:04] LABS: Hyaline Casts,Urine None Seen per lpf (None-Few); RBC,Urine 0-3 per hpf (0-3); Squamous Epithelial Cell,Urine Many per lpf (None-Few)
[2018-11-20 09:20] LABS: Bacteria,Urine Few per hpf (None-Few)
[2018-11-20] MEDS ORDERED: 0.9 % Sodium Chloride 1,000 ML IVC SCH (12:00)
[2018-11-20 12:22] LABS: Enterococcus by PCR Not Detected (Not Detect); Staphylococcus aureus by PCR Not Detected (Not Detect); Staphylococcus by PCR Not Detected (Not Detect)
[2018-11-20 12:23] LABS: Acinetobacter baumannii by PCR Not Detected (Not Detect); Candida albicans by PCR Not Detected (Not Detect); Candida glabrata by PCR Not Detected (Not Detect); Candida krusei by PCR Not Detected (Not Detect); Candida parapsilosis by PCR Not Detected (Not Detect); Candida tropicalis by PCR Not Detected (Not Detect); Enterobacter cloacae Cmplx PCR Not Detected (Not Detect); Enterobacteriaceae by PCR Not Detected (Not Detect); Escherichia coli by PCR Not Detected (Not Detect); Klebsiella oxytoca by PCR Not Detected (Not Detect); Klebsiella pneumoniae by PCR Not Detected (Not Detect); Proteus by PCR Not Detected (Not Detect); Pseudomonas aeruginosa by PCR Not Detected (Not Detect); Serratia marcescens by PCR Not Detected (Not Detect); Streptococcus agalactiae(B)PCR Not Detected (Not Detect); Streptococcus pneumoniae PCR DETECTED (Not Detect); Streptococcus pyogenes (A) PCR Not Detected (Not Detect)
--- NOTE | 2018-11-20 15:34 | Internal Med Progress Note ---
Hospitalist Progress Note - Encounter Date of Encounter: 11/20/18 Time of Encounter: 09:00 - Subjective Interval History: Mr. Mcleod is a 58 year old male with known PMH of HTN, HLD and stage 4 CLL who presented to ER with 4 days history of left groin and pelvic pain unable to bear weight. His venous Doppler showed no acute DVT however he does have thrombosis in left lesser saphenous vein. He was started on heparin drip initially. Heme oncology had evaluated the patient who recommended to treat him with Xarleto 20 mg daily for 45 days due to his high risk for thrombosis with underline CLL. Since yesterday patient has been having fever with chills and tachycardia. He also complained about shortness of breath and cough with expectoration. He l ooks very diaphoretic. He is also very weak and lethargic. Currently he is on 2 L oxygen through nasal cannula. His CXR from last night showed LLL PNA. - Exam Vitals: Temp Pulse Resp BP Pulse Ox 98.3 F 92 15 105/68 97 11/20/18 14:59 11/20/18 14:59 11/20/18 14:59 11/20/18 14:59 11/20/18 14:59 Exam: Gen: Alert, awake, Oriented to time,place and person looks very weak and lethargic Chest: Diminished breath sounds B/L, No wheezing, No crackles, No rales Heart: S1S2+ tachycardia, no murmurs Abd: Soft, NT, BS +, No organomegaly Ext: No edema, pulses are palpable, No calf tenderness Neuro : No acute focal neuro deficits noticed Skin: No rash. - Assessment and Plan (1) Sepsis Current Visit: Yes Status: Acute Assessment and Plan: Does meet sepsis criteria with sinus tachycardia, fever and source of infection as pneumonia his blood culture 1/2 came back as positive for possible step pneumonia continue empirical antibiotic IV levofloxacin also added IV Rocephin to broaden the coverage (2) Bacteremia Current Visit: Yes Status: Acute Assessment and Plan: as above (3) Pneumonia Current Visit: No Status: Acute Assessment and Plan: Mostly bacterial continue Levofloxacin and added Rocephin will check sputum cx and strep PNA and Legionella He does have acute hypoxic respiratory failure Cont Duoneb (4) Acute superficial venous thrombosis of left lower extremity Current Visit: Yes Status: Acute Assessment and Plan: Reviewed venous Doppler showed Left Leg lesser saphenous vein thrombosis Reviewed Heme Onc notes recommended to place him on Xarelto 20mg Daily for 45 days since it is SVT and he is high risk pt. (5) Hyponatremia Current Visit: Yes Status: Acute Assessment and Plan: Probably due to dehydration started him on gentle IV hydration Cont close monitoring started him on sodium tablets (6) CLL (chronic lymphocytic leukemia) Current Visit: Yes Status: Chronic Assessment and Plan: Hb @ 7.4, Stable platelets @ 134 Cont f.u with Heme Onc as an out pt (7) DVT prophylaxis Current Visit: Yes Status: Acute Assessment and Plan: on Xarelto (8) Type 2 diabetes mellitus Current Visit: Yes Status: Chronic Assessment and Plan: On ADA diet on ISS @ low dose (9) Leg pain, medial Current Visit: Yes Status: Acute Assessment and Plan: 1. Will order CT abdomen/pelvis. 2. Pain control as necessary. 3. Consult orthopedics and oncology. 11/13 Due to SVT @ Left leg lesser saphenous vein continue anti coagulation PT / OT eval may need ECF placement - Time Spent with Patient Total time spent is greater than 50% in coordination of care (as documented) at patient's floor/unit and/or counseling patient: Internal Medicine: Result - Labs CBC & Chem 7: 11/20/18 04:36 11/20/18 04:36 Labs: Short CBC 11/19/18 11/19/18 11/20/18 Range/Units 17:38 23:08 04:36 WBC 11.6 H (4.3-11.1) K/mcL Hgb 9.0 L 7.4 L D 7.6 L (12.9-16.9) g/dL Hct 26.9 L 22.8 L 22.3 L (37.5-50.1) % Plt Count 134 L (140-400) K/mcL Neutrophils # 9.4 H (1.6-8.9) K/mcL BMP 11/20/18 04:36 Sodium 129 L Potassium 4.6 Chloride 90 L Carbon Dioxide 30 H BUN 17 Creatinine 0.69 L Glucose 172 H Calcium 8.1 L Urine 11/20/18 Range/Units 08:43 Urine Color Yellow (Yellow) Urine Clarity Clear (Clear) Urine pH 6.0 (5.0-8.0) pH Units Ur Specific [place] 1.021 (1.010-1.025) Urine Protein 100 H (Neg-Trace) mg/dL Urine Glucose (UA) Normal (Normal) mg/dL - ABG Interpretation ABG results: PT/INR, D-dimer PT 15.5 Seconds (9.4-12.1) H 11/15/18 16:06 - Impressions Impressions Chest X-Ray 11/19/18 12:35 IMPRESSION: Left lower lobe infiltrate suspicious for pneumonia. New bilateral atelectasis, with associated low lung volumes. There Is air filled dilation of multiple bowel loops, partially imaged. Correlate for any clinical evidence to suggest ileus or obstruction. D/ / Santo Toledo MD / Santo Toledo MD Interpreting Provider: Santo Toledo MD Consult Discharge Plan - Plan Referrals: Liyah Lopez, EXHIBITION SPECIALIST [Primary Care Provider] - (Appointment has been requested) (3) Pneumonia Qualifiers: Pneumonia type: due to unspecified organism Laterality: left Lung location: unspecified part of lung Qualified Code(s): J18.9 - Pneumonia, unspecified organism (8) Type 2 diabetes mellitus Qualifiers: Diabetes mellitus penitentiary insulin use: without web production designer use Diabetes mellitus complication status: without complication Qualified Code(s): E11.9 - Type 2 diabetes mellitus without complications (9) Leg pain, medial Qualifiers: Laterality: left Qualified Code(s): M79.605 - Pain in left leg
[2018-11-20] MEDS ORDERED: cefTRIAXone 2,000 MG in Water for inj. (sterile) 20 ML IVP SCH (16:00)
[2018-11-20] MEDS: *HR* Rivaroxaban 10 MG TABLET PO SCH (16:28)
[2018-11-20] MEDS ORDERED: *HR* Rivaroxaban 10 MG TABLET PO SCH (17:00)
[2018-11-20 19:52] LABS: BUN/Creatinine Ratio 28 (6-26); Blood Urea Nitrogen 19 mg/dL (6-20); Carbon Dioxide 33 mEq/L (23-29); Chloride 91 mEq/L (98-107); Glucose 112 mg/dL (70-105); Magnesium 1.9 mg/dL (1.6-2.6); Osmolality,Calculated 275 (280-300); Potassium 4.1 mEq/L (3.5-5.1); Sodium 131 mEq/L (136-145); eGFR For African Americans > 60 (> 60); eGFR For Non-African Americans > 60 (> 60)
[2018-11-20] MEDS ORDERED: *HR* Rivaroxaban 15 MG TABLET PO SCH (21:00)
[2018-11-21] MEDS: *HR* HYDROcodone/Acet 5/325 mg TABLET PO PRN ×4 (00:17→21:57)
[2018-11-21] MEDS: Levalbuterol Neb 1.25 MG/3 ML IH SCH ×4 (04:25→22:12)
[2018-11-21 04:37] LABS: Hemoglobin 7.1 g/dL (12.9-16.9); Mean Corpuscular HGB Conc 32.3 g/dL (31.6-35.5); Mean Corpuscular Hemoglobin 29.2 pg (28.0-33.3); Mean Corpuscular Volume 90.5 fL (83.0-100.0); Mean Platelet Volume 10.2 fL (9.4-12.4); Platelet Count 134 K/mcL (140-400); Red Blood Count 2.43 M/mcL (4.19-5.50); Red Cell Distribution Width 14.5 % (11.5-14.5); White Blood Count 9.4 K/mcL (4.3-11.1)
[2018-11-21 05:00] LABS: BUN/Creatinine Ratio 29 (6-26); Blood Urea Nitrogen 19 mg/dL (6-20); Calcium 7.7 mg/dL (8.6-10.3); Carbon Dioxide 31 mEq/L (23-29); Chloride 93 mEq/L (98-107); Glucose 117 mg/dL (70-105); Osmolality,Calculated 277 (280-300); Potassium 4.3 mEq/L (3.5-5.1); Sodium 132 mEq/L (136-145); eGFR For African Americans > 60 (> 60); eGFR For Non-African Americans > 60 (> 60)
[2018-11-21] MEDS ORDERED: 0.9 % Sodium Chloride 250 ML IVC SCH (08:00)
[2018-11-21] MEDS ORDERED: levoFLOXacin 750 MG/150 ML 750 MG/150 ML BAG IVPB SCH (09:00)
[2018-11-21] MEDS: Insulin LISPRO 300 UNITS/3 ML VIAL SQ SCH ×3 (09:00→15:59)
[2018-11-21] MEDS: levETIRAcetam 250 MG TABLET PO SCH (09:06)
[2018-11-21] MEDS: Gabapentin 300 MG CAPSULE PO SCH ×3 (09:06→20:14)
[2018-11-21] MEDS: Folic Acid 1 MG TABLET PO SCH (09:07)
[2018-11-21] MEDS: Aspirin Enteric Coated 81 MG Tablet PO SCH (09:07)
[2018-11-21] MEDS: cefTRIAXone 2,000 MG in 0.9 % Sodium Chloride Mini Bag 100 ML IVPB SCH (09:08)
[2018-11-21] MEDS ORDERED: 0.9 % Sodium Chloride 250 ML ONE (10:04)
--- NOTE | 2018-11-21 10:24 | Gastroenterology Consult Note ---
<Kashif Madera - Last Filed: 11/21/18 10:22> Date of Encounter: 11/21/18 Time of Encounter: 09:30 - Assessment and plan (1) Anemia Current Visit: Yes Status: Acute Assessment and plan: On 09/05/2018 Hgb 12.9. On admission Hgb 10.6 and today Hgb 7.1. Continue to monitor CBC and transfuse PRBC as needed. No melena or hematochezia noted. Plan for EGD and colonoscopy tomorrow. Clear liquid diet today, no red or purple. NPO at midnight. If unable tolerate NuLytely please use MiraLAX prep. If not clear by 6 AM, give 2 tap water enemas. Qualifiers: Anemia type: unspecified type Qualified Code(s): D64.9 - Anemia, unspecified (2) Acute superficial venous thrombosis of left lower extremity Current Visit: Yes Status: Acute (3) CLL (chronic lymphocytic leukemia) Current Visit: Yes Status: Chronic - Time Spent With Patient Total time spent is greater than 50% in coordination of care (as documented) at patient's floor/unit and/or counseling patient: GI History of Present Illness - Data of Consult Patient: new to practice Consult date: 11/21/18 Requesting Physician: Vipul Gonzalez MD - Consult Narrative Reason for consult: Anemia History of present illness: Mr. Mcleod is a 58 year old male with PMHx of CLL, CVA, DM, HLD, presented to the emergency department with a 4-day history of left groin/pelvic pain and inability to bear weight due to increased pain. Muscle strain noted on MRI. Patient also found to have superficial venous thrombosis in the left lower extremity. We were consulted to evaluate his anemia. On 09/05/2018 Hgb 12.9. On admission Hgb 10.6 and today Hgb 7.1. He denies fever, chest pain, abdominal pain, nausea, vomiting, melena, or hematochezia. Procedures: EGD 10/28/2015 Dr. Lam: Positive for Witt's esophagus with no dysplasia, gastritis. EGD 08/02/2015 Dr. Guo: Duodenitis, gastritis. Colonoscopy 08/02/2015 Dr. Guo: Diverticulosis, 3 mm hyperplastic polyp. NSAIDs: ASA Anticoagulation: None Past Med Surg Social Fam HX - Past Medical History Medical history: cancer, CVA, diabetes, hyperlipidemia, seizures Additional medical history: CLL. Left sided weakness Psychiatric history: anxiety, depression - Past Surgical History Surgical History: appendectomy, orthopedic, other Additional surgical history: bilat CTR. Abcess removed from arm. EBUS. EGD - colonoscopy - Social History Smoking Status: Current every day smoker Smokeless Tobacco Status: Yes Alcohol use: none Drug use: marijuana - Family History Mother Living Status: Hx Family Endocrine Disorder: Yes (Diabetes) Father Living Status: Hx Family Cardiac Disorders: Yes Hx Family Respiratory Disorders: No Hx Family Cancer: Yes Hx Family GI Disorders: No Hx Family Endocrine Disorder: Yes Hx Family Neuromuscular Disorders: No Hx Family Neurologic Disorders: No Hx Family HEENT Disorders: No Hx Family Autoimmune Disorders: No - Gastrointestinal Gastrointestinal: Present: as per HPI - Constitutional Constitutional: as per HPI - EENT Eyes: as per HPI Ears: Present: as per HPI Nose, mouth and throat: Present: as per HPI - Cardiovascular Cardiovascular ROS: Present: as per HPI - Respiratory Respiratory IM: Present: as per HPI - Genitourinary Genitourinary: Absent: change in color, Urinary frequency - Neurological ROS Neurological GI: Present: as per HPI - Hematologic/Lymphatic Hematologic/Lymphatic pediatric: Present: as per HPI - Musculoskeletal Musculoskeletal ROS GI: Present: as per HPI - Integumentary Integumentary GI: Present: as per HPI - Psychiatric ROS Psychiatric GI: Present: as per HPI - Endocrine Endocrine IM: Present: as per HPI - Constitutional Vitals: Temp Pulse Resp BP Pulse Ox 98.1 F 103 18 119/68 98 11/21/18 06:57 11/21/18 06:57 11/21/18 10:18 11/21/18 06:57 11/21/18 10:18 General appearance: Present: cooperative, A&O X 3, no acute distress, answers questions appropriately - Head Head exam: Present: atraumatic, normocephalic - Eye Eye exam: Present: normal appearance, sclera anicteric - ENT ENT exam: Present: mucous membranes moist - Neck Neck exam general surgery: Present: normal inspection, trachea midline - Respiratory Respiratory exam: Present: decreased breath sounds, CTAB. Absent: rales, rhonchi - Cardiovascular Cardiovascular exam: Present: RRR, +S1, +S2 - GI/Abdominal GI/Abdominal exam: Present: soft, no peritoneal signs. Absent: distended, firm, guarding, tenderness - Rectal Rectal exam: Present: deferred - Extremities Exam Extremities exam: Present: warm - Neurological Exam Neurological exam: Present: no focal deficits - Psychiatric Psychiatric exam: Present: normal affect, normal mood - Skin Skin exam: Present: dry, intact, normal color, warm Results - Labs CBC & Chem 7: 11/21/18 04:22 11/21/18 04:22 Labs: Last Result 11/21/18 04:22 Calcium 7.7 L Entire Visit 11/21/18 04:22 Hgb 7.1 L Hct 22.0 L - ABG ABG results: PT/INR, D-dimer PT 15.5 Seconds (9.4-12.1) H 11/15/18 16:06 Consult Discharge Plan - Plan Referrals: Liyah Lopez, GLOBAL RECRUITER [Primary Care Provider] - (Appointment has been requested) <Myrtle Tolliver - Last Filed: 11/21/18 17:50> Date of Encounter: 11/21/18 Time of Encounter: 14:00 - Time Spent With Patient Total time spent is greater than 50% in coordination of care (as documented) at patient's floor/unit and/or counseling patient: GI History of Present Illness - Data of Consult Requesting Physician: Mika Bonilla MD - Consult Narrative History of present illness: Mr. Mcleod is a 58 year old male - Constitutional Vitals: Temp Pulse Resp BP Pulse Ox 98.1 F 94 15 141/80 100 11/21/18 15:46 11/21/18 15:46 11/21/18 15:46 11/21/18 15:46 11/21/18 15:46 Results - Labs CBC & Chem 7: 11/21/18 04:22 11/21/18 04:22 - ABG ABG results: PT/INR, D-dimer PT 15.5 Seconds (9.4-12.1) H 11/15/18 16:06 - Impressions Impressions Echocardiogram 11/21/18 07:54 Impressions: LVEF 60%. Normal LV chamber size, wall thickness and function. Mild left ventricular diastolic dysfunction. Normal right ventricular structure and function. Mild mitral regurgitation. Mild tricuspid regurgitation. No pulmonary hypertension. Inadequate images to evaluate for bacteremia. Consider JEREMY if clinically indicated. Left Ventricular Wall Motion: Rest Echo Findings All wall segments showed normal motion. Findings: Study Quality * Technically suboptimal study due to poor echocardiographic windows. ECG Findings * Normal sinus rhythm. Left Ventricle * LVEF 60%. * Normal LV chamber size, wall thickness and function. * Mild left ventricular diastolic dysfunction. Right Ventricle * Normal right ventricular structure and function. Left Atrium * Normal left atrial size. Right Atrium * Normal right atrial size. Interatrial Septum * Interatrial septum not well evaluated. Aortic Valve * Trileaflet aortic valve. * Mildly calcified aortic valve leaflets. * Trace aortic regurgitation. * No aortic stenosis. Mitral Valve * Mildly thickened mitral valve leaflets. * Mild mitral regurgitation. * No mitral stenosis. Tricuspid Valve * Tricuspid valve not well visualized. * Mild tricuspid regurgitation. * No pulmonary hypertension. Pulmonic Valve * Pulmonic valve is not well visualized. Aorta * Normally sized aortic root. Pericardium * The pericardium appears normal. IVC * Normal IVC dimensions and inspiratory collapse. Pulmonary Artery * Pulmonary artery not well visualized. - Attending Attestation I have personally performed a face to face evaluation on this patient. I have reviewed and agree with the care plan. History and Exam by me shows: Patient seen denies any overt GI bleeding on examination abdomen is soft. Assessment: Patient with anemia rule out GI causes. Recommendation: EGD colonoscopy in the morning
[2018-11-21] MEDS: *HR* Rivaroxaban 10 MG TABLET PO SCH (10:41)
[2018-11-21] MEDS: Ascorbic Acid 500 MG TABLET PO SCH (11:35)
--- NOTE | 2018-11-21 13:25 | Internal Med Progress Note ---
Hospitalist Progress Note - Encounter Date of Encounter: 11/21/18 Time of Encounter: 13:21 - Subjective Interval History: I have seen and evaluated the patient at bedside. Patient reported feeling better today, reported groin pain has improved. denies chest pain, shortness of breath or abdominal pain. - Exam Vitals: Temp Pulse Resp BP Pulse Ox 98.4 F 95 18 110/71 99 11/21/18 13:06 11/21/18 13:06 11/21/18 13:06 11/21/18 13:06 11/21/18 13:06 Exam: Vitals: Reviewed General: Alert and oriented x4. In no distress Cardiovascular: RRR, normal S1 & S2, no rubs, murmurs or gallops. Lungs: CTA b/l, no wheezes or crackles. Abdomen: Soft, non-tender, no rigidity. Extremities: 1+ edema on the left lower extr. strength is 2/5 in the left lower extr, 3/5 on the left upper ext. Neurological: Normal cognition Rest of the physical exam is non contributory - Assessment and Plan (1) CLL (chronic lymphocytic leukemia) Current Visit: Yes Status: Chronic (2) DVT prophylaxis Current Visit: Yes Status: Acute (3) Type 2 diabetes mellitus Current Visit: Yes Status: Chronic (4) Pneumonia Current Visit: No Status: Acute (5) Leg pain, medial Current Visit: Yes Status: Acute (6) Hyponatremia Current Visit: Yes Status: Acute (7) Sepsis Current Visit: Yes Status: Acute (8) Bacteremia Current Visit: Yes Status: Acute (9) Acute superficial venous thrombosis of left lower extremity Current Visit: Yes Status: Acute - Summary of Assessment and Plan Summary of Assessment and Plan: 8 year old male who presents to the ER [facility] with complaints of left groin/pelvic pain with inability to bear weight or walk. Assessment: 1. Sepsis (resolved) 2. Bacteremia 3. CLL 4. Pneumonia 5. DM 6. Anemia 7. Acute superficial Venous thrombosis of the left lower ext 8. Hx of CVA 9. Groin pain (resolved) 10. VTE prophylaxis Plan: patient with worsening anemia today, no active signs of bleeding - transfuse 1 unit of PRBCs - repeat cbc 1 hour post transfusion - c/w ferrous sulfate - GI consulted for anemia work up - will hold today's dose of xarelto due to drop in H&H - First set of blood culture 2 bottle: growing gram positive cocci, strep pneumonia per PRC - repeat blood culture - endocarditis unlikely. source of bacteremia pneumonia. - discontinue levofloxacin - continue ceftriaxone 2gm/IV daily - TTE ordered - Patient reported receiving his pneumonia vaccine in the past - sputum culture ordered - c/w aspirin, statin - continue with home dose of mood stabilizing medications Disposition: - Patient to remain in the hospital due to bacteremia. worsening anemia requiring blood transfusion. - Time Spent with Patient Total time spent is greater than 50% in coordination of care (as documented) at patient's floor/unit and/or counseling patient: Greater than 35 minutes (45) Plan of Care Discussed with: patient (and the nurse.) Internal Medicine: Result - Labs CBC & Chem 7: 11/21/18 04:22 11/21/18 04:22 Labs: Short CBC 11/21/18 Range/Units 04:22 WBC 9.4 (4.3-11.1) K/mcL Hgb 7.1 L (12.9-16.9) g/dL Hct 22.0 L (37.5-50.1) % Plt Count 134 L (140-400) K/mcL BMP 11/20/18 11/21/18 19:20 04:22 Sodium 131 L 132 L Potassium 4.1 4.3 Chloride 91 L 93 L Carbon Dioxide 33 H 31 H BUN 19 19 Creatinine 0.69 L 0.66 L Glucose 112 H 117 H Calcium 8.0 L 7.7 L - ABG Interpretation ABG results: PT/INR, D-dimer PT 15.5 Seconds (9.4-12.1) H 11/15/18 16:06 Consult Discharge Plan - Plan Referrals: Liyah Lpoez, ARTIST'S MANAGER [Primary Care Provider] - (Appointment has been requested) (3) Type 2 diabetes mellitus Qualifiers: Diabetes mellitus predatory animal exterminator insulin use: without predatory animal exterminator use Diabetes mellitus complication status: without complication Qualified Code(s): E11.9 - Type 2 diabetes mellitus without complications (4) Pneumonia Qualifiers: Pneumonia type: due to unspecified organism Laterality: left Lung location: unspecified part of lung Qualified Code(s): J18.9 - Pneumonia, unspecified o rganism (5) Leg pain, medial Qualifiers: Laterality: left Qualified Code(s): M79.605 - Pain in left leg
[2018-11-21] MEDS ORDERED: SODIUM CHLORIDE/NAHCO3/KCL/PEG 4,000 ML SOLN.RECON PO ONE (17:00)
[2018-11-21] MEDS: tiZANidine 4 MG TABLET PO PRN (17:07)
[2018-11-21 17:40] LABS: Hematocrit 23.6 % (37.5-50.1); Hemoglobin 7.9 g/dL (12.9-16.9); Immature Granulocytes % 1.3 % (0-4); Lymphocytes # 2.1 K/mcL (0.6-4.6); Lymphocytes % 24.7 %; Mean Corpuscular HGB Conc 33.5 g/dL (31.6-35.5); Mean Corpuscular Hemoglobin 29.7 pg (28.0-33.3); Mean Corpuscular Volume 88.7 fL (83.0-100.0); Mean Platelet Volume 10.7 fL (9.4-12.4); Monocytes # 0.2 K/mcL (0.0-1.3); Monocytes % 2.1 %; Neutrophils # 6.1 K/mcL (1.6-8.9); Platelet Count 140 K/mcL (140-400); Red Blood Count 2.66 M/mcL (4.19-5.50); Red Cell Distribution Width 14.7 % (11.5-14.5); Segmented Neutrophils % 71.9 %; White Blood Count 8.5 K/mcL (4.3-11.1)
--- NOTE | 2018-11-21 17:42 | Anesthesia Evaluation PreOp ---
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 MECHANIC History: Seizures (1 seizure after his CVA, on Keppra), CVA (2014, residual left sided weakness) Other Medical History: Diabetes Type II, GERD, Other (CLL S/P chemo) Anesthesia History: No Prior Anesthetic Complications, Past Anesthesia Alcohol Use: none Drug use: marijuana Medications and Allergies Aspirin [Adult Low Dose Aspirin EC] 81 mg PO DAILY 02/15/15 [History] Atorvastatin Calcium [Lipitor] 80 mg PO HS 02/15/15 [History] Citalopram [CeleXA] 40 mg PO DAILY 02/15/15 [History] Gabapentin [Neurontin] 600 mg PO TID 02/15/15 [History] LevETIRAcetam [Keppra] 500 mg PO DAILY 02/15/15 [History] Metformin [Glucophage] 850 mg PO BID 02/15/15 [History] TraZODone 50 mg PO HS PRN 02/15/15 [History] Tamsulosin [Flomax] 0.8 mg PO DAILY 08/02/15 [History] Folic Acid 1 mg PO DAILY #30 tablet 06/29/16 [Rx] Ascorbic Acid [Vitamin C] 500 mg PO DAILY #30 tablet 05/06/18 [Rx] Ferrous Sulfate [Iron] 325 mg PO DAILY #30 tablet 05/06/18 [Rx] Omeprazole [PriLOSEC] 40 mg PO BID 11/11/18 [History] OxyCODONE/APAP 5/325 [Percocet 5/325 MG] 1 tab PO DAILY PRN 11/12/18 [History] Allergy/AdvReac Type Severity Reaction Status Date / Time Penicillins [PCN] Allergy Rash Verified 11/12/18 14:12 - Meds/Allergy Pre-op Review Medications Reviewed: Yes Allergies Reviewed: Yes Beta Blockers on Current Med List: No Anesthesia Results - Labs 11/21/18 16:55 11/21/18 04:22 - Imaging EKG: report reviewed (06/24/2016 SINUS RHYTHM) Chest x-ray: report reviewed (11/19/2018 IMPRESSION: Left lower lobe infiltrate suspicious for pneumonia. New bilateral atelectasis, with associated low lung volumes. There Is air filled dilation of multiple bowel loops, partially image d. Correlate for any clinical evidence to suggest ileus or obstruction.) Additional studies: 11/21/2018 Echo Impressions: LVEF 60%. Normal LV chamber size, wall thickness and function. Mild left ventricular diastolic dysfunction. Normal right ventricular structure and function. Mild mitral regurgitation. Mild tricuspid regurgitation. No pulmonary hypertension. Inadequate images to evaluate for bacteremia. Consider JEREMY if clinically indicated. 11/08/[address] IMPRESSION: 1. No pathologically enlarged lymphadenopathy within the chest or mediastinum to suggest lymphoma recurrence. 2. New mild splenomegaly and mild bilateral retroperitoneal lymphadenopathy, most consistent with CLL recurrence. 3. New nonspecific mild bilateral retroperitoneal and perinephric stranding and fluid of unknown cause, possibly secondary to the patient's active CLL. No walled-off fluid collection or abscess is seen. 4. Stable subpleural curvilinear irregular opacities within the right lower lobe, unchanged from prior studies, most likely representing chronic atelectasis, parenchymal scar, or possibly recurrent aspiration. 5. Bilateral nonobstructing nephrolithiasis, without evidence of a ureteral calculus or hydronephrosis. Anesthesia Exam Vital Signs/O2 Sat/Glucose, Most Recent Temp Pulse Resp BP Pulse Ox 98.7 F 89 16 100/64 100 11/21/18 18:50 11/21/18 18:50 11/21/18 18:50 11/21/18 18:50 11/21/18 18:50 Blood Glucose* 128 Height: 5'7''/1.7m Weight: 169 lbs/77 kg NPO (# of Hours): 8 Pain Scale: 0 Pain Scale Used: Numeric (1 - 10) - HEENT Pupil (Motor): EOMI Mallampati: III Teeth: Normal Oral Opening: Less than or equal to 3 - DEVELOPMENT MECHANIC LOC: Oriented DEVELOPMENT MECHANIC Motor: Normal RUE, Normal RLE, Normal Face, Deficit LUE, Deficit LLE DEVELOPMENT MECHANIC Sensory: Normal: RUE, LUE, RLE, LLE, Face - Cardiac Rhythm: Regular Murmur: None - Pulmonary Breath Sounds: bilateral Rhonchi Respiratory Effort: Symmetrical Anesthesia Assess/Plan ASA Score: 3 Level of consciousness: Cooperative, Oriented, Tranquil Anesthetic Plan: MAC Monitoring Plan: Standard Monitors
[2018-11-21 18:06] LABS: Reactive Lymphocytes Present (Not Present); Smudge Cells Present (Not Present)
[2018-11-21 18:07] LABS: Burr Cells 1+ (Not Present); Polychromasia 1+ (Not Present)
[2018-11-22] MEDS: Levalbuterol Neb 1.25 MG/3 ML IH SCH ×2 (04:13→10:18)
[2018-11-22 05:38] LABS: Basophils % 0.1 %; Eosinophils % 0.1 %; Hematocrit 24.9 % (37.5-50.1); Immature Granulocytes % 0.6 % (0-4); Lymphocytes # 1.5 K/mcL (0.6-4.6); Lymphocytes % 19.2 %; Mean Corpuscular HGB Conc 32.1 g/dL (31.6-35.5); Mean Corpuscular Hemoglobin 29.1 pg (28.0-33.3); Mean Corpuscular Volume 90.5 fL (83.0-100.0); Monocytes # 0.2 K/mcL (0.0-1.3); Neutrophils # 6.2 K/mcL (1.6-8.9); Platelet Count 140 K/mcL (140-400); Red Blood Count 2.75 M/mcL (4.19-5.50); Red Cell Distribution Width 14.8 % (11.5-14.5)
[2018-11-22 06:03] LABS: BUN/Creatinine Ratio 37 (6-26); Blood Urea Nitrogen 22 mg/dL (6-20); Calcium 8.2 mg/dL (8.6-10.3); Carbon Dioxide 29 mEq/L (23-29); Chloride 93 mEq/L (98-107); Glucose 151 mg/dL (70-105); Magnesium 2.1 mg/dL (1.6-2.6); Osmolality,Calculated 280 (280-300); Phosphorous 3.5 mg/dL (2.7-4.5); Potassium 3.6 mEq/L (3.5-5.1); Sodium 132 mEq/L (136-145); eGFR For African Americans > 60 (> 60); eGFR For Non-African Americans > 60 (> 60)
[2018-11-22 06:04] LABS: % Iron Saturation 16 % (20-55); Iron 17 mcg/dL (65-175); Transferrin 76 mg/dL (203-362)
[2018-11-22 06:33] LABS: Anisocytosis 1+ (Not Present); Hypochromasia Present (Not Present); Platelet Estimate Normal (Normal); Polychromasia 1+ (Not Present); Smudge Cells Present (Not Present)
[2018-11-22] MEDS ORDERED: Propofol 500 MG/50 ML INFUS..BTL ONE (07:27)
[2018-11-22] MEDS ORDERED: *HR* PHENYLEPHRINE 1,000 MCG/10 ML SYRINGE IVP ONE (07:27)
[2018-11-22] MEDS ORDERED: Lidocaine -MPF 2% 2 ML VIAL ONE (07:27)
[2018-11-22] MEDS: Insulin LISPRO 300 UNITS/3 ML VIAL SQ SCH ×3 (07:30→17:37)
[2018-11-22] MEDS: Aspirin Enteric Coated 81 MG Tablet PO SCH (09:00)
[2018-11-22] MEDS: Gabapentin 300 MG CAPSULE PO SCH ×3 (10:07→20:37)
[2018-11-22] MEDS: levETIRAcetam 250 MG TABLET PO SCH (10:07)
[2018-11-22] MEDS: *HR* HYDROcodone/Acet 5/325 mg TABLET PO PRN (10:07)
[2018-11-22] MEDS: Folic Acid 1 MG TABLET PO SCH (10:07)
[2018-11-22] MEDS: cefTRIAXone 2,000 MG in 0.9 % Sodium Chloride Mini Bag 100 ML IVPB SCH (10:08)
[2018-11-22] MEDS ORDERED: Isovue-370 500 ML BOTTLE IVP ONE (12:25)
--- NOTE | 2018-11-22 12:57 | Internal Med Progress Note ---
Hospitalist Progress Note - Encounter Date of Encounter: 11/22/18 Time of Encounter: 12:56 - Subjective Interval History: I have seen and evaluated the patient at bedside. Patient reported worsening of the pain on his left groin. reported non-productive cough. denies fever, chills, chest pain or shortness of breath. - Exam Vitals: Temp Pulse Resp BP Pulse Ox 98.1 F 103 18 115/71 97 11/22/18 11:46 11/22/18 11:46 11/22/18 11:46 11/22/18 11:46 11/22/18 11:46 Exam: Vitals: Reviewed General: Alert and oriented x4. In mild distress due to left groin pain. Cardiovascular: RRR, normal S1 & S2, no rubs, murmurs or gallops. Lungs: CTA b/l, no wheezes or crackles. Abdomen: Soft, non-tender, no rigidity. Extremities: 2+ edema on the left lower extr. strength is 2/5 in the left lower extr, 3/5 on the left upper ext. Decreased ROM on the right upper extr. Neurological: Normal cognition Rest of the physical exam is non contributory - Assessment and Plan (1) CLL (chronic lymphocytic leukemia) Current Visit: Yes Status: Chronic (2) DVT prophylaxis Current Visit: Yes Status: Acute (3) Type 2 diabetes mellitus Current Visit: Yes Status: Chronic (4) Pneumonia Current Visit: No Status: Acute (5) Leg pain, medial Current Visit: Yes Status: Acute (6) Hyponatremia Current Visit: Yes Status: Acute (7) Sepsis Current Visit: Yes Status: Resolved (8) Bacteremia Current Visit: Yes Status: Acute (9) Acute superficial venous thrombosis of left lower extremity Current Visit: Yes Status: Acute - Summary of Assessment and Plan Summary of Assessment and Plan: 58 year old male who presents to the ER [facility] with complaints of left groin/pelvic pain with inability to bear weight or walk. Assessment: 1. Sepsis (resolved) 2. Bacteremia 3. CLL 4. Pneumonia 5. DM 6. Anemia 7. Acute superficial Venous thrombosis of the left lower ext 8. Hx of CVA 9. Groin pain (resolved) 10. VTE prophylaxis 11. Inder's esophagus 12. Severe reflux esophagitis 13. Duodenitis/gastritis 14. Hx of Seizures Plan: First set of blood culture 2 bottle: Pansensitive strep pneumonia Repeated blood culture: no growth to date TTE: no vegetation. H&H stable post 1 unit of PRBCs transfusion yesterday. s/p EGD - started on PPIs BID and sucralfate - scheduled for colonoscopy tomorrow - On ferrous sulfate - will resume Xarelto and monitor H&H - c/w ceftriaxone 2gm/IV daily - sputum culture ordered - c/w aspirin, statin - On trazodone 50mg/PO HS - c/w keppra - Abd/pelvis CT w/ contrast ordered. patient reporting worsening groin pain, anemia requiring blood transfusion on xarelto. - Right shoulder x-ray ordered, patient reporting decrease ROM of the right shoulder due to pain. Disposition: - Patient to remain in the hospital due anemia. scheduled for colonoscopy tomorrow. - Time Spent with Patient Total time spent is greater than 50% in coordination of care (as documented) at patient's floor/unit and/or counseling patient: Greater than 35 minutes (40) Plan of Care Discussed with: patient (his family and the nurse.) Internal Medicine: Result - Labs CBC & Chem 7: 11/22/18 05:24 11/22/18 05:24 Labs: Short CBC 11/21/18 11/22/18 Range/Units 16:55 05:24 WBC 8.5 8.0 (4.3-11.1) K/mcL Hgb 7.9 L 8.0 L (12.9-16.9) g/dL Hct 23.6 L 24.9 L (37.5-50.1) % Plt Count 140 140 (140-400) K/mcL Neutrophils # 6.1 6.2 (1.6-8.9) K/mcL BMP 11/22/18 05:24 Sodium 132 L Potassium 3.6 Chloride 93 L Carbon Dioxide 29 BUN 22 H Creatinine 0.59 L Glucose 151 H Calcium 8.2 L - ABG Interpretation ABG results: PT/INR, D-dimer PT 15.5 Seconds (9.4-12.1) H 11/15/18 16:06 - Impressions Impressions Echocardiogram 11/21/18 07:54 Impressions: LVEF 60%. Normal LV chamber size, wall thickness and function. Mild left ventricular diastolic dysfunction. Normal right ventricular structure and function. Mild mitral regurgitation. Mild tricuspid regurgitation. No pulmonary hypertension. Inadequate images to evaluate for bacteremia. Consider JEREMY if clinically indicated. Left Ventricular Wall Motion: Rest Echo Findings All wall segments showed normal motion. Findings: Study Quality * Technically suboptimal study due to poor echocardiographic windows. ECG Findings * Normal sinus rhythm. Left Ventricle * LVEF 60%. * Normal LV chamber size, wall thickness and function. * Mild left ventricular diastolic dysfunction. Right Ventricle * Normal right ventricular structure and function. Left Atrium * Normal left atrial size. Right Atrium * Normal right atrial size. Interatrial Septum * Interatrial septum not well evaluated. Aortic Valve * Trileaflet aortic valve. * Mildly calcified aortic valve leaflets. * Trace aortic regurgitation. * No aortic stenosis. Mitral Valve * Mildly thickened mitral valve leaflets. * Mild mitral regurgitation. * No mitral stenosis. Tricuspid Valve * Tricuspid valve not well visualized. * Mild tricuspid regurgitation. * No pulmonary hypertension. Pulmonic Valve * Pulmonic valve is not well visualized. Aorta * Normally sized aortic root. Pericardium * The pericardium appears normal. IVC * Normal IVC dimensions and inspiratory collapse. Pulmonary Artery * Pulmonary artery not well visualized. Consult Discharge Plan - Plan Referrals: Liyah Lopez, CERTIFIED CYTOTECHNOLOGIST [Primary Care Provider] - (Appointment has been requested) (3) Type 2 diabetes mellitus Qualifiers: Diabetes mellitus skilled nursing insulin use: without petroleum terminal plant operator use Diabetes mellitus complication status: without complication Qualified Code(s): E11.9 - Type 2 diabetes mellitus without complications (4) Pneumonia Qualifiers: Pneumonia type: due to unspecified organism Laterality: left Lung location: unspecified part of lung Qualified Code(s): J18.9 - Pneumonia, unspecified organism (5) Leg pain, medial Qualifiers: Laterality: left Qualified Code(s): M79.605 - Pain in left leg (7) Sepsis Qualifiers: Sepsis type: Streptococcus, unspecified Sepsis acute organ dysfunction status: without acute organ dysfunction Qualified Code(s): A40.9 - Streptococcal sepsis, unspecified
[2018-11-22] MEDS: Ascorbic Acid 500 MG TABLET PO SCH (12:59)
[2018-11-22] MEDS ORDERED: Levalbuterol Neb 1.25 MG/3 ML IH PRN (13:22)
[2018-11-22] MEDS ORDERED: Gadolinium Contrast Agent (WT Based) IV PRN (15:28)
--- NOTE | 2018-11-22 15:30 | Event Note ---
Date of Encounter: 11/22/18 Time of Encounter: 15:29 Abdomen and pelvis Abdominal ct reviewed. finding discussed with the radiologist. will discontinue rivarobaxan MR of the pelvic with and w/o contrast ordered.
[2018-11-22 17:17] LABS: Basophils % 0.1 %; Eosinophils % 0.1 %; Hematocrit 24.9 % (37.5-50.1); Hemoglobin 8.3 g/dL (12.9-16.9); Immature Granulocytes % 0.8 % (0-4); Lymphocytes # 1.7 K/mcL (0.6-4.6); Lymphocytes % 20.2 %; Mean Corpuscular HGB Conc 33.3 g/dL (31.6-35.5); Mean Corpuscular Hemoglobin 29.6 pg (28.0-33.3); Mean Corpuscular Volume 88.9 fL (83.0-100.0); Mean Platelet Volume 9.6 fL (9.4-12.4); Monocytes # 0.4 K/mcL (0.0-1.3); Monocytes % 4.9 %; Neutrophils # 6.3 K/mcL (1.6-8.9); Platelet Count 134 K/mcL (140-400); Red Cell Distribution Width 14.7 % (11.5-14.5); Segmented Neutrophils % 73.9 %; White Blood Count 8.5 K/mcL (4.3-11.1)
[2018-11-22] MEDS: Sucralfate 1 GM TABLET PO SCH ×2 (17:40→20:37)
[2018-11-22] MEDS: *HR* OxyCODONE/APAP 5/325 TABLET PO PRN (17:43)
[2018-11-22 18:20] LABS: Platelet Estimate Slight Decrease (Normal)
[2018-11-23] MEDS: *HR* OxyCODONE/APAP 5/325 TABLET PO PRN ×2 (04:38→14:01)
--- NOTE | 2018-11-23 07:24 | Anesthesia Evaluation PreOp ---
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 History: Seizures (1 seizure after CVA, on Keppra, CVA (2014, residual L sided weakness)) Other Medical History: Diabetes Type II, GERD, Other (CLL S/P chemo) Anesthesia History: No Prior Anesthetic Complications, Past Anesthesia Alcohol Use: none Drug use: marijuana Medications and Allergies Aspirin [Adult Low Dose Aspirin EC] 81 mg PO DAILY 02/15/15 [History] Atorvastatin Calcium [Lipitor] 80 mg PO HS 02/15/15 [History] Citalopram [CeleXA] 40 mg PO DAILY 02/15/15 [History] Gabapentin [Neurontin] 600 mg PO TID 02/15/15 [History] LevETIRAcetam [Keppra] 500 mg PO DAILY 02/15/15 [History] Metformin [Glucophage] 850 mg PO BID 02/15/15 [History] TraZODone 50 mg PO HS PRN 02/15/15 [History] Tamsulosin [Flomax] 0.8 mg PO DAILY 08/02/15 [History] Folic Acid 1 mg PO DAILY #30 tablet 06/29/16 [Rx] Ascorbic Acid [Vitamin C] 500 mg PO DAILY #30 tablet 05/06/18 [Rx] Ferrous Sulfate [Iron] 325 mg PO DAILY #30 tablet 05/06/18 [Rx] Omeprazole [PriLOSEC] 40 mg PO BID 11/11/18 [History] OxyCODONE/APAP 5/325 [Percocet 5/325 MG] 1 tab PO DAILY PRN 11/12/18 [History] Allergy/AdvReac Type Severity Reaction Status Date / Time Penicillins [PCN] Allergy Rash Verified 11/12/18 14:12 - Meds/Allergy Pre-op Review Medications Reviewed: Yes Allergies Reviewed: Yes Beta Blockers on Current Med List: No Anesthesia Results - Labs 11/22/18 16:55 11/22/18 05:24 - Imaging Additional studies: Knee X-Ray 11/11/18 17:06 IMPRESSION: No acute abnormality of the knee. D/ / Kashif Plascencia MD / Kashif Plascencia MD Interpreting Provider: Kashif Plascencia MD Ankle X-Ray 11/11/18 17:10 IMPRESSION: No acute osseous abnormality. Arthritic changes of the talonavicular and subtalar joints. D/ / 11/11/2018 18:32:01 Keagan Little MD / earjordi Interpreting Provider: Keagan Little MD Hip X-Ray 11/11/18 17:10 IMPRESSION: No acute osseous abnormality. Atherosclerosis. D/ / 11/11/2018 18:30:20 Keagan Little MD / corky Interpreting Provider: Keagan Little MD Hip MRI 11/13/18 11:44 IMPRESSION: 1. Study significantly limited by patient motion artifact. 2. No acute osseous abnormality. 3. Significant edema in the soft tissues about the left hip including within the left adductor, gluteal, and proximal vastus musculature. The differential includes strains versus myositis versus acute denervation. No drainable fluid collection identified. D/ / Jacobo Torres MD / Jacobo Torres MD Interpreting Provider: Jacobo Torres MD Chest X-Ray 11/19/18 12:35 IMPRESSION: Left lower lobe infiltrate suspicious for pneumonia. New bilateral atelectasis, with associated low lung volumes. There Is air filled dilation of multiple bowel loops, partially imaged. Correlate for any clinical evidence to suggest ileus or obstruction. D/ / Santo Toledo MD / Santo Toledo MD Interpreting Provider: Santo Toledo MD Echocardiogram 11/21/18 07:54 Impressions: LVEF 60%. Normal LV chamber size, wall thickness and function. Mild left ventricular diastolic dysfunction. Normal right ventricular structure and function. Mild mitral regurgitation. Mild tricuspid regurgitation. No pulmonary hypertension. Inadequate images to evaluate for bacteremia. Consider JEREMY if clinically indicated. Left Ventricular Wall Motion: Rest Echo Findings All wall segments showed normal motion. Findings: Study Quality * Technically suboptimal study due to poor echocardiographic windows. ECG Findings * Normal sinus rhythm. Left Ventricle * LVEF 60%. * Normal LV chamber size, wall thickness and function. * Mild left ventricular diastolic dysfunction. Right Ventricle * Normal right ventricular structure and function. Left Atrium * Normal left atrial size. Right Atrium * Normal right atrial size. Interatrial Septum * Interatrial septum not well evaluated. Aortic Valve * Trileaflet aortic valve. * Mildly calcified aortic valve leaflets. * Trace aortic regurgitation. * No aortic stenosis. Mitral Valve * Mildly thickened mitral valve leaflets. * Mild mitral regurgitation. * No mitral stenosis. Tricuspid Valve * Tricuspid valve not well visualized. * Mild tricuspid regurgitation. * No pulmonary hypertension. Pulmonic Valve * Pulmonic valve is not well visualized. Aorta * Normally sized aortic root. Pericardium * The pericardium appears normal. IVC * Normal IVC dimensions and inspiratory collapse. Pulmonary Artery * Pulmonary artery not well visualized. Shoulder X-Ray 11/22/18 10:55 IMPRESSION: No acute abnormality. Moderate AC joint osteoarthritis Mild subacromial space narrowing D/ / Jb Ahumada MD / Jb Ahumada MD Interpreting Provider: Jb Ahumada MD Abdomen/Pelvis CT 11/22/18 13:30 IMPRESSION: Diffuse edematous appearance and enlargement of the left adductor musculature with subcutaneous edema of the left hip and loss of the normal muscular striations suggesting intramuscular hemorrhage versus acute muscular strain versus acute myositis. 4 x 2.3 cm collection within the left adductor musculature that may represent an intramuscular hematoma versus intramuscular abscess. Hemorrhage extending into the left ileus psoas bursa with left ileus psoas complex bursitis. Findings are new since prior CT. MRI may better assess the musculature of the left hip. Severe colonic distension with possible narrowing and transition point in the rectosigmoid colon with wall thickening. This may represent partial obstruction secondary to a rectosigmoid mass versus normal flexure of the rectosigmoid colon and severe colonic ileus. Recommend correlation with colonoscopy. Diffuse hepatic steatosis. Stable bibasilar atelectasis. D/ / 11/22/2018 15:25:45 Vj Mandujano MD / sylvester Interpreting Provider: Vj Mandujano MD Anesthesia Exam Vital Signs/O2 Sat, Most Current Temp Pulse Resp BP Pulse Ox 98.2 F 90 16 118/70 96 11/23/18 05:27 11/23/18 05:27 11/23/18 05:27 11/23/18 05:27 11/23/18 05:27 - HEENT Pupil (Motor): Pupils equal, EOMI Mallampati: II - CONTINUOUS PICKLING LINE PICKLER LOC: Oriented CONTINUOUS PICKLING LINE PICKLER Motor: Normal RUE, Normal RLE, Normal Face, Deficit LUE, Deficit LLE CONTINUOUS PICKLING LINE PICKLER Sensory: Normal: RUE, LUE, RLE, LLE, Face - Cardiac Rhythm: Regular Murmur: None JVD: No - Pulmonary Breath Sounds: bilateral Clear Respiratory Effort: Symmetrical Anesthesia Assess/Plan ASA Score: 3 Level of consciousness: Cooperative, Oriented Anesthetic Plan: MAC Monitoring Plan: Standard Monitors Recovery Plan: PACU
[2018-11-23] MEDS ORDERED: Lidocaine -MPF 2% 2 ML VIAL ONE (07:40)
[2018-11-23] MEDS ORDERED: *HR* Propofol 200 MG/20 ML VIAL IVP ONE (07:40)
[2018-11-23 08:05] LABS: Eosinophils % 0.1 %; Hematocrit 23.8 % (37.5-50.1); Hemoglobin 7.7 g/dL (12.9-16.9); Lymphocytes # 1.5 K/mcL (0.6-4.6); Lymphocytes % 20.9 %; Mean Corpuscular HGB Conc 32.4 g/dL (31.6-35.5); Mean Corpuscular Hemoglobin 29.6 pg (28.0-33.3); Mean Corpuscular Volume 91.5 fL (83.0-100.0); Mean Platelet Volume 10.3 fL (9.4-12.4); Monocytes # 0.3 K/mcL (0.0-1.3); Monocytes % 3.7 %; Neutrophils # 5.4 K/mcL (1.6-8.9); Platelet Count 111 K/mcL (140-400); Red Cell Distribution Width 14.6 % (11.5-14.5); Segmented Neutrophils % 74.3 %; White Blood Count 7.2 K/mcL (4.3-11.1)
[2018-11-23] MEDS: Insulin LISPRO 300 UNITS/3 ML VIAL SQ SCH ×3 (08:07→16:23)
[2018-11-23] MEDS: Sucralfate 1 GM TABLET PO SCH ×4 (08:07→20:52)
[2018-11-23] MEDS: cefTRIAXone 2,000 MG in 0.9 % Sodium Chloride Mini Bag 100 ML IVPB SCH (08:07)
[2018-11-23 08:08] LABS: Platelet Estimate Slight Decrease (Normal); Reactive Lymphocytes Present (Not Present)
[2018-11-23 08:11] LABS: BUN/Creatinine Ratio 35 (6-26); Blood Urea Nitrogen 17 mg/dL (6-20); Calcium 8.2 mg/dL (8.6-10.3); Carbon Dioxide 30 mEq/L (23-29); Chloride 96 mEq/L (98-107); Glucose 172 mg/dL (70-105); Osmolality,Calculated 278 (280-300); Phosphorous 2.3 mg/dL (2.7-4.5); Potassium 2.9 mEq/L (3.5-5.1); Sodium 131 mEq/L (136-145); eGFR For African Americans > 60 (> 60); eGFR For Non-African Americans > 60 (> 60)
[2018-11-23] MEDS ORDERED: 0.9 % Sodium Chloride 500 ML IVC SCH (08:45)
[2018-11-23] MEDS ORDERED: *HR* PHENYLEPHRINE 1,000 MCG/10 ML SYRINGE IVP ONE (08:54)
[2018-11-23] MEDS: Gabapentin 300 MG CAPSULE PO SCH ×3 (09:43→20:52)
[2018-11-23] MEDS: levETIRAcetam 250 MG TABLET PO SCH (09:43)
[2018-11-23] MEDS: Aspirin Enteric Coated 81 MG Tablet PO SCH (09:43)
[2018-11-23] MEDS: Folic Acid 1 MG TABLET PO SCH (09:43)
--- NOTE | 2018-11-23 11:02 | Internal Med Progress Note ---
Hospitalist Progress Note - Encounter Date of Encounter: 11/23/18 Time of Encounter: 11:01 - Subjective Interval History: I have seen and evaluated the patient at bedside. patient reported improvement on the left groin pain. denies chest pain, shortness of breath, nausea or vomiting. - Exam Vitals: Temp Pulse Resp BP Pulse Ox 97.5 F L 81 16 100/61 96 11/23/18 09:42 11/23/18 09:42 11/23/18 09:42 11/23/18 09:42 11/23/18 09:42 Exam: Vitals: Reviewed General: Alert and oriented x4. In no distress Cardiovascular: RRR, normal S1 & S2, no rubs, murmurs or gallops. Lungs: CTA b/l, no wheezes or crackles. Abdomen: Soft, non-tender, no rigidity. NABS in all 4 quadrants. Extremities: left lower extr symmetrically bigger than right. Neurological: Normal cognition Rest of the physical exam is non contributory - Assessment and Plan (1) CLL (chronic lymphocytic leukemia) Current Visit: Yes Status: Chronic (2) DVT prophylaxis Current Visit: Yes Status: Acute (3) Type 2 diabetes mellitus Current Visit: Yes Status: Chronic (4) Pneumonia Current Visit: No Status: Acute (5) Leg pain, medial Current Visit: Yes Status: Acute (6) Hyponatremia Current Visit: Yes Status: Acute (7) Sepsis Current Visit: Yes Status: Resolved (8) Bacteremia Current Visit: Yes Status: Acute (9) Acute superficial venous thrombosis of left lower extremity Current Visit: Yes Status: Acute (10) Intramuscular hematoma Current Visit: Yes Status: Acute - Summary of Assessment and Plan Summary of Assessment and Plan: 58 year old male who presents to the ER [facility] with complaints of left groin/pelvic pain with inability to bear weight or walk. Assessment: 1. Sepsis (resolved) 2. Bacteremia 3. CLL 4. Pneumonia 5. DM 6. Anemia 7. Acute superficial Venous thrombosis of the left lower ext 8. Hx of CVA 9. Groin pain (resolved) 10. VTE prophylaxis 11. Inder's esophagus 12. Severe reflux esophagitis 13. Duodenitis/gastritis 14. Hx of Seizures 15. Intramuscular hematoma 16. Hypokalemia Plan: First set of blood culture 2 bottle: Pansensitive strep pneumonia Repeated blood culture: no growth to date TTE: no vegetation. - on ceftriaxone 2gm/IV daily - sputum culture ordered: pending H&H stable post 1 unit of PRBCs transfusion yesterday. - scheduled for colonoscopy today - c/w PPIs BID and sucralfate and ferrous sulfate - cbc at 5pm ordered - will transfuse per protocol. - Hold xarelto due to intramuscular hematoma, with anemia. - MR of the pelvis w/ and w/o contrast ordered. - c/w aspirin, statin - On trazodone 50mg/PO HS and keppra - blood sugar is well controlled on lispro low dose sliding scale ac. plus carbs controlled diet - electrolyte replaced. repeat BMP and phosp level at 5pm. Disposition: - Patient to remain in the hospital due intramuscular hematoma. anemia with dropping H&H. - Time Spent with Patient Total time spent is greater than 50% in coordination of care (as documented) at patient's floor/unit and/or counseling patient: Greater than 35 minutes (40) Plan of Care Discussed with: patient (and the nurse.) Internal Medicine: Result - Labs CBC & Chem 7: 11/23/18 07:41 11/23/18 07:41 Labs: Short CBC 11/22/18 11/23/18 Range/Units 16:55 07:41 WBC 8.5 7.2 (4.3-11.1) K/mcL Hgb 8.3 L 7.7 L (12.9-16.9) g/dL Hct 24.9 L 23.8 L (37.5-50.1) % Plt Count 134 L 111 L (140-400) K/mcL Neutrophils # 6.3 5.4 (1.6-8.9) K/mcL BMP 11/23/18 07:41 Sodium 131 L Potassium 2.9 L Chloride 96 L Carbon Dioxide 30 H BUN 17 Creatinine 0.48 L Glucose 172 H Calcium 8.2 L - ABG Interpretation ABG results: PT/INR, D-dimer PT 15.5 Seconds (9.4-12.1) H 11/15/18 16:06 - Impressions Impressions Shoulder X-Ray 11/22/18 10:55 IMPRESSION: No acute abnormality. Moderate AC joint osteoarthritis Mild subacromial space narrowing D/ / Jb Ahumada MD / Jb Ahumada MD Interpreting Provider: Jb Ahumada MD Abdomen/Pelvis CT 11/22/18 13:30 IMPRESSION: Diffuse edematous appearance and enlargement of the left adductor musculature with subcutaneous edema of the left hip and loss of the normal muscular striations suggesting intramuscular hemorrhage versus acute muscular strain versus acute myositis. 4 x 2.3 cm collection within the left adductor musculature that may represent an intramuscular hematoma versus intramuscular abscess. Hemorrhage extending into the left ileus psoas bursa with left ileus psoas complex bursitis. Findings are new since prior CT. MRI may better assess the musculature of the left hip. Severe colonic distension with possible narrowing and transition point in the rectosigmoid colon with wall thickening. This may represent partial obstruction secondary to a rectosigmoid mass versus normal flexure of the rectosigmoid colon and severe colonic ileus. Recommend correlation with colonoscopy. Diffuse hepatic steatosis. Stable bibasilar atelectasis. D/ / 11/22/2018 15:25:45 Vj Mandujano MD / sylvester Interpreting Provider: Vj Mandujano MD Consult Discharge Plan - Plan Referrals: Liyah Lopez, RUBBER AND PLASTICS WORKER [Primary Care Provider] - (Appointment has been requested) (3) Type 2 diabetes mellitus Qualifiers: Diabetes mellitus termite control service representative insulin use: without custodial use Diabetes mellitus complication status: without complication Qualified Code(s): E11.9 - Type 2 diabetes mellitus without complications (4) Pneumonia Qualifiers: Pneumonia type: due to unspecified organism Laterality: left Lung location: unspecified part of lung Qualified Code(s): J18.9 - Pneumonia, unspecified o rganism (5) Leg pain, medial Qualifiers: Laterality: left Qualified Code(s): M79.605 - Pain in left leg (7) Sepsis Qualifiers: Sepsis type: Streptococcus, unspecified Sepsis acute organ dysfunction status: without acute organ dysfunction Qualified Code(s): A40.9 - Streptococcal sepsis, unspecified
[2018-11-23] MEDS: Ascorbic Acid 500 MG TABLET PO SCH (14:26)
[2018-11-23 17:31] LABS: Basophils % 0.1 %; Eosinophils % 0.2 %; Hematocrit 23.4 % (37.5-50.1); Hemoglobin 7.7 g/dL (12.9-16.9); Immature Granulocytes % 1.6 % (0-4); Lymphocytes # 2.4 K/mcL (0.6-4.6); Lymphocytes % 28.6 %; Mean Corpuscular HGB Conc 32.9 g/dL (31.6-35.5); Mean Corpuscular Hemoglobin 29.5 pg (28.0-33.3); Mean Corpuscular Volume 89.7 fL (83.0-100.0); Mean Platelet Volume 10.1 fL (9.4-12.4); Monocytes # 0.8 K/mcL (0.0-1.3); Neutrophils # 5.1 K/mcL (1.6-8.9); Nucleated Red Blood Cells 0.2 /100 WBC (0); Platelet Count 109 K/mcL (140-400); Red Blood Count 2.61 M/mcL (4.19-5.50); Red Cell Distribution Width 14.6 % (11.5-14.5); Segmented Neutrophils % 60.5 %; White Blood Count 8.4 K/mcL (4.3-11.1)
[2018-11-23 17:51] LABS: BUN/Creatinine Ratio 34 (6-26); Blood Urea Nitrogen 17 mg/dL (6-20); Carbon Dioxide 26 mEq/L (23-29); Chloride 98 mEq/L (98-107); Glucose 161 mg/dL (70-105); Osmolality,Calculated 277 (280-300); Sodium 131 mEq/L (136-145); eGFR For African Americans > 60 (> 60); eGFR For Non-African Americans > 60 (> 60)
[2018-11-23 18:05] LABS: Platelet Estimate Decreased (Normal); Reactive Lymphocytes Present (Not Present); Smudge Cells Present (Not Present)
[2018-11-23 18:06] LABS: Poikilocytosis 1+ (Not Present)
[2018-11-24] MEDS: *HR* OxyCODONE/APAP 5/325 TABLET PO PRN ×2 (05:33→15:44)
[2018-11-24 06:38] LABS: Eosinophils % 0.1 %; Hematocrit 22.6 % (37.5-50.1); Hemoglobin 7.3 g/dL (12.9-16.9); Immature Granulocytes % 1.6 % (0-4); Lymphocytes # 1.9 K/mcL (0.6-4.6); Lymphocytes % 27.6 %; Mean Corpuscular HGB Conc 32.3 g/dL (31.6-35.5); Mean Corpuscular Volume 89.7 fL (83.0-100.0); Mean Platelet Volume 9.8 fL (9.4-12.4); Monocytes # 0.5 K/mcL (0.0-1.3); Monocytes % 7.2 %; Neutrophils # 4.3 K/mcL (1.6-8.9); Platelet Count 104 K/mcL (140-400); Red Blood Count 2.52 M/mcL (4.19-5.50); Red Cell Distribution Width 14.6 % (11.5-14.5); Segmented Neutrophils % 63.5 %; White Blood Count 6.8 K/mcL (4.3-11.1)
[2018-11-24 06:59] LABS: BUN/Creatinine Ratio 32 (6-26); Blood Urea Nitrogen 13 mg/dL (6-20); Calcium 7.9 mg/dL (8.6-10.3); Carbon Dioxide 28 mEq/L (23-29); Chloride 95 mEq/L (98-107); Glucose 173 mg/dL (70-105); Magnesium 1.7 mg/dL (1.6-2.6); Osmolality,Calculated 278 (280-300); Phosphorous 2.1 mg/dL (2.7-4.5); Potassium 3.5 mEq/L (3.5-5.1); Sodium 132 mEq/L (136-145); eGFR For African Americans > 60 (> 60); eGFR For Non-African Americans > 60 (> 60)
[2018-11-24 07:08] LABS: Platelet Estimate Decreased (Normal)
[2018-11-24] MEDS ORDERED: 0.9 % Sodium Chloride 250 ML IVC SCH (07:30)
[2018-11-24] MEDS: Gabapentin 300 MG CAPSULE PO SCH ×3 (08:19→20:09)
[2018-11-24] MEDS: Aspirin Enteric Coated 81 MG Tablet PO SCH (08:19)
[2018-11-24] MEDS: levETIRAcetam 250 MG TABLET PO SCH (08:19)
[2018-11-24] MEDS: Sucralfate 1 GM TABLET PO SCH ×4 (08:19→20:08)
[2018-11-24] MEDS: Folic Acid 1 MG TABLET PO SCH (08:19)
[2018-11-24] MEDS: cefTRIAXone 2,000 MG in 0.9 % Sodium Chloride Mini Bag 100 ML IVPB SCH (08:20)
[2018-11-24] MEDS: Insulin LISPRO 300 UNITS/3 ML VIAL SQ SCH ×3 (08:50→15:53)
[2018-11-24] MEDS: Acetaminophen 325 MG TABLET PO PRN (08:51)
[2018-11-24] MEDS: tiZANidine 4 MG TABLET PO PRN ×2 (08:51→15:45)
[2018-11-24] MEDS ORDERED: 0.9 % Sodium Chloride 250 ML ONE (10:14)
[2018-11-24] MEDS: Ascorbic Acid 500 MG TABLET PO SCH (10:29)
--- NOTE | 2018-11-24 10:41 | Internal Med Progress Note ---
Hospitalist Progress Note - Encounter Date of Encounter: 11/24/18 Time of Encounter: 10:34 - Subjective Interval History: I have seen and evaluated the patient at bedside. patient reported improvement on the left groin/leg pain. denies chest pain, abdominal pain or shortness of breath. - Exam Vitals: Temp Pulse Resp BP Pulse Ox 97.9 F 76 16 94/57 92 11/24/18 10:22 11/24/18 10:22 11/24/18 10:22 11/24/18 10:22 11/24/18 10:22 Exam: Vitals: Reviewed General: Alert and oriented x4. In no distress Cardiovascular: RRR, normal S1 & S2, no rubs, murmurs or gallops. Lungs: CTA b/l, no wheezes or crackles. Abdomen: Soft, non-tender, no rigidity. Extremities: left lower extr symmetrically bigger than right. Neurological: Normal cognition Rest of the physical exam is non contributory - Assessment and Plan (1) CLL (chronic lymphocytic leukemia) Current Visit: Yes Status: Chronic (2) DVT prophylaxis Current Visit: Yes Status: Acute (3) Type 2 diabetes mellitus Current Visit: Yes Status: Chronic (4) Pneumonia Current Visit: No Status: Acute (5) Leg pain, medial Current Visit: Yes Status: Acute (6) Hyponatremia Current Visit: Yes Status: Acute (7) Sepsis Current Visit: Yes Status: Resolved (8) Bacteremia Current Visit: Yes Status: Acute (9) Acute superficial venous thrombosis of left lower extremity Current Visit: Yes Status: Acute (10) Intramuscular hematoma Current Visit: Yes Status: Acute - Summary of Assessment and Plan Summary of Assessment and Plan: 58 year old male who presents to the ER [facility] with complaints of left groin/pelvic pain with inability to bear weight or walk. Assessment: 1. Sepsis (resolved) 2. Bacteremia 3. CLL 4. Pneumonia 5. DM 6. Anemia 7. Acute superficial Venous thrombosis of the left lower ext 8. Hx of CVA 9. Groin pain (resolved) 10. VTE prophylaxis 11. Inder's esophagus 12. Severe reflux esophagitis 13. Duodenitis/gastritis 14. Hx of Seizures 15. Intramuscular hematoma 16. Hypokalemia 17. Focal collection within the left adductor muscle. Possible abscess. 18. Hypophosphatemia Plan: First set of blood culture 2 bottle: Pansensitive strep pneumonia Repeated blood culture: no growth to date s/p EGD and colonoscopy - c/w ceftriaxone 2gm/IV daily - Transfuse 1 PRBCs - repeat cbc 1 hour post transfusion - colonoscopy with poor prep. recommended to follow with GI as outpatient for possible repeat colonoscopy. - Patient is on PPIs BID and sucralfate and ferrous sulfate - continue to hold xarelto due to intramuscular hematoma. - IR consulted for possible aspiration of collection of adductor muscle. possible abscess. - On aspirin, statin - c/w trazodone 50mg/PO HS and keppra - Continue current glycemic - electrolyte replaced. will repeat phosp level tomorrow. Disposition: - Patient to remain in the hospital due intramuscular hematoma, possible abscess. IR consulted. - Time Spent with Patient Total time spent is greater than 50% in coordination of care (as documented) at patient's floor/unit and/or counseling patient: Greater than 35 minutes (40) Plan of Care Discussed with: patient (and the nurse.) Internal Medicine: Result - Labs CBC & Chem 7: 11/24/18 06:08 11/24/18 06:08 Labs: Short CBC 11/23/18 11/24/18 Range/Units 17:19 06:08 WBC 8.4 6.8 (4.3-11.1) K/mcL Hgb 7.7 L 7.3 L (12.9-16.9) g/dL Hct 23.4 L 22.6 L (37.5-50.1) % Plt Count 109 L 104 L (140-400) K/mcL Neutrophils # 5.1 4.3 (1.6-8.9) K/mcL BMP 11/23/18 11/24/18 17:19 06:08 Sodium 131 L 132 L Potassium 4.0 D 3.5 Chloride 98 95 L Carbon Dioxide 26 28 BUN 17 13 Creatinine 0.50 L 0.41 L Glucose 161 H 173 H Calcium 8.0 L 7.9 L - ABG Interpretation ABG results: PT/INR, D-dimer PT 15.5 Seconds (9.4-12.1) H 11/15/18 16:06 - Impressions Impressions Pelvis MRI 11/23/18 15:28 IMPRESSION: Motion limited study. Diffuse soft tissue changes with more focal collection within the left adductor musculature. Peripheral enhancement is suggestive of an abscess. Underlying lesion is not excluded. Abnormal thickening within the distal sigmoid colon. Mass should be excluded. D/ / 11/23/2018 15:26:40 Tom Zelaya MD / ana Interpreting Provider: Tom Zelaya MD Consult Discharge Plan - Plan Referrals: Liyah Lopez, BILINGUAL SPEECH THERAPIST [Primary Care Provider] - (Appointment has been requested) (3) Type 2 diabetes mellitus Qualifiers: Diabetes mellitus group home insulin use: without group home use Diabetes mellitus complication status: without complication Qualified Code(s): E11.9 - Type 2 diabetes mellitus without complications (4) Pneumonia Qualifiers: Pneumonia type: due to unspecified organism Laterality: left Lung location: unspecified part of lung Qualified Code(s): J18.9 - Pneumonia, unspecified organism (5) Leg pain, medial Qualifiers: Laterality: left Qualified Code(s): M79.605 - Pain in left leg (7) Sepsis Qualifiers: Sepsis type: Streptococcus, unspecified Sepsis acute organ dysfunction status: without acute organ dysfunction Qualified Code(s): A40.9 - Streptococcal sepsis, unspecified
[2018-11-25] MEDS: *HR* OxyCODONE/APAP 5/325 TABLET PO PRN ×4 (02:48→23:35)
[2018-11-25 04:41] LABS: Basophils % 0.1 %; Eosinophils % 0.1 %; Hematocrit 25.9 % (37.5-50.1); Hemoglobin 8.8 g/dL (12.9-16.9); Immature Granulocytes % 1.9 % (0-4); Lymphocytes # 2.3 K/mcL (0.6-4.6); Lymphocytes % 28.3 %; Mean Corpuscular Volume 88.4 fL (83.0-100.0); Mean Platelet Volume 10.7 fL (9.4-12.4); Monocytes # 0.6 K/mcL (0.0-1.3); Monocytes % 6.9 %; Platelet Count 102 K/mcL (140-400); Red Blood Count 2.93 M/mcL (4.19-5.50); Red Cell Distribution Width 14.5 % (11.5-14.5); Segmented Neutrophils % 62.7 %
[2018-11-25 04:58] LABS: BUN/Creatinine Ratio 23 (6-26); Blood Urea Nitrogen 9 mg/dL (6-20); Calcium 7.5 mg/dL (8.6-10.3); Carbon Dioxide 27 mEq/L (23-29); Chloride 96 mEq/L (98-107); Glucose 130 mg/dL (70-105); Magnesium 1.6 mg/dL (1.6-2.6); Osmolality,Calculated 274 (280-300); Phosphorous 2.4 mg/dL (2.7-4.5); Potassium 3.4 mEq/L (3.5-5.1); Sodium 132 mEq/L (136-145); eGFR For African Americans > 60 (> 60); eGFR For Non-African Americans > 60 (> 60)
[2018-11-25 05:23] LABS: Platelet Estimate Decreased (Normal)
[2018-11-25] MEDS: Insulin LISPRO 300 UNITS/3 ML VIAL SQ SCH ×3 (07:25→16:44)
[2018-11-25] MEDS: tiZANidine 4 MG TABLET PO PRN (09:14)
[2018-11-25] MEDS: Potassium Phosphate 44 MEQ in 0.9 % Sodium Chloride 250 ML IVPB ONE ×2 (09:14→10:57)
[2018-11-25] MEDS: Gabapentin 300 MG CAPSULE PO SCH ×3 (09:15→20:45)
[2018-11-25] MEDS: Folic Acid 1 MG TABLET PO SCH (09:15)
[2018-11-25] MEDS: Aspirin Enteric Coated 81 MG Tablet PO SCH (09:15)
[2018-11-25] MEDS: levETIRAcetam 250 MG TABLET PO SCH (09:15)
[2018-11-25] MEDS: Sucralfate 1 GM TABLET PO SCH ×4 (09:15→20:45)
[2018-11-25] MEDS: cefTRIAXone 2,000 MG in 0.9 % Sodium Chloride Mini Bag 100 ML IVPB SCH (09:16)
--- NOTE | 2018-11-25 11:30 | Internal Med Progress Note ---
Hospitalist Progress Note - Encounter Date of Encounter: 11/25/18 Time of Encounter: 11:28 - Subjective Interval History: I have seen and evaluated the patient at bedside. Patient reported feeling better today, the pain on his left leg continues to improve significantly. denies abdominal pain, nausea or vomiting. denies chest pain. - Exam Vitals: Temp Pulse Resp BP Pulse Ox 98.5 F 76 17 99/61 93 11/25/18 11:12 11/25/18 11:12 11/25/18 11:12 11/25/18 11:12 11/25/18 11:12 Exam: Vitals: Reviewed General: Alert and oriented x4. In no distress Cardiovascular: RRR, normal S1 & S2, no rubs, murmurs or gallops. Lungs: CTA b/l, no wheezes or crackles. Abdomen: Soft, non-tender, no rigidity. Extremities: left lower extr symmetrically bigger than right, but improving when compared with previous days. Neurological: Normal cognition Rest of the physical exam is non contributory - Assessment and Plan (1) CLL (chronic lymphocytic leukemia) Current Visit: Yes Status: Chronic (2) DVT prophylaxis Current Visit: Yes Status: Acute (3) Type 2 diabetes mellitus Current Visit: Yes Status: Chronic (4) Pneumonia Current Visit: No Status: Acute (5) Leg pain, medial Current Visit: Yes Status: Acute (6) Hyponatremia Current Visit: Yes Status: Acute (7) Sepsis Current Visit: Yes Status: Resolved (8) Bacteremia Current Visit: Yes Status: Acute (9) Acute superficial venous thrombosis of left lower extremity Current Visit: Yes Status: Acute (10) Intramuscular hematoma Current Visit: Yes Status: Acute - Summary of Assessment and Plan Summary of Assessment and Plan: 58 year old male who presents to the ER [facility] with complaints of left groin/pelvic pain with inability to bear weight or walk. Assessment: 1. Sepsis (resolved) 2. Bacteremia 3. CLL 4. Pneumonia 5. DM 6. Anemia 7. Acute superficial Venous thrombosis of the left lower ext 8. Hx of CVA 9. Groin pain (resolved) 10. VTE prophylaxis 11. Inder's esophagus 12. Severe reflux esophagitis 13. Duodenitis/gastritis 14. Hx of Seizures 15. Intramuscular hematoma 16. Hypokalemia 17. Focal collection within the left adductor muscle. Possible abscess. 18. Hypophosphatemia Plan: First set of blood culture 2 bottle: Pansensitive strep pneumonia Repeated blood culture: no growth to date s/p EGD and colonoscopy - On ceftriaxone 2gm/IV daily - H&H stable post 2 units of PRBCs transfused total. will continue to monitor and transfuse pre protocol - c/w PPIs BID and sucralfate and ferrous sulfate - Xarelto discontinue. due to intramuscular hematoma and anemia requiring multiple PRBCs transfusion. - Scheduled for IR guided aspiration of collection of adductor muscle. - c/w aspirin, statin - on trazodone 50mg/PO HS and keppra - blood sugar is well controlled, on lispro low dose sliding scale ac. levemir 5 units hs added - electrolyte replaced. - On keppra. - c/w buspirone and trazodone. Disposition: - Patient to remain in the hospital due intramuscular hematoma, possible abscess. scheduled for IR guided aspiration. - Time Spent with Patient Total time spent is greater than 50% in coordination of care (as documented) at patient's floor/unit and/or counseling patient: Greater than 35 minutes (40) Plan of Care Discussed with: patient (his sister and the nurse.) Internal Medicine: Result - Labs CBC & Chem 7: 11/25/18 04:08 11/25/18 04:08 Labs: Short CBC 11/25/18 Range/Units 04:08 WBC 8.0 (4.3-11.1) K/mcL Hgb 8.8 L D (12.9-16.9) g/dL Hct 25.9 L (37.5-50.1) % Plt Count 102 L (140-400) K/mcL Neutrophils # 5.0 (1.6-8.9) K/mcL BMP 11/25/18 04:08 Sodium 132 L Potassium 3.4 L Chloride 96 L Carbon Dioxide 27 BUN 9 Creatinine 0.40 L Glucose 130 H Calcium 7.5 L - ABG Interpretation ABG results: PT/INR, D-dimer PT 15.5 Seconds (9.4-12.1) H 11/15/18 16:06 Consult Discharge Plan - Plan Referrals: Liyah Lopez, PIPELINE GANG SUPERVISOR [Primary Care Provider] - (Appointment has been requested) (3) Type 2 diabetes mellitus Qualifiers: Diabetes mellitus care home insulin use: without care home use Diabetes mellitus complication status: without complication Qualified Code(s): E11.9 - Type 2 diabetes mellitus without complications (4) Pneumonia Qualifiers: Pneumonia type: due to unspecified organism Laterality: left Lung location: unspecified part of lung Qualified Code(s): J18.9 - Pneumonia, unspecified organism (5) Leg pain, medial Qualifiers: Laterality: left Qualified Code(s): M79.605 - Pain in left leg (7) Sepsis Qualifiers: Sepsis type: Streptococcus, unspecified Sepsis acute organ dysfunction status: without acute organ dysfunction Qualified Code(s): A40.9 - Streptococcal sepsis, unspecified
[2018-11-25] MEDS: Ascorbic Acid 500 MG TABLET PO SCH (12:13)
--- NOTE | 2018-11-25 14:56 | IR Procedure Note ---
Date of procedure: 11/25/18 Consent Obtained: Written consent Timeout: Correct patient and procedure verified, Correct site verified, Time out performed, Skin prep completed Local anesthetic: Lidocaine 1% Was there an producer assistant present: No Estimated blood loss (cc): 0 Complications: None; Tolerated procedure well Indications: Left thigh fluid collection Procedure Performed: U/S guided aspiration. Results/Findings (any specimens removed): No focal fluid collection, phlegmonous appearance. U/S guided aspiration phlegmonous area Post Procedure Treatment Plan: monitor on floor Specimen: to path
[2018-11-25] MEDS: Acetaminophen 325 MG TABLET PO PRN (20:54)
[2018-11-25] MEDS ORDERED: Insulin DETEMIR 100 UNIT/ML X5UNITS SQ SCH (21:00)
[2018-11-26 04:43] LABS: Basophils % 0.1 %; Eosinophils % 0.2 %; Hematocrit 27.2 % (37.5-50.1); Hemoglobin 8.8 g/dL (12.9-16.9); Immature Granulocytes % 1.5 % (0-4); Lymphocytes % 40.6 %; Mean Corpuscular HGB Conc 32.4 g/dL (31.6-35.5); Mean Corpuscular Volume 89.8 fL (83.0-100.0); Monocytes # 1.1 K/mcL (0.0-1.3); Monocytes % 11.2 %; Neutrophils # 4.6 K/mcL (1.6-8.9); Platelet Count 108 K/mcL (140-400); Red Blood Count 3.03 M/mcL (4.19-5.50); Red Cell Distribution Width 14.5 % (11.5-14.5); Segmented Neutrophils % 46.4 %; White Blood Count 9.9 K/mcL (4.3-11.1)
[2018-11-26 05:03] LABS: BUN/Creatinine Ratio 21 (6-26); Blood Urea Nitrogen 9 mg/dL (6-20); Calcium 8.1 mg/dL (8.6-10.3); Carbon Dioxide 31 mEq/L (23-29); Chloride 97 mEq/L (98-107); Glucose 119 mg/dL (70-105); Magnesium 1.7 mg/dL (1.6-2.6); Osmolality,Calculated 280 (280-300); Phosphorous 2.9 mg/dL (2.7-4.5); Potassium 3.7 mEq/L (3.5-5.1); Sodium 135 mEq/L (136-145); eGFR For African Americans > 60 (> 60); eGFR For Non-African Americans > 60 (> 60)
[2018-11-26 05:19] LABS: Platelet Estimate Slight Decrease (Normal)
[2018-11-26] MEDS: Insulin LISPRO 300 UNITS/3 ML VIAL SQ SCH ×2 (08:18→12:05)
[2018-11-26] MEDS: Folic Acid 1 MG TABLET PO SCH (08:26)
[2018-11-26] MEDS: cefTRIAXone 2,000 MG in 0.9 % Sodium Chloride Mini Bag 100 ML IVPB SCH (08:26)
[2018-11-26] MEDS: *HR* OxyCODONE/APAP 5/325 TABLET PO PRN ×2 (08:26→14:54)
[2018-11-26] MEDS: Aspirin Enteric Coated 81 MG Tablet PO SCH (08:26)
[2018-11-26] MEDS: Sucralfate 1 GM TABLET PO SCH ×2 (08:26→12:05)
[2018-11-26] MEDS: Gabapentin 300 MG CAPSULE PO SCH ×2 (08:26→13:52)
[2018-11-26] MEDS: levETIRAcetam 250 MG TABLET PO SCH (08:26)
--- NOTE | 2018-11-26 10:55 | Discharge Summary ---
Orders not resulted at time of discharge: Pending orders 11/21/18 13:38 Streptococcal pneumoniae urin antigen [S. Pneumoniae Antigen] [RM] Stat Date of Encounter: 11/26/18 Time of Encounter: 10:50 - Discharge Diagnosis (1) CLL (chronic lymphocytic leukemia) Priority: Secondary Status: Chronic (2) DVT prophylaxis Priority: Secondary Status: Acute (3) Type 2 diabetes mellitus Priority: Secondary Status: Chronic Qualifiers: Diabetes mellitus tank terminal gauger insulin use: without fci use Diabetes mellitus complication status: without complication Qualified Code(s): E11.9 - Type 2 diabetes mellitus without complications (4) Pneumonia Priority: Primary Status: Acute Qualifiers: Pneumonia type: due to unspecified organism Laterality: left Lung location: unspecified part of lung Qualified Code(s): J18.9 - Pneumonia, unspecified organism (5) Leg pain, medial Priority: Secondary Status: Acute Qualifiers: Laterality: left Qualified Code(s): M79.605 - Pain in left leg (6) Hyponatremia Priority: Secondary Status: Acute (7) Sepsis Priority: Primary Status: Resolved Qualifiers: Sepsis type: Streptococcus, unspecified Sepsis acute organ dysfunction status: without acute organ dysfunction Qualified Code(s): A40.9 - Streptococcal sepsis, unspecified (8) Bacteremia Priority: Primary Status: Acute (9) Acute superficial venous thrombosis of left lower extremity Priority: Primary Status: Acute (10) Intramuscular hematoma Priority: Primary Status: Acute Hospital course: Mr. Mcleod is a 58 year old male PMH of CLL, HTN, CVA, diabetes, HLD and seizures. Patient presented to the ED due to left groin/pelvic pain with inabili ty to bear weight or walk. Symptoms started 3 days ago and progressively worsened. CT/CT abd pelvis wo no iv no oral IMPRESSION: 1. No significant interval change compared to recent CT examination. 2. Redemonstration of retroperitoneal/bilateral periaortic lymphadenopathy. 3. Stable nonspecific perinephric stranding and fluid. 4. Stable chronic findings including bilateral nephrolithiasis. Due to concerns of possible fracture a Hip MRI was done: MR/MR hip LT wo con IMPRESSION: 1. Study significantly limited by patient motion artifact. 2. No acute osseous abnormality. 3. Significant edema in the soft tissues about the left hip including within the left adductor, gluteal, and proximal vastus musculature. Ortho was consulted and recommended Anti- inflammatories as needed for pain/swelling control. Due to persistent edema on the lower extr a Venous Duplex was done which showed: Left lesser saphenous vein demonstrates acute thrombosis. Started initially on a heparin drip, Hem&onc consulted and and recommended to start patient on Xarelto for 45 days. During this hospitalization patient developed a septic picture, became tachycardic, hypoxemic. Found to have left lower lobe pneumonia. Patient was started on broad spectrum IV antibiotics. Sputum culture: no growth. Blood culture: 2 bottles first set: cottrell-sensitive strep pneumonia. Repeat blood culture: no growth final report. Due to worsening edema of the left groin and drop in H&H. CT abd/pelvis was repeated: Diffuse edematous appearance and enlargement of the left adductor musculature with subcutaneous edema of the left hip and loss of the normal muscular striations suggesting intramuscular hemorrhage versus acute muscular strain versus acute myositis. 4 x 2.3 cm collection within the left adductor musculature that may represent an intramuscular hematoma versus intramuscular abscess. Hemorrhage extending into the left ileus psoas bursa with left ileus psoas complex bursitis. Findings are new since prior CT. Xareto was discontinued. MR of the growing was done which showed: Diffuse soft tissue changes with more focal collection within the left adductor musculature. Peripheral enhancement is suggestive of an abscess. Abnormal thickening within the distal sigmoid colon. Mass should be excluded. IR was consulted and patient underwent U/S guided aspiration: No focal fluid collection, phlegmonous appearance. U/S guided aspiration phlegmonous area. Patient was transfused 2 PRBCs during this admission, H&H has remained stable. GI was consulted and patient underwent: EGD severe reflux esophagitis, nany's esophagus, gastritis and duodenitis. Colonoscopy: preparation was poor. The distal rectum and anal verge normal. Due to concern of Abnormal thickening within the distal sigmoid colon on pelvic MR. It was recommended to the patient's family to follow up with GI as outpatient to have a repeat colonoscopy. Patient is hemodynamically stable to be discharged. Recommended to follow up with Hem&onc to discuss the possibility of resuming xarelto as outpatient. Patient will be discharged on oral antibiotics to complete 12 days of treatment from the first negative repeat blood culture. Patient needs a wheelchair for mobility limitation that significantly impairs the ability to participate in one or more mobility related activities of daily living (MRADLs). - Time Spent with Patient Total time spent providing and/or coordinating discharge services: Time spent: Greater than 30 minutes (45) - Discharge Medications Prescriptions: New Sucralfate [Carafate] 1 gm PO QIDAC 30 Days #90 tablet Docusate [Colace] 100 mg PO BID 30 Days #60 capsule Levofloxacin [Levaquin] 750 mg PO DAILY 7 Days #7 tablet Continued TraZODone 50 mg PO HS PRN PRN Reason: Sleep Atorvastatin Calcium [Lipitor] 80 mg PO HS Metformin [Glucophage] 850 mg PO BID Gabapentin [Neurontin] 600 mg PO TID Citalopram [CeleXA] 40 mg PO DAILY LevETIRAcetam [Keppra] 500 mg PO DAILY Aspirin [Adult Low Dose Aspirin EC] 81 mg PO DAILY Tamsulosin [Flomax] 0.8 mg PO DAILY Folic Acid 1 mg PO DAILY #30 tablet Ascorbic Acid [Vitamin C] 500 mg PO DAILY #30 tablet Ferrous Sulfate [Iron] 325 mg PO DAILY #30 tablet Omeprazole [PriLOSEC] 40 mg PO BID OxyCODONE/APAP 5/325 [Percocet 5/325 MG] 1 tab PO DAILY PRN 5 Days #10 tablet PRN Reason: Pain Home Medications: Aspirin [Adult Low Dose Aspirin EC] 81 mg PO DAILY 02/15/15 [History] Atorvastatin Calcium [Lipitor] 80 mg PO HS 02/15/15 [History] Citalopram [CeleXA] 40 mg PO DAILY 02/15/15 [History] Gabapentin [Neurontin] 600 mg PO TID 02/15/15 [History] LevETIRAcetam [Keppra] 500 mg PO DAILY 02/15/15 [History] Metformin [Glucophage] 850 mg PO BID 02/15/15 [History] TraZODone 50 mg PO HS PRN 02/15/15 [History] Tamsulosin [Flomax] 0.8 mg PO DAILY 08/02/15 [History] Folic Acid 1 mg PO DAILY #30 tablet 06/29/16 [Rx] Ascorbic Acid [Vitamin C] 500 mg PO DAILY #30 tablet 05/06/18 [Rx] Ferrous Sulfate [Iron] 325 mg PO DAILY #30 tablet 05/06/18 [Rx] Omeprazole [PriLOSEC] 40 mg PO BID 11/11/18 [History] Docusate [Colace] 100 mg PO BID 30 Days #60 capsule 11/26/18 [Rx] Levofloxacin [Levaquin] 750 mg PO DAILY 7 Days #7 tablet 11/26/18 [Rx] OxyCODONE/APAP 5/325 [Percocet 5/325 MG] 1 tab PO DAILY PRN 5 Days #10 tablet 11/26/18 [Rx] Sucralfate [Carafate] 1 gm PO QIDAC 30 Days #90 tablet 11/26/18 [Rx] Allergies/Adverse Reactions: Allergy/AdvReac Type Severity Reaction Status Date / Time Penicillins [PCN] Allergy Rash Verified 11/12/18 14:12 Date of admission: 11/14/18 17:02 Primary care physician: Liyah Lopez CNP Consults: 11/12/18 01:40 Consult to Oncology [CONS] Routine Consulting Provider: [facility] Reason for Consult: CLL; hip pain; unable ot bear weight Call Completed: No Consult to Orthopedic Surgery [CONS] Routine Consulting Provider: Orthoped[facility] Reason for Consult: CLL; hip pain; unable to bear weight Call Completed: No 11/12/18 10:27 Consult to Occupational Therapy [CONS] Routine Comment: Evaluate, develop and implement POC Reason for Consult: possible SNF placement Does patient have active BEDREST order?: No Is patient medically & hemodynamically stable?: Yes Patient assessed for mobility or mobilized this visit?: Yes Consult to Physical Therapy [CONS] Routine Comment: Evaluate, develop and implement POC Reason for Consult: possible SNF placement Does patient have active BEDREST order?: No Is patient medically & hemodynamically stable?: Yes Patient assessed for mobility or mobilized this visit?: Yes 11/14/18 14:10 Consult to Sharepoint Net Developer [CONS] Routine Reason for SW Consult: PT/OT RECOMMENDS SNF. PATIENT WOULD LIKE TO GO TO [facility] IN [place]. 11/21/18 07:55 Consult to Gastroenterology [CONS] Routine Consulting Provider: [facility] Reason for Consult: anemia work up Call Completed: No 11/21/18 09:07 Consult to Nurse Navigator [CONS] Routine Comment: pn 11/24/18 07:27 Consult to Interventional Radiology [CONS] Routine Consulting Provider: Radiology [facility] Reason for Consult: Patient with bacteremia. MR of pelvis: Peripheral enhancement is suggestive of an abscess. Call Completed: Yes - Constitutional Vitals: Temp Pulse Resp BP Pulse Ox 97.5 F L 78 18 115/73 99 11/26/18 07:24 11/26/18 07:24 11/26/18 07:24 11/26/18 07:24 11/26/18 07:24 General appearance: Present: cooperative, mild distress (to moderate), A&O X 3, pleasant, answers questions appropriately Exam: Vitals: Reviewed General: Alert and oriented x4. In no distress Cardiovascular: RRR, normal S1 & S2, no rubs, murmurs or gallops. Lungs: CTA b/l, no wheezes or crackles. Abdomen: Soft, non-tender, no rigidity. Extremities: left lower extr symmetrically bigger than right, but improving when compared with previous days. Neurological: Normal cognition Rest of the physical exam is non contributory - Patient Status Disposition: Home Health Service Condition: Good Functional capacity at discharge: uses cane/walker Overall status at discharge: patient is progressing back to baseline - Discharge Instructions Follow Up With: Nandini Metz CNP [Advanced Practice Nurse] - 12/05/18 11:00 am (Please follow up as schedule...) Dominic Henning MD [Partnered Physician] - (Web requested 11/26/2018) Liyah Lopez CNP [Primary Care Provider] - 12/02/18 11:15 am (Appointment has been requested) - Diet and Activity Activity: as per physical therapy Diet: diabetic diet
--- NOTE | 2018-11-26 11:14 | Physician Discharge Referral ---
Home Health/Hosp Referral Info Transfer to: Home Health - Diagnosis (1) CLL (chronic lymphocytic leukemia) Priority: Secondary Status: Chronic (2) DVT prophylaxis Priority: Secondary Status: Acute (3) Type 2 diabetes mellitus Priority: Secondary Status: Chronic (4) Pneumonia Priority: Primary Status: Acute (5) Leg pain, medial Priority: Secondary Status: Acute (6) Hyponatremia Priority: Secondary Status: Acute (7) Sepsis Priority: Primary Status: Resolved (8) Bacteremia Priority: Primary Status: Acute (9) Acute superficial venous thrombosis of left lower extremity Priority: Primary Status: Acute (10) Intramuscular hematoma Priority: Primary Status: Acute - Respiratory Orders Oxygen / L per min (2-3 litters) Smoking Cessation: Smoking cessation has been advised. For more information, call the [place] Quit Line at 5-340-TUIE-NOW. - Diet/Nutrition Diet/Nutrition Orders: Regular - Activity Activity Orders: Walker - Services Needed Following services are medically necessary services: Home Health Aide, Physical Therapy, Occupational Therapy, Med Social Work - Transfer Medications Prescriptions: Sucralfate [Carafate] 1 gm PO QIDAC 30 Days #90 tablet Docusate [Colace] 100 mg PO BID 30 Days #60 capsule Levofloxacin [Levaquin] 750 mg PO DAILY 7 Days #7 tablet OxyCODONE/APAP 5/325 [Percocet 5/325 MG] 1 tab PO DAILY PRN 5 Days #10 tablet PRN Reason: Pain Home Medications: Aspirin [Adult Low Dose Aspirin EC] 81 mg PO DAILY 02/15/15 [History] Atorvastatin Calcium [Lipitor] 80 mg PO HS 02/15/15 [History] Citalopram [CeleXA] 40 mg PO DAILY 02/15/15 [History] Gabapentin [Neurontin] 600 mg PO TID 02/15/15 [History] LevETIRAcetam [Keppra] 500 mg PO DAILY 02/15/15 [History] Metformin [Glucophage] 850 mg PO BID 02/15/15 [History] TraZODone 50 mg PO HS PRN 02/15/15 [History] Tamsulosin [Flomax] 0.8 mg PO DAILY 08/02/15 [History] Folic Acid 1 mg PO DAILY #30 tablet 06/29/16 [Rx] Ascorbic Acid [Vitamin C] 500 mg PO DAILY #30 tablet 05/06/18 [Rx] Ferrous Sulfate [Iron] 325 mg PO DAILY #30 tablet 05/06/18 [Rx] Omeprazole [PriLOSEC] 40 mg PO BID 11/11/18 [History] Docusate [Colace] 100 mg PO BID 30 Days #60 capsule 11/26/18 [Rx] Levofloxacin [Levaquin] 750 mg PO DAILY 7 Days #7 tablet 11/26/18 [Rx] OxyCODONE/APAP 5/325 [Percocet 5/325 MG] 1 tab PO DAILY PRN 5 Days #10 tablet 11/26/18 [Rx] Sucralfate [Carafate] 1 gm PO QIDAC 30 Days #90 tablet 11/26/18 [Rx] Allergies/Adverse Reactions: Allergy/AdvReac Type Severity Reaction Status Date / Time Penicillins [PCN] Allergy Rash Verified 11/12/18 14:12 Certification: Further, I certify that my clinical findings support that this patient is homebound (i.e. absences from home require considerable and taxing effort and are for medical reasons or restoration services or infrequently or short duration when for other reasons) because: Homebound Reason: Patient requires assistance of a person or device to safely leave home Attestation: My signature below is to certify that this patient is under my care and that I, or nurse practitioner, or a physician's ict sales assistant working with me, has a [id number]-[id number] encounter with this patient.
[2018-11-26 11:59] VITALS: BP 102/67
[2018-11-26] MEDS: Ascorbic Acid 500 MG TABLET PO SCH (12:05)
[2018-11-26] MEDS ORDERED: FLU Vac QV 19-20 (18YR+)/PF 0.5 ML SYRINGE IM ONE (13:36)
[2018-11-26] MEDS ORDERED: FLU Vac QV 19-20 (6Month+)/PF 0.5 ML SYRINGE IM ONE (13:45)
== END 2018-11-26 16:06 | disposition home health service (06) | DRG 197 ==
LOC: 3BNU 16:31 → EMEROOARM 16:31 → 3BNU 23:15 → SUATTDRO 11-14 17:02 → 2ANU 11-20 16:45
PROVIDERS: ADMIT Pediatrics; ATTEND Internal Medicine
PROC: ENDOEBX (2018-11-22 08:00)
PROC: IRDRAIN (2018-11-25 11:15)